=== PATIENT | female | born 1960 | race Caucasian/White ===

== ENCOUNTER 2017-12-14 02:24 | Outpatient (CLI) | payer MEDICAID, SELFPAY ==
--- NOTE | 2017-12-14 07:47 | DI.US_ITS ---
SYMPTOM/DIAGNOSIS; CIRRHOSIS OF LIVER, K74.06, SCREENING ABDOMEN ULTRASOUND: Routine examination was performed. Comparison ultrasound is 12/29/16. Comparison CT scan is 12/15/16. The aorta and IVC are unremarkable. The liver shows diffuse increased echogenicity consistent with fatty infiltration. There does appear to be a mildly lobulated contour of the liver suggesting hepatic cirrhosis. No hepatic mass is seen. There are mobile stones seen within the gallbladder. There also is gallbladder sludge. No gallbladder wall thickening or pericholecystic fluid is seen. The common duct again measures 1.3 cm. This is unchanged compared to 12/29/16. The pancreatic tail cannot be visualized. The remainder of the pancreas is unremarkable. The spleen is unremarkable. The kidneys are unremarkable except for a 1 cm. cyst in the upper pole of the left kidney. IMPRESSION: 1. Hepatic steatosis. Findings suggestive of hepatic cirrhosis. 2. Cholelithiasis. Stable 1.3 cm. common bile duct.
== END 2017-12-14 02:44 ==
PROVIDERS: PCP Family Medicine; Visit Provider Internal Medicine Gastroenterology
DX: K74.60 Unspecified cirrhosis of liver (principal); K76.0 Fatty (change of) liver, not elsewhere classified; K80.20 Calculus of gallbladder without cholecystitis without obstruction
CPT/HCPCS: 76700

== ENCOUNTER 2018-03-02 09:23 | Outpatient (REF) | payer MEDICAID, SELFPAY ==
[2018-03-03 17:18] LABS: Campylobacter PCR SEE COMMENTS; Salmonella PCR SEE COMMENTS; Shiga Toxin PCR SEE COMMENTS; Shigella/Enteroinvasive Ecoli SEE COMMENTS
== END 2018-03-02 09:43 ==
LOC: NCHCN 09:23
PROVIDERS: PCP Family Medicine; Visit Provider Family Medicine
DX: R14.0 Abdominal distension (gaseous) (principal); R19.7 Diarrhea, unspecified
CPT/HCPCS: 87505; 83630

== ENCOUNTER 2018-03-23 12:34 | Outpatient (REF) | payer MEDICAID, SELFPAY ==
[2018-03-23 21:36] LABS: ALT 35 U/L (12-78); AST 33 U/L (15-37); Albumin 3.6 g/dL (3.4-5.0); Alkaline Phosphatase 85 U/L (46-116); Anion Gap 6.7 mmol/L (3-11); BUN 7 mg/dL (7-18); Bilirubin, Total 0.3 mg/dL (0.2-1.0); C-Reactive Protein 0.99 mg/dL (0.0-0.3); CO2 32.3 mmol/L (21.0-32.0); CREATININE 0.82 mg/dL (0.55-1.02); Calcium 9.3 mg/dL (8.5-10.1); Chloride 101 mmol/L (98-107); Creatine Kinase 79 U/L (26-192); Glucose 136 mg/dL (70-100); Potassium 4.3 mmol/L (3.5-5.1); Sodium 140 mmol/L (136-145); Total Protein 7.3 g/dL (6.4-8.2)
[2018-03-23 21:53] LABS: HGB 12.9 g/dL (12.0-15.5); Mean Corp. HGB Concentration 33.1 g/dL (32.0-36.0); Mean Corpuscular Hemoglobin 29.5 pg (27.0-33.0); Mean Platelet Volume 10.9 fL (8.0-11.0); Platelet Count 180 x1000/uL (130-400); RBC 4.38 m/cumm (4.00-5.20); RBC Distribution Width 12.4 % (11.7-14.6); White Blood Cell Count 7.36 k/cumm (4.4-10.8)
[2018-03-23 22:36] LABS: ESR 26 MM/HR (0-30)
[2018-03-27 14:55] LABS: IgA 270 mg/dL (85-499); Interpretation SEE COMMENTS; Tissue Transglutaminase IgA <1.2 U/mL (<4.0)
== END 2018-03-23 12:54 ==
LOC: NCHCN 12:34
PROVIDERS: PCP Family Medicine; Visit Provider Family Medicine
DX: R14.0 Abdominal distension (gaseous) (principal); R19.7 Diarrhea, unspecified; M79.18 Myalgia, other site; E78.5 Hyperlipidemia, unspecified
CPT/HCPCS: 80053; 82550; 82784; 83516; 85027; 85652; 86140

== ENCOUNTER 2018-05-16 14:46 | Outpatient (REF) | payer MEDICAID, SELFPAY | END 2018-05-16 15:06 | LOC: NCHCN 14:46 | PROVIDERS: PCP Family Medicine; Visit Provider Family Medicine | DX: R32 Unspecified urinary incontinence (principal) | CPT/HCPCS: 87086 ==

== ENCOUNTER 2018-05-24 01:32 | Outpatient (CLI) | payer MEDICAID, SELFPAY ==
--- NOTE | 2018-05-24 10:00 | DIABASSESS_ITS ---
DESCRIPTION/ASSESSMENT: Reena Spann presents for diabetes self management with diabetes first seen 2010. She is here because her PCP wants her to start mealtime insulin correction and she is reluctant. Food - Reena eats well 3 meals a day of cereal milk, fruit or hot cereal or egg sandwich. Lunch is chicken or egg salad or soup. She sometimes skips lunch. Supper is meat, vegetable, starch. She occasionally gives in and has 1/2 pint ice cream or a snack cake in the evening. She has some barriers to preparing meals because her kitchen is so small. Physical Activity - likes to walk but not with this weather and street conditions. Medication - Lantus 20u AM and PM (medication list states 60u AM and PM); d/c Metformin. She has Rx for novolog correction starting with 1 unit for 150- 200mg/dl, etc. Monitoring -monitors 1-3 times a day. Fasting blood sugar 159-268; PM blood sugar 273-391mg/dl. Risks/Related health history - multiple co-morbidities self reported cirrhosis now stable; bladder prolapse, swelling from poor blood flow, now needing a stress test. States her BP is well controlled. Coping - Reports high stress with her mother dying, winter and difficulty getting around; dislikes her living situation and looking for place out of town away from needles and temptations and where she can have a garden. She reports good coping skills of deep breathing, visualization. INTERVENTION: DSME is provided in the following AADE 7 areas based on patients interest and assessment of needs: Food Guidelines - reviewed diabetes food guide focused on distribution of carbohydrate; lower glycemic choices. Physical Activity - she is encouraged to be active at home however she is on the 2nd floor and needs to be quiet, has breathing issues especially walking outside; she does do her stairs daily with groceries, laundry, etc. SHe is waiting for spring to get outside. Medication - interested in dosing insulin for meals but doesn't feel her scale would be that helpful. Monitoring - discussed CGM; she is not currently a candidate because she is not on multiple insulin dosing at this time. Discussed monitoring before meal and bedtime to get better feel for what is causing her hyperglycemia. Reena is engaged in the conversation and motivated to improve her diabetes management. ACTION PLAN: Reena will document her food, blood sugars 5 days and return Tuesday for assessment of results to look at Novolog dosing if needed. Consider Artur Crespo for vegetable access; food shelf on [address] Individual DSME/T __2__ units billed TIME IN: 1000 OUT: 1105 No DM group education series being offered at this time.
== END 2018-05-24 01:52 ==
PROVIDERS: PCP Family Medicine; Visit Provider Dietitian, Registered
DX: E11.9 Type 2 diabetes mellitus without complications (principal); Z79.4 Long term (current) use of insulin; Z71.3 Dietary counseling and surveillance
CPT/HCPCS: G0108

== ENCOUNTER 2018-05-27 00:06 | Outpatient (CLI) | payer MEDICAID, SELFPAY ==
[2018-05-27 11:23] LABS: Uric Acid 5.1 mg/dL (2.6-6.0)
== END 2018-05-27 00:26 ==
PROVIDERS: PCP Family Medicine; Visit Provider Family Medicine
DX: M79.676 Pain in unspecified toe(s) (principal)
CPT/HCPCS: 36415; 84550

== ENCOUNTER 2018-06-01 13:40 | Outpatient (CLI) | payer MEDICAID, SELFPAY ==
--- NOTE | 2018-06-07 09:20 | DIABASSESS_ITS ---
DESCRIPTION/ASSESSMENT: Darío presents for diabetes self management follow- up. SHe brings in a one week record of her blood sugar and food. Blood sugars fasting 98-270mg/dl; pre-supper 166-370mg/dl. She is eating cereal, milk, banana and sugar, or 1 egg, toast, juice. Lunch and supper are 45-75 grams carbohydrate most meals. She has something sweet most days. She records few vegetables. INTERVENTION: Based on Sadie's interests and assessment of need, we discussed: Food: We made lists of alternative meal suggestions to decrease carbohydrate intake. Discussed adding protein with carbohydrate at every meal. Medication: Discussed adding the Novolog correction dose as prescribed. Explained this was just to correct high blood sugar, not to cover carbohydrate. explained action of medication. Reviewed administration timing. Monitoring: She can have blood sugar correction overnight. She agrees to monitor her blood sugars in the night at least twice to see what might cause hyperglycemia. Discussed continuous glucose monitor coverage since she is not currently taking mealtime insulin consistently. Informed her that when she is taking mealtime insulin and adjusting for each meal, and her blood sugars are highly variable, she may be eligible for coverage for CGM. ACTION PLAN: Sadie will take insulin correction at the time she sits down to her meal add protein and vegetables to meals test blood sugar when she gets up in the night at least twice We will be in touch early next week to review her results. Individual DSME/T __1__ units billed TIME IN: 1000 OUT: 1040 No DM group education series being offered at this time.
== END 2018-06-01 14:00 ==
PROVIDERS: PCP Family Medicine; Visit Provider Dietitian, Registered
DX: E11.9 Type 2 diabetes mellitus without complications (principal); Z79.4 Long term (current) use of insulin; Z71.3 Dietary counseling and surveillance
CPT/HCPCS: G0108

== ENCOUNTER 2018-06-08 12:25 | Outpatient (REF) | payer MEDICAID, SELFPAY ==
--- NOTE | 2018-06-08 10:00 | PAPFT_PTH ---
PATIENT: Sadie Spann LOC: [facility] U#:[id number] AGE/SX: 57/F ROOM: RE06/08/[address]: Miguelina Sosa MD : [id number] BED: DIS: 06/08/2018 SPEC #: [id number] RECD: 06/08/18 13:13 STATUS: KAROLINA REQ #: [id number] CRISELDA: 06/08/18 10:[address]: Miguelina Sosa DEPT: [facility] Cytology RECD BY: Rachel Mejía ENTERED: 06/08/18 13:13 SP TYPE: PAPFT OTHR DR: Minda Velasco V Tissues: 1 - CX/ENDOCX FOR PAP SMEARS Procedures: PAP THIN PREP/UVM Screening HPV DNA PROBE Comments: [id number]
== END 2018-06-08 12:45 ==
LOC: LBN 12:25
PROVIDERS: PCP Family Medicine; Visit Provider Obstetrics & Gynecology
DX: Z12.4 Encounter for screening for malignant neoplasm of cervix (principal); Z11.51 Encounter for screening for human papillomavirus (HPV)
CPT/HCPCS: 88142; 87624

== ENCOUNTER 2018-06-14 02:18 | Outpatient (CLI) | payer MEDICAID, SELFPAY ==
--- NOTE | 2018-06-14 10:30 | DIABASSESS_ITS ---
DESCRIPTION/ASSESSMENT: Sadie presents for diabetes self management follow up with her food/blood sugar log to follow up initiation of Novolog. She is taking 1 unit for food and sensitive insulin correction initiated at her PCP office at breakfast and supper. She takes 20u Lantus at night. Fasting blood sugar 128-225 with most less than 160mg/dl; pre-supper 226- 321mg/dl. She is eating varying amounts of carbohydrate at each meal from 1-4 at breakfast; 2-4 at lunch; 1-2 at supper. INTERVENTION: Discussed her blood sugar results. Knowing it increases as the day progresses is an indication she needs and intensification of insulin for carbohydrate. Suggest 1 unit for each serving. Reviewed carbohydrate identification and counting and she voices some confidence in doing this. SHe agrees that taking more insulin with meals is warranted. She is also willing to test at lunch and dose at that time. She also knows if she does not test her blood sugar, she can always dose Novolog to cover her carbohydrate. She will take insulin if she needs correction and/or if she has more than 1 carbohydrate serving at the meal. She will not take insulin if her need is only 1 unit. Discussed impact of more insulin during the day on her basal insulin needs. At this time her basal insulin is likely correcting her blood sugar overnight. She agrees to test her blood sugar before bed and and decrease her Lantus to 18 units if blood sugar is less than 160mg/dl. Sadie is actively engaged in improving her A1c which she reports was at 10 yesterday. ACTION PLAN: Take 1 unit for each carbohydrate serving plus sensitive insulin correction using her scale Take 20 units Lantus unless bedtime blood sugar is less than 160mg/dl. We will follow up by telephone Tuesday. Individual DSME/T __1__ units billed TIME IN: 1030 OUT: 1115 No DM group education series being offered at this time.
== END 2018-06-14 02:38 ==
PROVIDERS: PCP Family Medicine; Visit Provider Dietitian, Registered
DX: E11.9 Type 2 diabetes mellitus without complications (principal); Z79.4 Long term (current) use of insulin; Z71.3 Dietary counseling and surveillance
CPT/HCPCS: G0108

== ENCOUNTER 2018-06-22 01:06 | Outpatient (CLI) | payer MEDICAID, SELFPAY ==
--- NOTE | 2018-06-22 11:37 | DI.MAMMO_ITS ---
SYMPTOMS/DIAGNOSIS: SCREENING, Z12.31, [facility], Z00.00 MAMMOGRAM: Mammograms were interpreted according to the usual protocol including computer analysis with CAD system, tomosynthesis and C view imaging. The breast tissue is of moderate radiodensity. There is no mass. There are no suspicious calcifications and there has been no significant interval change when compared with the prior images. SUMMARY: No evidence of malignancy, Category I, yearly screening mammography is recommended. Breast density Category B. SA ASSESSMENT OF FINDINGS: Negative. Category 1. Patient will receive a letter notifying them of these results. BI-RADS category B. There are scattered areas of fibroglandular density.
== END 2018-06-22 01:26 ==
PROVIDERS: PCP Family Medicine; Visit Provider Obstetrics & Gynecology
DX: Z12.31 Encounter for screening mammogram for malignant neoplasm of breast (principal); Z00.00 Encounter for general adult medical examination without abnormal findings
CPT/HCPCS: 77063; 77067

== ENCOUNTER 2018-06-22 01:49 | Outpatient (CLI) | payer MEDICAID, SELFPAY ==
--- NOTE | 2018-06-27 12:03 | DIABASSESS_ITS ---
DESCRIPTION:? Sadie Spann presents for diabetes self management follow-up. She presents with her blood sugar/insulin/food log.? She takes 20u Lantus in addition to mealtime insulin at 1 unit per carb serving and her correction scale of 1 unit corrects 50mg/dl beginning at 150mg/dl. Fasting blood sugars 135-169 and bedtime blood sugars 126-281, 4/5 over 207mg/dl. She does not consistently take her mealtime blood sugars before she eats but takes them after she eats.At that time blood sugar 249-315.?? ASSESSMENT/INTERVENTION: Reviewed carbohydrate counting and she is doing very well counting carbs and dosing her insulin for carbohydrate.?? Given her high blood sugars in evening, suggest increase in correction insulin starting at 140mg/dl increasing 1 unit every 40mg.dl in addition to her insulin for carbohydrate at 1 unit covers 15 grams. Discussed monitoring blood sugars before meals and dosing insulin at that time. ?? PLAN: She wishes to use her new insulin scale and document so blood sugars and insulin dosing is clearer on the tracking sheet. She will follow-up by telephone and return as needed Individual DSME/T __1__ units billed TIME IN: 1030 OUT: 1115 No DM group education series being offered at this time.
== END 2018-06-22 02:09 ==
PROVIDERS: PCP Family Medicine; Visit Provider Dietitian, Registered
DX: E11.9 Type 2 diabetes mellitus without complications (principal); Z79.4 Long term (current) use of insulin; Z71.3 Dietary counseling and surveillance
CPT/HCPCS: G0108

== ENCOUNTER 2018-06-26 06:05 | Emergency (ER) | payer MEDICAID, SELFPAY ==
[2018-06-26 06:10] VITALS: BP 110/77; PULSE 91; RESP 16; TEMP 37; O2SAT 98
[2018-06-26 06:31] LABS: Bilirubin Negative (Negative); Blood Large (Negative); Clarity Cloudy; Glucose Negative (Negative); Ketones 15 mg/dL (Negative); Leukocyte Esterase Moderate (Negative); Nitrite Positive (Negative); Specific Gravity 1.025 (1.005-1.025); Urobilinogen 0.2 EU/dL (Up TO 0.2)
[2018-06-26 06:41] LABS: C & S Indicated? Yes
[2018-06-26 06:42] LABS: WBC >50 HPF (0-5)
--- NOTE | 2018-06-26 06:50 | ED.GENADUL_ITS ---
Discharge Plan Disposition Patient Disposition: HOME Condition: Good Discharge Details Chief Complaint: Urinary Clinical Impression: Acute UTI Primary Care Provider: Minda Velasco V ED Provider: Fan Woodall Home Meds and New Rx's Prescriptions: New sulfamethoxazole-trimethoprim [Bactrim DS] 800-160 mg tablet 1 tab PO BID 7 Days Qty: 14 RF: 0 ondansetron HCl [Zofran] 4 mg tablet 4 mg PO BID-TID PRN (Reason: nausea and vomiting) Qty: 4 RF: 0 No Action ranitidine HCl [Zantac] 150 mg tablet 150 mg PO DAILY RF: 0 Lantus Solostar U-100 Insulin 100 unit/mL (3 mL) insulin pen 25 unit SC HS RF: 0 methadone 10 MG tablet 90 mg PO DAILY RF: 0 gabapentin 400 MG capsule 400 mg PO DAILY RF: 0 aspirin [Aspir-81] 81 MG tablet,delayed release (DR/EC) 81 mg PO DAILY RF: 0 magnesium oxide 400 MG tablet 400 mg PO DAILY RF: 0 docusate sodium [Doc-Q-Lace] 100 MG capsule 100 mg PO DAILY RF: 0 methadone 5 MG/5 ML solution 127 mg PO DAILY RF: 0 calcium carbonate-vitamin D3 [Calcium 500 + D] 1 EACH tablet 1 ea PO DAILY RF: 0 ferrous sulfate 324 MG tablet,delayed release (DR/EC) 324 mg PO TID RF: 0 omega-3 fatty acids-fish oil 1 EACH capsule 1 ea PO DAILY RF: 0 Apidra SoloStar U-100 Insulin 100 UNIT/1 ML insulin pen 14 unit SQ DAILY RF: 0 estradiol [Estrace] 42.5 GM cream 1 g VG 2x/wk Qty: 1 RF: 3 B Complex 1 EACH tablet extended release 1 ea PO DAILY RF: 0 simvastatin 10 MG tablet 10 mg PO DAILY RF: 0 pantoprazole [Protonix] 40 MG tablet,delayed release (DR/EC) 40 mg PO DAILY RF: 0 albuterol sulfate 8.5 GM HFA aerosol inhaler 2 puff Inhalation Q4H PRN RF: 0 cyclobenzaprine 10 MG tablet 10 mg PO HS Qty: 30 RF: 6 Discharge Instructions Instructions: Urinary Tract Infection in Women (ED) Additional Instructions: Please take the antibiotic as directed. Please take the Zofran only as needed for nausea. If you notice any worsening of your symptoms, or any new symptoms such as vomiting, diarrhea, fever, chills, shortness of breath, chest pain, numbness, weakness, or fainting , please return immediately to the emergency department for reevaluation. Please follow up with your primary care provider as soon as possible for reassessment and reevaluation. As always, it was a pleasure participating in your medical care today. Referrals: Midna Velasco MD [Primary Care Provider] - Medical Decision Making This is a 57-year-old female who presents today for evaluation of dysuria, increased urinary frequency for the last 2 weeks. She has been to her PCP and [facility] and states that she was told that her previous urinalyses were negative for infection. She presents for the continued symptoms. She denies any fever. She did have some mild vomiting earlier but this is improved and she has been eating and drinking well now. Urinalysis is notably positive for urinary tract infection. We will give Bactrim, and a dose of Zofran for control of her mild nausea. I have extensively reviewed the treatment plan and discharge instructions with the patient. I have addressed all patient concerns at this time. The patient was made aware of what symptoms to monitor for that would warrant a return to the emergency department. Discussed the plan with the patient, they demonstrate verbal understanding and agreement with our assessment and plan at this time. HPI General Date/Time Provider Initiated Documentation: 06/26/18 06:07 . [facility] Narrative: This is a 57-year-old female with a past medical history of chronic back pain, methadone use, who presents today for burning and increased urinary frequency over the last 1-2 weeks. She denies any fever or chills. She did have a few episodes of vomiting earlier but this is improved. She did see her PCP and [facility], both times she states that she was told that her urinalysis was negative. She presents today for the same symptoms. She denies any hematuria, history of kidney stones, fever, chills, abdominal pain or severe flank pain. She has no other complaints or modifying factors. Related Data Home Medications Medication Instructions Recorded Confirmed aspirin [Aspir 81] 81 mg PO DAILY tab-cap 04/10/13 06/26/18 calcium carbonate-vitamin D3 1 ea PO DAILY 04/10/13 06/26/18 [Calcium 500 + D Tablet] docusate sodium [Doc-Q-Lace] 100 mg PO DAILY tab-cap 04/10/13 06/26/18 estradiol [Estrace] 1 g VG 2x/wk #1 tube 04/10/13 06/26/18 ferrous sulfate 324 mg PO TID 04/10/13 06/26/18 gabapentin 400 mg PO DAILY 04/10/13 06/26/18 insulin glulisine U-100 [Apidra 14 unit SQ DAILY 04/10/13 06/26/18 Solostar] magnesium oxide 400 mg PO DAILY 04/10/13 06/26/18 methadone 90 mg PO DAILY 04/10/13 06/26/18 methadone 127 mg PO DAILY 04/10/13 06/26/18 omega-3 fatty acids-fish oil 1 ea PO DAILY 04/10/13 06/26/18 albuterol sulfate 2 puff INHALATION Q4H PRN inhaler 11/05/14 06/26/18 pantoprazole [Protonix] 40 mg PO DAILY tab-cap 11/05/14 06/26/18 simvastatin 10 mg PO DAILY tab-cap 11/05/14 06/26/18 vitamin B complex [B Complex] 1 ea PO DAILY 11/05/14 06/26/18 cyclobenzaprine 10 mg PO HS #30 tab-cap 12/26/14 06/26/18 insulin glargine (U-100) 100 25 unit SC HS ml 05/17/18 06/26/18 unit/mL (3 mL) subcutaneous pen ranitidine 150 mg tablet 150 mg PO DAILY 06/08/18 06/26/18 ondansetron HCl [Zofran] 4 mg PO BID-TID PRN #4 tab 06/26/18 sulfamethoxazole-trimethoprim 1 tab PO BID 7 Days #14 tab 06/26/18 [Bactrim DS] Previous Rx's Medication Instructions Recorded ondansetron HCl [Zofran] 4 mg PO BID-TID PRN #4 tab 06/26/18 sulfamethoxazole-trimethoprim 1 tab PO BID 7 Days #14 tab 06/26/18 [Bactrim DS] Allergies Allergy/AdvReac Type Severity Reaction Status Date / Time fluoxetine [From Prozac] Allergy Severe Verified 06/26/18 06:16 lisinopril Allergy Intermediate Verified 06/26/18 06:16 alprazolam [From Xanax] Allergy Unknown Unverified 06/26/18 06:16 amitriptyline HCl Allergy Unknown Unverified 06/26/18 06:16 [From Elavil] Antihistamines - Alkylamine Allergy Unknown ANTIHISTAMINE Unverified 06/26/18 06:16 ALLERGIC TO UNSPECIFIED buspirone HCl [From BuSpar] Allergy Unknown Unverified 06/26/18 06:16 butorphanol tartrate Allergy Unknown Unverified 06/26/18 06:16 [From Stadol] cyclobenzaprine HCl Allergy Unknown Unverified 06/26/18 06:16 [From Flexeril] diazepam [From Valium] Allergy Unknown Unverified 06/26/18 06:16 ibuprofen [From Motrin] Allergy Unknown Unverified 06/26/18 06:16 nabumetone [From Relafen] Allergy Unknown Unverified 06/26/18 06:16 oxaprozin [From Daypro] Allergy Unknown Unverified 06/26/18 06:16 oxazepam [From Serax] Allergy Unknown Unverified 06/26/18 06:16 paroxetine HCl [From Paxil] Allergy Unknown Unverified 06/26/18 06:16 phenytoin sodium Allergy Unknown Unverified 06/26/18 06:16 [From Dilantin] phenytoin sodium extended Allergy Unknown Unverified 06/26/18 06:16 [From Dilantin] sertraline HCl [From Zoloft] Allergy Unknown Unverified 06/26/18 06:16 tramadol HCl [From Ultram] Allergy Unknown Unverified 06/26/18 06:16 nortriptyline HCl Allergy Unverified 06/26/18 06:16 [From Pamelor] General Stated Complaint: Urinary NICOLE: 3 Review of Systems Review of Systems All systems reviewed & are unremarkable except as noted in HPI and below PFSH Medical History Abdominal bloating (Acute) Cervicalgia (Acute) Chest pain (Acute) Cirrhosis (Acute) Controlled diabetes mellitus type II without complication (Acute) Diarrhea (Acute) Edema (Acute) Fatigue (Acute) HSV (herpes simplex virus) infection (Acute) Heroin abuse (Acute) Herpes, genital (Acute) History of syncope (Acute) Hyperlipemia (Acute) Kidney cyst, acquired (Acute) Low back pain (Acute) Lung nodule (Acute) Memory loss (Acute) Myalgia (Acute) Portal hypertensive gastropathy (Acute) Rectal bleed (Acute) Skin lesion (Acute) Smoker (Acute) Thickened endometrium (Acute) Urinary bladder incontinence (Acute) Uterine fibroid (Acute) Vascular disease of the skin (Acute) Anxiety (Chronic) COPD (chronic obstructive pulmonary disease) (Chronic) Chronic hepatitis C without hepatic coma (Chronic) Chronic pain (Chronic) Social History Smoking/Tobacco Use Status: Current every day Alcohol Intake: never Drug use: Never Substance use type: does not use Do you feel safe at home: Yes Do you feel safe in your relationship?: Yes Exam Narrative Exam Narrative: 1.Const: Well-nourished, Well-developed, appearing stated age 2.Eyes: PERRL, no conjunctival injection, and symmetrical lids. 3.ENT: Atraumatic external nose and ears. Moist MM. Neck: Symmetric, trachea m idline, No thyromegaly. 4.CVS: +S1/S2, No murmurs or gallops. Peripheral pulses 2+ and equal in all extremities. Brisk capillary refill in all extremities. 5.RESP: Unlabored respiratory effort. Clear to auscultation bilaterally. No wheezes rales or rhonchi 6.GI: Soft, Nontender/Nondistended, No hepatosplenomegaly. No guarding or rebound. No significant flank or CVA tenderness. Mild left paraspinal tenderness no midline spinal tenderness. 7.MSK: Normocephalic/Atraumatic, Extremities w/o deformity or ttp No cyanosis or clubbing, Normal movement of all extremities 8.Skin: Warm, Dry. No rashes or lesions. 9.Neuro: shift manager II-XII grossly intact. Sensation grossly intact, no focal neurologic deficits. 10.Psych: (AAO) x3. Appropriate mood and affect Course Vital Signs Temperature 37.0 C 06/26/18 06:10 Pulse 91 H 06/26/18 06:10 Respiratory Rate 16 06/26/18 06:10 Blood Pressure 110/77 06/26/18 06:10 Pulse Oximetry 98 06/26/18 06:10 Temperature 37.0 C 06/26/18 06:10 Temperature Source Temporal Artery Scan 06/26/18 06:10 Pulse 91 H 06/26/18 06:10 Respiratory Rate 16 06/26/18 06:10 Respiratory Effort Non-Labored 06/26/18 06:14 Blood Pressure 110/77 06/26/18 06:10 Blood Pressure Position Sitting 06/26/18 06:10 Pulse Oximetry 98 06/26/18 06:10 Oxygen Delivery Method Room Air 06/26/18 06:10 Oxygen Flow Rate 0 06/26/18 06:10 Pain Level 4 06/26/18 06:14 Lab/Test Results Lab/Test Results: 06/26/18 06:22 Urine - Reflex from Ua Urine Culture - Pending Laboratory Tests Range/Units 06/26/18 06:22 Urine Color (Yellow) Yellow Urine Clarity Cloudy Urine pH (5-8) 6.0 Ur Specific [place] (1.005-1.025) 1.025 Urine Protein (Negative) mg/dL 100 H Urine Ketones (Negative) mg/dL 15 H Urine Blood (Negative) Large H Urine Nitrite (Negative) Positive H Urine Bilirubin (Negative) Negative Urine Urobilinogen (Up TO 0.2) EU/dL 0.2 Ur Leukocyte Esterase (Negative) Moderate H Urine RBC Not Applicable Urine WBC (0-5) HPF >50 Ur Epithelial Cells Not Applicable Urine Crystals Not Applicable Urine Bacteria Not Applicable Urine Mucus Not Applicable Ur Culture Indicated? Yes Urine Glucose (Negative) mg/dL Negative
[2018-06-26] MEDS: Ondansetron O.D.T. 4 MG TABEF PO (07:01)
[2018-06-26 07:02] VITALS: BP 110/77; PULSE 91; RESP 16; TEMP 37; O2SAT 98
[2018-06-26] MEDS: Sulfameth/Trimeth DS TAB 1 TAB PO (07:02)
== END 2018-06-26 07:03 | disposition home or self-care (01) ==
PROVIDERS: Emergency Provider Student in an Organized Health Care Education/Training Program; PCP Family Medicine
DX: N39.0 Urinary tract infection, site not specified (principal)
CPT/HCPCS: 87077; 99283; 81003; 81015; 87086; 87186

== ENCOUNTER 2018-11-28 11:26 | Outpatient (REF) | payer MEDICAID, SELFPAY ==
[2018-11-28 22:22] LABS: HCT 39.8 % (36.0-46.0); HGB 12.7 g/dL (12.0-15.5); Mean Corp. HGB Concentration 31.9 g/dL (32.0-36.0); Mean Corpuscular Hemoglobin 29.1 pg (27.0-33.0); Mean Corpuscular Volume 91.1 fL (80-95); Mean Platelet Volume 11.1 fL (8.0-11.0); Platelet Count 199 x1000/uL (130-400); RBC 4.37 m/cumm (4.00-5.20); RBC Distribution Width 12.5 % (11.7-14.6); White Blood Cell Count 6.81 k/cumm (4.4-10.8)
[2018-11-28 23:51] LABS: ALT 24 U/L (14-59); AST 20 U/L (15-37); Albumin 3.7 g/dL (3.4-5.0); Alkaline Phosphatase 89 U/L (46-116); Anion Gap 9.3 mmol/L (3-11); BUN 11 mg/dL (7-18); Bilirubin, Total 0.3 mg/dL (0.2-1.0); CO2 28.7 mmol/L (21.0-32.0); CREATININE 0.92 mg/dL (0.55-1.02); Calcium 8.8 mg/dL (8.5-10.1); Chloride 101 mmol/L (98-107); Glucose 269 mg/dL (70-100); Magnesium 2.1 mg/dL (1.8-2.4); Potassium 4.6 mmol/L (3.5-5.1); Sodium 139 mmol/L (136-145); TSH (W/Ref FT4) 1.12 uIU/mL (0.36-3.74); Total Protein 7.3 g/dL (6.4-8.2); Vitamin B12 542 pg/mL (193-986)
[2018-11-30 13:11] LABS: HCV RNA Detection Quantitative Undetected IU/mL (UNDECT)
[2018-12-01 08:11] LABS: AFP Tumor Marker <2.5 ng/mL (<8.1)
== END 2018-11-28 11:46 ==
LOC: NCHCN 11:26
PROVIDERS: PCP Family Medicine; Visit Provider Family Medicine
DX: R53.83 Other fatigue (principal); B18.2 Chronic viral hepatitis C; G89.29 Other chronic pain; J44.9 Chronic obstructive pulmonary disease, unspecified; G62.9 Polyneuropathy, unspecified
CPT/HCPCS: 80053; 85027; 82105; 82607; 83735; 84443; 87522

== ENCOUNTER 2020-02-12 13:37 | Outpatient (REF) | payer MEDICAID, SELFPAY ==
[2020-02-17 15:02] LABS: Patient Race White; SARS-CoV-2 RNA Undetected (Undetected); SARS-CoV-2 Specimen Source Nasal
== END 2020-02-12 13:57 ==
LOC: NCHCN 13:37
PROVIDERS: PCP Family Medicine; Visit Provider Family Medicine
DX: R19.7 Diarrhea, unspecified (principal)
CPT/HCPCS: U0003

== ENCOUNTER 2020-06-12 15:38 | Outpatient (REF) | payer MEDICAID, SELFPAY ==
[2020-06-12 18:40] LABS: HCT 39.5 % (36.0-46.0); HGB 12.8 g/dL (11.2-15.7); MCH 29.6 pg (27.0-33.0); MCHC 32.4 % (32.0-36.0); MCV 91.2 fL (80-95); MPV 10.7 fL (8.0-11.0); Platelet Count 197 10^3/uL (130-400); RBC 4.33 10^6/uL (3.93-5.22); RDW 12.1 % (11.7-14.6); RDW-SD 40.8 fL; WBC 8.07 10^3/uL (4.4-10.8)
[2020-06-12 18:59] LABS: ALT 26 U/L (14-59); AST 20 U/L (15-37); Albumin 3.9 g/dL (3.4-5.0); Alkaline Phosphatase 88 U/L (46-116); Anion Gap 5.1 mmol/L (3-11); BUN 13 mg/dL (7-18); Bilirubin, Total 0.3 mg/dL (0.2-1.0); C-Reactive Protein 0.48 mg/dL (0.0-0.3); CO2 33.9 mmol/L (21.0-32.0); CREATININE 0.9 mg/dL (0.55-1.02); Calcium 9.1 mg/dL (8.5-10.1); Chloride 102 mmol/L (98-107); Glucose 165 mg/dL (74-106); Sodium 141 mmol/L (136-145); TSH (W/Ref FT4) 1.13 uIU/mL (0.36-3.74); Total Protein 7.7 g/dL (6.4-8.2)
[2020-06-13 02:56] LABS: ESR 24 mm/hr (<or=30)
== END 2020-06-12 15:39 | disposition home or self-care (01) ==
LOC: NCHCN 15:38
PROVIDERS: PCP Family Medicine; Visit Provider Family Medicine
DX: R53.83 Other fatigue (principal); R51.9 Headache, unspecified; M79.18 Myalgia, other site
CPT/HCPCS: 80053; 85027; 85652; 84443; 86140

== ENCOUNTER 2020-12-23 19:37 | Outpatient (REF) | payer MEDICAID, SELFPAY | END 2020-12-23 19:38 | disposition home or self-care (01) | LOC: NCHCN 19:37 | PROVIDERS: PCP Family Medicine; Referring Provider Family Medicine; Visit Provider Family Medicine | DX: R30.0 Dysuria (principal); N81.4 Uterovaginal prolapse, unspecified | CPT/HCPCS: 87077; 87086; 87186 ==

== ENCOUNTER 2021-03-17 13:29 | Outpatient (REF) | payer MEDICAID, SELFPAY | END 2021-03-17 13:30 | disposition home or self-care (01) | LOC: NCHCN 13:29 | PROVIDERS: PCP Family Medicine; Visit Provider Family Medicine | DX: R30.0 Dysuria (principal) | CPT/HCPCS: 87086 ==

== ENCOUNTER 2021-04-14 14:27 | Outpatient (REF) | payer MEDICAID, SELFPAY ==
[2021-04-14 16:15] LABS: C & S Indicated? C&S Done As Ordered
[2021-04-14 16:17] LABS: Bacteria Negative HPF (Negative); Casts Negative LPF (Negative); Crystals Negative HPF (Negative); Epithelial Cells Rare HPF (Negative); Mucus Negative (Negative); Other Cells Negative (Negative); RBC 0-2 HPF (0-2); WBC 0-2 HPF (0-5)
== END 2021-04-14 14:28 | disposition home or self-care (01) ==
LOC: NCHCN 14:27
PROVIDERS: PCP Family Medicine; Visit Provider Family Medicine
DX: N39.9 Disorder of urinary system, unspecified (principal); R30.0 Dysuria
CPT/HCPCS: 81015; 87086

== ENCOUNTER 2021-06-09 16:26 | Outpatient (REF) | payer MEDICAID, SELFPAY ==
[2021-06-09 19:58] LABS: ALT 15 U/L (14-59); AST 18 U/L (15-37); Albumin 3.9 g/dL (3.4-5.0); Alkaline Phosphatase 66 U/L (46-116); Anion Gap 7.7 mmol/L (3-11); BUN 19 mg/dL (7-18); Bilirubin, Total 0.3 mg/dL (0.2-1.0); CO2 30.3 mmol/L (21.0-32.0); CREATININE 0.9 mg/dL (0.55-1.02); Calcium 8.9 mg/dL (8.5-10.1); Chloride 100 mmol/L (98-107); Glucose 208 mg/dL (74-106); Potassium 4.2 mmol/L (3.5-5.1); Sodium 138 mmol/L (136-145); TSH (W/Ref FT4) 0.75 uIU/mL (0.36-3.74); Total Protein 7.2 g/dL (6.4-8.2)
== END 2021-06-09 16:27 | disposition home or self-care (01) ==
LOC: NCHCN 16:26
PROVIDERS: PCP Family Medicine; Visit Provider Family Medicine
DX: E11.9 Type 2 diabetes mellitus without complications (principal)
CPT/HCPCS: 80053; 84443

== ENCOUNTER 2021-06-16 00:26 | Outpatient (CLI) | payer MEDICAID, SELFPAY ==
--- NOTE | 2021-06-16 10:10 | DI.RAD_ITS ---
Exam(s) XR LUMBAR SPINE COMPLETE EXAM: XR LUMBAR SPINE COMPLETE CLINICAL HISTORY: ACUTE LOW BACK PAIN, M54.59. TECHNIQUE: 2D digital imaging was performed. COMPARISON: No exams were available for comparison FINDINGS: Moderate to severe narrowing at the L4-5 and L5-S1 disc spaces. Asymmetric disc space narrowing on t he right with endplate osteophytes causing mild levo rotoscoliosis. Facet degenerative changes are p resent, most prominent on the left side from L3-4 through L5-S1. Spurring is also noted at the sacro iliac joints. The hip joint spaces are well maintained. Aorta is calcified and normal in diameter. IMPRESSION: Degenerative disc changes and facet degenerative changes greatest at L4-5 and L5-S1. No evidence of fracture. DATA REPOSITORY: RADIATION DOSE DELIVERED:
== END 2021-06-16 00:46 ==
PROVIDERS: PCP Family Medicine; Visit Provider Family Medicine
DX: M54.59 Other low back pain (principal); M51.37 Other intervertebral disc degeneration, lumbosacral region; M47.817 Spondylosis without myelopathy or radiculopathy, lumbosacral region
CPT/HCPCS: 72110

== ENCOUNTER 2021-08-06 21:03 | Outpatient (REF) | payer MEDICAID, SELFPAY | END 2021-08-06 21:04 | disposition home or self-care (01) | LOC: NCHCN 21:03 | PROVIDERS: PCP Family Medicine; Visit Provider Family Medicine | DX: N39.9 Disorder of urinary system, unspecified (principal); N89.8 Other specified noninflammatory disorders of vagina | CPT/HCPCS: 87086; 87480; 87510; 87660 ==

== ENCOUNTER → 2021-08-07 01:29 | Outpatient (CLI) | payer MEDICAID, SELFPAY | PROVIDERS: PCP Family Medicine; Visit Provider Family Medicine ==

== ENCOUNTER → 2021-10-02 07:30 | Outpatient (CLI) | payer MEDICAID, SELFPAY ==
--- OUTSIDE RECORDS SUMMARY | 2021-10-02 07:44 | XMS_ITS | Clinical Summary ---
:1960 Author Organization [facility] Address [address] [place] [address] Care Team Providers Name Role Phone Minda Velasco MD Primary Care Provider Argelia Miranda MD Unavailable Allergies Active Allergy Reactions Severity Noted Date Comments Diphenhydramine Hcl 11/30/2017 Buspirone 11/30/2017 Butorphanol 11/30/2017 Oxaprozin 11/30/2017 Phenytoin Sodium Extended 11/30/2017 Elavil 11/30/2017 Cyclobenzaprine 11/30/2017 Lisinopril 11/30/2017 Ibuprofen 11/30/2017 Nortriptyline 11/30/2017 Paroxetine Hcl 11/30/2017 Fluoxetine 11/30/2017 Nabumetone 11/30/2017 Tramadol 11/30/2017 Diazepam 11/30/2017 Alprazolam 11/30/2017 Sertraline 11/30/2017 Medications Medication Sig Dispensed Refills Start Date End Date Status gabapentin (NEURONTIN) Take 400 mg by 0 Active 400 mg capsule mouth daily. insulin glargine Inject 18 mL into 0 Active (LANTUS) 100 unit/mL the skin at injection bedtime. docusate sodium Take 100 mg by 0 Active (DOC-Q-LACE) 100 mg mouth daily as capsule needed for Constipation. methadone (DOLOPHINE) Take 135 mg by 0 Active 10 mg/mL solution mouth daily. Fish Oil-Emerado-3 Fatty Take 100 mg by 0 Active Acids (FISH OIL) mouth daily. 360-1,200 mg Cap VITAMIN B COMPLEX (B Take 1 Tab by 0 Active COMPLEX 1 ORAL) mouth daily. levalbuterol (XOPENEX Inhale 1-2 Puffs 0 Active HFA) 45 mcg/Actuation as directed as inhaler needed for Wheezing. oxycodone (ROXICODONE) Take 10 mg by 0 Active 5 mg immediate release mouth every 6 tablet hours as needed. ferrous sulfate 325 mg Take 325 mg by 0 Active (65 mg iron) tablet mouth 3 times daily. metformin (GLUCOPHAGE) Take 500 mg by 0 Active 500 mg tablet mouth 2 times daily. methadone (DOLOPHINE) Take 90 mg by mouth daily . 0 Active 10 mg tablet magnesium oxide Take 400 mg by 0 Active (MAG-OX) 400 mg tablet mouth daily. CALCIUM CARBONATE Take by mouth 0 Active (OS-MARCIANO ORAL) daily. lisinopril (PRINIVIL, Take 2.5 mg by 0 Active ZESTRIL) 2.5 mg tablet mouth daily pantoprazole Take 40 mg by 0 Act wes (PROTONIX) 40 mg mouth daily tablet simvastatin (ZOCOR) 10 Take 10 mg by 0 Active mg tablet mouth daily aspirin 81 mg EC Take 81 mg by 0 Active tablet mouth daily nicotine (NICODERM CQ) Place 14 mg onto 0 Active 14 mg/24 hr patch the skin daily. MEDICAL MARIJUANA 0 Ac tive Sennosides (SENNA) 8.6 Take by mouth 0 Active mg capsule daily. estradiol (ESTRACE) Place vaginally 0 Active 0.01 % (0.1 mg/gram) daily. vaginal cream albuterol 90 Inhale 180 mcg as 0 Active mcg/actuation inhaler directed every 4 hours. calcium-vitamin D Take by mouth 0 Active (OSCAL-500) 500 daily. 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 Pain of lower extremity 04/14/2009 Overview: Left Right elbow pain 06/22/2007 Overview: Status post hyperextension injury Surgical History Surgery Date Site/Laterality Comments NECK SURGERY 1994 Medical History Medical History Date Comments Asthma 1989 Substance abuse (HCC-CMS) (HCC) 2001 Anxiety 1989 Diabetes mellitus ([facility]) 2005 GERD (gastroesophageal reflux disease) 2007 Spinal stenosis Hypertension Hyperlipidemia Arrhythmia Family History Medical History Relation Name Comments Crohn's Disease Brother Heart Disease Father High Blood Pressure Father Cancer Mother Diabetes Sister Liver Disease Son Mental Illness Son Relation Name Status Comments Brother Father Mother Alive Sister Son Son Social History Tobacco Use Types Packs/Day Years Used Date Current Every Day Smoker Cigarettes 1 30 Smokeless Tobacco: Never Used Alcohol Use Standard Drinks/Week Comments No 0 (1 standard drink = 0.6 oz pure alcoho l) Sex Assigned at Date Recorded Not on file Last Filed Vital Signs Vital Sign Reading Time Taken Comments Blood Pressure 144/78 11/30/2017 1501 EDT Pulse 72 11/30/2017 1501 EDT Temperature 35.9 ??C (96.6 ??F) 12/18/2012 1028 EDT Respiratory Rate 16 12/18/2012 1150 EDT Oxygen Saturation 98% 12/29/2011 0930 EDT Inhaled Oxygen Concentration - - Weight 68 kg (150 lb) 11/30/2017 1501 EDT Height 165.1 cm (5' 5) 11/30/2017 1501 EDT Body Mass Index 24.96 11/30/2017 1501 EDT Plan of Treatment Health Maintenance Due Date Last Done Comments Pneumococcal Immunization (1 of 2 - 1964 PPSV23) COVID-19 Vaccine (1) 1970 Hepatitis C Screen Completed 06/26/2014, 11/07/2013, 07/04/2013 Insurance Payer Benefit Plan Subscriber ID Effective Phone Address Typ e / Group Dates MEDICAID ACO MEDICAID ACO [id number] 2019-Pres [phone] [address] [place] [address] [facility] [id number] [address] [place] [address] Sadie Spann Personal/Family Self 1960 [address] [place] [address] Sadie Spann Personal/Family Self 1960 [address] [place] [address] Sadie Spann Personal/Family Self 1960 [address] [place] [address] Sadie Spann Personal/Family Self [address] [place] [address] Sadie Spann Personal/Family Self [address] [place] [address] Sadie Spann Personal/Family Self [address] [place] [address] Sadie Spann Personal/Family Self 1960 [address] [place] [address] Care Teams Bolt Sorter Relationship Specialty Start Date End Date Minda Velasco MD PCP - General 04/10/[address] [place] [id number] Argelia Miranda MD Primary Care Provider Orthopaedic Surgery 07/13/12
--- OUTSIDE RECORDS SUMMARY | 2021-10-02 07:44 | XMS_ITS | Encounter Summary ---
:1960 Author Organization [facility] Address [address] [place] [address] Care Team Providers Name Role Phone Minda Velasco MD Primary Care Provider Argelia Miranda MD Unavailable Encounter Details Date Type Department Care Team Description 12/02/2020 Lab Requisition [facility] Rip Dawn MD Rectocele; Pathology & [address] [facility] Uterovagina l prolapse, unspecified; Laboratory Medicine RD Cystocele, [place], [place] [address] [facility] [id number] [place] [id number] (Work) [phone] Social History Tobacco Use Types Packs/Day Years Used Date Current Every Day Smoker Cigarettes 1 30 Smokeless Tobacco: Never Used Alcohol Use Standard Drinks/Week Comments No 0 (1 standard drink = 0.6 oz pure alcoho l) Sex Assigned at Date Recorded Not on file documented as of this encounter Functional Status Functional Status Response Date of Assessment Because of a physical, mental, or emotional condition, Yes 01/01/2015 does this person have difficulty doing errands alone such as visiting a doctor's office or shopping? Cognitive Status Response Date of Assessment Because of a physical, mental, or emotional condition, Yes 01/01/2015 does this person have serious difficulty concentrating, remembering, or making decisions? documented as of this encounter Plan of Treatment Not on filedocumented as of this encounter Procedures Procedure Name Priority Date/Time Associated Diagnosis Comme [facility] SURGICAL PATHOLOGY Today 12/02/2020 8:10 EDT Rectocele Results for this Uterovaginal procedure are i n prolapse, the results unspecified section. Cystocele, midline documented in this encounter Results SURGICAL PATHOLOGY (12/02/2020 8:10 EDT) Note to Patient The following [facility] MEDICAL pathology results CENTER have been interpreted LABORATORY by your pathologist SERVICES and may be available to you before your health provider has had the opportunity to review them. Please allow time for your provider to receive these results and explore management options, if applicable. Final Diagnosis A. UTERUS AND CERVIX, HYSTERECTOMY: [facility] MEDICAL - Endometrium: CENTER - Inactive endometrium LABORATORY - Myometrium: SERVICES - Adenomyosis - Medial vascular calcifications - Cervix: - Squamous metaplasia with parakeratosis, suggestive of uterine prolapse - Serosa: - Fibrous adhesions Attestation There was significant [facility] MEDICAL Electr onically resident/fellow CENTER signed by Eliot lyles, involvement in the LABORATORY Dio Huggins MD on diagnostic evaluation SERVICES 12/06/19 21 at 0935 of this case. By the signature below, the attending physician certifies that they have personally conducted a gross and/or microscopic examination of the described specimens and rendered or confirmed the above diagnosis. Clinical History Rectocele, uterine [facility] MEDICAL prolapse, cystocele; CENTER clinical diagnosis LABORATORY code: N81.6, N81.4, SERVICES N81.11 Gross Description A. [facility] MEDICAL Received in formalin timmy d with proper patient identification (initials H, E) and uterus is an intact uterus and cervix (40 g, 7.6 cm cervix to fundus x 3.8 cm cornu to cornu x 2.4 cm anterior to posterior), without attached adnexa. CENTER LABORATORY The uterine serosa is tapia an d smooth. The endometrium is pale tapia with visible microcysts and has a thickness of 0.1 cm. The myometrium is pale tapia and finely trabecular in the half below the endometriu SERVICES m. The myometrium along the serosa is microcystic. The myometrium ranges from 0.9 cm to 1.3 cm in thickness. There are no nodules identified. The ectocervix is pale tapia and smooth, and the endocervix is pale tapia furrowed. Neurophysiologist sections are submitted as follows: BLOCK ALLRED A1-A2- anterior cervix and lower uterine segment A3-A4- anterior endomyometrium A5-A6- posterior cervix and lower uterine segment A7- posterior endomyometrium Margy Govea MD 12/03/2020 13:32 Resident/Fellow: Margy Govea MD [facility] Performing Lab [facility] Scanned Images [facility] Specimen Tissue - Specimen from uterus (specimen) Performing Organization Address City/State/ZIP Code Phon e Number [facility] [address] [place] [address] SERVICES documented in this encounter Visit Diagnoses Diagnosis Rectocele Uterovaginal prolapse, unspecified Cystocele, midline documented in this encounter Care Teams Orientation And Mobility Instructor Relationship Specialty Start Date End Date Minda Velasco MD PCP - General 04/10/09 [address] [place] [address] Argelia Miranda MD Primary Care Provider Orthopaedic Surgery 07/13/12 documented as of this encounter
--- OUTSIDE RECORDS SUMMARY | 2021-10-02 07:45 | XMS_ITS | Encounter Summary ---
:1960 Author Organization [facility] Address [address] [place] [address] Care Team Providers Name Role Phone Minda Velasco MD Primary Care Provider Argelia Miranda MD Unavailable Reason for Visit Reason Comments Other Encounter Details Date Type Department Care Team Description 09/27/2013 [facility] Jerald Alvarenga MD Other Gastroenterology - [id number] [place] [address], [place] [address] (Wo rk) Social History Tobacco Use Types Packs/Day Years Used Date Current Every Day Smoker 0.5 Smokeless Tobacco: Never Used Alcohol Use Standard Drinks/Week Comments No 0 (1 standard drink = 0.6 oz pure alcoho l) Sex Assigned at Date Recorded Not on file documented as of this encounter Plan of Treatment Not on filedocumented as of this encounter Visit Diagnoses Not on filedocumented in this encounter Care Teams Emg Technician Relationship Specialty Start Date End Date Minda Velasco MD PCP - General 04/10/09 [address] [place], [place] [id number] Argelia Miranda MD Primary Care Provider Orthopaedic Surgery 07/13/12 documented as of this encounter
--- OUTSIDE RECORDS SUMMARY | 2021-10-02 07:45 | XMS_ITS | Encounter Summary ---
:1960 Author Organization [facility] Address [address] [place] [address] Care Team Providers Name Role Phone Minda Velasco MD Primary Care Provider Argelia Miranda MD Unavailable Encounter Details Date Type Department Care Team Description 08/30/2012 Orders Only [facility] Argelia Miranda MD Abnormal MRI (Primary Spine Program - [address] Dx) [facility] [place] [facility] [address] [place] [address] [address] [place], [place] [phone] (Wo rk) Social History Tobacco Use Types Packs/Day Years Used Date Current Every Day Smoker 1 Smokeless Tobacco: Never Used Alcohol Use Standard Drinks/Week Comments No 0 (1 standard drink = 0.6 oz pure alcoho l) Sex Assigned at Date Recorded Not on file documented as of this encounter Plan of Treatment Not on filedocumented as of this encounter Procedures Procedure Name Priority Date/Time Associated Diagnosis Comme nts CT LUMBAR SPINE WO 09/08/2012 8:28 EDT Re sults for this CONTRAST procedure are i n the results section. documented in this encounter Results CT LUMBAR SPINE WO CONTRAST (09/08/2012 8:28 EDT) Anatomical Region Laterality Modality Other Specimen Narrative [facility] - 09/08/2012 11:[address] LUMBAR SPINE WITHOUT CONTRAST September 08, 2012 Indication: Abnormal MRI. Comparison: August 30, 2012 Technique: Axial noncontrast CT images of the lumba r spine were obtained with coronal and sagittal reformations. Findings: Lumbar levoscoliotic curvature is again demonstrated convex at L3. There is lateral slip of L4 on L5. No an tero- or retrolisthesis is demonstrated. Vertebral body heights are preserved. There is disc space narrowing at L4-L5 and L5-S1. Disc ogenic endplate change and vacuum disc phenomenon is also noted at the L5-S1 level. Facet hypertrophy is present at L4-L5 and L5-S 1. T11-T12: No high-grade central spinal or neuroforaminal stenosis is noted. T12-L1: No high-grade central spinal or neuroforaminal stenosis is noted. L1-L2: No high-grade central spinal or n euroforaminal stenosis is noted. L2-L3: No high-grade central spinal or n euroforaminal stenosis is noted. L3-L4: No high-grade central spinal or n euroforaminal stenosis is noted. L4-L5: There is global disc bulge which in combination with hypertrophy of the facet joints and thic kening of the ligamentum flavum produces moderate central spinal and bilateral lateral recess stenosis. There is mild to moderate bila teral neuroforaminal stenosis. L5-S1: There is global disc bulge with a left foraminal and lateral disc herniation. This in combination wit h facet hypertrophy and ligamentum flavum produces left greater than right neuroforaminal narrowing. There is moderate to severe l eft neuroforaminal stenosis. No fracture, lytic or sclerotic lesion i s appreciated within the L4 spinous process or the pedicles of L4 an d L5 on the right. There is a lipoma of the filum terminale demonstrated. Atherosclerotic calcification is present in the abdominal aorta and major branch vessels. Impression: 1. Lumbar levoscoliosis. 2. Lateral listhesis of L4 on L5. 3. Lumbar degenerative disc and degenera tive joint disease. 4. Left foraminal and lateral disc herni ation at L5-S1. 5. Central spinal and bilateral lateral recess stenosis at L4-L5 and bilateral lateral recess stenosis at L5- S1. 6. Bilateral neuroforaminal stenosis at L4-L5 and L5-S1. 7. No fracture, lytic or sclerotic lesio n appreciated within the L4 spinous process or the right L4 and L5 p edicles. The abnormal signal within the spinous process on recent MRI is of uncertain significance. I suspect the pedicle katelin a is related to severe facet degeneration at these levels. 8. Lipoma of the filum terminale. 9. Atherosclerosis. Procedure Note 09/08/2012 CT LUMBAR SPINE WITHOUT CONTRAST September 08, 2012 Indication: Abnormal MRI. Comparison: August 30, 2012 Technique: Axial noncontrast CT images of the lumba r spine were obtained with coronal and sagittal reformations. Findings: Lumbar levoscoliotic curvature is again demonstrated convex at L3. There is lateral slip of L4 on L5. No an tero- or retrolisthesis is demonstrated. Vertebral body heights are preserved. There is disc space narrowing at L4-L5 and L5-S1. Disc ogenic endplate change and vacuum disc phenomenon is also noted at the L5-S1 level. Facet hypertrophy is present at L4-L5 and L5-S 1. T11-T12: No high-grade central spinal or neuroforaminal stenosis is noted. T12-L1: No high-grade central spinal or neuroforaminal stenosis is noted. L1-L2: No high-grade central spinal or n euroforaminal stenosis is noted. L2-L3: No high-grade central spinal or n euroforaminal stenosis is noted. L3-L4: No high-grade central spinal or n euroforaminal stenosis is noted. L4-L5: There is global disc bulge which in combination with hypertrophy of the facet joints and thic kening of the ligamentum flavum produces moderate central spinal and bilateral lateral recess stenosis. There is mild to moderate bila teral neuroforaminal stenosis. L5-S1: There is global disc bulge with a left foraminal and lateral disc herniation. This in combination wit h facet hypertrophy and ligamentum flavum produces left greater than right neuroforaminal narrowing. There is moderate to severe l eft neuroforaminal stenosis. No fracture, lytic or sclerotic lesion i s appreciated within the L4 spinous process or the pedicles of L4 an d L5 on the right. There is a lipoma of the filum terminale demonstrated. Atherosclerotic calcification is present in the abdominal aorta and major branch vessels. Impression: 1. Lumbar levoscoliosis. 2. Lateral listhesis of L4 on L5. 3. Lumbar degenerative disc and degenera tive joint disease. 4. Left foraminal and lateral disc herni ation at L5-S1. 5. Central spinal and bilateral lateral recess stenosis at L4-L5 and bilateral lateral recess stenosis at L5- S1. 6. Bilateral neuroforaminal stenosis at L4-L5 and L5-S1. 7. No fracture, lytic or sclerotic lesio n appreciated within the L4 spinous process or the right L4 and L5 p edicles. The abnormal signal within the spinous process on recent MRI is of uncertain significance. I suspect the pedicle katelin a is related to severe facet degeneration at these levels. 8. Lipoma of the filum terminale. 9. Atherosclerosis. Performing Organization Address City/State/ZIP Code Phon e Number [facility] documented in this encounter Visit Diagnoses Diagnosis Abnormal MRI - Primary Other nonspecific (abnormal) findings on radiological and other examinations of body structure documented in this encounter Care Teams Network Cable Installer Relationship Specialty Start Date End Date Minda Velasco MD PCP - General 04/10/[address] [place] [id number] Argelia Miranda MD Primary Care Provider Orthopaedic Surgery 07/13/12 documented as of this encounter
--- OUTSIDE RECORDS SUMMARY | 2021-10-02 07:45 | XMS_ITS | Encounter Summary ---
:1960 Author Organization [facility] Address [address] [place] [address] Care Team Providers Name Role Phone Minda Velasco MD Primary Care Provider Argelia Miranda MD Unavailable Reason for Visit Reason Onset Date Comments Results 11/14/2013 Encounter Details Date Type Department Care Team Description 11/14/2013 Telephone [facility] Gastroenterology Ruth Hamilton, RN Results - [facility] [address] [place], [place] [id number] Social History Tobacco Use Types Packs/Day Years Used Date Current Every Day Smoker 0.5 Smokeless Tobacco: Never Used Alcohol Use Standard Drinks/Week Comments No 0 (1 standard drink = 0.6 oz pure alcoho l) Sex Assigned at Date Recorded Not on file documented as of this encounter Miscellaneous Notes Telephone Encounter - Ruth Hamilton RN - 11/14/2013 1436 EDT Patient is aware that the HCV RNA(from 11/07/13) is undetected. She will follow up in February 2014. Patient verbalized understanding. documented in this encounter Plan of Treatment Not on filedocumented as of this encounter Visit Diagnoses Not on filedocumented in this encounter Care Teams Microbiology Analyst Relationship Specialty Start Date End Date Minda Velasco MD PCP - General 04/10/[address] [place] [id number] Argelia Miranda MD Primary Care Provider Orthopaedic Surgery 07/13/12 documented as of this encounter
--- OUTSIDE RECORDS SUMMARY | 2021-10-02 07:45 | XMS_ITS | Encounter Summary ---
:[address] [facility] Address [address] [place] [address] Care Team Providers Name Role Phone Minda Velasco MD Primary Care Provider Argelia Miranda MD Unavailable Reason for Referral Radiology Services (Routine/Next Available) - Closed Specialty Diagnoses / Procedures Referred By Contact Refer red To Contact Diagnoses Chronic hepatitis C with cirrhosis (H[facility]) (HCC) Yaya Alvarenga MD Procedures RAD US ABDOMEN ONE ORGAN/QUADRANT [address] [phone] Referral ID Status Reason Start Date Expiration Date Visits Requ ested Visits Authorized [id number] Closed 01/02/2013 1 1 Reason for Visit Reason Comments Cirrhosis follow-up Hepatitis C Encounter Details Date Type Department Care Team Description 01/02/2013 Office Visit [facility] Jania Alvarenga h epatitis C Gastroenterology - Main MD Yaya with cirrhosis [facility] [address] [place] (CMS-HCC) (Primary [address] [facility] Dx) [place] [address] [place] [phone] [facility] [address] [place] [address] Social History Tobacco Use Types Packs/Day Years Used Date Current Every Day Smoker 1 Smokeless Tobacco: Never Used Alcohol Use Standard Drinks/Week Comments No 0 (1 standard drink = 0.6 oz pure alcoho l) Sex Assigned at Date Recorded Not on file documented as of this encounter Last Filed Vital Signs Vital Sign Reading Time Taken Comments Blood Pressure 134/76 01/02/2013 1418 EDT Pulse 72 01/02/2013 1418 EDT Temperature - - Respiratory Rate - - Oxygen Saturation - - Inhaled Oxygen Concentration - - Weight 66.7 kg (147 lb) 01/02/2013 1418 EDT Height 165.1 cm (5' 5) 01/02/2013 1418 EDT Body Mass Index 24.46 01/02/2013 1418 EDT documented in this encounter Discharge Disposition Disposition Code Departure Means Destination Auto Discharge documented in this encounter Progress Notes Yaya Alvarenga MD - 01/02/2013 1432 EDT Subjective: Patient ID: Sadie Spann is an 52 y.o. female. Chief Complaint Patient presents with ??? Cirrhosis follow-up ??? Hepatitis C HPI Mrs Spann is here in followup for management of chronic hepatitis C infection, genotype 2B with presumed cirrhosis. 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 She has been well compensated and specificallydenies any decompensating events such as jaundice, GI bleeding, change in mental status, or the development of fluid such as ascites. She has no specific complaints at the present time. She has been having chronic pain issues in her back but went for injections at the pain clinic about a week or so ago and has had an excellent response to that thus far. Patient Active Problem List Diagnoses ??? Pain of lower extremity ??? Right elbow pain ??? Scoliosis ??? Low back pain radiating to left leg ??? Lumbar spondylolysis ??? Spondylolisthesis, grade 1 ??? Lumbar disc herniation with radiculopathy Past Medical History Diagnosis Date ??? Asthma 1989 ??? Substance abuse 2001 ??? Anxiety 1989 ??? Diabetes mellitus 2006 ??? GERD (gastroesophageal reflux disease) 2007 ??? Spinal stenosis Past Surgical History Procedure Date ??? Neck surgery 1994 Family History Problem Relation Age of Onset ??? Cancer Mother ??? Heart Disease Father ??? High Blood Pressure Father ??? Diabetes Sister ??? Crohn's Disease Brother ??? Liver Disease Son ??? Mental Illness Son Social History Substance Use Topics ??? Smoking status: Current Everyday Smoker -- 1.0 packs/day ??? Smokeless tobacco: Never Used ??? Alcohol Use: No Current Outpatient Prescriptions on File Prior to Visit Medication Sig Dispense Refill ??? magnesium oxide (MAG-OX) 400 mg tablet Take 400 mg by mouth daily. ??? ascorbic acid (VITAMIN C) 500 mg tablet Take 500 mg by mouth daily. ??? CALCIUM CARBONATE (OS-MARCIANO ORAL) Take by mouth daily. ??? Cod Liver Oil Oil Take 415 mg by mouth daily. ??? omeprazole (PRILOSEC) 20 mg capsule Take 40 mg by mouth daily. ??? methadone (DOLOPHINE) 10 mg tablet Take 90 mg by mouth daily. ??? oxycodone (ROXICODONE) 5 mg immediate release tablet Take 10 mg by mouth every 6 hours as needed. ??? ferrous sulfate 325 mg (65 mg iron) tablet Take 325 mg by mouth 3 times daily. ??? metformin (GLUCOPHAGE) 500 mg tablet Take 500 mg by mouth 2 times daily. ??? multivitamin (NEPHROVITE) 0.8 mg Tab Take 1 Tab by mouth daily. ??? clonazepam (KLONOPIN) 0.5 mg tablet Take 0.5 mg by mouth at bedtime. 1-2 ??? gabapentin (NEURONTIN) 400 mg capsule Take 400 mg by mouth daily. ??? insulin glargine (LANTUS) 100 unit/mL injection Inject 18 mL into the skin at bedtime. ??? docusate sodium (DOC-Q-LACE) 100 mg capsule Take 100 mg by mouth daily as needed for Constipation. ??? methadone (DOLOPHINE) 10 mg/mL solution Take 135 mg by mouth daily. ??? Cholecalciferol, Vitamin D3, 400 unit Tab Take 400 Units by mouth daily. ??? Fish Oil-[place]-3 Fatty Acids (FISH OIL) 360-1,200 mg Cap Take 100 mg by mouth daily. ??? VITAMIN B COMPLEX (B COMPLEX 1 ORAL) Take 1 Tab by mouth daily. ??? levalbuterol (XOPENEX HFA) 45 mcg/Actuation inhaler Inhale 1-2 Puffs as directed as needed for Wheezing. No Known Allergies ROS - See HPI A 10-point review of systems was noted to be negative or unremarkable and is otherwise stated in thehistory of present illness. Objective: BP 134/76 Pulse 72 Ht 165.1 cm (65) Wt 66.679 kg (147 lb) BMI 24.46 kg/m2 Physical Exam On physical exam, she is generally well appearing and in no acute distress. She is alert and oriented. Her weight and vitals are as noted above. Her HEENT exam was unremarkable. There is no scleral icterus. Neck was supple without any palpable lymphadenopathy. Heart was regular rate and rhythm withoutany murmurs, rubs or gallops. Lungs are clear to auscultation bilaterally. Her abdomen was soft, nontender, nondistended, bowel sounds were positive, no appreciable hepatosplenomegaly or masses were noted. She had no inguinal adenopathy. Her extremities revealed no pitting edema. Assessment: IMPRESSION: Patient with chronic hepatitis C infection, genotype 2B with what appears to be well compensated cirrhosis who thus far has deferred any treatment with interferon-based therapies. She has remained stable. We did talk again about the fact that the FDA will be reviewing data on non-interferon based regimens, specifically for her genotype, probably by the end of this month. Hopefully, these medications will be approved and we might be able to begin therapy for her the next time we see her in the liver clinic in 6 months' time. She is very agreeable to starting these therapies should they become available. Plan: PLAN: 1. Will obtain routine blood work today including complex metabolic profile, INR, CBC, and alpha-fetoprotein level. 2. Will schedule her for a screening ultrasound of the liver, which she will have done locally at [facility]. 3. Will follow up with her in the liver clinic in 6 months' time. Hopefully, non-interferon based therapies for genotype 2 disease will be available, as mentioned above. This was all discussed in detail with the patient who is in agreement. Sadie was seen today for cirrhosis and hepatitis c. Diagnoses and associated orders for this visit: Chronic hepatitis c with cirrhosis - Comprehensive Metabolic Panel (CMP); Future - Protime; Future - Hemagram; Future - AFP Tumor Marker; Future - RAD US ABDOMEN ONE ORGAN/QUADRANT Yaya Alvarenga MD documented in this encounter Plan of Treatment Scheduled Orders Name Type Priority Associated Diagnoses Order S chedule RAD US ABDOMEN ONE Imaging Routine Chronic hepatitis C wi th Ordered: 01/02/2013 ORGAN/QUADRANT cirrhosis (CMS-HCC) documented as of this encounter Results AFP TUMOR MARKER (01/02/2013 14:42 EDT) [facility] AFP-Tumor Marker <2.5 <9 ng/ml MASSIEL GONZALEZ Comment: LAB Reference value is less than 9 in 98.9% of healthy sub jects. AFP tumor marker cannot be interpreted in fem ales. Serum AFP concentration should not be interpreted as absolute evidence for the presence or absence of malignant disease. Assayed utilizing [employer]it chemiluminescent technology. ??Values obtained by using different assay methods cannot be used interchangeably. Specimen Blood specimen (specimen) Performing Organization Address [facility] Phon e Number [facility] [address] [place] [address] SERVICES [facility] [address] [place] [address] HEMAGRAM (01/02/2013 14:42 EDT) [facility] WBC 7.92 4.0 - 12.4 K/cmm [facility] RBC 4.57 3.86 - 5.04 M/cmm [facility] Hemoglobin 13.8 11.6 - 15.2 gm/dl [facility] HCT 41.3 34.9 - 44.4 % [facility] MCV 90 81 - 98 fl [facility] MCH 30.1 26.7 - 33.3 pg [facility] MCHC 33.4 32.1 - 35.9 gm/dl [facility] PLT 168 141 - 320 K/cmm [facility] RDW-CV 12.6 11.7 - 14.6 % [facility] Specimen Blood specimen (specimen) Performing Organization Address [facility] Phon e Number [facility] [address] [place] [address] [facility] [address] [place] [address] PROTIME (01/02/2013 14:42 EDT) Pro Time 11.4 9.5 - 13.1 [facility] secs I.N.R. 1.0 0.9 - 1.1 [facility] Comment: Ratio Moderate Intensity Coumadin INR = 2.0-3.0 Adjustments in anticoagulant therapy dose should be based upon the INR and NOT the Pro Time. Specimen Blood specimen (specimen) Performing Organization Address [facility] Phon e Number [facility] [address] [place] [address] [facility] [address] [place] [address] (ABNORMAL) COMPREHENSIVE METABOLIC PANEL (CMP) (01/02/2013 14:42 EDT) [facility] nature Potassium 4.3 3.5 - 5.0 mEq/L [facility] Sodium 140 136 - 145 mEq/L [facility] Chloride 99 96 - 110 mEq/L [facility] CO2 30 24 - 32 mEq/L [facility] Total Alkaline 89 38 - 126 U/L [facility] Phosphatase Bilirubin, Total <0.5 0.2 - 1.3 mg/dl [facility] AST 31 15 - 46 U/L [facility] ALT 37 9 - 52 U/L [facility] Albumin 4.2 3.4 - 4.9 g/dl [facility] Total Protein 7.6 6.5 - 8.3 g/dl [facility] Creatinine 0.66 0.52 - 1.04 [facility] mg/dl GFR, Calculated >60 >60 [facility] ml/min/1.73m2 BUN 12 10 - 26 mg/dl [facility] Calcium 9.1 8.5 - 10.5 [facility] mg/dl Calculated Calcium 9.3 8.5 - 10.5 [facility] mg/dl Glucose, Serum 151 (H) 70 - 100 mg/dl [facility] Fasting? NO [facility] Specimen Blood specimen (specimen) Performing Organization Address [facility]/ZIP [facility] Phon e Number [facility] [address] [place] [address] [facility] [address] [place] [address] documented in this encounter Visit Diagnoses Diagnosis Chronic hepatitis C with cirrhosis (HCC- [facility]) (HCC) - Primary Chronic hepatitis C without mention of h epatic coma documented in this encounter Care Teams Edge Grinder Relationship Specialty Start Date End Date Minda Velasco MD PCP - General 04/10/[address] [place] [id number] Argelia Miranda MD Primary Care Provider Orthopaedic Surgery 07/13/12 documented as of this encounter
--- OUTSIDE RECORDS SUMMARY | 2021-10-02 07:45 | XMS_ITS | Encounter Summary ---
:1960 Author Organization [facility] Address [address] [place] [address] Care Team Providers Name Role Phone Minda Velasco MD Primary Care Provider Argelia Miranda MD Unavailable Reason for Visit Reason Onset Date Comments Orders (Non Pre-visit) 04/27/2013 CT Encounter Details Date Type Department Care Team Description 04/27/2013 Telephone [facility] Jose Alvarenga (N on Gastroenterology - Main MD Yaya Pre-visit) (CT) [place] [address] [place] [id number] [place] [address] [facility] [address] [place] [address] (Wo rk) Social History Tobacco Use Types Packs/Day Years Used Date Current Every Day Smoker 1 Smokeless Tobacco: Never Used Alcohol Use Standard Drinks/Week Comments No 0 (1 standard drink = 0.6 oz pure alcoho l) Sex Assigned at Date Recorded Not on file documented as of this encounter Miscellaneous Notes Telephone Encounter - Ruth Hamilton RN - 05/02/2013 1357 EST Patient is aware. [facility] and [facility]. elephone Encounter - Yaya Alvarenga MD - 05/02/2013 1308 EST Her CBD appears to be dilated, but no apparent evidence of obstruction. Let's get her set up for a CT of the abdomen with IV and oral contrast which can be performed at [facility], with comparison to the ultrasound; rule out obstruction of the CBD duct. And you can let her know that her liver looks ok, with no abnormal lesions noted. elephone Encounter - Ruth Hamilton RN - 04/27/2013 1605 EST Patient called to ask Dr Alvarenga if she should have a CT scan done. [facility] She got a copy of the report and a CT scan was suggested on the report. [facility] called and asked to fax report to Dr Alvarenga. She has several other concerns. She c/o stomach discomfort , leg pain ,spinal issues and constipation. She has diabetes and wonders if she could have neuropathy. Encouraged patient to report theses symptoms to her PCP. Await plan after review of ultrasound. elephone Encounter - Patrica Gross - 04/27/2013 1340 EST Patient requesting an order for a CT. She states her leg hurts very much and is unable to use the restroom. documented in this encounter Plan of Treatment Not on filedocumented as of this encounter Visit Diagnoses Not on filedocumented in this encounter Care Teams Hydraulic Blocker Relationship Specialty Start Date End Date Minda Velasco MD PCP - General 04/10/09 [address] [place] [address] Argelia Miranda MD Primary Care Provider Orthopaedic Surgery 07/13/12 documented as of this encounter
--- OUTSIDE RECORDS SUMMARY | 2021-10-02 07:45 | XMS_ITS | Encounter Summary ---
:1960 Author Organization [facility] Address [address] [place] [address] Care Team Providers Name Role Phone Minda Velasco MD Primary Care Provider Argelia Miranda MD Unavailable Reason for Visit Reason Onset Date Comments Results 10/03/2013 Encounter Details Date Type Department Care Team Description 10/03/2013 Telephone [facility] Ruth Hamilton, RN Results - [facility] [address] [place], [place] [id number] Social History Tobacco Use Types Packs/Day Years Used Date Current Every Day Smoker 0.5 Smokeless Tobacco: Never Used Alcohol Use Standard Drinks/Week Comments No 0 (1 standard drink = 0.6 oz pure alcoho l) Sex Assigned at Date Recorded Not on file documented as of this encounter Miscellaneous Notes Telephone Encounter - Ruth Hamilton RN - 10/03/2013 0949 EDT Patient is aware of lab results from 09/28/13 ([facility]), stable labs. She will follow up in our officeon 11/07/13. documented in this encounter Plan of Treatment Not on filedocumented as of this encounter Visit Diagnoses Not on filedocumented in this encounter Care Teams Dark Room Attendant Relationship Specialty Start Date End Date Minda Velasco MD PCP - General 04/10/09 [address] [place], [place] [id number] Argelia Miranda MD Primary Care Provider Orthopaedic Surgery 07/13/12 documented as of this encounter
--- OUTSIDE RECORDS SUMMARY | 2021-10-02 07:45 | XMS_ITS | Encounter Summary ---
:1960 Author Organization [facility] Address [address] [place] [address] Care Team Providers Name Role Phone Minda Velasco MD Primary Care Provider Argelia Miranda MD Unavailable Reason for Visit Reason Onset Date Comments Medication Management 07/10/2014 Patient would like to review her medication list in an event she should become an in patient in the hospital. Encounter Details Date Type Department Care Team Description 07/10/2014 Telephone [facility] Tony Alvarenga Gastroenterology - [facility] MD Yaya Management (Patient [place] [address] [place] [address] would like to review [address] [facility] her medication list [place], [place] [id number] [place] [address] in an event she [phone] [facility] [address] should become an in [place], [place] patient in [facility] [phone] hospital.) [phone] (Wo rk) Social History Tobacco Use Types Packs/Day Years Used Date Current Every Day Smoker 0.5 Smokeless Tobacco: Never Used Alcohol Use Standard Drinks/Week Comments No 0 (1 standard drink = 0.6 oz pure alcoho l) Sex Assigned at Date Recorded Not on file documented as of this encounter Miscellaneous Notes Telephone Encounter - Ruth Hamilton RN - 07/10/2014 1153 EDT Patient called to ask that her medication list be updated. Reviewed current medications and made appropriate changes. documented in this encounter Plan of Treatment Not on filedocumented as of this encounter Visit Diagnoses Not on filedocumented in this encounter Discontinued Medications Medication Sig Discontinue Reason Start Date End Date sofosbuvir 400 mg tablet Take 400 mg by mouth 07/31/19 14 07/10/2014 daily. ribavirin (COPEGUS) 200 Take 3 tablets in 07/30/2013 07/10/2014 mg tablet the am, and 2 tablets in the pm. ribavirin (COPEGUS) 200 Take 3 tablets in 07/30/2013 07/10/2014 mg tablet the am, and 2 tablets in the pm. CHOLESTYRAMINE/ASPARTAME Take by mouth (PREVALITE ORAL) LACTOBACILLUS Take by mouth. 07/10/2014 ACIDOPHILUS (PROBIOTIC ORAL) omeprazole (PRILOSEC) 20 Take 40 mg by mouth 07/10/2014 mg capsule daily. multivitamin Take 1 Tab by mouth 07/11/19 15 (NEPHROVITE) 0.8 mg Tab daily. clotrimazole (LOTRIMIN) Apply topically 2 07/10/2014 1 % cream times daily. clonazepam (KLONOPIN) Take 0.5 mg by mouth 07/10/2014 0.5 mg tablet at bedtime. 1-2 Docosanol (ABREVA) 10 % Apply topically as 07/10/2014 Cream needed. CHOLESTYRAMINE, BULK, 4 g by misc 2014 MISC (non-drug; combo route) route One to six times daily. . documented as of this encounter Historical Medications This list may reflect changes made after this encounter. Medication Sig Dispensed Refills Start Date End Date simvastatin (ZOCOR) 10 mg Take 10 mg by mouth 0 tablet daily pantoprazole (PROTONIX) 40 Take 40 mg by mouth 0 mg tablet daily added in this encounter Care Teams Electrical Software Engineer Relationship Specialty Start Date End Date Minda Velasco MD PCP - General 04/10/09 [address] [place] [address] Argelia Miranda MD Primary Care Provider Orthopaedic Surgery 07/13/12 documented as of this encounter
--- OUTSIDE RECORDS SUMMARY | 2021-10-02 07:45 | XMS_ITS | Encounter Summary ---
:1960 Author Organization [facility] Address [address] [place] [address] Care Team Providers Name Role Phone Minda Velasco MD Primary Care Provider Argelia Miranda MD Unavailable Reason for Visit Reason Comments New Patient Visit bilateral leg pain with seferino sheets first Encounter Details Date Type Department Care Team Description 2014 Office Visit [facility] Jose Jordan in limb (Primary Vascular Surgery - S, Dx) Main [id number] [place] [address] [facility] [address] [place] [address] (Wo rk) Social History Tobacco Use Types Packs/Day Years Used Date Current Every Day Smoker Cigarettes 0.5 30 Smokeless Tobacco: Never Used Alcohol Use Standard Drinks/Week Comments No 0 (1 standard drink = 0.6 oz pure alcoho l) Sex Assigned at Date Recorded Not on file documented as of this encounter Last Filed Vital Signs Vital Sign Reading Time Taken Comments Blood Pressure 124/68 2014 0942 EDT right Pulse 72 2014 0942 EDT Temperature - - Respiratory Rate - - Oxygen Saturation - - Inhaled Oxygen Concentration - - Weight 68 kg (150 lb) 2014 0937 EDT Height 165.1 cm (5' 5) 2014 0937 EDT Body Mass Index 24.96 2014 0937 EDT documented in this encounter Progress Notes Jose Jordan MD - 2014 1028 EDT This office note has been dictated. documented in this encounter Consult Notes Jose Jordan MD - 2014 1326 EDT [facility] VASCULAR SURGERY CONSULTATION - 2014 Minda Velasco MD [facility] [address] [facility] [address] [place] [address] Dear Minda: Thank you for consulting us in regard to Ms Spann's leg pain. As you know, she is a 54-year-old woman with multiple medical problems including hypertension, diabetes, hyperlipidemia, chronic back pain, hepatitis C status post antiviral treatment, history of heroin addiction. She is complaining mostlyof some burning sensation and pain mostly in her left foot as well as some swelling and discomfort above her ankles. She has used a Tubigrip for compression, which helps and she tried compression socks, but she feels they are quite uncomfortable and has a hard time using those. She also has some pain in her legs and back when she stands or sits, but also describes some calf discomfort when she walks.She says she is here to see if any of those could be secondary to peripheral occlusive disease. Past Medical History: As mentioned, also detailed in her electronic chart and reviewed as well as new patient intake sheet, which is scanned into her records. She does smoke, currently about half a pack a day, done so for at least 30 years. There is a family history of coronary disease. No allergies. Her current medication list includes calcium, fish oil, vitamins, aspirin, docusate sodium, iron, Neurontin, insulin, levalbuterol, lisinopril, magnesium, metformin, methadone, oxycodone, pantoprazole and simvastatin. On exam, she is a pretty pleasant 54-year-old, certainly in no acute distress, awake, and oriented x3. Right arm blood pressure was 120/70, left 124/68, pulse of 72, BMI of 24.9. No carotid bruits. Chest: Clear. Heart: Regular. I did not appreciate any murmurs. Abdomen was soft, nontender. I can palpate the lower edge of the liver. No obvious clinical ascites. Palpable femoral as well as pedal pulsesat rest. She does have some mild ankle edema and some smaller varices and spider veins around her ankles. No ulcers, no gangrene. A noninvasive vascular study was obtained, which basically shows a right WALLY of 0.89, left WALLY of 0.83. Her waveforms are on the right side are pretty normal. On the left, there are very mildly diminished. Her ultrasound showed mild to moderate bilateral common iliac artery stenoses and then some diffuse atherosclerotic disease that really is without any hemodynamically significant stenoses. Assessment: Certainly on the left side, she may have a mild claudication in the calf with the anatomy she describes with the foot burning in sensation and the pain around the ankle is hard to associatewith the occlusive disease that she has. I think that is more likely to be related to a neuropathy, either from her diabetes or her other medical problems or back problem. She does have some mild venous insufficiency and I think compression socks would be good for her if she could use them. I suggested to her try and certainly try a diabetic sensory sock that patients with neuropathy often can use. She intends to look into that. I did not recommend any invasive treatment for her claudication. I do not think that we would make any significant impact on how she is doing if we try to do any invasive treatment for her. I think her atherosclerosis in general is fairly mild. Thank you again for asking us to see her. Sincerely, Jose Jordan MD 10 22 AM - Jose Jordan MD mn Dictation ID: [id number] cc: Minda Velasco MD, [address], [address], [place], [place] [id number] signed by Jose Jordan MD at 08/01/2014 11:25 EDTdocumented in this encounter Plan of Treatment Not on filedocumented as of this encounter Visit Diagnoses Diagnosis Pain in limb - Primary documented in this encounter Historical Medications This list may reflect changes made after this encounter. Medication Sig Dispensed Refills Start Date End Date aspirin 81 mg EC tablet Take 81 mg by mouth 0 daily added in this encounter Care Teams [employer] Specialist Relationship Specialty Start Date End Date Minda Velasco MD PCP - General 04/10/[address] [place] [id number] Argelia Miranda MD Primary Care Provider Orthopaedic Surgery 07/13/12 documented as of this encounter
--- OUTSIDE RECORDS SUMMARY | 2021-10-02 07:45 | XMS_ITS | Encounter Summary ---
:1960 Author Organization [facility] Address [address] [place] [address] Care Team Providers Name Role Phone Minda Velasco MD Primary Care Provider Argelia Miranda MD Unavailable Reason for Referral Radiology Services (Routine/Next Available) - Closed Specialty Diagnoses / Procedures Referred By Contact Refer red To Contact Diagnoses Cirrhosis of liver without mention of alcohol Yaya Alvarenga MD Procedures CT ABDOMEN AND PELVIS [address] [phone] Referral ID Status Reason Start Date Expiration Date Visits Requ ested Visits Authorized [id number] Closed 05/03/2013 08/01/2013 1 1 Encounter Details Date Type Department Care Team Description 05/02/2013 Orders Only [facility] Lyle, Cirrhosis of liver Gastroenterology - [facility] MD Yaya without mention of [place] [address] [place] alcohol (Primary [address] [facility] Dx) [place] [address] [facility] [phone] [address] Social History Tobacco Use Types Packs/Day Years Used Date Current Every Day Smoker 1 Smokeless Tobacco: Never Used Alcohol Use Standard Drinks/Week Comments No 0 (1 standard drink = 0.6 oz pure alcoho l) Sex Assigned at Date Recorded Not on file documented as of this encounter Plan of Treatment Scheduled Orders Name Type Priority Associated Diagnoses Order S chedule CT ABDOMEN AND PELVIS Imaging Routine Cirrhosis of liver without Ordered: 05/02/2013 mention of alcohol documented as of this encounter Visit Diagnoses Diagnosis Cirrhosis of liver without mention of al cohol - Primary documented in this encounter Care Teams Production Bow Maker Relationship Specialty Start Date End Date Minda Velasco MD PCP - General 04/10/[address] [place] [id number] Argelia Miranda MD Primary Care Provider Orthopaedic Surgery 07/13/12 documented as of this encounter
--- OUTSIDE RECORDS SUMMARY | 2021-10-02 07:45 | XMS_ITS | Encounter Summary ---
:1960 Author Organization [facility] Address [address] [place] [address] Care Team Providers Name Role Phone Minda Velasco MD Primary Care Provider Argelia Miranda MD Unavailable Reason for Visit Reason Comments Cirrhosis 6-month f/u Encounter Details Date Type Department Care Team Description 07/04/2013 Office Visit [facility] Lyle, Jania h epatitis C Gastroenterology - [facility] MD Yaya with cirrhosis [place] [address] [place] [address] ([facility]) (Primary [address] [facility] Dx) [place], [place] [id number] [place] [address] [facility] [address] [place] [address] Social History Tobacco Use Types Packs/Day Years Used Date Current Every Day Smoker 0.5 Smokeless Tobacco: Never Used Alcohol Use Standard Drinks/Week Comments No 0 (1 standard drink = 0.6 oz pure alcoho l) Sex Assigned at Date Recorded Not on file documented as of this encounter Last Filed Vital Signs Vital Sign Reading Time Taken Comments Blood Pressure 126/70 07/04/2013 1322 EDT Pulse 88 07/04/2013 1322 EDT Temperature - - Respiratory Rate - - Oxygen Saturation - - Inhaled Oxygen Concentration - - Weight 70.3 kg (155 lb) 07/04/2013 1322 EDT Height 165.1 cm (5' 5) 07/04/2013 1322 EDT Body Mass Index 25.79 07/04/2013 1322 EDT documented in this encounter Progress Notes Yaya Alvarenga MD - 07/04/2013 1342 EDT Subjective: Patient ID: Sadie Spann is an 52 y.o. female. Chief Complaint Patient presents with ??? Cirrhosis 6-month f/u HPI Mrs Spann is here in followup [...] specific complaints at the present time. She continues to have chronic pain issues with regards to her back. Her previous screening ultrasound of the liver suggested worsening dilation of her common bile duct.Recent CT scan performed in follow up this past month was noted to be unremarkable for any significant changes with evidence of stability compared to imaging done back in 2008. Patient Active Problem List Diagnosis ??? Pain of lower extremity ??? Right elbow pain ??? Scoliosis ??? Low back pain radiating to left leg ??? Spondylolysis of lumbar region ??? Spondylolisthesis, grade 1 ??? Lumbar disc herniation with radiculopathy Past Medical History Diagnosis Date ??? Asthma 1989 ??? Substance abuse 2001 ??? Anxiety 1989 ??? Diabetes mellitus 2005 ??? GERD (gastroesophageal reflux disease) 2007 ??? Spinal stenosis Past Surgical History Procedure Laterality Date ??? Neck surgery 1994 Family History Problem Relation Age of Onset ??? Cancer Mother ??? Heart Disease Father ??? High Blood Pressure Father ??? Diabetes Sister ??? Crohn's Disease Brother ??? Liver Disease Son ??? Mental Illness Son Social History Substance Use Topics ??? Smoking status: Current Every Day Smoker -- 0.50 packs/day ??? Smokeless tobacco: Never Used ??? Alcohol Use: No Current Outpatient Prescriptions on File Prior to Visit Medication Sig Dispense Refill ??? ascorbic acid (VITAMIN C) 500 mg tablet Take 500 mg by mouth daily. ??? CALCIUM CARBONATE (OS-MARCIANO ORAL) Take by mouth daily. ??? Cholecalciferol, Vitamin D3, 400 unit Tab Take 400 Units by mouth daily. ??? clonazepam (KLONOPIN) 0.5 mg tablet Take 0.5 mg by mouth at bedtime. 1-2 ??? Cod Liver Oil Oil Take 415 mg by mouth daily. ??? docusate sodium (DOC-Q-LACE) 100 mg capsule Take 100 mg by mouth daily as needed for Constipation. ??? ferrous sulfate 325 mg (65 mg iron) tablet Take 325 mg by mouth 3 times daily. ??? Fish Oil-R[place]ford-3 Fatty Acids (FISH OIL) 360-1,200 mg Cap Take 100 mg by mouth daily. ??? gabapentin (NEURONTIN) 400 mg capsule Take 400 mg by mouth daily. ??? insulin glargine (LANTUS) 100 unit/mL injection Inject 18 mL into the skin at bedtime. ??? levalbuterol (XOPENEX HFA) 45 mcg/Actuation inhaler Inhale 1-2 Puffs as directed as needed for Wheezing. ??? magnesium oxide (MAG-OX) 400 mg tablet Take 400 mg by mouth daily. ??? metformin (GLUCOPHAGE) 500 mg tablet Take 500 mg by mouth 2 times daily. ??? methadone (DOLOPHINE) 10 mg tablet Take 90 mg by mouth daily . ??? methadone (DOLOPHINE) 10 mg/mL solution Take 135 mg by mouth daily. ??? multivitamin (NEPHROVITE) 0.8 mg Tab Take 1 Tab by mouth daily. ??? omeprazole (PRILOSEC) 20 mg capsule Take 40 mg by mouth daily. ??? oxycodone (ROXICODONE) 5 mg immediate release tablet Take 10 mg by mouth every 6 hours as needed. ??? VITAMIN B COMPLEX (B COMPLEX 1 ORAL) Take 1 Tab by mouth daily. No current facility-administered medications on file prior to visit. No Known Allergies ROS - See HPI A 10-point review of systems was noted to be negative or unremarkable and is otherwise stated in thehistory of present illness. Objective: BP 126/70 Pulse 88 Ht 165.1 cm (65) Wt 70.308 kg (155 lb) BMI 25.79 kg/m2 Physical Exam On physical exam, she [...] soft, nontender, nondistended, bowel sounds were positive, slightly enlarged left lobe of the liver, no appreciable splenomegaly or masses were noted. She had no inguinal adenopathy. Her extremities revealed no pitting edema. Assessment: Patient with chronic hepatitis C infection, genotype 2B with what appears to be well compensated cirrhosis who thus far has deferred any treatment with interferon-based therapies. She has remained stable. We discussed newer FDA approved treatment for her specific genotype including Sofosbuvir in combination with ribavirin for 12 week course. We discussed the potential benefits as well as reported side effects. I think this offers an excellent option for her in an attempt to eradicate the virus and she is completely agreeable. Plan: 1) We will obtain routine blood work including complex metabolic profile, CBC, INR, alpha-fetoprotein level as well as a baseline hepatitis C RNA by PCR 2) We will obtain approval for a 12 week course of Sofosbuvir 400 mg daily and ribavirin 1000 mg in divided doses. 3) Once the medication has been approved we will start her on treatment and we will plan on following up with her in the liver clinic 1 month later. This was all discussed in detail with the patient who is in agreement. Sadie was seen today for cirrhosis. Diagnoses and associated orders for this visit: Chronic hepatitis C with cirrhosis - HCV RNA Detect Quant; Future - Comprehensive Metabolic Panel (CMP); Future - Protime; Future - Hemagram; Future - AFP Tumor Marker; Future Other Orders - CHOLESTYRAMINE, BULK, MISC; 4 g by misc (non-drug; combo route) route One to six times daily. . - LACTOBACILLUS ACIDOPHILUS (PROBIOTIC ORAL); Take by mouth. Yaya Alvarenga MD documented in this encounter Plan of Treatment Not on filedocumented as of this encounter Results (ABNORMAL) COMPREHENSIVE METABOLIC PANEL (CMP) (07/04/2013 14:16 EDT) [facility] Potassium 4.3 3.5 - 5.0 mEq/L [facility] Sodium 142 136 - 145 mEq/L [facility] Chloride 100 96 - 110 mEq/L [facility] CO2 32 24 - 32 mEq/L [facility] Total Alkaline 81 38 - 126 U/L [facility] Phosphatase Bilirubin, Total <0.5 <1.4 mg/dl [facility] AST 47 (H) 15 - 46 U/L [facility] ALT 55 (H) 9 - 52 U/L [facility] Albumin 4.1 3.4 - 4.9 g/dl [facility] Total Protein 7.7 6.5 - 8.3 g/dl [facility] Creatinine 0.63 0.52 - 1.04 [facility] mg/dl GFR, Calculated >60 >60 [facility] ml/min/1.73m2 BUN 11 10 - 26 mg/dl [facility] Calcium 8.8 8.5 - 10.5 [facility] mg/dl Calculated Calcium 9.1 8.5 - 10.5 [facility] mg/dl Glucose, Serum 157 (H) 70 - 100 mg/dl [facility] Fasting? NO [facility] Specimen Blood specimen (specimen) Performing Organization Address City/[facility] Code Phon e Number [facility] [address] [place] [address] SERVICES [facility] [address] [place] [address] AFP TUMOR MARKER (07/04/2013 14:00 EDT) AFP-Tumor Marker 3.1 <9 ng/ml [facility]SI[facility] GONZALEZ Comment: LAB Reference value is less than 9 in 98.9% of healthy sub jects. AFP tumor marker cannot be interpreted in fem ales. Serum AFP concentration should not be interpreted as absolute evidence for the presence or absence of malignant disease. Assayed utilizing Lali chemiluminescent technology. ??Values obtained by using different assay methods cannot be used interchangeably. Specimen Blood specimen (specimen) Performing Organization Address City/[facility] Phon e Number [facility] [address] [place] [address] SERVICES [facility] [address] [place] [address] HEMAGRAM (07/04/2013 14:00 EDT) Pathologist Sig nature WBC 6.68 4.0 - 12.4 K/cmm [facility] RBC 4.23 3.86 - 5.04 M/cmm [facility] Hemoglobin 12.8 11.6 - 15.2 gm/dl [facility] HCT 38.1 34.9 - 44.4 % [facility] MCV 90 81 - 98 fl [facility] MCH 30.1 26.7 - 33.3 pg [facility] MCHC 33.5 32.1 - 35.9 gm/dl [facility] PLT 149 141 - 320 K/cmm [facility] RDW-CV 12.7 11.7 - 14.6 % [facility] Specimen Blood specimen (specimen) Performing Organization Address [facility]/ZIP Code Phon e Number [facility] [address] [place] [address] SERVICES [facility] [address] [place] [address] PROTIME (07/04/2013 14:00 EDT) [facility] Pro Time 11.9 9.5 - 13.1 [facility] secs I.N.R. 1.0 0.9 - 1.1 [facility] Comment: Ratio Moderate Intensity Coumadin INR = 2.0-3.0 Adjustments in anticoagulant therapy dose should be based upon the INR and NOT the Pro Time. Specimen Blood specimen (specimen) Performing Organization Address [facility]/ZIP Code Phon e Number [facility] [address] [place] [address] SERVICES [facility] [address] [place] [id number] HCV RNA DETECT QUANT (07/04/2013 14:00 EDT) [facility] HCV RNA Detect 4,081,856 IU/mL [facility] Comment: LAB Reference Range: ??Undetected The quantification range of this assay is 15 IU/mL to 100,000,000 IU/mL. Testing was performed by the Kathy Ampliprep/Kathy TaqMan HCV v2.0 ([employer] Specimen Blood specimen (specimen) Performing Organization Address [facility]/ZIP [facility] Phon e Number [facility] [address] [place] [address] SERVICES [facility] [address] [place] [address] documented in this encounter Visit Diagnoses Diagnosis Chronic hepatitis C with cirrhosis (HCC- [facility]) (HCC) - Primary Chronic hepatitis C without mention of h epatic coma documented in this encounter Historical Medications This list may reflect changes made after this encounter. Medication Sig Dispensed Refills Start Date End Date LACTOBACILLUS ACIDOPHILUS Take by mouth. 0 07/10/2014 (PROBIOTIC ORAL) CHOLESTYRAMINE, BULK, MISC 4 g by misc 0 07/10/2014 (non-drug; combo route) route One to six times daily. . added in this encounter Care Teams Segment Assembler Relationship Specialty Start Date End Date Minda Velasco MD PCP - General 04/10/09 [address] [place], [place] [address] Argelia Miranda MD Primary Care Provider Orthopaedic Surgery 07/13/12 documented as of this encounter
--- OUTSIDE RECORDS SUMMARY | 2021-10-02 07:45 | XMS_ITS | Encounter Summary ---
:1960 Author Organization [facility] Address [address] [place] [address] Care Team Providers Name Role Phone Minda Velasco MD Primary Care Provider Argelia Miranda MD Unavailable Encounter Details Date Type Department Care Team Description 12/02/2016 Results Only [facility] Minda Velasco MD [phone] [address] [place], [place] [address] (Wo rk) Social History Tobacco Use Types [...] Name Priority Date/Time Associated Diagnosis Comme nts PAP TEST- RESULT Routine 12/02/2016 0:00 EDT Resu lts for this ONLY procedure are i n the results section. documented in this encounter Results PAP TEST- RESULT ONLY (12/02/2016 0:00 EDT) Pathology Report: CYTOPATHOLOGY REPORT [facility] Reports generated via electronic interface contain ang ginal data; SERVICES however they are lacking the format of the original re port. Caution should be taken when reading/interpreting unfo rmatted reports. Name: ? SADIE BERKOWITZ ? Accession #: ? [id number] : ? 1960 (Age: [age]) ??F ?Collect Date: ? 12/02 Location: ? [facility] ? Receive Date : ? 12/07/2016 Provider: ?MINDA VELASCO MD Copy to: ? Specimen/Source: ? Pap Test, Cervix/Endocervix, ThinPrep Imaging System with manual evaluation Last Menstrual Period: ? Menstrual/ Status: ? Post Menopausal Hormonal/Contraceptive Status: ? None ? SPECIMEN ADEQUACY ? Satisfactory for Evaluation - transformation zone component present GENERAL CATEGORIZATION ? Negative for Intraepithelial Lesion or Malignan cy ? Document reviewed and electronically signed by: ? ALEXUS Lala(ASCP) ? Report Date: ??12/14/2016 16:20 End of Report Specimen Performing Organization Address City/State/ZIP Code Phon e Number [facility] [address] [place] [address] SERVICES documented in this encounter Visit Diagnoses Not on filedocumented in this encounter Care Teams General Activities Therapist Relationship Specialty Start Date End Date Minda Velasco MD PCP - General 04/10/[address] [place] [id number] Argelia Miranda MD Primary Care Provider Orthopaedic Surgery 07/13/12 documented as of this encounter
--- OUTSIDE RECORDS SUMMARY | 2021-10-02 07:45 | XMS_ITS | Encounter Summary ---
:1960 Author Organization [facility] Address [address] [place] [address] Care Team Providers Name Role Phone Minda Velasco MD Primary Care Provider Argelia Miranda MD Unavailable Reason for Visit Reason Comments Follow-up 5 week, mirna pimentel Encounter Details Date Type Department Care Team Description 09/05/2013 Office Visit [facility], Chronic h epatitis C without mention of hepatic coma (Primary Dx); Gastroenterology - [facility] MD Yaya Chronic hepatitis C with cirrhosis ([facility]) [place] [address] [place] [address] [facility] [phone] [facility] [address] [place] [phone] Social History Tobacco Use Types Packs/Day Years Used Date Current Every Day Smoker 0.5 Smokeless Tobacco: Never Used Alcohol Use Standard Drinks/Week Comments No 0 (1 standard drink = 0.6 oz pure alcoho l) Sex Assigned at Date Recorded Not on file documented as of this encounter Last Filed Vital Signs Vital Sign Reading Time Taken Comments Blood Pressure 125/70 09/05/2013 1411 EDT Pulse 80 09/05/2013 1411 EDT Temperature - - Respiratory Rate - - Oxygen Saturation - - Inhaled Oxygen Concentration - - Weight 68 kg (150 lb) 09/05/2013 1411 EDT Height 165.1 cm (5' 5) 09/05/2013 1411 EDT Body Mass Index 24.96 09/05/2013 1411 EDT documented in this encounter Discharge Diagnoses Diagnosis 070.54 VIR HEP NEC W/O COMA W HEP C METAL TREATER N[ICD-9-CM] documented in this encounter Discharge Disposition Disposition Code Departure Means Destination Auto Discharge documented in this encounter Progress Notes Yaya Alvarenga MD - 09/05/2013 1444 EDT Subjective: Patient ID: Sadie Spann is an 53 y.o. female. Chief Complaint Patient presents with ??? Follow-up 5 week, sovaldi and ribavirin HPI Mrs Spann is here in followup for management of chronic hepatitis C infection, genotype 2B with presumed cirrhosis, currently at week 5 of treatment with sofosbuvir and ribavirin with undetectable virus at week 4. She had a liver biopsy in 2005 consistent with stage III/IV fibrosis and since then hashad imaging revealing evidence of a nodular liver. She has been well compensated and specifically denies any decompensating events such as jaundice, GI bleeding, change in mental status, or the development of fluid such as ascites. She has no specific complaints at the present time other than some mild fatigue on the meds.. She continues to have chronic pain issues with regards to her back. Patient Active Problem List Diagnosis ??? Pain [...] to Visit Medication Sig Dispense Refill ??? CALCIUM CARBONATE (OS-MARCIANO ORAL) Take by mouth daily. ??? CHOLESTYRAMINE, BULK, MISC 4 g by misc (non-drug; combo route) route One to six times daily. . ??? clonazepam (KLONOPIN) 0.5 mg tablet Take 0.5 mg by mouth at bedtime. 1-2 ??? docusate sodium (DOC-Q-LACE) 100 mg capsule Take 100 mg by mouth daily as needed for Constipation. ??? ferrous sulfate 325 mg (65 mg iron) tablet Take 325 mg by mouth 3 times daily. ??? Fish Oil-Benton-3 Fatty Acids (FISH OIL) 360-1,200 mg Cap Take 100 mg by mouth daily. ??? gabapentin (NEURONTIN) 400 mg capsule Take 400 mg by mouth daily. ??? insulin glargine (LANTUS) 100 unit/mL injection Inject 18 mL into the skin at bedtime. ??? LACTOBACILLUS ACIDOPHILUS (PROBIOTIC ORAL) Take by mouth. ??? levalbuterol (XOPENEX HFA) 45 mcg/Actuation inhaler [...] mouth every 6 hours as needed. ??? ribavirin (COPEGUS) 200 mg tablet Take 3 tablets in the am, and 2 tablets in the pm. 168 Tab 2 ??? sofosbuvir 400 mg tablet Take 400 mg by mouth daily. 28 Tab 2 ??? VITAMIN B COMPLEX (B COMPLEX 1 ORAL) Take 1 Tab by mouth daily. No current facility-administered medications on file prior to visit. No Known Allergies ROS - See HPI A 10-point review of systems was noted to be negative or unremarkable and is otherwise stated in thehistory of present illness. Objective: BP 125/70 Pulse 80 Ht 165.1 cm (65) Wt 68.04 kg (150 lb) BMI 24.96 kg/m2 Physical Exam On physical exam, she [...] had no inguinal adenopathy. Her extremities revealed trace to 1+ pitting edema bilaterally. Blood work form 08/31/13: HCVRNA undetectable, white blood cell count 6.69, hemoglobin 10.4 hematocrit 34, platelet count 214,creatinine 0.9, albumin 3.5, total bilirubin 0.64, alkaline phosphatase 73,, INR 1.1, ALT 23, AST 19, normal basic metabolic profile Assessment: Patient with chronic hepatitis C infection, genotype 2B with presumed cirrhosis, currently at week 5of treatment with sofosbuvir and ribavirin with undetectable virus at week 4. She appears well compensated and tolerating the medication well. Plan: 1) She will once again obtain blood work in one month locally to her, including a CBC and viral load. 2) We will plan on following up with her in 2 months time which should correspond to her end of treatment, at which time we will repeat her blood work including her viral load. This was all discussed in detail with the patient is in agreement. Sadie was seen today for follow-up. Diagnoses and associated orders for this visit: Chronic hepatitis C without mention of hepatic coma Chronic hepatitis C with cirrhosis Other Orders - clotrimazole (LOTRIMIN) 1 % cream; Apply topically 2 times daily. - Docosanol (ABREVA) 10 % Cream; Apply topically as needed. Yaya Alvarenga MD documented in this encounter Plan of Treatment Not on filedocumented as of this encounter Visit Diagnoses Diagnosis Chronic hepatitis C without mention of h epatic coma - Primary Chronic hepatitis C with cirrhosis (HCC- CMS) (HCC) Chronic hepatitis C without mention of h epatic coma documented in this encounter Discontinued Medications Medication Sig Discontinue Reason Start Date End Date ascorbic acid (VITAMIN C) Take 500 mg by 09/05/2013 500 mg tablet mouth daily. Cholecalciferol, Vitamin Take 400 Units by 09/05/2013 D3, 400 unit Tab mouth daily. Cod Liver Oil Oil Take 415 mg by 09/06/19 14 mouth daily. documented as of this encounter Historical Medications This list may reflect changes made after this encounter. Medication Sig Dispensed Refills Start Date End Date Docosanol (ABREVA) 10 % Apply topically as 0 07/10/2014 Cream needed. clotrimazole (LOTRIMIN) Apply topically 2 0 07/10/2014 1 % cream times daily. added in this encounter Care Teams Proof Passer Relationship Specialty Start Date End Date Minda Velasco MD PCP - General 04/10/[address] [place] [id number] Argelia Miranda MD Primary Care Provider Orthopaedic Surgery 07/13/12 documented as of this encounter
--- OUTSIDE RECORDS SUMMARY | 2021-10-02 07:45 | XMS_ITS | Encounter Summary ---
:1960 Author Organization [facility] Address [address] [place] [address] Care Team Providers Name Role Phone Minda Velasco MD Primary Care Provider Argelia Miranda MD Unavailable Reason for Visit Reason Onset Date Comments Medication Management 07/27/2013 two medications c chris today from mail order- Sovaldi and another medicati on- *she said she thinks the two labels are mixed up. Encounter Details Date Type Department Care Team Description 07/27/2013 Telephone [facility] Tony Alvarenga Gastroenterology - [facility] MD Yaya Management ( two [address] medications came [address] [facility] [place] [address] [facility], Main order- Sovaldi and [phone] [facility], [address] another medication- [place], [place] *she said she thinks [phone] the two labels are [phone] (Wo rk) mixed up.) Social History Tobacco Use Types Packs/Day Years Used Date Current Every Day Smoker 0.5 Smokeless Tobacco: Never Used Alcohol Use Standard Drinks/Week Comments No 0 (1 standard drink = 0.6 oz pure alcoho l) Sex Assigned at Date Recorded Not on file documented as of this encounter Ordered Prescriptions Prescription Sig Dispensed Refills Start Date End Date ribavirin (COPEGUS) 200 Take 3 tablets in 168 Tab 2 07/3007/10/2014 mg tablet the am, and 2 tablets in the pm. ribavirin (COPEGUS) 200 Take 3 Tabs by mouth 168 Tab 2 07/30/2013 mg tablet 2 times daily. sofosbuvir 400 mg tablet Take 400 mg by mouth 28 Tab 2 0 07/30/2013 07/10/2014 daily. documented in this encounter Miscellaneous Notes Telephone Encounter - Ruth Hamilton RN - 07/30/2013 0944 EDT Patient was called .She was able to verify with the pharmacy which medication is the Sovaldi and which medication is Ribavirin. She states that she is ready to begin the medication. Reviewed dosing schedule of both medications in detail with patient, along with potential side effects.She is aware thatpregnancy should be avoided. She will have lab work done in one month at [facility]. She will see Dr Alvarenga on 09/05/13 in the office. 07/30/2013 Teacher: RUTH HAMILTON RN Therapy Start Date: 07/30/13 ( Sovaldi 400mg QD and Ribavirin 1000mg QD) Method: Handout and Verbal Taught to: Patient Barriers: None Outcomes: verbalized understanding RUTH HAMILTON RN 07/30/2013 9:48 elephone Encounter - Ruth Hamilton RN - 07/27/2013 1648 EDT Per patient , it appears that the mail order pharmacy may have mislabeled her medication. Advised patient to call the pharmacy ,and not to start the medication(Sovaldi and Ribavirin) until we touch base. documented in this encounter Plan of Treatment Not on filedocumented as of this encounter Visit Diagnoses Diagnosis Chronic hepatitis C without mention of h epatic coma - Primary documented in this encounter Discontinued Medications Medication Sig Discontinue Reason Start Date End Date ribavirin (COPEGUS) 200 Take 3 Tabs by Reorder 07/30/2013 mg tablet mouth 2 times daily. documented as of this encounter Care Teams Water Softener Service Supervisor Relationship Specialty Start Date End Date Minda Velasco MD PCP - General 04/10/09 [address] [place] [address] Argelia Miranda MD Primary Care Provider Orthopaedic Surgery 07/13/12 documented as of this encounter
--- OUTSIDE RECORDS SUMMARY | 2021-10-02 07:45 | XMS_ITS | Encounter Summary ---
:1960 Author Organization Health system Address [address] [place] [id number] Care Team Providers Name Role Phone Minda Velasco MD Primary Care Provider Argelia Miranda MD Unavailable Reason for Visit Reason Onset Date Comments Other 08/19/2015 Patient would like h er ultrasound sent to another facility to have done closer to [facility] her home. Encounter Details Date Type Department Care Team Description 08/19/[address] [facility] Mirella Alvarenga (Davey uribe would Gastroenterology - [facility] MD Yaya like her ultrasound [place] [address] [place] [address] sent to another [address] [place] [address] [place] [address] [facility], Main done closer to [facility] [phone] [place], [place] ) [phone] (Wo rk) Social History Tobacco Use [...] on filedocumented in this encounter Care Teams Material Expediter Relationship Specialty Start Date End Date Minda Velasco MD PCP - General 04/10/09 [address] [place] [address] Argelia Miranda MD Primary Care Provider Orthopaedic Surgery 07/13/12 documented as of this encounter
--- OUTSIDE RECORDS SUMMARY | 2021-10-02 07:45 | XMS_ITS | Encounter Summary ---
:1960 Author Organization [facility] Address [address] [place] [address] Care Team Providers Name Role Phone Minda Velasco MD Primary Care Provider Argelia Miranda MD Unavailable Encounter Details Date Type Department Care Team Description 07/04/2013 Phlebotomy Only [facility] Tubing Machine Operator, Cirrh osis of liver without mention of alcohol; - [facility] Chronic hepatitis C with cir rhosis ([facility]) [address] [place], [place] [id number] Social History Tobacco Use Types Packs/Day Years [...] Name Priority Date/Time Associated Diagnosis Comme nts HCV RNA DETECT Routine 07/04/2013 14:00 Chronic hepatitis C Re sults for this QUANT EDT with cirrhosis procedure are in ([facility]) the results section. AFP TUMOR MARKER Routine 07/04/2013 14:00 Chronic hepatitis C Results for this EDT with cirrhosis procedure are in ([facility]) the results section. PROTIME Routine 07/04/2013 14:00 Chronic hepatitis C Resu lts for this EDT with cirrhosis procedure are in (CMS-HCC) the results section. COMPLETE BLOOD Routine 07/04/2013 14:00 Chronic hepatitis C Re sults for this COUNT EDT with cirrhosis procedure are in (CMS-HCC) the results section. documented in this encounter Results AFP TUMOR MARKER (07/04/2013 14:00 EDT) [facility] AFP-Tumor Marker 3.1 <9 ng/ml [facility] Comment: LAB Reference value is less than 9 in 98.9% of healthy sub jects. AFP tumor marker cannot be interpreted in fem ales. Serum AFP concentration should not be interpreted as absolute evidence for the presence or absence of malignant disease. Assayed utilizing [employer] chemiluminescent technology. ??Values obtained by using different assay methods cannot be used interchangeably. Specimen Blood specimen (specimen) Performing Organization Address [facility] Phon e Number [facility] [address] [phone] SERVICES [facility] [address] [place] [address] HEMAGRAM (07/04/2013 14:00 EDT) [facility] nature WBC 6.68 4.0 - 12.4 K/cmm [facility] RBC 4.23 3.86 - 5.04 M/cmm [facility] Hemoglobin 12.8 11.6 - 15.2 gm/dl [facility] HCT 38.1 34.9 - 44.4 % [facility] MCV 90 81 - 98 fl [facility] MCH 30.1 26.7 - 33.3 pg [facility] MCHC 33.5 32.1 - 35.9 gm/dl [facility] PLT 149 141 - 320 K/cmm [facility] RDW-CV 12.7 11.7 - 14.6 % [facility] Specimen Blood specimen (specimen) Performing Organization Address [facility] Phon e Number [facility] [address] [place] [address] [facility] [address] [place] [address] PROTIME (07/04/2013 14:00 EDT) [facility] Pro Time 11.9 9.5 - 13.1 [facility] secs I.N.R. 1.0 0.9 - 1.1 [facility] Comment: Ratio Moderate Intensity Coumadin INR = 2.0-3.0 Adjustments in anticoagulant therapy dose should be based upon the INR and NOT the Pro Time. Specimen Blood specimen (specimen) Performing Organization Address City/State/ZIP Code Phon e Number [facility] [address] [place] [address] [facility] [address] [place] [address] HCV RNA DETECT QUANT (07/04/2013 14:00 EDT) HCV RNA Detect 4,081,856 IU/mL [facility] Comment: LAB Reference Range: ??Undetected The quantification range of this assay is 15 IU/mL to 100,000,000 IU/mL. Testing was performed by the Kathy Ampliprep/Kathy TaqMan HCV v2.0 ([employer] Specimen Blood specimen (specimen) Performing Organization Address City/[facility] Code Phon e Number [facility] [address] [place] [address] SERVICES [facility] [address] [place] [address] documented in this encounter Visit Diagnoses Diagnosis Cirrhosis of liver without mention of al cohol Chronic hepatitis C with cirrhosis (HCC- CMS) (HCC) Chronic hepatitis C without mention of h epatic coma documented in this encounter Orders Lab Orders Without Results Count Last Ordered Date Fir st Ordered Date CREATININE 1 07/04/2013 documented in this encounter Care Teams Wreath Inspector Relationship Specialty Start Date End Date Minda Velasco MD PCP - General 04/10/09 [address] [place] [address] Argelia Miranda MD Primary Care Provider Orthopaedic Surgery 07/13/12 documented as of this encounter
--- OUTSIDE RECORDS SUMMARY | 2021-10-02 07:45 | XMS_ITS | Encounter Summary ---
:1960 Author Organization [facility] Address [address] [place] [address] Care Team Providers Name Role Phone Minda Velasco MD Primary Care Provider Argelia Miranda MD Unavailable Encounter Details Date Type Department Care Team Description 07/04/2013 Phlebotomy Only [facility] Vocational Instructor, Chron ic hepatitis C - [facility] Outpatient with cirrhosis [address] [facility] ([facility]) [place], [place] [id number] [phone] Social History Tobacco Use Types Packs/Day Years Used Date Current Every Day Smoker 0.5 Smokeless Tobacco: Never Used Alcohol Use Standard Drinks/Week Comments No 0 (1 standard drink = 0.6 oz pure alcoho l) Sex Assigned at Date Recorded Not on file documented as of this encounter Plan of Treatment Not on filedocumented as of this encounter Procedures Procedure Name Priority Date/Time Associated Comments Diagnosis COMPREHENSIVE Routine 07/04/2013 14:16 Chronic hepatitis C Res ults for this METABOLIC PANEL (CMP) EDT with cirrhosis proc edure are in ([facility]) the results section. documented in this encounter Results (ABNORMAL) COMPREHENSIVE METABOLIC PANEL (CMP) (07/04/2013 14:16 EDT) Pathologist Sig nature Potassium 4.3 3.5 - 5.0 mEq/L [...] Organization Address City/State/ZIP Code Phon e Number [facility] [address] [place] [address] [facility] [address] [place] [address] documented in this encounter Visit Diagnoses Diagnosis Chronic hepatitis C with cirrhosis (HCC- CMS) (HCC) Chronic hepatitis C without mention of h epatic coma documented in this encounter Care Teams Deputy Head Relationship Specialty Start Date End Date Minda Velasco MD PCP - General 04/10/[address] [place] [address] Argelia Miranda MD Primary Care Provider Orthopaedic Surgery 07/13/12 documented as of this encounter
--- OUTSIDE RECORDS SUMMARY | 2021-10-02 07:45 | XMS_ITS | Encounter Summary ---
:1960 Author Organization [facility] Address [address] [place] [address] Care Team Providers Name Role Phone Minda Velasco MD Primary Care Provider Argelia Miranda MD Unavailable Encounter Details Date Type Department Care Team Description 01/01/2015 Phlebotomy Only [facility] Nursing Home Assistant Administrator, Other cirrhosis of - Main [facility] ([facility]) [address] [facility] (Primary Dx) [place], [place] [id number] Social History Tobacco Use Types Packs/Day Years [...] Procedure Name Priority Date/Time Associated Comments Diagnosis AFP TUMOR MARKER Routine 01/01/2015 13:26 Other cirrhosis of R esults for this EDT liver (CMS-HCC) procedure ar e in the results section. PROTIME Routine 01/01/2015 13:26 Other cirrhosis of Resul ts for this EDT liver (CMS-HCC) procedure ar e in the results section. COMPLETE BLOOD COUNT Routine 01/01/2015 13:26 Other cirrhosis of Results for this EDT liver (CMS-HCC) procedure ar e in the results section. COMPREHENSIVE Routine 01/01/2015 13:26 Other cirrhosis of Resu lts for this METABOLIC PANEL (CMP) EDT liver (CMS-HCC) pro cedure are in the results section. documented in this encounter Results AFP TUMOR MARKER (01/01/2015 13:26 EDT) AFP-Tumor Marker 2.7 <9 ng/ml [facility] Comment: [facility]ENTER [facility]ORY Reference value is less than 9 in 98.9% of healthy sub jects. SERVICES AFP tumor marker cannot be interpreted in fem ales. Serum AFP concentration should not be interpreted as absolute evidence for the presence or absence of malignant disease. Assayed utilizing [employer] chemiluminescent technology. ??Values obtained by using different assay methods cannot be used interchangeably. Specimen Blood specimen (specimen) - Blood Performing Organization Address City/[facility] Phon e Number [facility] LABORATORY [address] [place] [address] SERVICES HEMAGRAM (01/01/2015 13:26 EDT) Pathologist Sig nature WBC 9.23 4.0 - 12.4 K/cmm [facility] LABORATORY SERVICES RBC 4.41 3.86 - 5.04 M/cmm [facility] LABORATORY SERVICES Hemoglobin 13.2 11.6 - 15.2 gm/dl [facility] LABORATORY SERVICES HCT 39.9 34.9 - 44.4 % [facility] LABORATORY SERVICES MCV 90 81 - 98 fl [facility] LABORATORY SERVICES MCH 30.0 26.7 - 33.3 pg [facility] LABORATORY SERVICES MCHC 33.2 32.1 - 35.9 gm/dl [facility] LABORATORY SERVICES RDW-CV 12.4 11.7 - 14.6 % [facility] LABORATORY SERVICES RDW-SD 38.9 37.6 - 50.3 fl [facility] LABORATORY SERVICES PLT 174 141 - 320 K/cmm [facility] LABORATORY SERVICES MPV 8.2 7.5 - 11.2 fl [facility] LABORATORY SERVICES Specimen Blood specimen (specimen) - Blood Performing Organization Address City/[facility] Phon e Number [facility] LABORATORY [address] [place] [address] SERVICES PROTIME (01/01/2015 13:26 EDT) Pro Time 11.9 10.1 - 13.0 [facility] secs LABORATORY SERVICES I.N.R. 1.0 0.9 - 1.1 [facility] Comment: Ratio LABORATORY SERVICES Moderate Intensity Coumadin INR = 2.0-3.0 Adjustments in anticoagulant therapy dose should be based upon the INR and NOT the Pro Time. Specimen Blood specimen (specimen) - Blood Performing Organization Address City/[facility] Phon e Number [facility] LABORATORY [address] [place] [address] SERVICES (ABNORMAL) COMPREHENSIVE METABOLIC PANEL (CMP) (01/01/2015 13:26 EDT) Potassium 4.7 3.5 - 5.0 [facility] mEq/L [place] [facility] SERVICES Sodium 140 136 - 145 [facility] mEq/L [place] [facility] SERVICES Chloride 98 96 - 110 [facility] mEq/L [place] [facility] SERVICES CO2 30 24 - 32 mEq/L [facility] LABORATORY SERVICES Total Alkaline 69 38 - 126 U/L [facility] Phosphatase [place] [facility] SERVICES Bilirubin, Total <0.5 <1.4 mg/dl [facility] LABORATORY SERVICES AST 37 15 - 46 U/L [facility] LABORATORY SERVICES ALT 41 <53 U/L [facility] LABORATORY SERVICES Albumin 4.3 3.4 - 4.9 [facility] g/dl [place] [facility] SERVICES Total Protein 7.7 6.3 - 8.2 [facility] g/dl [place] [facility] SERVICES Creatinine 0.83 0.52 - 1.04 [facility] mg/dl [place] [facility] SERVICES GFR, Calculated 79 >60 [facility] Comment: ml/min/1.73m2 [facility] eGFR calculated using CKD-EPI equation for SERVICES non Americans. Multiply eGFR by 1.16 for Americans. BUN 13 10 - 26 mg/dl [facility] LABORATORY SERVICES Calcium 9.3 8.5 - 10.5 [facility] mg/dl [place] [facility] SERVICES Calculated Calcium 9.4 8.5 - 10.5 [facility] mg/dl [place] [facility] SERVICES Glucose, Serum 136 (H) 70 - 100 [facility] mg/dl [place] [facility] SERVICES Fasting? No [facility] LABORATORY SERVICES Specimen Blood specimen (specimen) - Blood Performing Organization Address City/[facility] Phon e Number [facility] CENTER LABORATORY [address] [place] [address] SERVICES documented in this encounter Visit Diagnoses Diagnosis Other cirrhosis of liver (HCC) - Primary documented in this encounter Care Teams Fleet Maintenance Foreman Relationship Specialty Start Date End Date Minda Velasco MD PCP - General 04/10/09 [address] [place] [address] Argelia Miranda MD Primary Care Provider Orthopaedic Surgery 07/13/12 documented as of this encounter
--- OUTSIDE RECORDS SUMMARY | 2021-10-02 07:45 | XMS_ITS | Encounter Summary ---
:1960 Author Organization [facility] Address [address] [place] [address] Care Team Providers Name Role Phone Minda Velasco MD Primary Care Provider Argelia Miranda MD Unavailable Encounter Details Date Type Department Care Team Description 07/04/2013 Phlebotomy Only [facility] - Exercise Instruct, [facility] Outpatient [address] [employer], [place] [address] [phone] Social History Tobacco Use Types Packs/Day Years [...] on filedocumented in this encounter Care Teams Restaurant Hourly Manager Relationship Specialty Start Date End Date Minda Velasco MD PCP - General 04/10/09 [address] [place] [address] Argelia Miranda MD Primary Care Provider Orthopaedic Surgery 07/13/12 documented as of this encounter
--- OUTSIDE RECORDS SUMMARY | 2021-10-02 07:45 | XMS_ITS | Encounter Summary ---
:[address] [facility] Address [address] [place] [address] Care Team Providers Name Role Phone Minda Velasco MD Primary Care Provider Argelia Miranda MD Unavailable Reason for Referral Radiology Services (Routine/Next Available) - Denied Specialty Diagnoses / Procedures Referred By Contact Refer red To Contact Diagnoses Pain in thoracic spine Lumbago Scoliosis (and kyphoscoliosis), idiopathic Argelia Miranda MD Procedures MR SPINE-THORACIC AND CONTENTS [address] [facility] [place] [address] Referral ID Status Reason Start Date Expiration Date Visits Requ ested Visits Authorized [id number] Denied 08/09/2012 1 0 Reason for Visit Reason Onset Date Comments Back Pain 07/31/2012 Leg Pain 07/31/2012 bilateral Encounter Details Date Type Department Care Team Description 07/31/2012 Orders Only [facility] Argelia Miranda MD Pain in thoracic spine (Primary Dx); Spine Program - [address] [facility] [place]; [facility] of Scoliosis (and kyphoscoliosi s), idiopathic [address] [facility] [address] [place], [place] [phone] (Wo rk) Social History Tobacco Use Types Packs/Day Years Used Date Current Every Day Smoker 1 Smokeless Tobacco: Never Used Alcohol Use Standard Drinks/Week Comments No 0 (1 standard drink = 0.6 oz pure alcoho l) Sex Assigned at Date Recorded Not on file documented as of this encounter Plan of Treatment Scheduled Orders Name Type Priority Associated Diagnoses Order S chedule MR SPINE-THORACIC AND Imaging Routine Pain in th oracic spine 07/31/2012 CONTENTS Lumbago Scoliosis (and kyphoscoliosis), idiopathic documented as of this encounter Visit Diagnoses Diagnosis Pain in thoracic spine - Primary Lumbago Scoliosis (and kyphoscoliosis), idiopath ic documented in this encounter Care Teams Consulting Practice Manager Relationship Specialty Start Date End Date Minda Velasco MD PCP - General 04/10/09 [address] [place] [address] Argelia Miranda MD Primary Care Provider Orthopaedic Surgery 07/13/12 documented as of this encounter
--- OUTSIDE RECORDS SUMMARY | 2021-10-02 07:45 | XMS_ITS | Encounter Summary ---
:1960 Author Organization [facility] Address [address] [place] [address] Care Team Providers Name Role Phone Minda Velasco MD Primary Care Provider Argelia Miranda MD Unavailable Encounter Details Date Type Department Care Team Description 06/26/2014 Phlebotomy Only [facility] Clinical Professor, Chron ic hepatitis C - [facility] Outpatient with cirrhosis [address] [facility] ([facility]) (Primary [place], [place] Dx) [id number] Social History Tobacco Use Types Packs/Day Years [...] Procedure Name Priority Date/Time Associated Comments Diagnosis HCV RNA DETECT QUANT Routine 06/26/2014 15:07 Chronic hepatiti s C Results for this EDT with cirrhosis procedure are in ([facility]) the results section. HEPATITIS A TOTAL Routine 06/26/2014 15:07 Chronic hepatitis C Results for this ANTIBODY W REFLEX EDT with cirrhosis procedur e are in ([facility]) the results section. AFP TUMOR MARKER Routine 06/26/2014 15:07 Chronic hepatitis C Results for this EDT with cirrhosis procedure are in ([facility]) the results section. HEPATITIS B CORE Routine 06/26/2014 15:07 Chronic hepatitis C Results for this ANTIBODY (TOTAL) EDT with cirrhosis procedure are in ([facility]) the results section. HEPATITIS B SURFACE Routine 06/26/2014 15:07 Chronic hepatitis C Results for this ANTIBODY EDT with cirrhosis procedure are in ([facility]) the results section. HEPATITIS B SURFACE Routine 06/26/2014 15:07 Chronic hepatitis C Results for this ANTIGEN EDT with cirrhosis procedure are in ([facility]) the results section. PROTIME Routine 06/26/2014 15:07 Chronic hepatitis C Resu lts for this EDT with cirrhosis procedure are in ([facility]) the results section. COMPLETE BLOOD COUNT Routine 06/26/2014 15:07 Chronic hepatiti s C Results for this EDT with cirrhosis procedure are in ([facility]) the results section. COMPREHENSIVE Routine 06/26/2014 15:07 Chronic hepatitis C Res ults for this METABOLIC PANEL (CMP) EDT with cirrhosis proc edure are in ([facility]) the results section. documented in this encounter Results HEPATITIS B SURFACE ANTIBODY (06/26/2014 15:07 EDT) Hepatitis B Negative [facility] Surface Ab Comment: LABORATORY SERVICES Reference Range: Unvaccinated: ??Negative Vaccinated: ??Positive HBs Antibody, <5.0 mIU/mL [facility] Quant Comment: LABORATORY SERVICES Patient is presumed to not be immune to infection with HBV. Reference Range: Positive: >=12.0 mIU/mL Indeterminate: >=5.0 to <12.0 mIU/mL Negative: <5.0 mIU/mL Specimen Blood specimen (specimen) - Blood Performing Organization Address [facility] Phon e Number [facility] LABORATORY [address] [place] [address] SERVICES HEPATITIS B CORE ANTIBODY (06/26/2014 15:07 EDT) Hep B Core Ab Negative [facility] Comment: LABORATORY SERVICES Reference Range: ??Negative Interpretation depends on clinical setting. Specimen Blood specimen (specimen) - Blood Performing Organization Address [facility] Phon e Number [facility] LABORATORY [address] [place] [address] SERVICES HEPATITIS A TOTAL ANTIBODY (06/26/2014 15:07 EDT) Pathologist Sig nature Hep A Antibody Positive [facility] Comment: LABORATORY SERVICES Antibody to Hepatitis A detected. Reference Range: ??Negative Specimen Blood specimen (specimen) - Blood Performing Organization Address [facility] Phon e Number [facility] LABORATORY [address] [place] [address] SERVICES HEPATITIS B SURFACE ANTIGEN (06/26/2014 15:07 EDT) [facility] Hepatitis B NegativeComment: [facility] Surface Ag Reference Range: LABORATORY SERVICES Negative Specimen Blood specimen (specimen) - Blood Performing Organization Address [facility] Phon e Number [facility] LABORATORY [address] [place] [address] SERVICES HCV RNA DETECT QUANT (06/26/2014 15:07 EDT) [facility] HCV RNA Detect Undetected IU/mL [facility] Quant Comment: LABORATORY Reference Range: ??Undetected SERVICES The quantification range of this assay is 15 IU/mL to 100,000,000 IU/mL. Testing was performed by the Kathy Ampliprep/Kathy TaqMan HCV v2.0 ([employer] Specimen Blood specimen (specimen) - Blood Performing Organization Address [facility] Phon e Number [facility] LABORATORY [address] [place] [address] SERVICES AFP TUMOR MARKER (06/26/2014 15:07 EDT) [facility] AFP-Tumor Marker <2.5 <9 ng/ml [facility] Comment: [facility] Reference value is less than 9 [...] specimen (specimen) - Blood Performing Organization Address [facility] Phon e Number [facility] LABORATORY [address] [place] [address] SERVICES PROTIME (06/26/2014 15:07 EDT) [facility] Pro Time 11.4 9.5 - 12.3 [facility] secs LABORATORY SERVICES I.N.R. 1.1 0.9 - 1.1 [facility] Comment: Ratio LABORATORY SERVICES Moderate Intensity Coumadin INR = 2.0-3.0 Adjustments in anticoagulant therapy dose should be based upon the INR and NOT the Pro Time. Specimen Blood specimen (specimen) - Blood Performing Organization Address [facility]/State/ZIP Code Phon e Number [facility] LABORATORY [address] [place] [address] SERVICES HEMAGRAM (06/26/2014 15:07 EDT) Pathologist Sig nature WBC 7.91 4.0 - 12.4 K/cmm [facility] LABORATORY SERVICES RBC 4.41 3.86 - 5.04 M/cmm [facility] LABORATORY SERVICES Hemoglobin 13.2 11.6 - 15.2 gm/dl [facility] LABORATORY SERVICES HCT 39.5 34.9 - 44.4 % [facility] LABORATORY SERVICES MCV 90 81 - 98 fl [facility] LABORATORY SERVICES MCH 29.9 26.7 - 33.3 pg [facility] LABORATORY SERVICES MCHC 33.4 32.1 - 35.9 gm/dl [facility] LABORATORY SERVICES RDW-CV 13.0 11.7 - 14.6 % [facility] LABORATORY SERVICES RDW-SD 41.6 37.6 - 50.3 fl [facility] LABORATORY SERVICES PLT 168 141 - 320 [facility] MPV 8.5 7.5 - 11.2 fl [facility] LABORATORY SERVICES Specimen Blood specimen (specimen) - Blood Performing Organization Address City/State/ZIP Code Phon e Number [facility] LABORATORY [address] [place] [address] SERVICES (ABNORMAL) COMPREHENSIVE METABOLIC PANEL (CMP) (06/26/2014 15:07 EDT) Pathologist Sig nature Potassium 4.6 3.5 - 5.0 mEq/L [facility] LABORATORY SERVICES Sodium 140 136 - 145 mEq/L [facility] LABORATORY SERVICES Chloride 100 96 - 110 mEq/L [facility] LABORATORY SERVICES CO2 29 24 - 32 mEq/L [facility] LABORATORY SERVICES Total Alkaline 76 38 - 126 U/L [facility] Phosphatase LABORATORY SERVICES Bilirubin, Total <0.5 <1.4 mg/dl [facility] LABORATORY SERVICES AST 35 15 - 46 U/L [facility] LABORATORY SERVICES ALT 41 <53 U/L [facility] LABORATORY SERVICES Albumin 4.2 3.4 - 4.9 g/dl [facility] LABORATORY SERVICES Total Protein 7.4 6.5 - 8.3 g/dl [facility] LABORATORY SERVICES Creatinine 0.63 0.52 - 1.04 [facility] mg/dl LABORATORY SERVICES GFR, Calculated >60 >60 [facility] ml/min/1.73m2 LABORATORY SERVICES BUN 11 10 - 26 mg/dl [facility] LABORATORY SERVICES Calcium 9.0 8.5 - 10.5 [facility] mg/dl LABORATORY SERVICES Calculated Calcium 9.2 8.5 - 10.5 [facility] mg/dl LABORATORY SERVICES Glucose, Serum 150 (H) 70 - 100 mg/dl [facility] LABORATORY SERVICES Fasting? Unknown [facility] LABORATORY SERVICES Specimen Blood specimen (specimen) - Blood Performing Organization Address City/State/ZIP Code Phon e Number [facility] LABORATORY [address] [place] [address] SERVICES documented in this encounter Visit Diagnoses Diagnosis Chronic hepatitis C with cirrhosis (HCC- CMS) (HCC) - Primary Chronic hepatitis C without mention of h epatic coma documented in this encounter Care Teams Aircraft Accessories Mechanic Relationship Specialty Start Date End Date Minda Velasco MD PCP - General 04/10/[address] [place] [id number] Argelia Miranda MD Primary Care Provider Orthopaedic Surgery 07/13/12 documented as of this encounter
--- OUTSIDE RECORDS SUMMARY | 2021-10-02 07:45 | XMS_ITS | Encounter Summary ---
:1960 Author Organization Address [address] [place] [address] Care Team Providers Name Role Phone Minda Velasco MD Primary Care Provider Argelia Miranda MD Unavailable Reason for Visit Reason Onset Date Comments Ultrasound 01/16/2013 Patient needs an ord er fax for screening ultrasound of the liver to [facility]. It is in her note @ last visit. Call birdie wilson. Encounter Details Date Type Department Care Team Description 01/16/2013 Telephone [facility] Preston Alvarenga (Patient Gastroenterology - [facility] MD Yaya needs an order fax [address] for screening [address] [facility] [place] [address] [facility], Main liver to [facility] [phone] [facility] [address] [place], [place] Center. It is in her [phone] note @ last visit. [phone] (Wo rk) Call patient.) Social History Tobacco Use Types Packs/Day Years [...] on filedocumented in this encounter Care Teams Title Supervisor Relationship Specialty Start Date End Date Minda Velasco MD PCP - General 04/10/09 [address] [place] [address] Argelia Miranda MD Primary Care Provider Orthopaedic Surgery 07/13/12 documented as of this encounter
--- OUTSIDE RECORDS SUMMARY | 2021-10-02 07:45 | XMS_ITS | Encounter Summary ---
:[address] [facility] Address [address] [place] [address] Care Team Providers Name Role Phone Minda Velasco MD Primary Care Provider Argelia Miranda MD Unavailable Reason for Visit Reason Comments Follow-up 2 mo follow up, new medicati ons: ribavirin and sovaldi Encounter Details Date Type Department Care Team Description 11/07/2013 Office Visit [facility] Ferrentino, Chronic h epatitis C without mention of hepatic coma (Primary Dx); Gastroenterology - [facility] MD Yaya Chronic hepatitis C with cirrhosis ([facility]) [place] [address] [place] [id number] [place] [address] [address], [address] [place] [address] Social History Tobacco Use Types Packs/Day Years Used Date Current Every Day Smoker 0.5 Smokeless Tobacco: Never Used Alcohol Use Standard Drinks/Week Comments No 0 (1 standard drink = 0.6 oz pure alcoho l) Sex Assigned at Date Recorded Not on file documented as of this encounter Last Filed Vital Signs Vital Sign Reading Time Taken Comments Blood Pressure 136/77 11/07/2013 1509 EDT Pulse 82 11/07/2013 1509 EDT Temperature - - Respiratory Rate - - Oxygen Saturation - - Inhaled Oxygen Concentration - - Weight 66.7 kg (147 lb) 11/07/2013 1509 EDT Height 165.1 cm (5' 5) 11/07/2013 1509 EDT Body Mass Index 24.46 11/07/2013 1509 EDT documented in this encounter Discharge Diagnoses Diagnosis 070.54 VIR HEP NEC W/O COMA W HEP C HORSE TRAINER N[ICD-9-CM] documented in this encounter Discharge Disposition Disposition Code Departure Means Destination Auto Discharge documented in this encounter Progress Notes Yaya Alvarenga MD - 11/07/2013 2346 EDT Subjective: Patient ID: Sadie Spann is an 53 y.o. female. Chief Complaint Patient presents with ??? Follow-up 2 mo follow up, new medications: ribavirin and sovaldi HPI Mrs Spann is here in followup for management of chronic hepatitis C infection, genotype 2B with presumed cirrhosis, currently having just completed 12 weeks of treatment with sofosbuvir and ribavirin with undetectable virus at week 4 and 8. She had a liver biopsy in 2005 [...] the present time other than some mild fatigue. She continues to have chronic pain issues with regards to her ba ck. Patient Active Problem List Diagnosis ??? Pain [...] mg by mouth at bedtime. 1-2 ??? clotrimazole (LOTRIMIN) 1 % cream Apply topically 2 times daily. ??? Docosanol (ABREVA) 10 % Cream Apply topically as needed. ??? docusate sodium (DOC-Q-LACE) 100 mg capsule Take 100 mg by mouth daily as needed for Constipation. ??? ferrous sulfate 325 mg (65 mg iron) tablet Take 325 mg by mouth 3 times daily. ??? Fish Oil-Divide-3 Fatty Acids (FISH OIL) 360-1,200 mg Cap [...] in thehistory of present illness. Objective: BP 136/77 Pulse 82 Ht 165.1 cm (65) Wt 66.679 kg [...] no inguinal adenopathy. Her extremities revealed trace pitting edema bilaterally. Assessment: Patient with chronic hepatitis C infection, genotype 2B with presumed cirrhosis, currently having just completed 12 weeks of treatment with sofosbuvir and ribavirin with undetectable virus at week 4 and 8. She remains well compensated and stable. See above for further details. Plan: 1) We will obtain routine blood work today including CBC, INR, Compass metabolic profile as well as a end of treatment quantitative hep C RNA by PCR. 2) We will followup with her in the liver clinic in 3 months time. At that point we will once again check her viral load to determine if she is a sustained viral responder. 3) We will schedule her for her 6 month screening ultrasound of the liver at the time of her next visit. 4) We will continue to follow her every 6 months in the liver clinic subsequent to that. This was all discussed in detail with the patient who is in agreement. Sdaie was seen today for follow-up. Diagnoses and associated orders for this visit: Chronic hepatitis C without mention of hepatic coma Chronic hepatitis C with cirrhosis - Comprehensive Metabolic Panel (CMP); Future - Protime; Future - Hemagram; Future - HCV RNA Detect Quant; Future Yaya Alvarenga MD documented in this encounter Plan of Treatment Not on filedocumented as of this encounter Results HCV RNA DETECT QUANT (11/07/2013 15:54 EDT) [facility] HCV RNA Detect Undetected IU/mL [facility] Comment: LAB Reference Range: ??Undetected The quantification range of this assay is 15 IU/mL to 100,000,000 IU/mL. Testing was performed by the Kathy Ampliprep/Kathy TaqMan HCV v2.0 ([employer] Specimen Blood specimen (specimen) Performing Organization Address [facility] Phon e Number [facility] [address] [place] [address] SERVICES [facility] [address] [place] [address] (ABNORMAL) HEMAGRAM (11/07/2013 15:54 EDT) [facility] nature WBC 6.06 4.0 - 12.4 K/cmm [facility] RBC 3.52 (L) 3.86 - 5.04 M/cmm [facility] Hemoglobin 10.9 (L) 11.6 - 15.2 gm/dl [facility] HCT 33.7 (L) 34.9 - 44.4 % [facility] MCV 96 81 - 98 fl [facility] MCH 31.1 26.7 - 33.3 pg [facility] MCHC 32.5 32.1 - 35.9 gm/dl [facility] PLT 166 141 - 320 K/cmm [facility] RDW-CV 12.8 11.7 - 14.6 % [facility] Specimen Blood specimen (specimen) Performing Organization Address [facility] Phon e Number [facility] [address] [place] [address] SERVICES [facility] [address] [place] [address] PROTIME (11/07/2013 15:54 EDT) [facility] Pro Time 11.7 9.5 - 12.3 [facility] secs I.N.R. 1.1 0.9 - 1.1 [facility] Comment: Ratio Moderate Intensity Coumadin INR = 2.0-3.0 Adjustments in anticoagulant therapy dose should be based upon the INR and NOT the Pro Time. Specimen Blood specimen (specimen) Performing Organization Address [facility] Phon e Number [facility] [address] [place] [address] SERVICES [facility] [address] [place] [address] (ABNORMAL) COMPREHENSIVE METABOLIC PANEL (CMP) (11/07/2013 15:54 EDT) Pathologist [facility] nature Potassium 4.4 3.5 - 5.0 mEq/L [facility] Sodium 140 136 - 145 mEq/L [facility] Chloride 99 96 - 110 mEq/L [facility] CO2 29 24 - 32 mEq/L [facility] Total Alkaline 75 38 - 126 U/L [facility] Phosphatase Bilirubin, Total <0.5 <1.4 mg/dl [facility] AST 32 15 - 46 U/L [facility] ALT 31 <53 U/L [facility] Albumin 4.1 3.4 - 4.9 g/dl [facility] Total Protein 7.7 6.5 - 8.3 g/dl [facility] Creatinine 0.72 0.52 - 1.04 [facility] mg/dl GFR, Calculated >60 >60 [facility] ml/min/1.73m2 BUN 8 (L) 10 - 26 mg/dl [facility] Calcium 9.4 8.5 - 10.5 [facility] mg/dl Calculated Calcium 9.7 8.5 - 10.5 [facility] mg/dl Glucose, Serum 91 70 - 100 mg/dl [facility] Fasting? Unknown [facility] Specimen Blood specimen (specimen) Performing Organization Address City/[facility] Phon e Number [facility] [address] [place] [address] SERVICES [facility] [address] [place] [address] documented in this encounter Visit Diagnoses Diagnosis Chronic hepatitis C without mention of h epatic coma - Primary Chronic hepatitis C with cirrhosis (HCC- [facility]) (HCC) Chronic hepatitis C without mention of h epatic coma documented in this encounter Care Teams Trim Attacher Relationship Specialty Start Date End Date Minda Velasco MD PCP - General 04/10/09 [address] [place], [place] [id number] Argelia Miranda MD Primary Care Provider Orthopaedic Surgery 07/13/12 documented as of this encounter
--- OUTSIDE RECORDS SUMMARY | 2021-10-02 07:45 | XMS_ITS | Encounter Summary ---
:1960 Author Organization [facility] Address [address] [place] [address] Care Team Providers Name Role Phone Minda Velasco MD Primary Care Provider Argelia Miranda MD Unavailable Encounter Details Date Type Department Care Team Description 11/30/2017 Results Only [facility] Yaya Alvarenga, Gastroenterology - [address] [address] [facility] [place] [phone] (Wo rk) Social History Tobacco Use Types [...] Procedure Name Priority Date/Time Associated Comments Diagnosis TESTS ADDED BY PHONE Routine 11/30/2017 15:39 Res ults for this EDT procedure are i n the results section. HEMOGLOBIN A1C Routine 11/30/2017 15:39 Results f or this EDT procedure are i n the results section. documented in this encounter Results HEMOGLOBIN A1C (11/30/2017 15:39 EDT) Hemoglobin A1C 9.2 % [facility] Comment: LABORATORY SERVICES Reference Range: <5.7% Normal 5.7-6.4% Prediabetes =>6.5% Diagnostic for diabetes (if confirmed) Goals for glycemic control in diabetes ADA 2017 For non adults with diabetes: ?? Target <7.0% For children and adolescents with type 1 diabetes: ?? Target <7.5% More or less stringent targets may be appropriate for individual patients. Est Avg Glucose 217 mg/dl [facility] Comment: LABORATORY SERVICES eAG represents the A1c result expressed as average glucose in mg/dl. Specimen Blood Performing Organization Address City/State/ZIP Code Phon e Number [facility] [address] [place] [address] SERVICES TESTS ADDED BY PHONE (11/30/2017 15:39 EDT) Tests to be added [id number]: [facility] FAXED ADD ON LABORATORY SERVICES ORDER Diagnosis Code E11.9 [facility] LABORATORY SERVICES Who Called DR MINDA VELASCO [facility] LABORATORY SERVICES Location Code OPD [facility] LABORATORY SERVICES Read YES [facility] Back/Confirmed? LABORATORY SERVICES Specimen Other Performing Organization Address City/State/ZIP Code Phon e Number [facility] [address] [place] [address] SERVICES documented in this encounter Visit Diagnoses Not on filedocumented in this encounter Care Teams Instructional Technology Coach Relationship Specialty Start Date End Date Minda Velasco MD PCP - General 04/10/09 [address] [place] [address] Argelia Miranda MD Primary Care Provider Orthopaedic Surgery 07/13/12 documented as of this encounter
--- OUTSIDE RECORDS SUMMARY | 2021-10-02 07:45 | XMS_ITS | Encounter Summary ---
:1960 Author Organization [facility] Address [address] [place] [address] Care Team Providers Name Role Phone Minda Velasco MD Primary Care Provider Argelia Miranda MD Unavailable Encounter Details Date Type Department Care Team Description 06/26/[address] [facility] Yaya Alvarenga, Gastroenterology - [address] [address] [address], [place] [phone] (Wo rk) Social History Tobacco Use Types [...] Comments Diagnosis TESTS ADDED BY PHONE Routine 06/26/2014 15:07 Res ults for this EDT procedure are i n the results section. HEPATITIS A ANTIBODY IGM Routine 06/26/2014 15:07 Results for this EDT procedure are i n the results section. TISSUE TRANSGLUTAMINASE Routine 06/26/2014 15:07 Results for this AB EDT procedure are i n the results section. documented in this encounter Results TISSUE TRANSGLUTAMINASE AB (06/26/2014 15:07 EDT) Tissue Transglut <1.2 <4 U/mL [facility] Ab Comment: LABORATORY SERVICES The following results were obtained with the [employer] NTA Lite R h-tTG IgA DEANDRA assay on the [employer] DSX. A negative result may be due to IgA deficiency and tong s not rule out celiac disease. Specimen Blood Performing Organization Address City/State/ZIP Code Phon e Number [facility] [address] [place] [address] SERVICES TESTS ADDED BY PHONE (06/26/2014 15:07 EDT) Tests to be added TTAB [facility] LABORATORY SERVICES Diagnosis Code DIGESTIVE PROBLEMS [facility] LABORATORY SERVICES Who Called JAMEY FOR MINDA [facility] BIPIN LABORATORY SERVICES Location Code OPD [facility] LABORATORY SERVICES Read YES [facility] Back/Confirmed? LABORATORY SERVICES Specimen Other Performing Organization Address City/[facility]/ZIP Code Phon e Number [facility] [address] [place] [address] SERVICES HEPATITIS A ANTIBODY IGM (06/26/2014 15:07 EDT) Hep A Antibody IgM Negative [facility] Comment: LABORATORY SERVICES Result consistent with past exposure, NOT a recent inf ection. Reference Range: ??Negative Specimen Blood Performing Organization Address City/[facility]/ZIP Code Phon e Number [facility] [address] [place] [address] SERVICES documented in this encounter Visit Diagnoses Not on filedocumented in this encounter Care Teams Communications Planner Relationship Specialty Start Date End Date Minda Velasco MD PCP - General 04/10/[address] [place] [id number] Argelia Miranda MD Primary Care Provider Orthopaedic Surgery 07/13/12 documented as of this encounter
--- OUTSIDE RECORDS SUMMARY | 2021-10-02 07:45 | XMS_ITS | Encounter Summary ---
:1960 Author Organization [facility] Address [address] [place] [address] Care Team Providers Name Role Phone Minda Velasco MD Primary Care Provider Argelia Mrianda MD Unavailable Reason for Referral Radiology Services (Routine) - New Request Specialty Diagnoses / Procedures Referred By Contact Refer red To Contact Diagnoses Cirrhosis of liver without ascites, unspecified hepatic cirrhosis type (HCC-CMS) (HCC) Yaya Alvarenga MD Procedures RAD US ABDOMEN ONE ORGAN/QUADRANT [address] [facility] Pavilion, Level [address] [place] [address] Referral ID Status Reason Start Date Expiration Date Visits V isits Requested Authorized [id number] New Request 11/30/2017 1 1 Reason for Visit Reason Comments Follow-up cirrhosis, last seen 12/2014. Encounter Details Date Type Department Care Team Description 11/30/2017 Office Visit [facility] [place], Cirrhosis of liver Gastroenterology - Noel Javier MD without ascites, [place] [address] [place] unspecified hepatic 111 [facility] cirrhosis type [place], [place] [id number] [place] [address] (HCC-CMS) (Primary [phone] Pavilion, Level 5 Dx) [place] [address] Social History Tobacco Use Types [...] EDT Pulse 72 11/30/2017 1501 EDT Temperature - - Respiratory Rate - - Oxygen Saturation - - Inhaled Oxygen Concentration - - Weight 68 kg (150 lb) 11/30/2017 1501 EDT Height 165.1 cm (5' 5) 11/30/2017 1501 EDT Body Mass Index 24.96 11/30/2017 1501 EDT documented in this encounter Functional Status Functional Status Response [...] making decisions? documented as of this encounter Discharge Diagnoses Diagnosis E11.9 Type 2 diabetes mellitus without c omplications-E11.9[ICD-10-CM] documented in this encounter Discharge Disposition Disposition Code Departure Means Destination Auto Discharge documented in this encounter Progress Notes Yaya Alvarenga MD - 11/30/2017 1520 EDT Subjective: Patient ID: Sadie Spann is an 57 y.o. female. Chief Complaint Patient presents with ??? Follow-up cirrhosis, last seen 12/2014. 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 We have not seen her in 3 years although she reports following up with her primary care physician regularly with at least yearly ultrasounds and blood work which have been unremarkable, according to the patient. She specifically denies any decompensating events such as jaundice, GI bleeding, change in mental status, or the development of fluid such as ascites. She has no specific complaints at the present time. Patient Active Problem List Diagnosis ??? Pain of lower extremity ??? Right elbow pain ??? Scoliosis ??? Low back pain radiating to left leg ??? Spondylolysis of lumbar region ??? Spondylolisthesis, grade 1 ??? Lumbar disc herniation with radiculopathy Past Medical History: Diagnosis Date ??? Anxiety 1989 ??? Arrhythmia ??? Asthma 1989 ??? Diabetes mellitus ([facility]) 2005 ??? GERD (gastroesophageal reflux disease) 2007 ??? Hyperlipidemia ??? Hypertension ??? Spinal stenosis ??? Substance abuse 2001 Past Surgical History: Procedure Laterality Date ??? NECK SURGERY 1994 Family History Problem Relation Age of Onset ??? Cancer Mother ??? Heart Disease Father ??? High Blood Pressure Father ??? Crohn's Disease Brother ??? Diabetes Sister ??? Liver Disease Son ??? Mental Illness Son Social Social History Substance Use Topics ??? Smoking status: Current Every Day Smoker Packs/day: 1.00 Years: 30.00 Types: Cigarettes ??? Smokeless tobacco: Never Used ??? Alcohol use No Current Outpatient Prescriptions on File Prior to Visit Medication Sig Dispense Refill ??? aspirin 81 mg EC tablet Take 81 mg by mouth daily ??? CALCIUM CARBONATE (OS-MARCIANO ORAL) Take by mouth daily. ??? docusate sodium (DOC-Q-LACE) 100 mg capsule Take 100 mg by mouth daily as needed for Constipation. ??? ferrous sulfate 325 mg (65 mg iron) tablet Take 325 mg by mouth 3 times daily. ??? Fish Oil-Davis-3 Fatty Acids (FISH OIL) 360-1,200 mg Cap Take 100 mg by mouth daily. ??? gabapentin (NEURONTIN) 400 mg capsule Take 400 mg by mouth daily. ??? insulin glargine (LANTUS) 100 unit/mL injection Inject 18 mL into the skin at bedtime. ??? levalbuterol (XOPENEX HFA) 45 mcg/Actuation inhaler Inhale 1-2 Puffs as directed as needed for Wheezing. ??? lisinopril (PRINIVIL, ZESTRIL) 2.5 mg tablet Take 2.5 mg by mouth daily ??? magnesium oxide (MAG-OX) 400 mg tablet Take 400 mg by mouth daily. ??? metformin (GLUCOPHAGE) 500 mg tablet Take 500 mg by mouth 2 times daily. ??? methadone (DOLOPHINE) 10 mg tablet Take 90 mg by mouth daily . ??? methadone (DOLOPHINE) 10 mg/mL solution Take 135 mg by mouth daily. ??? oxycodone (ROXICODONE) 5 mg immediate release tablet Take 10 mg by mouth every 6 hours as needed. ??? pantoprazole (PROTONIX) 40 mg tablet Take 40 mg by mouth daily ??? simvastatin (ZOCOR) 10 mg tablet Take 10 mg by mouth daily ??? VITAMIN B COMPLEX (B COMPLEX 1 ORAL) Take 1 Tab by mouth daily. No current facility-administered medications on file prior to visit. Allergies Allergen Reactions ??? Antihistamine [Diphenhydramine Hcl] ??? Buspar [Buspirone] ??? Butorphanol ??? Daypro [Oxaprozin] ??? Dilantin [Phenytoin Sodium Extended] ??? Elavil ??? Flexeril [Cyclobenzaprine] ??? Lisinopril ??? Motrin [Ibuprofen] ??? Pamelor [Nortriptyline] ??? Paxil [Paroxetine Hcl] ??? Prozac [Fluoxetine] ??? Relafen [Nabumetone] ??? Ultram [Tramadol] ??? Valium [Diazepam] ??? Xanax [Alprazolam] ??? Zoloft [Sertraline] ROS - See HPI A 10-point review of systems was noted to be negative or unremarkable and is otherwise stated in thehistory of present illness. Objective: BP (!) 144/78 Pulse 72 Ht 165.1 cm (65) Wt 68 kg (150 lb) BMI 24.96 kg/m2 Physical Exam On physical exam, the patient is generally well-appearing and in no acute distress; alert and oriented. Weight and vitals are as noted above. HEENT exam was unremarkable. There was no scleral icterus. Neck was supple without any palpable lymphadenopathy or thyromegaly. Heart was regular rate and rhythm without any murmurs, rubs or gallops. Lungs are clear to auscultation bilaterally. Abdomen was soft, nondistended, NT. Bowel sounds were positive. There were no masses appreciated or other abnormalities; left lobe of the liver is enlarged, spleen tip not palpable. No significant inguinal adenopathy. Extremities were negative for pitting edema bilaterally. Assessment: Patient with presumed compensated cirrhosis secondary to chronic hepatitis C, having been a sustained viral responder to a 12 week course of treatment with sofosbuvir and ribavirin in 2014. 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 She remains clinically stable. Her only upper endoscopy was performed in 2011 which revealed a normal-appearing esophagus but with mild evidence of portal gastropathy seen within the stomach. Plan: 1) We will obtain routine blood work today including CBC, INR, CMP and AFP. ?? 2) We will schedule her for her screening ultrasound of the liver to be performed at [facility]. ?? 3) She prefers to follow up with her primary care physician in 6 months and then see us 6 months after that. 4) Recommend repeat upper endoscopy for screening for varices. Also recommended a screening colonoscopy which she has never had and the benefits of performing both of these at the same time thereby allowing for a single session of sedation. Her previous upper endoscopy was performed with anesthesiology. The patient states that she will think about this and let us know as to how she would like to proceed regarding these exams. ?? This was all discussed in detail with the patient who is in agreement. (K74.60) Cirrhosis of liver without ascites, unspecified hepatic cirrhosis type (HCC-CMS) (primary encounter diagnosis) Plan: COMPREHENSIVE METABOLIC PANEL (CMP), PROTIME, COMPLETE BLOOD COUNT, AFP TUMOR MARKER, RAD US ABDOMEN ONE ORGAN/QUADRANT Yaya Alvarenga MD Med Orders Placed This Visit and Additions to the Medication List Medications ??? nicotine (NICODERM CQ) 14 mg/24 hr patch Sig: Place 14 mg onto the skin daily. ??? MEDICAL MARIJUANA ??? Sennosides (SENNA) 8.6 mg capsule Sig: Take by mouth daily. ??? estradiol (ESTRACE) 0.01 % (0.1 mg/gram) vaginal cream Sig: Place vaginally daily. ??? albuterol 90 mcg/actuation inhaler Sig: Inhale 180 mcg as directed every 4 hours. ??? calcium-vitamin D (OSCAL-500) 500 mg(1,250mg) -200 unit per tablet Sig: Take by mouth daily. Results for orders placed or performed in visit on 11/30/17 COMPREHENSIVE METABOLIC PANEL (CMP) Result Value Ref Range Potassium 4.1 3.5 - 5.0 mEq/L Sodium 139 136 - 145 mEq/L Chloride 97 96 - 110 mEq/L CO2 31 22 - 32 mEq/L Total Alkaline Phosphatase 81 38 - 126 U/L Bilirubin, Total <0.5 <1.4 mg/dl AST 62 (H) 15 - 46 U/L ALT 59 (H) <53 U/L Albumin 4.3 3.4 - 4.9 g/dl Total Protein 7.3 6.3 - 8.2 g/dl Creatinine 0.73 0.52 - 1.04 mg/dl GFR, Calculated 90 >60 ml/min/1.73m2 BUN 11 10 - 26 mg/dl Calcium 9.6 8.5 - 10.5 mg/dl Calculated Calcium 9.4 8.5 - 10.5 mg/dl Glucose, Serum 208 (H) 70 - 100 mg/dl Fasting? No PROTIME Result Value Ref Range Pro Time 12.3 10.3 - 13.4 secs I.N.R. 1.0 0.9 - 1.1 Ratio COMPLETE BLOOD COUNT Result Value Ref Range WBC 9.05 4.0 - 12.4 K/cmm RBC 4.36 3.86 - 5.04 M/cmm Hemoglobin 12.7 11.6 - 15.2 gm/dl HCT 39.2 34.9 - 44.4 % MCV 90 81 - 98 fl MCH 29.1 26.7 - 33.3 pg MCHC 32.4 32.1 - 35.9 gm/dl RDW-CV 12.2 <14.7 % RDW-SD 40.3 <50.4 fl PLT 195 141 - 377 K/cmm MPV 10.5 9.5 - 12.7 fl AFP TUMOR MARKER Result Value Ref Range AFP Tumor Marker <2.0 <8.1 ng/mL Results for orders placed or performed in visit on 11/30/17 TESTS ADDED BY PHONE Result Value Ref Range Tests to be added HA1C Diagnosis Code E11.[address] MINDA VELASCO Location Code OPD Read Back/Confirmed? YES HEMOGLOBIN A1C Result Value Ref Range Hemoglobin A1C 9.2 % Est Avg Glucose 217 mg/dl documented in this encounter Plan of Treatment Scheduled Orders Name Type Priority Associated Diagnoses Order S chedule RAD US ABDOMEN ONE Imaging Routine Cirrhosis of liver wit maxut Ordered: 11/30/2017 ORGAN/QUADRANT ascites, unspecified hepatic cirrhosis type (HCC-CMS) documented as of this encounter Results AFP TUMOR MARKER (11/30/2017 15:39 EDT) [facility] AFP Tumor Marker <2.0 <8.1 ng/mL [facility] Comment: [facility] AFP tumor marker cannot be interpreted in fem ales. SERVICES Serum AFP concentration should not be interpreted as absolute evidence for the presence or absence of malignant disease. Assayed utilizing Siemens chemiluminescent technology. Values obtained by using different assay methods cannot be used interchangeably. Specimen Blood specimen (specimen) - Blood Performing Organization Address [facility] Phon e Number [facility] [address] [place] [address] SERVICES COMPLETE BLOOD COUNT (11/30/2017 15:39 EDT) Pathologist [facility] WBC 9.05 4.0 - 12.4 K/cmm [facility] SERVICES RBC 4.36 3.86 - 5.04 M/cmm [facility] SERVICES Hemoglobin 12.7 11.6 - 15.2 gm/dl [facility] SERVICES HCT 39.2 34.9 - 44.4 % [facility] SERVICES MCV 90 81 - 98 fl [facility] SERVICES MCH 29.1 26.7 - 33.3 pg [facility] SERVICES MCHC 32.4 32.1 - 35.9 gm/dl [facility] SERVICES RDW-CV 12.2 <14.7 % [facility] SERVICES RDW-SD 40.3 <50.4 fl [facility] SERVICES PLT 195 141 - 377 K/cmm [facility] SERVICES MPV 10.5 9.5 - 12.7 fl [facility] SERVICES Specimen Blood specimen (specimen) - Blood Performing Organization Address [facility] Phon e Number [facility] [address] [place] [phone] SERVICES PROTIME (11/30/2017 15:39 EDT) Pro Time 12.3 10.3 - 13.4 [facility] LABORATORY SERVICES I.N.R. 1.0 0.9 - 1.1 [facility] Comment: Ratio LABORATORY SERVICES Moderate Intensity Coumadin INR = 2.0-3.0 Adjustments in anticoagulant therapy dose should be based upon the INR and NOT the Pro Time. Specimen Blood specimen (specimen) - Blood Performing Organization Address City/[facility] Phon e Number [facility] [address] [place] [address] SERVICES (ABNORMAL) COMPREHENSIVE METABOLIC PANEL (CMP) (11/30/2017 15:39 EDT) Potassium 4.1 3.5 - 5.0 [facility] mEq/L [facility] Sodium 139 136 - 145 [facility] mEq/L [facility] SERVICES Chloride 97 96 - 110 [facility] mEq/L [facility] CO2 31 22 - 32 mEq/L [facility] SERVICES Total Alkaline 81 38 - 126 U/L [facility] Phosphatase [facility] Bilirubin, Total <0.5 <1.4 mg/dl [facility] SERVICES AST 62 (H) 15 - 46 U/L [facility] SERVICES ALT 59 (H) <53 U/L [facility] SERVICES Albumin 4.3 3.4 - 4.9 [facility] g/dl [facility] Total Protein 7.3 6.3 - 8.2 [facility] g/dl [facility] Creatinine 0.73 0.52 - 1.04 [facility] mg/dl [facility] SERVICES GFR, Calculated 90 >60 [facility] Comment: ml/min/1.73m2 [facility] eGFR calculated using CKD-EPI equation for SERVICES non Americans. Multiply eGFR by 1.16 for Americans. BUN 11 10 - 26 mg/dl [facility] SERVICES Calcium 9.6 8.5 - 10.5 [facility] mg/dl [facility] Calculated Calcium 9.4 8.5 - 10.5 [facility] mg/dl [facility] Glucose, Serum 208 (H) 70 - 100 [facility] mg/dl [facility] SERVICES Fasting? No [facility] SERVICES Specimen Blood specimen (specimen) - Blood Performing Organization Address City/[facility] Code Phon e Number [facility] [address] [place] [address] SERVICES documented in this encounter Visit Diagnoses Diagnosis Cirrhosis of liver without ascites, unsp ecified hepatic cirrhosis type (HCC-[facility]) (HCC) - Primary documented in this encounter Historical Medications This list may reflect changes made after this encounter. Medication Sig Dispensed Refills Start Date End Date calcium-vitamin D Take by mouth daily. 0 (OSCAL-500) 500 mg(1,250mg) -200 unit per tablet albuterol 90 Inhale 180 mcg as 0 mcg/actuation inhaler directed every 4 hours. estradiol (ESTRACE) 0.01 Place vaginally daily. 0 % (0.1 mg/gram) vaginal cream Sennosides (SENNA) 8.6 Take by mouth daily. 0 mg capsule MEDICAL MARIJUANA 0 nicotine (NICODERM CQ) Place 14 mg onto the 0 14 mg/24 hr patch skin daily. added in this encounter Care Teams Train Driver Relationship Specialty Start Date End Date Minda Velasco MD PCP - General 04/10/[address] [place] [id number] Argelia Miranda MD Primary Care Provider Orthopaedic Surgery 07/13/12 documented as of this encounter
--- OUTSIDE RECORDS SUMMARY | 2021-10-02 07:45 | XMS_ITS | Encounter Summary ---
:1960 Author Organization [facility] Address [address] [place] [address] Care Team Providers Name Role Phone Minda Velasco MD Primary Care Provider Argelia Miranda MD Unavailable Reason for Visit Reason Onset Date Comments Prior Auth, Medication 07/25/2013 Encounter Details Date Type Department Care Team Description 07/25/2013 Telephone [facility] [place], [facility] h, Gastroenterology - [facility] MD Yaya Medication [place] [address] [address] [facility] [phone] [facility] [address] [place] [address] (Wo rk) Social History Tobacco Use Types Packs/Day Years Used Date Current Every Day Smoker 0.5 Smokeless Tobacco: Never Used Alcohol Use Standard Drinks/Week Comments No 0 (1 standard drink = 0.6 oz pure alcoho l) Sex Assigned at Date Recorded Not on file documented as of this encounter Miscellaneous Notes Telephone Encounter - Ruth Hamilton RN - 07/25/2013 8413 EDT Patient will contact our office when she receives the medication. Teaching will be done via phone. elephone Encounter - Vania Stahl - 07/25/2013 1517 EDT Patient was informed that her Hep C medications have been approved by her insurance. [facility] is the mandated specialty pharmacy who will be dispensing the medications. Patient was told that the GI Nursewill be calling her to set up a teaching session (either on the phone or in the office.) Patient will be calling [facility] to set up delivery instructions. Her co-pay is $3.00 per medication. documented in this encounter Plan of Treatment Not on filedocumented as of this encounter Visit Diagnoses Not on filedocumented in this encounter Care Teams Mechanic Senior Relationship Specialty Start Date End Date Minda Velasco MD PCP - General 04/10/[address] [place] [id number] Argelia Miranda MD Primary Care Provider Orthopaedic Surgery 07/13/12 documented as of this encounter
--- OUTSIDE RECORDS SUMMARY | 2021-10-02 07:45 | XMS_ITS | Encounter Summary ---
:1960 Author Organization [facility] Address [address] [place] [address] Care Team Providers Name Role Phone Minda Velasco MD Primary Care Provider Argelia Miranda MD Unavailable Reason for Visit Reason Onset Date Comments Other 12/08/2012 Called and spoke to pt about the new change in time and date for OV, mailed pt letter with new date and time. Encounter Details Date Type Department Care Team Description 12/08/2012 Telephone [facility] [place], [place] ([place] and Gastroenterology - [facility] MD Yaya spoke to pt about [address] the new change in [address] [place] [address] [place] [address] [facility], [facility] OV, mailed pt letter [phone] [place], [address] with new date and [place], [place] time.) [phone] (Wo rk) Social History Tobacco Use Types Packs/Day Years Used Date Current Every Day Smoker 1 Smokeless Tobacco: Never Used Alcohol Use Standard Drinks/Week Comments No 0 (1 standard drink = 0.6 oz pure alcoho l) Sex Assigned at Date Recorded Not on file documented as of this encounter Miscellaneous Notes Telephone Encounter - Tianna Snyder - 12/08/2012 0904 EDT Called and spoke to pt about the new change in time and date for OV, mailed pt letter with new date and time. documented in this encounter Plan of Treatment Not on filedocumented as of this encounter Visit Diagnoses Not on filedocumented in this encounter Care Teams Pulp Bleacher Relationship Specialty Start Date End Date Minda Velasco MD PCP - General 04/10/[address] [place] [phone] Argelia Miranda MD Primary Care Provider Orthopaedic Surgery 07/13/12 documented as of this encounter
--- OUTSIDE RECORDS SUMMARY | 2021-10-02 07:45 | XMS_ITS | Encounter Summary ---
:1960 Author Organization [facility] Address [address] [place] [address] Care Team Providers Name Role Phone Minda Velasco MD Primary Care Provider Argelia Miranda MD Unavailable Reason for Referral Radiology Services (Routine) - Closed Specialty Diagnoses / Procedures Referred By Contact Refer red To Contact Diagnoses Chronic hepatitis C with cirrhosis (HCC-[facility]) (HCC) Yaya Alvarenga MD Procedures RAD US ABDOMEN ONE ORGAN/QUADRANT [address] [facility], [address] [place] [address] Referral ID Status Reason Start Date Expiration Date Visits Requ ested Visits Authorized [id number] Closed 06/26/2014 1 1 Reason for Visit Reason Comments Follow-up 3 month follow up for Sovald i, pt states that she's tired all the time Encounter Details Date Type Department Care Team Description 06/26/2014 Office Visit [facility] Jania Alvarenga epatitis C Gastroenterology - [facility] MD Yaya with cirrhosis [place] [address] [place] [address] (CMS-HCC) (Primary [address] [facility] D[facility]) [place] [address] [facility] [phone] [place], [facility] [address] [place] [address] Social History Tobacco Use Types Packs/Day Years Used Date Current Every Day Smoker 0.5 Smokeless Tobacco: Never Used Alcohol Use Standard Drinks/Week Comments No 0 (1 standard drink = 0.6 oz pure alcoho l) Sex Assigned at Date Recorded Not on file documented as of this encounter Last Filed Vital Signs Vital Sign Reading Time Taken Comments Blood Pressure 126/82 06/26/2014 1353 EDT Pulse 72 06/26/2014 1353 EDT Temperature - - Respiratory Rate - - Oxygen Saturation - - Inhaled Oxygen Concentration - - Weight 70.3 kg (155 lb) 06/26/2014 1353 EDT Height 165.1 cm (5' 5) 06/26/2014 1353 EDT Body Mass Index 25.79 06/26/2014 1353 EDT documented in this encounter Progress Notes Robert Lara MD - 06/26/2014 1424 EDT Subjective: Patient ID: Sadie Spann is an 53 y.o. female. Chief Complaint Patient presents with ??? Follow-up 3 month follow up for yanick Duran states that she's tired all the time HPI Mrs Spann is here in followup for management of chronic hepatitis C infection, genotype 2B with cirrhosis, having completed her 12 weeks of treatment with sofosbuvir and ribavirin as of 11/2013 with undetectable virus. She had a liver biopsy in 2005 consistent with stage III/IV fibrosis and since thenhas had imaging revealing evidence of a nodular liver. She has been well compensated and specifically denies any decompensating events such as jaundice, GI bleeding, change in mental status, or the development of fluid such as ascites. Patient has noticed fatigue and forgetfulness ever since completing her therapy. She thinks the symptoms are getting worse. She is never overtly confused but she just feels more forgetful. For instance, sometimes she doesn't remember whether or not she added a certain ingredient to her food while cooking in the kitchen. She has also developed some smears of poop on her underwear. Sometimes this happens when she passes gas. It started 2 months ago and has had 3 episodes of soiling her underwear. She thinks sometimes her stool might by mucousy in the toilet. She has seldom noticed red blood on the toilet paper when wiping. This only occurs when she is straining. Patient feels constipated the majority of the time. She has a history of hemorrhoids. Patient Active Problem List Diagnosis ??? Pain [...] by mouth 3 times daily. ??? Fish Oil-[place]-3 Fatty Acids (FISH OIL) 360-1,200 mg Cap [...] No Known Allergies ROS - See HPI Objective: BP 126/82 Pulse 72 Ht 165.1 cm (65) Wt 70.308 kg (155 lb) BMI 25.79 kg/m2 Physical Exam Constitutional: Pt appears well-developed and well-nourished. Abdominal: Soft. Bowel sounds are normal. Pt exhibits no distension. There is no tenderness. There is no rebound. Skin: Skin is warm and dry. No rash noted. No jaundice. LABS/IMAGING Liver Biopsy 01/2006 1. Hepatitis, consistent with chronic Hepatitis C. - Grade 3 of 4. - Satge 3 of 4, and since then has had imaging revealing evidence of a nodular liver. 2. Steatohepatitis, mildly active 11/07/2013 Hb: 10.9 (upon completion of treatment) 11/07/2013: CMP within normal limits Assessment: Mrs Spann is here in followup for management of chronic hepatitis C genotype 2B with compensated cirrhosis, having completed her 12 weeks of treatment with sofosbuvir and ribavirin as of 11/2013 with undetectable virus after treatment. HCV - We will recheck a viral load today - We will check a CMP, CBC, alpha protein - We will get a screening an U/S Immunization - We will check for a Hep B surface antibody and Hep A surface antibody From a health care maintenance perspective it is ok for the PCP to start a statin if clinically indicated Return to clinic in 6 months (070.54, 571.5) Chronic hepatitis C with cirrhosis (primary encounter diagnosis) Robert Lara MD Med Orders Placed This Visit and Additions to the Medication List Medications ??? lisinopril (PRINIVIL, ZESTRIL) 2.5 mg tablet Sig: Take 2.5 mg by mouth daily ??? CHOLESTYRAMINE/ASPARTAME (PREVALITE ORAL) Sig: Take by mouth Yaya Alvarenga MD - 06/26/2014 1421 EDT GI Attending Attestation: I saw and evaluated this patient with the fellow/resident. I agree with the history and physical exam. I agree with the impression and plan. documented in this encounter Plan of Treatment Scheduled Orders Name Type Priority Associated Diagnoses Order S chedule RAD US ABDOMEN ONE Imaging Routine Chronic hepatitis C wi th Ordered: 06/26/2014 ORGAN/QUADRANT cirrhosis (CMS-HCC) documented as of this encounter Results HEPATITIS B SURFACE ANTIBODY (06/26/2014 15:07 EDT) Hepatitis B Negative [facility] Surface Ab Comment: LABORATORY SERVICES Reference Range: Unvaccinated: ??Negative Vaccinated: ??Positive HBs Antibody, <5.0 mIU/mL [facility] Quant Comment: LABORATORY SERVICES Patient is presumed to not be immune to infection with HBV. Reference Range: Positive: >=12.0 mIU/mL Indeterminate: >=5.0 to <12.0 mIU/mL Negative: <5.0 mIU/mL Specimen Blood specimen (specimen) - Blood Performing Organization Address City/State/ZIP Code Phon e Number [facility] [address] [place] [address] SERVICES HEPATITIS B CORE ANTIBODY (06/26/2014 15:07 EDT) Pathologist [facility] Hep B Core Ab Negative [facility] Comment: LABORATORY SERVICES Reference Range: ??Negative Interpretation depends on clinical setting. Specimen Blood specimen (specimen) - Blood Performing Organization Address [facility] Phon e Number [facility] [address] [place] [address] SERVICES HEPATITIS A TOTAL ANTIBODY (06/26/2014 15:07 EDT) Pathologist [facility] nature Hep A Antibody Positive [facility] Comment: LABORATORY SERVICES Antibody to Hepatitis A detected. Reference Range: ??Negative Specimen Blood specimen (specimen) - Blood Performing Organization Address [facility]/ZIP [facility] Phon e Number [facility] [address] [place] [address] SERVICES HEPATITIS B SURFACE ANTIGEN (06/26/2014 15:07 EDT) [facility] Hepatitis B NegativeComment: [facility] Surface Ag Reference Range: LABORATORY SERVICES Negative Specimen Blood specimen (specimen) - Blood Performing Organization Address [facility] Phon e Number [facility] [address] [place] [address] SERVICES HCV RNA DETECT QUANT (06/26/2014 15:07 EDT) [facility] HCV RNA Detect Undetected IU/mL [facility] Quant Comment: LABORATORY Reference Range: ??Undetected SERVICES The quantification range of this assay is 15 IU/mL to 100,000,000 IU/mL. Testing was performed by the Kathy Ampliprep/Kathy TaqMan HCV v2.0 ([employer] Specimen Blood specimen (specimen) - Blood Performing Organization Address [facility]/ZIP [facility] Phon e Number [facility] [address] [place] [address] SERVICES AFP TUMOR MARKER (06/26/2014 15:07 EDT) [facility] AFP-Tumor Marker <2.5 <9 ng/ml [facility] Comment: [facility] Reference value is less than 9 [...] specimen (specimen) - Blood Performing Organization Address [facility]/ZIP Code Phon e Number [facility] [address] [place] [address] SERVICES PROTIME (06/26/2014 15:07 EDT) Pro Time 11.4 9.5 - 12.3 [facility] secs LABORATORY SERVICES I.N.R. 1.1 0.9 - 1.1 [facility] Comment: Ratio LABORATORY SERVICES Moderate Intensity Coumadin INR = 2.0-3.0 Adjustments in anticoagulant therapy dose should be based upon the INR and NOT the Pro Time. Specimen Blood specimen (specimen) - Blood Performing Organization Address City/State/ZIP Code Phon e Number [facility] [address] [place] [address] SERVICES HEMAGRAM (06/26/2014 15:07 EDT) Pathologist Sig nature WBC 7.91 4.0 - 12.4 K/cmm [facility] SERVICES RBC 4.41 3.86 - 5.04 M/cmm [facility] SERVICES Hemoglobin 13.2 11.6 - 15.2 gm/dl [facility] SERVICES HCT 39.5 34.9 - 44.4 % [facility] SERVICES MCV 90 81 - 98 fl [facility] SERVICES MCH 29.9 26.7 - 33.3 pg [facility] SERVICES MCHC 33.4 32.1 - 35.9 gm/dl [facility] SERVICES RDW-CV 13.0 11.7 - 14.6 % [facility] SERVICES RDW-SD 41.6 37.6 - 50.3 fl [facility] LABOR[facility] SERVICES PLT 168 141 - 320 K/cmm [facility] SERVICES MPV 8.5 7.5 - 11.2 fl [facility] SERVICES Specimen Blood specimen (specimen) - Blood Performing Organization Address City/State/ZIP Code Phon e Number [facility] [address] [place] [address] SERVICES (ABNORMAL) COMPREHENSIVE METABOLIC PANEL (CMP) (06/26/2014 15:07 EDT) Pathologist Sig nature Potassium 4.6 3.5 - 5.0 mEq/L [facility] SERVICES Sodium 140 136 - 145 mEq/L [facility] SERVICES Chloride 100 96 - 110 mEq/L [facility] SERVICES CO2 29 24 - 32 mEq/L [facility] SERVICES Total Alkaline 76 38 - 126 U/L [facility] Phosphatase LABORATORY SERVICES Bilirubin, Total <0.5 <1.4 mg/dl [facility] SERVICES AST 35 15 - 46 U/L [facility] SERVICES ALT 41 <53 U/L [facility] SERVICES Albumin 4.2 3.4 - 4.9 g/dl [facility] SERVICES Total Protein 7.4 6.5 - 8.3 g/dl [facility] SERVICES Creatinine 0.63 0.52 - 1.04 [facility] mg/dl LABORATORY SERVICES GFR, Calculated >60 >60 [facility] ml/min/1.73m2 LABORATORY SERVICES BUN 11 10 - 26 mg/dl [facility]ORATORY SERVICES Calcium 9.0 8.5 - 10.5 [facility] mg/dl LABORATORY SERVICES Calculated Calcium 9.2 8.5 - 10.5 [facility] mg/dl LABORATORY SERVICES Glucose, Serum 150 (H) 70 - 100 mg/dl [facility] SERVICES Fasting? Unknown [facility] SERVICES Specimen Blood specimen (specimen) - Blood Performing Organization Address City/State/ZIP Code Phon e Number [facility] [address] [place] [address] SERVICES documented in this encounter Visit Diagnoses Diagnosis Chronic hepatitis C with cirrhosis (HCC- CMS) (HCC) - Primary Chronic hepatitis C without mention of h epatic coma documented in this encounter Historical Medications This list may reflect changes made after this encounter. Medication Sig Dispensed Refills Start Date End Date lisinopril (PRINIVIL, Take 2.5 mg by mouth 0 ZESTRIL) 2.5 mg tablet daily CHOLESTYRAMINE/ASPARTAME Take by mouth 0 07/10/2014 (PREVALITE ORAL) added in this encounter Care Teams Sap Ppm Consultant Relationship Specialty Start Date End Date Minda Velasco MD PCP - General 04/10/09 [address] [place] [address] Argelia Miranda MD Primary Care Provider Orthopaedic Surgery 07/13/12 documented as of this encounter
--- OUTSIDE RECORDS SUMMARY | 2021-10-02 07:45 | XMS_ITS | Encounter Summary ---
:1960 Author Organization [facility] Address [address] [place] [address] Care Team Providers Name Role Phone Minda Velasco MD Primary Care Provider Argelia Miranda MD Unavailable Encounter Details Date Type Department Care Team Description 09/08/2012 Hospital Encounter [facility] - Argelia Miranda MD [facility] [address] [place] [address] [place] [phone] [place] [address] (Wo rk) Social History Tobacco Use Types Packs/Day Years Used Date Current Every Day Smoker 1 Smokeless Tobacco: Never Used Alcohol Use Standard Drinks/Week Comments No 0 (1 standard drink = 0.6 oz pure alcoho l) Sex Assigned at Date Recorded Not on file documented as of this encounter Medications at Time of Discharge Medication Sig Dispensed Refills Start Date End Date CALCIUM CARBONATE (OS-MARCIANO Take by mouth daily. 0 ORAL) docusate sodium Take 100 mg by mouth 0 (DOC-Q-LACE) 100 mg daily as needed for capsule Constipation. ferrous sulfate 325 mg Take 325 mg by mouth 0 (65 mg iron) tablet 3 times daily. Fish Oil-[place]-3 Fatty Take 100 mg by mouth 0 Acids (FISH OIL) daily. 360-1,200 mg Cap gabapentin (NEURONTIN) Take 400 mg by mouth 0 400 mg capsule daily. insulin glargine (LANTUS) Inject 18 mL into 0 100 unit/mL injection the skin at bedtime. levalbuterol (XOPENEX Inhale 1-2 Puffs as 0 HFA) 45 mcg/Actuation directed as needed inhaler for Wheezing. magnesium oxide (MAG-OX) Take 400 mg by mouth 0 400 mg tablet daily. metformin (GLUCOPHAGE) Take 500 mg by mouth 0 500 mg tablet 2 times daily. methadone (DOLOPHINE) 10 Take 90 mg by mouth daily . 0 mg tablet methadone (DOLOPHINE) 10 Take 135 mg by mouth 0 mg/mL solution daily. oxycodone (ROXICODONE) 5 Take 10 mg by mouth 0 mg immediate release every 6 hours as tablet needed. VITAMIN B COMPLEX (B Take 1 Tab by mouth 0 COMPLEX 1 ORAL) daily. ascorbic acid (VITAMIN C) Take 500 mg by mouth 0 09/05/2013 500 mg tablet daily. Cholecalciferol, Vitamin Take 400 Units by 0 09/05/2013 D3, 400 unit Tab mouth daily. clonazepam (KLONOPIN) 0.5 Take 0.5 mg by mouth 0 07/10/2014 mg tablet at bedtime. 1-2 Cod Liver Oil Oil Take 415 mg by mouth 0 09/05/2013 daily. multivitamin (NEPHROVITE) Take 1 Tab by mouth 0 07/10/2014 0.8 mg Tab daily. omeprazole (PRILOSEC) 20 Take 40 mg by mouth 0 07/10/2014 mg capsule daily. documented as of this encounter Discharge Disposition Disposition Code Departure Means Destination Home or Self Long Term documented in this encounter Plan of Treatment Not on filedocumented as of this encounter Procedures Procedure Name Priority Date/Time Associated Diagnosis Comme nts VL LOWER ARTERIAL 2014 9:42 EDT Res ults for this DUPLEX BILATERAL procedure a re in the results section. documented in this encounter Results VL LOWER ARTERIAL DUPLEX BILATERAL (2014 9:42 EDT) Anatomical Region Laterality Modality Other Specimen Narrative [facility] - 07/18/2014 7:40 EDT Vascular Diagnostic Laboratory [facility] [address] [place] [address] Technologist: Tahira Tafoya IMPRESSIONS Mild to moderate stenoses in the bilater al common iliac arteries, otherwise diffuse non-hemodynamically significant atherosclerosis within the bilateral lower extremities. PROCEDURE: Bilateral lower extremity arterial ultra sound; common femoral, proximal profunda femoral, femoral, popliteal, anterior ti bial, posterior tibial, peroneal and dorsalis pedis are routinely examined. ? 2D ultrasound, color flow Doppler, spectral Doppler, pulse volume recording , and ankle-brachial index. INDICATION: Edema, h/o PVD; patient complains pain a t lateral/anterior low calf region when walking HISTORY: RISK FACTORS: Former tobacco use. Hypertension. Diabet es mellitus. ??Hyperlipidemia. Coronary artery disease. Prior Right WALLY: 1.04. Fernando mccollum Left WALLY: 0.86. 07/2012 Right brachial systolic: 134mm Hg: Left brachial systolic: 138mm Hg 138 SEGMENTAL PRESSURES AND PVR: + +--------+ +-- + + Location ? Pressure Brachial index PVR waveform ? Comment ? + +--------+ +-- + + Right DP ? 121mm Hg 0.88 ? Normal ? + +--------+ +-- + + Right PT ? 123mm Hg 0.89 ? + +--------+ +-- + + Right Hallux 91mm Hg 0.66 ? Normal ? Previous 0.70 + +--------+ +-- + + Left DP ? 115mm Hg 0.83 ? Mildly diminished ? + +--------+ +-- + + Left PT ? 103mm Hg 0.75 ? + +--------+ +-- + + Left Hallux 89mm Hg 0.64 ? Mildly diminished Previous 0.71 + +--------+ +-- + + * DOPPLER FINDINGS: + +-------+ + ---------+ + Location ? V sys ?? Flow anal ysis Ratio inc Comment ? + +-------+ + ---------+ + Aorta ? 118cm/s ? distal diameter 1.8 cm + +-------+ + ---------+ + Right ISAURA ? 332cm/s ? + +-------+ + ---------+ + Right EIA ? 162cm/s Biphasic ? + +-------+ + ---------+ + Right SHEET ROCK APPLICATOR ? 167cm/s ? + +-------+ + ---------+ + Right PFA ? 145cm/s ? + +-------+ + ---------+ + Right SFA - prox 206cm/s ? 1.3 ? + +-------+ + ---------+ + Right SFA - mid 241cm/s ? 1.4 ? + +-------+ + ---------+ + Right SFA - dist 242cm/s ? 1.8 ? + +-------+ + ---------+ + Right POP-ak ? 203cm/s ? 1.3 ? + +-------+ + ---------+ + Right POP ? 93cm/s Biphasic ? + +-------+ + ---------+ + Left ISAURA ? 274cm/s ? + +-------+ + ---------+ + Left EIA ? 142cm/s Biphasic ? + +-------+ + ---------+ + Left SHEET ROCK APPLICATOR ? 127cm/s ? + +-------+ + ---------+ + Left PFA ? 148cm/s ? + +-------+ + ---------+ + Left SFA - prox 208cm/s ? 1.7 ? + +-------+ + ---------+ + Left SFA - mid ?? 232cm/s ? 1.4 ? + +-------+ + ---------+ + Left SFA - dist 299cm/s ? 1.7 ? + +-------+ + ---------+ + Left POP-ak ? 135cm/s ? + +-------+ + ---------+ + Left POP ? 74cm/s Biphasic ? + +-------+ + ---------+ + * Electronically signed by: Jose Jordan [id number] Procedure Note Jose Jordan MD - 07/18/2014 Vascular Diagnostic Laboratory [facility], [facility] [address] [place] [address] Technologist: Tahira Tafoya IMPRESSIONS Mild to moderate stenoses in the bilater al common iliac arteries, otherwise diffuse non-hemodynamically significant atherosclerosis within the bilateral lower extremities. PROCEDURE: Bilateral lower extremity arterial ultra sound; common femoral, proximal profunda femoral, femoral, popliteal, anterior ti bial, posterior tibial, peroneal and dorsalis pedis are routinely examined. 2 D ultrasound, color flow Doppler, spectral Doppler, pulse volume recording , and ankle-brachial index. INDICATION: Edema, h/o PVD; patient complains pain a t lateral/anterior low calf region when walking HISTORY: RISK FACTORS: Former tobacco use. Hypertension. Diabet es mellitus. Hyperlipidemia. Coronary artery disease. Prior Right WALLY: 1.04. P rior Left WALLY: 0.86. 07/2012 Right brachial systolic: 134mm Hg: Left brachial systolic: 138mm Hg 138 SEGMENTAL PRESSURES AND PVR: + +--------+ +-- + + Location Pressure Brachial index PVR w aveform Comment + +--------+ +-- + + Right DP 121mm Hg 0.88 Normal + +--------+ +-- + + Right PT 123mm Hg 0.89 + +--------+ +-- + + Right Hallux 91mm Hg 0.66 Normal Pre vious 0.70 + +--------+ +-- + + Left DP 115mm Hg 0.83 Mildly diminish ed + +--------+ +-- + + Left PT 103mm Hg 0.75 + +--------+ +-- + + Left Hallux 89mm Hg 0.64 Mildly dimi nished Previous 0.71 + +--------+ +-- + + * DOPPLER FINDINGS: + +-------+ + ---------+ + Location V sys Flow analysis Ratio in c Comment + +-------+ + ---------+ + Aorta 118cm/s distal diameter 1.8 cm + +-------+ + ---------+ + Right ISAURA 332cm/s + +-------+ + ---------+ + Right EIA 162cm/s Biphasic + +-------+ + ---------+ + Right SHEET ROCK APPLICATOR 167cm/s + +-------+ + ---------+ + Right PFA 145cm/s + +-------+ + ---------+ + Right SFA - prox 206cm/s 1.3 + +-------+ + ---------+ + Right SFA - mid 241cm/s 1.4 + +-------+ + ---------+ + Right SFA - dist 242cm/s 1.8 + +-------+ + ---------+ + Right POP-ak 203cm/s 1.3 + +-------+ + ---------+ + Right POP 93cm/s Biphasic + +-------+ + ---------+ + Left ISAURA 274cm/s + +-------+ + ---------+ + Left EIA 142cm/s Biphasic + +-------+ + ---------+ + Left SHEET ROCK APPLICATOR 127cm/s + +-------+ + ---------+ + Left PFA 148cm/s + +-------+ + ---------+ + Left SFA - prox 208cm/s 1.7 + +-------+ + ---------+ + Left SFA - mid 232cm/s 1.4 + +-------+ + ---------+ + Left SFA - dist 299cm/s 1.7 + +-------+ + ---------+ + Left POP-ak 135cm/s + +-------+ + ---------+ + Left POP 74cm/s Biphasic + +-------+ + ---------+ + * Electronically signed by: Julian Jose [id number] Performing Organization Address City/State/ZIP Code Phon e Number [facility] documented in this encounter Visit Diagnoses Not on filedocumented in this encounter Care Teams Network Engineering Advisor Relationship Specialty Start Date End Date Minda Velasco MD PCP - General 04/10/[address] [place] [id number] Argelia Miranda MD Primary Care Provider Orthopaedic Surgery 07/13/12 documented as of this encounter
--- OUTSIDE RECORDS SUMMARY | 2021-10-02 07:45 | XMS_ITS | Encounter Summary ---
:[address] [facility] [place] Address [address] [place] [address] Care Team Providers Name Role Phone Minda Velasco MD Primary Care Provider Argelia Miranda MD Unavailable Encounter Details Date Type Department Care Team Description 04/10/2013 Results Only [facility] Monica Magana MD Laboratory Services - [address] [place] [address] [place] [address] Social History Tobacco Use Types Packs/Day Years [...] Diagnosis Comme nts PAP TEST- RESULT Routine 04/10/2013 0:00 EST Resu lts for this ONLY procedure are i n the results section. documented in this encounter Results PAP TEST- RESULT ONLY (04/10/2013 0:00 EST) Pathology Report: CYTOPATHOLOGY REPORT [facility] Reports generated via electronic interface contain ang ginal data; however they are lacking the format of the original re port. Caution should be taken when reading/interpreting unfo rmatted reports. Name: ? LINNEA BERKOWITZ ? Accession #: ? [id number] ? : ? 1960 (Age: 52) ??F ?Collect Da te: ? 04/10/2013 ? Location: ? [facility] ? Receive Date: ? 014 ? Provider: MONICA MAGANA MD Copy to: MINDA VELASCO MD ? Final Report SPECIMEN ADEQUACY ? Satisfactory for Evaluation - transformation zone component present GENERAL CATEGORIZATION ? Negative for Intraepithelial Lesion or Malignan cy INTERPRETATION ? Fungal organisms pres ent morphologically consistent with Naima species. Last Menstrual Period: 6 years ago Specimen/Source: ??Pap Test, Cervix/Endocervix, ThinPr ep Imaging System with manual evaluation Document reviewed and electronically signed by: ? ALEXUS Hernandez(ASCP) ? Report ??Date: 04/13/2013 13:07 HPV with Pap Test ? Date Ordered: ? 04/13/2013 ? Status: ?? Signed Out ?Date Complete: ? 04/17/2013 ? By: ??S ystem Interface ? Date Reported: ? 04/17/2013 ? Interpretation RESULT: Negative for HPV. No E6 or E7 mRNA is detected from HPV types 16,18,31,3 3,35, 39,45,51,52,56,58,59,66, and 68 by wire tester media fabian amplification. Comments Document reviewed and electronically signed by: ? System Interface ? Report date: 04/17/2013 By the signature above, the attending physician certif ies that he/she has personally conducted a gross and/or microscopic examin ation of the described specimens and rendered or confirmed the above diagnosi s. End of Report Specimen Performing Organization Address City/State/ZIP Code Phon e Number [facility] [address] [place] [address] SERVICES [facility] [address] [place] [address] documented in this encounter Visit Diagnoses Not on filedocumented in this encounter Care Teams Wheel Installer Relationship Specialty Start Date End Date Minda Velasco MD PCP - General 04/10/09 [address] [place] [address] Argelia Miranda MD Primary Care Provider Orthopaedic Surgery 07/13/12 documented as of this encounter
--- OUTSIDE RECORDS SUMMARY | 2021-10-02 07:45 | XMS_ITS | Encounter Summary ---
:1960 Author Organization [facility] Address [address] [place] [address] Care Team Providers Name Role Phone Minda Velasco MD Primary Care Provider Argelia Miranda MD Unavailable Encounter Details Date Type Department Care Team Description 12/14/2017 Results Only Imaging [facility]- Unknown, [facility] ProviderMD [phone] Social History Tobacco Use Types Packs/Day Years [...] as of this encounter Plan of Treatment Pending Results Name Type Priority Associated Diagnoses Date/Ti me OUTSIDE IMAGES - US BODY Imaging 03/2018 21:42 EDT documented as of this encounter Visit Diagnoses Not on filedocumented in this encounter Care Teams Relations Mgr Relationship Specialty Start Date End Date Minda Velasco MD PCP - General 04/10/09 [address] [place] [address] Argelia Miranda MD Primary Care Provider Orthopaedic Surgery 07/13/12 documented as of this encounter
--- OUTSIDE RECORDS SUMMARY | 2021-10-02 07:45 | XMS_ITS | Encounter Summary ---
:1960 Author Organization [facility] Address [address] [place] [address] Care Team Providers Name Role Phone Minda Velasco MD Primary Care Provider Argelia Miranda MD Unavailable Encounter Details Date Type Department Care Team Description 08/10/2012 Results Only [facility] Argelia Miranda MD Imaging Spine Program - [address] [facility] [id number] [place] [address] [phone] (Wo rk) Social History Tobacco Use [...] Name Priority Date/Time Associated Diagnosis Comme nts MR LUMBAR SPINE WO 08/30/2012 9:25 EDT Re sults for this CONTRAST procedure are i n the results section. documented in this encounter Results MR LUMBAR SPINE WO CONTRAST (08/30/2012 9:25 EDT) Anatomical Region Laterality Modality Other Specimen Narrative MR ROOM 1 [facility] - 08/30/2012 10:24 EDT MRI of the lumbar spine august 30, 2012 at 843. History: Back pain. Comparison: Plain films of May 26, 2012. Technique: Routine multiplanar MR images of the lumbar spine were acquired. Findings: The visualized retroperitoneum appears unremarkable the common bile duct appears enlarged measur ing 1 cm in diameter. The gallbladder is present there is levoscol iosis of the lumbar spine with its apex at the L3 level. The conus terminates at L2. Signal withi n the distal spinal cord is normal. Alignment of the lumbar vertebra l bodies is anatomic. There is disc space narrowing at the L5-S1 lev el and loss of T2 signal at the L4-L5 disc space suggesting disc deg eneration. Marrow changes are noted surrounding the lumbosacral juncti on reflecting the discogenic endplate change. Additionally, on the ST IR sequence there is abnormal signal within the L4 spinous process see n on image 8 of series 3 and there is also abnormal signal within the right pedicle of L5 as well is within the right pedicle at L4. No ad ditional abnormal marrow signal is identified. At L2-L3 there is no focal herniation, c entral canal stenosis, or foraminal impingement. At L3-L4 there is also no focal herniati on, central canal stenosis, or foraminal compromise. At L4-L5 disc bulge, epidural lipomatosi s, and ligamentum flavum redundancy contribute to moderate narrow ing of the thecal sac. There is bilateral lateral recess narrowing an d there is also mild to moderate bilateral foraminal narrowing. At L5-S1 there is left foraminal and lat eral disc protrusion without central canal stenosis. Lateral recess n arrowing is present. There is moderate to severe narrowing of the left neural foramen with possible impingement on the left L5 nerve root. Impression: 1. Moderate to severe narrowing of the l eft neural foramen at L5-S1 from foraminal and lateral disc protrusi on with probable mass effect on the left L5 nerve root. 2. Disc degeneration at L4-L5 and L5-S1. 3. Abnormal STIR signal within the pedic les on the right at L4 and L5 as well as within the L4 spinous process . The findings within the pedicles may reflect stress injuries, al though the abnormal signal in the spinous process is of less certain e tiology. These findings could be further evaluated with CT. 4. Enlarged common bile duct. Further ev aluation with ultrasound is recommended. Dr. Burton discussed the findings wit h Dr. Miranda. Procedure Note 08/30/2012 MRI of the lumbar spine august 30, 2012 at 843. History: Back pain. Comparison: Plain films of May 26, 2012. Technique: Routine multiplanar MR images of the lumbar spine were acquired. Findings: The visualized retroperitoneum appears unremarkable the common bile duct appears enlarged measur ing 1 cm in diameter. The gallbladder is present there is levoscol iosis of the lumbar spine with its apex at the L3 level. The conus terminates at L2. Signal withi n the distal spinal cord is normal. Alignment of the lumbar vertebra l bodies is anatomic. There is disc space narrowing at the L5-S1 lev el and loss of T2 signal at the L4-L5 disc space suggesting disc deg eneration. Marrow changes are noted surrounding the lumbosacral juncti on reflecting the discogenic endplate change. Additionally, on the ST IR sequence there is abnormal signal within the L4 spinous process see n on image 8 of series 3 and there is also abnormal signal within the right pedicle of L5 as well is within the right pedicle at L4. No ad ditional abnormal marrow signal is identified. At L2-L3 there is no focal herniation, c entral canal stenosis, or foraminal impingement. At L3-L4 there is also no focal herniati on, central canal stenosis, or foraminal compromise. At L4-L5 disc bulge, epidural lipomatosi s, and ligamentum flavum redundancy contribute to moderate narrow ing of the thecal sac. There is bilateral lateral recess narrowing an d there is also mild to moderate bilateral foraminal narrowing. At L5-S1 there is left foraminal and lat eral disc protrusion without central canal stenosis. Lateral recess n arrowing is present. There is moderate to severe narrowing of the left neural foramen with possible impingement on the left L5 nerve root. Impression: 1. Moderate to severe narrowing of the l eft neural foramen at L5-S1 from foraminal and lateral disc protrusi on with probable mass effect on the left L5 nerve root. 2. Disc degeneration at L4-L5 and L5-S1. 3. Abnormal STIR signal within the pedic les on the right at L4 and L5 as well as within the L4 spinous process . The findings within the pedicles may reflect stress injuries, al though the abnormal signal in the spinous process is of less certain e tiology. These findings could be further evaluated with CT. 4. Enlarged common bile duct. Further ev aluation with ultrasound is recommended. Dr. Burton discussed the findings bob Dr. Miranda. Performing Organization Address City/State/ZIP Code Phon e Number [facility] RAD[facility] MR ROOM 1 [facility] documented in this encounter Visit Diagnoses Not on filedocumented in this encounter Care Teams Patent Law Specialist Relationship Specialty Start Date End Date Minda Velasco MD PCP - General 04/10/[address] [place] [id number] Argelia Miranda MD Primary Care Provider Orthopaedic Surgery 07/13/12 documented as of this encounter
--- OUTSIDE RECORDS SUMMARY | 2021-10-02 07:45 | XMS_ITS | Encounter Summary ---
:[address] [facility] Address [address] [place] [address] Care Team Providers Name Role Phone Minda Velasco MD Primary Care Provider Argelia Miranda MD Unavailable Encounter Details Date Type Department Care Team Description 06/26/2014 Hospital Encounter [facility] - Yaya Luciano Prospect MD 1 [facility] [address] [place], [place] [address] [place] [address], [facility] [phone] [place], [address] [place] [address] (Wo rk) Social History Tobacco Use Types Packs/Day Years Used Date Current Every Day Smoker 0.5 Smokeless Tobacco: Never Used Alcohol Use Standard Drinks/Week Comments No 0 (1 standard drink = 0.6 oz pure alcoho l) Sex Assigned at Date Recorded Not on file documented as of this encounter Discharge Diagnoses Diagnosis 536.9 STOMACH FUNCTION DIS NOS[ICD-9-CM] documented in this encounter Medications at Time of Discharge Medication Sig Dispensed Refills Start Date End Date CALCIUM CARBONATE (OS-MARCIANO Take by mouth daily. 0 ORAL) docusate sodium Take 100 mg by mouth 0 (DOC-Q-LACE) 100 mg daily as needed for capsule Constipation. ferrous sulfate 325 mg Take 325 mg by mouth 0 (65 mg iron) tablet 3 times daily. Fish Oil-[place]-3 Fatty Take 100 mg by mouth 0 [...] by mouth 0 COMPLEX 1 ORAL) daily. CHOLESTYRAMINE, BULK, 4 g by misc 0 MISC (non-drug; combo route) route One to six times daily. . clonazepam (KLONOPIN) 0.5 Take 0.5 mg by mouth 0 07/10/2014 mg tablet at bedtime. 1-2 clotrimazole (LOTRIMIN) 1 Apply topically 2 0 07/10/2014 % cream times daily. Docosanol (ABREVA) 10 % Apply topically as 0 07/10/2014 Cream needed. LACTOBACILLUS ACIDOPHILUS Take by mouth. 0 07/10/2014 (PROBIOTIC ORAL) multivitamin (NEPHROVITE) Take 1 Tab by mouth 0 07/10/2014 0.8 mg Tab daily. omeprazole (PRILOSEC) 20 Take 40 mg by mouth 0 07/10/2014 mg capsule daily. ribavirin (COPEGUS) 200 Take 3 tablets in 168 Tab 2 07/3007/10/2014 mg tablet the am, and 2 tablets in the pm. sofosbuvir 400 mg tablet Take 400 mg by mouth 28 Tab 2 0 07/30/2013 07/10/2014 daily. documented as of this encounter Discharge Disposition Disposition Code Departure Means Destination Home or Self Care documented in this encounter Plan of Treatment Not on filedocumented as of this encounter Visit Diagnoses Not on filedocumented in this encounter Care Teams Intervention Manager Relationship Specialty Start Date End Date Minda Velasco MD PCP - General 04/10/[address] [place] [id number] Argelia Miranda MD Primary Care Provider Orthopaedic Surgery 07/13/12 documented as of this encounter
--- OUTSIDE RECORDS SUMMARY | 2021-10-02 07:45 | XMS_ITS | Encounter Summary ---
:1960 Author Organization [facility] Address [address] [place] [address] Care Team Providers Name Role Phone Minda Velasco MD Primary Care Provider Argelia Miranda MD Unavailable Encounter Details Date Type Department Care Team Description 06/08/2018 Results Only [facility] Ginny Tejeda MD [phone] [address] [facility] [address] [place] [address] (Wo rk) Social History Tobacco Use Types [...] Diagnosis Comme nts PAP TEST- RESULT Routine 06/08/2018 0:00 EST Resu lts for this ONLY procedure are i n the results section. documented in this encounter Results PAP TEST- RESULT ONLY (06/08/2018 0:00 EST) Pathology Report: CYTOPATHOLOGY REPORT [facility] Reports generated via electronic interface contain ang ginal data; SERVICES however they are lacking the format of the original re port. Caution should be taken when reading/interpreting unfo rmatted reports. Name: ? LINNEA BERKOWITZ ? Accession #: ? [id number] ? : ? 1960 (Age: [age]) ??F ?Collect Date: ? 2018 ? Location: ? [facility] ? Receive Date: ? Provider: GINNY MUNSON MD Copy to: MINDA VELASCO MD ? Final Report SPECIMEN ADEQUACY ? Satisfactory for Evaluation - transformation zone component present GENERAL CATEGORIZATION ? Negative for Intraepithelial Lesion or Malignan cy ?? Menstrual/ Status: ??Post Menopausal Specimen/Source: ??Pap Test, Cervix, ThinPrep Imaging System with manual evaluation Document reviewed and electronically signed by: ? Tony Jackson, ALEXUS(ASCP) ? Report ??Date: 06/12/2018 11:06 HPV with Pap Test ? Date Ordered: ? 06/12/2018 ? Status: ?? Signed Out ?Date Complete: ? 06/13/2018 ? By: ??Sy stem Interface ? Date Reported: ? 06/13/2018 ? Interpretation RESULT: Negative for HPV. No E6 or E7 mRNA is detected from HPV types 16,18,31,3 3,35, 39,45,51,52,56,58,59,66, and 68 by meatman media fabian amplification. Comments Document reviewed and electronically signed by: ? System Interface ? Report date: 06/13/2018 By the signature above, the attending physician certif ies that he/she has personally conducted a gross and/or microscopic examin ation of the described specimens and rendered or confirmed the above diagnosi s. End of Report Specimen Performing Organization Address City/State/ZIP Code Phon e Number [facility] [address] [place] [address] SERVICES documented in this encounter Visit Diagnoses Not on filedocumented in this encounter Care Teams Measurer Relationship Specialty Start Date End Date Minda Velasco MD PCP - General 04/10/09 [address] [place] [address] Argelia Miranda MD Primary Care Provider Orthopaedic Surgery 07/13/12 documented as of this encounter
--- OUTSIDE RECORDS SUMMARY | 2021-10-02 07:45 | XMS_ITS | Encounter Summary ---
:[address] [facility] Address [address] [place] [address] Care Team Providers Name Role Phone Minda Velasco MD Primary Care Provider Argelia Miranda MD Unavailable Reason for Referral (Routine/Next Available) - Closed Specialty Diagnoses / Procedures Referred By Contact Refer red To Contact Diagnoses Cirrhosis of liver without mention of alcohol Yaya Alvarenga MD Procedures CREATININE 111 [facility], [address] [phone] Referral ID Status Reason Start Date Expiration Date Visits Requ ested Visits Authorized [id number] Closed 05/05/2013 1 1 Encounter Details Date Type Department Care Team Description 05/04/2013 Orders Only [facility] [place], Cirrhosis of liver Gastroenterology - [facility] MD Yaya without mention of [address] alcohol (Primary [address] [facility] [address] [place] [address] [facility] [phone] [address] Social History Tobacco Use Types Packs/Day Years Used Date Current Every Day Smoker 1 Smokeless Tobacco: Never Used Alcohol Use Standard Drinks/Week Comments No 0 (1 standard drink = 0.6 oz pure alcoho l) Sex Assigned at Date Recorded Not on file documented as of this encounter Plan of Treatment Scheduled Orders Name Type Priority Associated Diagnoses Order S chedule CREATININE Lab Routine Cirrhosis of liver without E xpected: 05/05/2013 mention of alcohol (Approxim ate), Expires: 05/04/2014 documented as of this encounter Visit Diagnoses Diagnosis Cirrhosis of liver without mention of al cohol - Primary documented in this encounter Care Teams Coat Joiner Lockstitch Relationship Specialty Start Date End Date Minda Velasco MD PCP - General 04/10/[address] [place] [address] Argelia Miranda MD Primary Care Provider Orthopaedic Surgery 07/13/12 documented as of this encounter
--- OUTSIDE RECORDS SUMMARY | 2021-10-02 07:45 | XMS_ITS | Encounter Summary ---
:1960 Author Organization [facility] Address [address] [place] [address] Care Team Providers Name Role Phone Minda Velasco MD Primary Care Provider Argelia Miranda MD Unavailable Reason for Visit Reason Comments Back Pain left sided low back pain Encounter Details Date Type Department Care Team Description 12/18/2012 Office Visit [facility] - Kristofer Jarvis Low back pain radiating to left leg (Primary Dx); [facility] E, DO Lumbar spondylolysis; [facility] [address] Scoliosis; Interventional Pain [place] Pain of lower extremity; [address] [phone] Lumbar disc herniation with radiculopathy [place], [place] [address] Social History Tobacco Use Types Packs/Day Years Used Date Current Every Day Smoker 1 Smokeless Tobacco: Never Used Alcohol Use Standard Drinks/Week Comments No 0 (1 standard drink = 0.6 oz pure alcoho l) Sex Assigned at Date Recorded Not on file documented as of this encounter Last Filed Vital Signs Vital Sign Reading Time Taken Comments Blood Pressure 172/87 12/18/2012 1150 EDT Pulse 69 12/18/2012 1150 EDT Temperature 35.9 ??C (96.6 ??F) 12/18/2012 1028 EDT Respiratory Rate 16 12/18/2012 1150 EDT Oxygen Saturation - - Inhaled Oxygen Concentration - - Weight 68.5 kg (151 lb) 12/18/2012 1028 EDT Height 165.1 cm (5' 5) 12/18/2012 1028 EDT Body Mass Index 25.13 12/18/2012 1028 EDT documented in this encounter Patient Instructions Patient InstructionsBjorn Caballero RN - 12/18/2012 11:09 EDT [facility] [address] [address] Patient Instructions You have had your left lumbar Transforaminal Epidural Steroid Injection. The purpose of this procedure has been to place medication which may help relieve your pain. Steroid may be used to decrease theswelling and nerve irritation which may be causing your pain. The following information should help you over the next few days regarding what you may expect. Please take it easy for the rest of today. DO NOT drive a car for the remainder of the day. If you feel sore where the needle(s) entered for the block or develop a flare- up of pain over the next few days, please use ice on the area. You may leave the ice on for up to 20 minutes at a time. Donot use heat, as this may cause swelling. As long as your primary doctor has indicated no restrictions, you may take a mild pain medicine, such as acetaminophen (Tylenol), ibuprofen (Advil, Nuprin, Motrin IB, etc.) or aspirin, if needed. The steroid injection usually takes a few days to become effective. On average, you may notice somerelief in 3 -5 days. However, it may take up to 10 ??? 14 days to know whether the injection was helpful. If the block causes numbness/weakness, it should wear off within a few hours. If the area that the needle(s) were inserted becomes hot, red, swollen, or increasingly tender, or if you develop a fever (100.5 or greater) or chills along with these symptoms, please call our officeimmediately. If you develop increasingly severe neck/back pain, continued numbness or weakness of the arms/legs or changes in your bladder or bowel functions, please call our office at once. Instructions for follow-up Patient Education Topic: Method: Handout and Verbal Taught to: Patient Barriers: None Outcomes: verbalized understanding Signature:BJORN CABALLERO RN If you have any questions about your block, please call documented in this encounter Progress Notes Sierra Saucedo MD - 12/18/2012 1109 EDT Patient Name: Sadie Spann : 1960 Date of Service: 12/18/2012 Swing Driver: Kirstofer Jarvis DO Belting Cutter: Sheryl JIMENEZ Procedure: Transforaminal epidural steroid injection at the left L5-S1 foramen Interval History: Ms. Spann presents at the repeat request of Argelia Miranda for evaluation and treatment of her chronic low back pain. The pain is primarily localized to the left low back and radiates to the left leg. This pain is described as aching and burning in character. The average pain intensity is 10/10 and is aggravated by walking, extension, rt. Rotation and lft. Rotation. Nothing alleviates the pain. This pain has not responded to conservative measures. ROS: GENERAL: no complaints, no recent infection or bleeding issues Physical Exam: Vital signs: BP 157/82 Pulse 87 Temp(Src) 35.9 ??C (96.6 ??F) (Tympanic) Resp 16 Ht 165.1 cm(65) Wt 68.493 kg (151 lb) BMI 25.13 kg/m2 General:awake, alert, cooperative, no apparent distress Musculoskeletal: Gait: Normal and Lumbar Spine: nontender Neuro: Deep Tendon Reflexes: right side Patella 3+ Achilles 2+, left patella 3+, achilles 1+ Strength Exam: bilateral Hip Flexors, Knee Extensors, Knee Flexors, Plantar Flexion and Dorsiflexion5/5 Assessment: Little relief with previous interventional pain measures, request from orthospine for repeat transforaminal epidural steroid injection for diagnostic and therapeutic purposes 1. Low back pain radiating to left leg 2. Lumbar spondylolysis 3. Scoliosis 4. Pain of lower extremity 5. Lumbar disc herniation with radiculopathy Plan: If significant long-term relief is not appreciated, would not recommend repeat transforaminal epidural steroid injection at the same level Proceed with transforaminal epidural steroid injection at left L5-S1. Follow up: as needed for further evaluation and within 24 hrs by telephone to report results of diagnostic injection If no response to this injection pt may need to consider surgical management. PROCEDURE: The patient gave informed written consent to proceed with this procedure following a detailed discussion of the risks and benefits associated with transforaminal epidural steroid injection in the lumbar spine. The patient was then placed in the prone position, the skin over the lumbosacral area was pre pped with chlorhexadine, and the site was draped with sterile towels. Strict sterile technique was maintained throughout the procedure. A deras moment was performed with full staff present to identifythe patient, verify the procedure being performed, and review allergies. Flouoroscopy was used to visualize the left L5-S1 neuroforamen. The skin and subcutaneous tissue over this level was anesthetized by infiltration of 2% lidocaine. A 22 guage 5.0 inch spinal needle was inserted under fluoroscopic guidance using coaxial technique. The needle was slowly advanced by yarn bleaching machine operator olateral approach to the superior aspect of the foramen. Fluoroscopic images in the AP and lateral views were taken to confirm final needle tip position in the distal foramen. No parasthesias occurred during needle insertion and aspiration was negative. Contrast dye was injected under live fluoroscopyand revealed good spread along the Lt L5 nerve root with no evidence of intravascular or intrathecaluptake. After negative aspiration, 80 mg Depo-Medrol and 1 ml 0.5% Bupivacaine was injected. The needle was then flushed and withdrawn. The patient tolerated the procedure well, there were no apparent complications, and she was discharged in stable condition. Written and verbal discharge instructions were reviewed with the patient prior to discharge. Attending attestation: I saw and examined the patient with the resident/fellow. I agree with the findings and plan of care documented in the resident's/fellow's note. I was present and participated during the entire procedure. KRISTOFER JARVIS DO Jennifer Pineda - 12/18/2012 1030 EDT [facility] Rooming Note Does patient have a Pattern Chart Writer? yes Is patient NPO? (Solids since midnight & liquids for 4 hrs) na Blood Thinners: Is patient on Blood Thinners? no If yes, taking? If stopped, who authorized stopping? Related comments: Infections: Any recent infections, fever of illnesses? no If on antibiotics, is it 7-10 days past the date of completion of antibiotics? no : (for females of child-bearing age) Is there a chance current ? no Other: documented in this encounter Miscellaneous Notes Scanned Note-Null - REHABILITATION ASSISTANT, SCAN 2 - 12/25/2012 0818 EDT documented in this encounter Plan of Treatment Not on filedocumented as of this encounter Visit Diagnoses Diagnosis Low back pain radiating to left leg - Pr imary Lumbago Lumbar spondylolysis Acquired spondylolisthesis Scoliosis Scoliosis (and kyphoscoliosis), idiopath ic Pain of lower extremity Pain in limb Lumbar disc herniation with radiculopath y Displacement of lumbar intervertebral di sc without myelopathy documented in this encounter Care Teams Welding Specialist Relationship Specialty Start Date End Date Minda Velasco MD PCP - General 04/10/[address] [place] [id number] Argelia Miranda MD Primary Care Provider Orthopaedic Surgery 07/13/12 documented as of this encounter
--- OUTSIDE RECORDS SUMMARY | 2021-10-02 07:45 | XMS_ITS | Encounter Summary ---
:1960 Author Organization [facility] Address [address] [place] [address] Care Team Providers Name Role Phone Minda Velasco MD Primary Care Provider Argelia Miranda MD Unavailable Encounter Details Date Type Department Care Team Description 11/30/2017 Phlebotomy Only [facility] - Minda Velasco C irrhosis of liver [facility] MD without ascites, [address] [facility] [place] [address] cirrhosis type [phone] [place], [place] (HCC-[facility]) (Prim irving Dx) [phone] Social History Tobacco Use Types Packs/Day Years [...] Associated Comments Diagnosis AFP TUMOR MARKER Routine 11/30/2017 15:39 Cirrhosis of liver R esults for this EDT without ascites, procedure a re in unspecified hepatic the resu lts cirrhosis type section. ([facility]) PROTIME Routine 11/30/2017 15:39 Cirrhosis of liver Resul ts for this EDT without ascites, procedure a re in unspecified hepatic the resu lts cirrhosis type section. ([facility]) COMPLETE BLOOD COUNT Routine 11/30/2017 15:39 Cirrhosis of alisson er Results for this EDT without ascites, procedure a re in unspecified hepatic the resu lts cirrhosis type section. ([facility]) COMPREHENSIVE Routine 11/30/2017 15:39 Cirrhosis of liver Resu lts for this METABOLIC PANEL (CMP) EDT without ascites, pr ocedure are in unspecified hepatic the resu lts cirrhosis type section. ([facility]) documented in this encounter Results AFP TUMOR MARKER (11/30/2017 15:39 EDT) AFP Tumor Marker <2.0 <8.1 ng/mL [facility] Comment: [facility] AFP tumor marker cannot be interpreted in fem ales. SERVICES Serum AFP concentration should not be interpreted as absolute evidence for the presence or absence of malignant disease. Assayed utilizing Siemens chemiluminescent technology. Values obtained by using different assay methods cannot be used interchangeably. Specimen Blood specimen (specimen) - Blood Performing Organization Address City/State/ZIP Code Phon e Number [facility] [address] [place] [address] SERVICES COMPLETE BLOOD COUNT (11/30/2017 15:39 EDT) Pathologist Sig nature WBC 9.05 4.0 - 12.4 K/cmm [facility] SERVICES RBC 4.36 3.86 - 5.04 M/cmm [facility] SERVICES Hemoglobin 12.7 11.6 - 15.2 gm/dl [facility] SERVICES HCT 39.2 34.9 - 44.4 % [facility] SERVICES MCV 90 81 - [address] [facility] SERVICES MCH 29.1 26.7 - 33.[address] [facility] SERVICES MCHC 32.4 32.1 - 35.9 gm/dl [facility] SERVICES RDW-CV 12.2 <14.7 % [facility] SERVICES RDW-SD 40.3 <50.[address] [facility] SERVICES PLT 195 141 - 377 K/cmm [facility] SERVICES MPV 10.5 9.5 - 12.[address] [facility] SERVICES Specimen Blood specimen (specimen) - Blood Performing Organization Address City/[facility]/ZIP Code Phon e Number [facility] [address] [place] [address] SERVICES PROTIME (11/30/2017 15:39 EDT) Pro Time 12.3 10.3 - 13.[address] [facility] secs LABORATORY SERVICES I.N.R. 1.0 0.9 - 1.[address] [facility] Comment: Ratio LABORATORY SERVICES Moderate Intensity Coumadin INR = 2.0-3.0 Adjustments in anticoagulant therapy dose should be based upon the INR and NOT the Pro Time. Specimen Blood specimen (specimen) - Blood Performing Organization Address [facility] e Number [facility] [address] [place] [address] SERVICES (ABNORMAL) COMPREHENSIVE METABOLIC PANEL (CMP) (11/30/2017 15:39 EDT) Potassium 4.1 3.5 - 5.0 [facility] mEq/L [facility] Sodium 139 136 - 145 [facility] mEq/L [facility] Chloride 97 96 - 110 [facility] mEq/L [facility] CO2 31 22 - 32 mEq/L [facility] SERVICES Total Alkaline 81 38 - 126 U/L [facility] Phosphatase [facility] Bilirubin, Total <0.5 <1.4 mg/dl [facility] SERVICES AST 62 (H) 15 - 46 U/L [facility] SERVICES ALT 59 (H) <53 U/L [facility] SERVICES Albumin 4.3 3.4 - 4.9 [facility] g/dl [facility] Total Protein 7.3 6.3 - 8.2 [facility] g/dl [facility] Creatinine 0.73 0.52 - 1.04 [facility] mg/dl [facility] GFR, Calculated 90 >60 [facility] Comment: ml/min/1.73m2 [facility] eGFR calculated using CKD-EPI equation for SERVICES non Americans. Multiply eGFR by 1.16 for Americans. BUN 11 10 - 26 mg/dl [facility] SERVICES Calcium 9.6 8.5 - 10.5 [facility] mg/dl [facility] SERVICES Calculated Calcium 9.4 8.5 - 10.5 [facility] mg/dl [facility] Glucose, Serum 208 (H) 70 - 100 [facility] mg/dl [facility] SERVICES Fasting? No [facility] SERVICES Specimen Blood specimen (specimen) - Blood Performing Organization Address City/State/ZIP Code Phon e Number [facility] [address] [place] [address] SERVICES documented in this encounter Visit Diagnoses Diagnosis Cirrhosis of liver without ascites, unsp ecified hepatic cirrhosis type (HCC-CMS) (HCC) - Primary documented in this encounter Care Teams Lamp Shade Maker Relationship Specialty Start Date End Date Minda Velasco MD PCP - General 04/10/09 [address] [place] [address] rAgelia Miranda MD Primary Care Provider Orthopaedic Surgery 07/13/12 documented as of this encounter
--- OUTSIDE RECORDS SUMMARY | 2021-10-02 07:45 | XMS_ITS | Encounter Summary ---
:1960 Author Organization [facility] Address [address] [place] [address] Care Team Providers Name Role Phone Minda Velasco MD Primary Care Provider Argelia Miranda MD Unavailable Encounter Details Date Type Department Care Team Description 08/30/2012 Hospital Encounter [facility] - Argelia Miranda MD [facility] [address] [place] [address] [employer] [phone] [place] [address] (Wo rk) Social History Tobacco [...] mg iron) tablet 3 times daily. Fish Oil-Ronks-3 Fatty Take 100 mg by mouth 0 [...] Disposition Code Departure Means Destination Auto Discharge Home documented in this encounter Plan of Treatment Not on filedocumented as of this encounter Visit Diagnoses Not on filedocumented in this encounter Care Teams Stress Analyst Relationship Specialty Start Date End Date Minda Velasco MD PCP - General 04/10/[address] [place] [address] Argelia Miranda MD Primary Care Provider Orthopaedic Surgery 07/13/12 documented as of this encounter
--- OUTSIDE RECORDS SUMMARY | 2021-10-02 07:45 | XMS_ITS | Encounter Summary ---
:1960 Author Organization [facility] Address [address] [place] [address] Care Team Providers Name Role Phone Minda Velasco MD Primary Care Provider Argelia Miranda MD Unavailable Reason for Referral Radiology Services (Routine) - Closed Specialty Diagnoses / Procedures Referred By Contact Refer red To Contact Diagnoses Chronic hepatitis C with cirrhosis ([facility]CC-[facility]) (HCC) Yaya Alvarenga MD Procedures RAD US ABDOMEN ONE ORGAN/QUADRANT [address] [facility], [address] [phone] Referral ID Status Reason Start Date Expiration Date Visits Requ ested Visits Authorized [id number] Closed 03/05/2015 1 1 Encounter Details Date Type Department Care Team Description 03/05/2015 Orders Only [facility] Jania Alvarenga h epatitis C Gastroenterology - Noel Javier MD with cirrhosis [place] [address] [place] [address] ([facility]-HCC) (Primary [address] [facility] Dx) [place], [place] [id number] [place] [address] [address] Social History Tobacco Use Types [...] Routine Chronic hepatitis C wi th Ordered: 03/05/2015 ORGAN/QUADRANT cirrhosis (CMS-HCC) documented as of this encounter Visit Diagnoses Diagnosis Chronic hepatitis C with cirrhosis (HCC- CMS) (HCC) - Primary Chronic hepatitis C without mention of h epatic coma documented in this encounter Care Teams Buffer Nickel Relationship Specialty Start Date End Date Minda Velasco MD PCP - General 04/10/[address] [place] [address] Argelia Miranda MD Primary Care Provider Orthopaedic Surgery 07/13/12 documented as of this encounter
--- OUTSIDE RECORDS SUMMARY | 2021-10-02 07:45 | XMS_ITS | Encounter Summary ---
:1960 Author Organization [facility] Address [address] [place] [address] Care Team Providers Name Role Phone Minda Velasco MD Primary Care Provider Argelia Miranda MD Unavailable Encounter Details Date Type Department Care Team Description 11/07/[address] [facility] Fire Prevention Bureau Captain, Chron ic hepatitis C - [facility] Outpatient with cirrhosis [address] [facility] ([facility]) [place], [place] [phone] Social History Tobacco Use Types Packs/Day Years [...] Comments Diagnosis HCV RNA DETECT QUANT Routine 11/07/2013 15:54 Chronic hepatiti s C Results for this EDT with cirrhosis procedure are in ([facility]) the results section. PROTIME Routine 11/07/2013 15:54 Chronic hepatitis C Resu lts for this EDT with cirrhosis procedure are in ([facility]) the results section. COMPLETE BLOOD COUNT Routine 11/07/2013 15:54 Chronic hepatiti s C Results for this EDT with cirrhosis procedure are in ([facility]) the results section. COMPREHENSIVE Routine 11/07/2013 15:54 Chronic hepatitis C Res ults for this METABOLIC PANEL (CMP) EDT with cirrhosis proc edure are in ([facility]) the results section. documented in this encounter Results HCV RNA DETECT QUANT (11/07/2013 15:54 EDT) [facility] HCV RNA Detect Undetected IU/mL [facility] Quant Comment: LAB Reference Range: ??Undetected The quantification range of this assay is 15 IU/mL to 100,000,000 IU/mL. Testing was performed by the Kathy Ampliprep/Kathy TaqMan HCV v2.0 ([employer] Specimen Blood specimen (specimen) Performing Organization Address [facility] Phon e Number [facility] [address] [place] [address] SERVICES [facility] [address] [place] [address] (ABNORMAL) HEMAGRAM (11/07/2013 15:54 EDT) [facility] WBC 6.06 4.0 - 12.4 K/cmm [facility] RBC 3.52 (L) 3.86 - 5.04 M/cmm [facility] Hemoglobin 10.9 (L) 11.6 - 15.2 gm/dl [facility] HCT 33.7 (L) 34.9 - 44.4 % [facility] MCV 96 81 - 98 fl [facility] MCH 31.1 26.7 - 33.3 pg [facility] MCHC 32.5 32.1 - 35.9 gm/dl [facility] PLT 166 141 - 320 K/cmm [facility] RDW-CV 12.8 11.7 - 14.6 % [facility] Specimen Blood specimen (specimen) Performing Organization Address [facility] Phon e Number [facility] [address] [place] [address] SERVICES [facility] [address] [place] [address] PROTIME (11/07/2013 15:54 EDT) [facility] Pro Time 11.7 9.5 - 12.3 [facility] secs I.N.R. 1.1 0.9 - 1.1 [facility] Comment: Ratio Moderate Intensity Coumadin INR = 2.0-3.0 Adjustments in anticoagulant therapy dose should be based upon the INR and NOT the Pro Time. Specimen Blood specimen (specimen) Performing Organization Address [facility] Phon e Number [facility] [address] [place] [address] SERVICES [facility] [address] [place] [address] (ABNORMAL) COMPREHENSIVE METABOLIC PANEL (CMP) (11/07/2013 15:54 EDT) Pathologist [facility] nature Potassium 4.4 3.5 - 5.0 mEq/L [...] Specimen Blood specimen (specimen) Performing Organization Address City/[facility] Code Phon e Number [facility] [address] [place] [address] SERVICES [facility] [address] [place] [address] documented in this encounter Visit Diagnoses Diagnosis Chronic hepatitis C with cirrhosis (HCC- CMS) (HCC) Chronic hepatitis C without mention of h epatic coma documented in this encounter Care Teams Director Of Channel Marketing Relationship Specialty Start Date End Date Minda Velasco MD PCP - General 04/10/09 [address] [place] [address] Argelia Miranda MD Primary Care Provider Orthopaedic Surgery 07/13/12 documented as of this encounter
--- OUTSIDE RECORDS SUMMARY | 2021-10-02 07:45 | XMS_ITS | Encounter Summary ---
:1960 Author Organization [facility] Address [address] [place] [address] Care Team Providers Name Role Phone Minda Velasco MD Primary Care Provider Argelia Miranda MD Unavailable Reason for Referral Radiology Services (Routine) - Closed Specialty Diagnoses / Procedures Referred By Contact Refer red To Contact Diagnoses Other cirrhosis of liver (HCC) Yaya Alvarenga MD Procedures RAD US ABDOMEN ONE ORGAN/QUADRANT [address] [phone] Referral ID Status Reason Start Date Expiration Date Visits Requ ested Visits Authorized [id number] Closed 01/01/2015 1 1 Reason for Visit Reason Comments Follow-up Cirrhosis/6 mo fu/Sovaldi. P t states things have been going well since last visit. Encounter Details Date Type Department Care Team Description 01/01/2015 Office Visit [facility] Mirella Alvarenga rhosis of Gastroenterology - Noel Javier MD liver ([facility]) [place] [address] (Primary Dx) [address] [place] [address] [facility] [phone] [address] Social History Tobacco Use Types Packs/Day Years Used Date Current Every Day Smoker Cigarettes 1 30 Smokeless Tobacco: Never Used Alcohol Use Standard Drinks/Week Comments No 0 (1 standard drink = 0.6 oz pure alcoho l) Sex Assigned at Date Recorded Not on file documented as of this encounter Last Filed Vital Signs Vital Sign Reading Time Taken Comments Blood Pressure 136/78 01/01/2015 1301 EDT Pulse 76 01/01/2015 1301 EDT Temperature - - Respiratory Rate - - Oxygen Saturation - - Inhaled Oxygen Concentration - - Weight 68.5 kg (151 lb) 01/01/2015 1301 EDT Height 165.1 cm (5' 5) 01/01/2015 1301 EDT Body Mass Index 25.13 01/01/2015 1301 EDT documented in this encounter Functional Status [...] as of this encounter Discharge Diagnoses Diagnosis 571.5 CIRRHOSIS OF LIVER NOS[ICD-9-CM] documented in this encounter Discharge Disposition Disposition Code Departure Means Destination Auto Discharge documented in this encounter Progress Notes Yaya Alvarenga MD - 01/01/2015 1316 EDT Subjective: Patient ID: Sadie Spann is an 54 y.o. female. Chief Complaint Patient presents with ??? Follow-up Cirrhosis/6 mo fu/Sovaldi. Pt states things have been going well since last visit. HPI Mrs Spann is here in followup for management of chronic hepatitis C infection, genotype 2B with presumed cirrhosis, having been a sustained viral responder to a 12 week course of treatment with sofosbuvir and ribavirin. She had a liver biopsy in 2005 [...] the present time other than some mild fatigue, and some headaches and forgetfulness for which she is seeing a neurologist. She continues to have chronic pain issues [...] (gastroesophageal reflux disease) 2007 ??? Spinal stenosis ??? Hypertension ??? Hyperlipidemia ??? Arrhythmia Past Surgical History Procedure Laterality Date ??? Neck surgery 1994 Family History Problem Relation Age of Onset ??? Cancer Mother ??? Heart Disease Father ??? High Blood Pressure Father ??? Diabetes Sister ??? Crohn's Disease Brother ??? Liver Disease Son ??? Mental Illness Son Social History Substance Use Topics ??? Smoking status: Current Every Day Smoker -- 1.00 packs/day for 30 years Types: Cigarettes ??? Smokeless tobacco: Never Used [...] by mouth 3 times daily. ??? Fish Oil-[place]-3 Fatty Acids (FISH OIL) 360-1,200 mg Cap [...] in thehistory of present illness. Objective: BP 136/78 mmHg Pulse 76 Ht 165.1 cm (65) Wt 68.493 kg (151 lb) BMI 25.13 kg/m2 Physical Exam On physical exam, she [...] C infection, genotype 2B with presumed cirrhosis, having been a sustained viral responder to a 12 week course of treatment with sofosbuvir and ribavirin. 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 She remains clinically stable. Plan: 1) We will obtain routine blood work today including CBC, INR, CMP and AFP. 2) We will schedule her for her screening ultrasound of the liver. 3) We will continue to follow her every 6 months in the liver clinic with the possibility of repeating a liver biopsy in the future to determine if she has had regression of fibrosis.. This was all discussed in detail with the patient who is in agreement. (571.5) Other cirrhosis of liver (primary encounter diagnosis) Plan: COMPREHENSIVE METABOLIC PANEL (CMP), PROTIME, HEMAGRAM, AFP TUMOR MARKER, RAD US ABDOMEN ONE ORGAN/QUADRANT Yaya Alvarenga MD No orders of the defined types were placed in this encounter. Results for orders placed or performed in visit on 01/01/15 COMPREHENSIVE METABOLIC PANEL (CMP) Result Value Ref Range Potassium 4.7 3.5 - 5.0 mEq/L Sodium 140 136 - 145 mEq/L Chloride 98 96 - 110 mEq/L CO2 30 24 - 32 mEq/L Total Alkaline Phosphatase 69 38 - 126 U/L Bilirubin, Total <0.5 <1.4 mg/dl AST 37 15 - 46 U/L ALT 41 <53 U/L Albumin 4.3 3.4 - 4.9 g/dl Total Protein 7.7 6.3 - 8.2 g/dl Creatinine 0.83 0.52 - 1.04 mg/dl GFR, Calculated 79 >60 ml/min/1.73m2 BUN 13 10 - 26 mg/dl Calcium 9.3 8.5 - 10.5 mg/dl Calculated Calcium 9.4 8.5 - 10.5 mg/dl Glucose, Serum 136 (H) 70 - 100 mg/dl Fasting? No PROTIME Result Value Ref Range Pro Time 11.9 10.1 - 13.0 secs I.N.R. 1.0 0.9 - 1.1 Ratio HEMAGRAM Result Value Ref Range WBC 9.23 4.0 - 12.4 K/cmm RBC 4.41 3.86 - 5.04 M/cmm Hemoglobin 13.2 11.6 - 15.2 gm/dl HCT 39.9 34.9 - 44.4 % MCV 90 81 - 98 fl MCH 30.0 26.7 - 33.3 pg MCHC 33.2 32.1 - 35.9 gm/dl RDW-CV 12.4 11.7 - 14.6 % RDW-SD 38.9 37.6 - 50.3 fl PLT 174 141 - 320 K/cmm MPV 8.2 7.5 - 11.2 fl AFP TUMOR MARKER Result Value Ref Range AFP-Tumor Marker 2.7 <9 ng/ml documented in this encounter Plan of Treatment Scheduled Orders Name Type Priority Associated Diagnoses Order S chedule RAD US ABDOMEN ONE Imaging Routine Other cirrhosis of alisson er Ordered: 01/01/2015 ORGAN/QUADRANT (CMS-HCC) documented as of this encounter Procedures Procedure Name Priority Date/Time Associated Diagnosis Comme nts ORDERS - SCANNED 01/07/2015 12:05 EDT documented in this encounter Results AFP TUMOR MARKER (01/01/2015 13:26 EDT) AFP-Tumor Marker 2.7 <9 ng/ml [facility] Comment: [facility] Reference value is less than 9 in 98.9% of healthy sub jects. SERVICES AFP tumor marker cannot be interpreted in fem ales. Serum AFP concentration should not be interpreted as absolute evidence for the presence or absence of malignant disease. Assayed utilizing [employer] chemiluminescent technology. ??Values obtained by using different assay methods cannot be used interchangeably. Specimen Blood specimen (specimen) - Blood Performing Organization Address City/[facility] Phon e Number [facility] [address] [place] [address] SERVICES HEMAGRAM (01/01/2015 13:26 EDT) Pathologist Sig nature WBC 9.23 4.0 - 12.4 K/cmm [facility] SERVICES RBC 4.41 3.86 - 5.04 M/cmm [facility] SERVICES Hemoglobin 13.2 11.6 - 15.2 gm/dl [facility] SERVICES HCT 39.9 34.9 - 44.4 % [facility] SERVICES MCV 90 81 - 98 fl [facility] SERVICES MCH 30.0 26.7 - 33.3 pg [facility] SERVICES MCHC 33.2 32.1 - 35.9 gm/dl [facility] SERVICES RDW-CV 12.4 11.7 - 14.6 % [facility] SERVICES RDW-SD 38.9 37.6 - 50.3 fl [facility] SERVICES PLT 174 141 - 320 K/cmm [facility] SERVICES MPV 8.2 7.5 - 11.2 fl [facility] SERVICES Specimen Blood specimen (specimen) - Blood Performing Organization Address City/[facility] Phon e Number [facility] [address] [place] [address] SERVICES PROTIME (01/01/2015 13:26 EDT) Pro Time 11.9 10.1 - 13.0 [facility] secs LABORATORY SERVICES I.N.R. 1.0 0.9 - 1.1 [facility] Comment: Ratio LABORATORY SERVICES Moderate Intensity Coumadin INR = 2.0-3.0 Adjustments in anticoagulant therapy dose should be based upon the INR and NOT the Pro Time. Specimen Blood specimen (specimen) - Blood Performing Organization Address [facility] Phon e Number [facility] [address] [place] [address] SERVICES (ABNORMAL) COMPREHENSIVE METABOLIC PANEL (CMP) (01/01/2015 13:26 EDT) Potassium 4.7 3.5 - 5.0 [facility] mEq/L [facility] SERVICES Sodium 140 136 - 145 [facility] mEq/L [facility] Chloride 98 96 - 110 [facility] mEq/L [facility] CO2 30 24 - 32 mEq/L [facility] SERVICES Total Alkaline 69 38 - 126 U/L [facility] Phosphatase [facility] SERVICES Bilirubin, Total <0.5 <1.4 mg/dl [facility] SERVICES AST 37 15 - 46 U/L [facility] SERVICES ALT 41 <53 U/L [facility] SERVICES Albumin 4.3 3.4 - 4.9 [facility] g/dl [facility] Total Protein 7.7 6.3 - 8.2 [facility] g/dl [facility] SERVICES Creatinine 0.83 0.52 - 1.04 [facility] mg/dl [facility] SERVICES GFR, Calculated 79 >60 [facility] Comment: ml/min/1.73m2 [facility] eGFR calculated using CKD-EPI equation for SERVICES non Americans. Multiply eGFR by 1.16 for Americans. BUN 13 10 - 26 mg/dl [facility] SERVICES Calcium 9.3 8.5 - 10.5 [facility] mg/dl [facility] SERVICES Calculated Calcium 9.4 8.5 - 10.5 [facility] mg/dl [facility] SERVICES Glucose, Serum 136 (H) 70 - 100 [facility] mg/dl [facility] SERVICES Fasting? No [facility] SERVICES Specimen Blood specimen (specimen) - Blood Performing Organization Address City/[facility] Phon e Number [facility] [address] [place] [address] SERVICES documented in this encounter Visit Diagnoses Diagnosis Other cirrhosis of liver (HCC) - Primary documented in this encounter Orders Admission Count Last Ordered Date First Ordered Date ORDERS - SCANNED 1 01/07/2015 documented in this encounter Care Teams Filtration Plant Mechanic Relationship Specialty Start Date End Date Minda Velasco MD PCP - General 04/10/[address] [place] [id number] Argelia Miranda MD Primary Care Provider Orthopaedic Surgery 07/13/12 documented as of this encounter
--- OUTSIDE RECORDS SUMMARY | 2021-10-02 07:45 | XMS_ITS | Encounter Summary ---
:1960 Author Organization [facility] Address [address] [place] [address] Care Team Providers Name Role Phone Minda Velasco MD Primary Care Provider Argelia Miranda MD Unavailable Reason for Referral Consult (Routine/Next Available) - Closed Specialty Diagnoses / Procedures Referred By Contact Refer red To Contact Pain Medicine Diagnoses Lumbar disc herniation with radiculopathy Argelia Miranda MD [facility] [address] [address] [facility] [place] [address] Phone: [phone] Referral ID Status Reason Start Date Expiration Date Visits V isits Requested Authorized [id number] Closed Specialty 09/27/2012 1 1 Services Required Question Answer Reason for Request: left L5-S1 TFSI Reason for Visit Reason Comments Back Pain Leg Pain Left Extremity Weakness Left leg Encounter Details Date Type Department Care Team Description 09/27/[address] [facility] Argelia Miranda MD Radiculopathy (Primary Dx); Spine Program - [address] Lumbar spinal stenosis; [facility] [place] of Lumbar disc herniation with radiculopathy; [facility] [address] Cody Portillo Spondylolisthesis, grade 1; [facility], Lumba r spondylolysis; [address] [place], [place] [id number] Low back pain radiating to left leg; [phone] (Wo rk) Scoliosis; Pain of l ower extremity Social History Tobacco Use Types Packs/Day Years Used Date Current Every Day Smoker 1 Smokeless Tobacco: Never Used Alcohol Use Standard Drinks/Week Comments No 0 (1 standard drink = 0.6 oz pure alcoho l) Sex Assigned at Date Recorded Not on file documented as of this encounter Last Filed Vital Signs Vital Sign Reading Time Taken Comments Blood Pressure - - Pulse - - Temperature - - Respiratory Rate - - Oxygen Saturation - - Inhaled Oxygen Concentration - - Weight 68 kg (150 lb) 09/27/2012 0825 EDT Height 165.1 cm (5' 5) 09/27/2012 0825 EDT Body Mass Index 24.96 09/27/2012 0825 EDT documented in this encounter Discharge Disposition Disposition Code Departure Means Destination Auto Discharge documented in this encounter Progress Notes Argelia Miranda MD - 09/27/2012 1137 EDT [facility] [place] [facility] [place] (SpINE) [facility] [address] [place] [id number] PROGRESS/FOLLOWUP NOTE - 09/27/2012 PROBLEM: Low back pain radiating to the left lower extremity, left leg paresthesias, weakness and neurogenic claudication. SUBJECTIVE: Sadie is a 52-year-old female who is here today for followup. Since I have seen her last, she has had a CT scan and MRI of the lumbar spine. She is here today for review of these. She continues to experience low back pain 80% with 20% radiating into her left lower extremity. She, with increased walking distances, experiences increasing pain throughout the left leg. She is taking gabapentin now 400 mg daily. In the past, she has tried to increase this dose and felt too fatigued. She did not follow through with recommended TENS unit as of yet. Past medical history, surgical history and medications reviewed in [facility]. OBJECTIVE: MRI of the lumbar spine 08/30/2012, the coronal image reveals a mild levoscoliotic curve,apex L3. The common bile duct also was enlarged. T2 sagittal conus terminates at L2. Abnormal signal on the STIR image at the L4 spinous process, abnormal signal in the right pedicle of L5, right pedicle of L4. Axial image, L4-5 disk bulge, epidural lipomatosis, moderate bilateral lateral recess stenosis, moderate NFS. L5-S1 left foraminal lateral disk protrusion, lateral recess narrowing bilaterally. Igxxomqp-hp-hztgvo narrowing of the left foramen with possible impingement on the left L5 nerve root. Because of abnormal findings on STIR images and the pedicles, a CT scan was obtained of the lumbar spine. CT of the lumbar dated 09/08/2012 reviewed today. Levoscoliosis, lateral listhesis of L4 onto L5, left foraminal lateral disk herniation L5-S1. No fracture, no lytic or sclerotic lesions within the pedicles or the spinous process. There is pedicle edema related to severe facet degenerative changes, lipoma of the filum terminale. LV lower arterial PVRs relatively normal. Ultrasound of the abdomen 09/13/2012, no evidence of hepatic mass, cholelithiasis, unchanged common bile duct dilatation. ASSESSMENT: A 52-year-old female presents with neurogenic claudication and symptoms of left L5 radiculopathy. Her MRI is concordant with left foraminal lateral disk herniation at L5-S1 with compressionon the left L5 nerve root. She also does have lateral recess stenosis bilaterally 4-5 and 5-S1. I had a lengthy discussion with her regarding various treatment options including injection treatments, TENS unit, medication management and eventual surgical solution. PLAN: The plan agreed upon at this time is: 1. A left L5-S1 transforaminal. 2. New script for a TENS unit. 3. Follow up with me. If no relief, would then consider surgical consultation for decompression of lateral disk herniation at 5-S1 and possible release of the lateral recess stenosis. Electronically Signed by Argelia Miranda MD 10/06/2012 15:42 Argelia iMranda MD - Argelia Miranda MD - [facility] Job ID: SM Doc ID: [id number] Ext Doc ID: [id number] cc: Argelia Vick MD - 09/27/2012 1013 EDT This office note has been dictated. documented in this encounter Plan of Treatment Scheduled Referrals Name Type Priority Associated Diagnoses Order S chedule AMB CONSULT PAIN Outpatient Referral Routine Lumbar disc herni ation Ordered: CLINIC with radiculopathy 3 documented as of this encounter Visit Diagnoses Diagnosis Radiculopathy - Primary Neuralgia, neuritis, and radiculitis, un specified Lumbar spinal stenosis Spinal stenosis, lumbar region, without neurogenic claudication Lumbar disc herniation with radiculopath y Displacement of lumbar intervertebral di sc without myelopathy Spondylolisthesis, grade 1 Acquired spondylolisthesis Lumbar spondylolysis Acquired spondylolisthesis Low back pain radiating to left leg Lumbago Scoliosis Scoliosis (and kyphoscoliosis), idiopath ic Pain of lower extremity Pain in limb documented in this encounter Orders Equipment Count Last Ordered Date First Ordered Date GENERIC DME ORDER 1 09/27/2012 documented in this encounter Care Teams Fixed Income Director Relationship Specialty Start Date End Date Minda Velasco MD PCP - General 04/10/09 [address] [place] [address] Argelia Miranda MD Primary Care Provider Orthopaedic Surgery 07/13/12 documented as of this encounter
--- OUTSIDE RECORDS SUMMARY | 2021-10-02 07:45 | XMS_ITS | Encounter Summary ---
:1960 Author Organization [facility] Address [address] [place] [address] Care Team Providers Name Role Phone Minda Velasco MD Primary Care Provider Argelia Miranda MD Unavailable Encounter Details Date Type Department Care Team Description 01/02/2013 Phlebotomy Only [facility] Table Top Tile Setter, Chron ic hepatitis C - [facility] Outpatient with cirrhosis [address] [facility] ([facility]) [place], [place] [phone] Social History Tobacco Use Types Packs/Day Years [...] Associated Comments Diagnosis AFP TUMOR MARKER Routine 01/02/2013 14:42 Chronic hepatitis C Results for this EDT with cirrhosis procedure are in ([facility]) the results section. PROTIME Routine 01/02/2013 14:42 Chronic hepatitis C Resu lts for this EDT with cirrhosis procedure are in ([facility]) the results section. COMPLETE BLOOD COUNT Routine 01/02/2013 14:42 Chronic hepatiti s C Results for this EDT with cirrhosis procedure are in (CMS-HCC) the results section. COMPREHENSIVE Routine 01/02/2013 14:42 Chronic hepatitis C Res ults for this METABOLIC PANEL (CMP) EDT with cirrhosis proc edure are in ([facility]) the results section. documented in this encounter Results AFP TUMOR MARKER (01/02/2013 14:42 EDT) [facility] AFP-Tumor Marker <2.5 <9 ng/ml [facility] Comment: LAB Reference value is less than 9 in 98.9% of healthy sub jects. AFP tumor marker cannot be interpreted in fem ales. Serum AFP concentration should not be interpreted as absolute evidence for the presence or absence of malignant disease. Assayed utilizing [employer] chemiluminescent technology. ??Values obtained by using different assay methods cannot be used interchangeably. Specimen Blood specimen (specimen) Performing Organization Address [facility] Phon e Number [facility] [address] [place] [address] SERVICES [facility] [address] [place] [address] HEMAGRAM (01/02/2013 14:42 EDT) [facility] WBC 7.92 4.0 - 12.4 K/cmm [facility]IN [...] LAB RDW-CV 12.6 11.7 - 14.6 % [facility] Specimen Blood specimen (specimen) Performing Organization Address [facility] Phon e Number [facility] [address] [place] [address] SERVICES [facility] [address] [place] [address] PROTIME (01/02/2013 14:42 EDT) [facility] Pro Time 11.4 9.5 - 13.1 [facility] secs I.N.R. 1.0 0.9 - 1.1 [facility] Comment: Ratio Moderate Intensity Coumadin INR = 2.0-3.0 Adjustments in anticoagulant therapy dose should be based upon the INR and NOT the Pro Time. Specimen Blood specimen (specimen) Performing Organization Address [facility] Phon e Number [facility] [address] [place] [address] SERVICES [facility] [address] [place] [address] (ABNORMAL) COMPREHENSIVE METABOLIC PANEL (CMP) (01/02/2013 14:42 EDT) Pathologist [facility] nature Potassium 4.3 3.5 - 5.0 mEq/L [...] Specimen Blood specimen (specimen) Performing Organization Address City/[facility]/ZIP Code Phon e Number [facility] [address] [place] [address] SERVICES [facility] [address] [place] [address] documented in this encounter Visit Diagnoses Diagnosis Chronic hepatitis C with cirrhosis (HCC- CMS) (HCC) Chronic hepatitis C without mention of h epatic coma documented in this encounter Care Teams Wearing Apparel Folder Relationship Specialty Start Date End Date Minda Velasco MD PCP - General 04/10/[address] [place] [id number] Argelia Miranda MD Primary Care Provider Orthopaedic Surgery 07/13/12 documented as of this encounter
--- OUTSIDE RECORDS SUMMARY | 2021-10-02 07:45 | XMS_ITS | Encounter Summary ---
:1960 Author Organization [facility] Address [address] [place] [address] Care Team Providers Name Role Phone Minda Velasco MD Primary Care Provider Argelia Miranda MD Unavailable Reason for Visit Reason Onset Date Comments Appointment Related 08/31/2012 Encounter Details Date Type Department Care Team Description 08/31/2012 Telephone [facility] Argelia Miranda MD Appointment Related Spine Program - [facility] [address] [facility] [place], [place] [address] [place] [phone] [place] [address] (Wo rk) Social History Tobacco Use Types Packs/Day Years Used Date Current Every Day Smoker 1 Smokeless Tobacco: Never Used Alcohol Use Standard Drinks/Week Comments No 0 (1 standard drink = 0.6 oz pure alcoho l) Sex Assigned at Date Recorded Not on file documented as of this encounter Miscellaneous Notes Telephone Encounter - Argelia Miranda MD - 09/06/2012 0902 EDT Called patient and reviewed the findings of the lumbar MRI. Questionable L4 pars fracture. She is inagreement with the CT SCAN scheduled this week. Ultrasound to assess common bile duct. Dr Millerlin Telephone Encounter - Rene Bernal Jr. - 08/31/2012 1525 EDT Pt called to say she had gotten the message about her CT and ultrasound from Dr. Miranda, but asked if she could be called about why these were ordered. She also asked if these could be done at [facility]. I called and left message at pt's home number for her (same day) ultrasound and CT scan at [facility] had already been scheduled on 09/12/12 with a check in time of 2:45 pm, ultrasound at 3:15, and CT at 4:00 pm. Please advise. documented in this encounter Plan of Treatment Not on filedocumented as of this encounter Visit Diagnoses Not on filedocumented in this encounter Care Teams Canopy Stringer Relationship Specialty Start Date End Date Minda Velasco MD PCP - General 04/10/[address] [place] [id number] Argelia Miranda MD Primary Care Provider Orthopaedic Surgery 07/13/12 documented as of this encounter
--- OUTSIDE RECORDS SUMMARY | 2021-10-02 07:45 | XMS_ITS | Encounter Summary ---
:1960 Author Organization [facility] Address [address] [place] [address] Care Team Providers Name Role Phone Minda Velasco MD Primary Care Provider Argelia Miranda MD Unavailable Reason for Referral Radiology Services (Routine) - Closed Specialty Diagnoses / Procedures Referred By Contact Refer red To Contact Diagnoses Cirrhosis of liver without mention of alcohol Yaya Alvarenga MD Procedures RAD US ABDOMEN ONE ORGAN/QUADRANT [address] [phone] Referral ID Status Reason Start Date Expiration Date Visits Requ ested Visits Authorized [id number] Closed 02/22/2014 1 1 Encounter Details Date Type Department Care Team Description 02/22/2014 Orders Only [facility] [place], Cirrhosis of liver Gastroenterology - [facility] MD Yaya without mention of [place] [address] [place] alcohol (Primary 111 [facility] Dx) [place] [address] [facility] [phone] [address] Social History Tobacco Use Types Packs/Day Years Used Date Current Every Day Smoker 0.5 Smokeless Tobacco: Never Used Alcohol Use Standard Drinks/Week Comments No 0 (1 standard drink = 0.6 oz pure alcoho l) Sex Assigned at Date Recorded Not on file documented as of this encounter Progress Notes Yaya Alvarenga MD - 03/13/2014 1313 EST HCV RNA by PCR performed 03/05/14 at [facility] reported as Undetected. documented in this encounter Plan of Treatment Scheduled Orders Name Type Priority Associated Diagnoses Order S chedule RAD US ABDOMEN ONE Imaging Routine Cirrhosis of liver Ord ered: 02/22/2014 ORGAN/QUADRANT without mention of alcohol documented as of this encounter Visit Diagnoses Diagnosis Cirrhosis of liver without mention of al cohol - Primary documented in this encounter Care Teams Tipple Oiler Relationship Specialty Start Date End Date Minda Velasco MD PCP - General 04/10/09 [address] [place] [address] Argelia Miranda MD Primary Care Provider Orthopaedic Surgery 07/13/12 documented as of this encounter
--- OUTSIDE RECORDS SUMMARY | 2021-10-02 07:45 | XMS_ITS | Encounter Summary ---
:1960 Author Organization [facility] Address [address] [place] [address] Care Team Providers Name Role Phone Minda Velasco MD Primary Care Provider Argelia Miranda MD Unavailable Reason for Visit Reason Onset Date Comments Results 03/14/2014 Pt looking for blood work results. Encounter Details Date Type Department Care Team Description 03/14/2014 Telephone [facility], Results ( Pt looking Gastroenterology - [facility] MD Yaya for bloodwork [address] [place], [place] [address] [place] [address] [facility] [address] [place] [address] (Wo rk) Social History Tobacco Use Types Packs/Day Years Used Date Current Every Day Smoker 0.5 Smokeless Tobacco: Never Used Alcohol Use Standard Drinks/Week Comments No 0 (1 standard drink = 0.6 oz pure alcoho l) Sex Assigned at Date Recorded Not on file documented as of this encounter Miscellaneous Notes Telephone Encounter - Ruth Hamilton RN - 03/14/2014 0932 EST Patient is aware that the HCV RNA by PCR on 03/05/14 is undetected(done @ [facility]). documented in this encounter Plan of Treatment Not on filedocumented as of this encounter Visit Diagnoses Not on filedocumented in this encounter Care Teams Strategic Accounts Manager Relationship Specialty Start Date End Date Minda Velasco MD PCP - General 04/10/[address] [place] [id number] Argelia Miranda MD Primary Care Provider Orthopaedic Surgery 07/13/12 documented as of this encounter
--- OUTSIDE RECORDS SUMMARY | 2021-10-02 07:46 | XMS_ITS | Encounter Summary ---
:1960 Author Organization [facility] Address [address] [place] [address] Care Team Providers Name Role Phone Minda Velasco MD Primary Care Provider Malena Rico NP Primary Care Provider Encounter Details Date Type Department Care Team Description 05/21/2008 Before [facility] - Jerald Charles MD Converted Visit Maple conversion [address] [facility] ([facility]) [address] [place] [address] [place], [place] [address] [phone] Social History Tobacco Use Types Packs/Day Years Used Date Never Assessed Sex Assigned at Date Recorded Not on file documented as of this encounter Consult Notes Ellen Charles - 05/07/2009 0838 EST DIVISION OF PAIN MANAGEMENT CONSULTATION - 05/21/2008 CHIEF COMPLAINT Low back pain. HISTORY OF PRESENT ILLNESS Ms Spann come to clinic today complaining of ongoing lower back pain that has been going on for at least five years. She says in the last six months it has gotten worse to the point where she can no longer ambulate without assistance. She is using a cane to help her walk; however, today she did not bring her cane with her. She said previously she had been able to walk around the block at least one time and now she can only make it about fci. She has difficulty standing for long periods of time.She has gone to physical therapy, but has not had any relief from that. She finds bending over to moss picker her grandchild very painful. She also complains of numbness in her feet. She describes the painworse on the left side. She says it starts in her back and runs all the way down into her foot and feels like her knee is being twisted. She describes it as a burning sensation, as well as with pins and needles type of feeling. She has tried foot and back braces and changed her shoes multiple times and says that has not helped her. She also denies any bowel or bladder incontinence. There is a question of whether or not she is a poorly controlled diabetic. REVIEW OF SYSTEMS Positive for back and leg pain, numbness and tingling, and tooth pain. The rest of her 13-point review of systems has been reviewed and is negative. ALLERGIES She has no known drug allergies. MEDICATIONS 1. Prevacid 30 mg daily. 2. Depo-Provera shots every three months. 3. Metformin 500 mg two times a day. 4. Lantus 16 units daily. 5. Neurontin 400 mg three times a day. 6. Clonazepam 0.5 mg, 1-2 tablets at nighttime. 7. Methadone 10 mg, two tablets in the morning and five tablets at night. 8. Methadone liquid 135 mg daily. 9. Colace 100 mg as needed. 10. Morphine sulfate 15 mg, two tablets daily. PAST MEDICAL HISTORY 1. Diabetes. 2. Anxiety disorder. 3. Low back pain. FAMILY HISTORY Noncontributory. SOCIAL HISTORY She denies any alcohol use and does continue to smoke. PHYSICAL EXAMINATION Her blood pressure is 134/86, pulse is 96, and respirations are 16. She has a temperature of 35.5. She is 5 feet 5 inches tall and weighs 155 pounds. She is currently experiencing 8/10 pain. General: She is a very pleasant middle-aged female. Cardiovascular: S1 and S2 regular. No murmurs, rubs, or gallops. Lungs are clear to auscultation with air entry equal bilaterally. Abdomen: Positive bowel sounds. Soft and nontender. No organomegaly. She had 5/5 strength in her bilateral lower extremities. She had 2+ reflexes at her patellars and her Achilles. She had some decreased sensation to crude touch and pinprick on the left side versus the right. ASSESSMENT This is a 47-year-old woman who seems to be experiencing radicular pain in the L5/S1 distribution. PLAN She will undergo a lumbar epidural steroid injection at L5-S1. The reason this was not performed on May 21, 2008 is that she had a blood sugar of 255 and is complaining of tooth pain. She suspectsthat this tooth pain may be related to an infection and she has an appointment with a dentist for evaluation. We would like her to have that evaluated and treated before she comes back to the clinic for her injections. This patient was discussed with and examined with Dr Joe Dupree. saw and examined the patient with the resident/fellow. I agree with the findings and plan of care documented in the resident's/fellow's note. Edited and Signed by Joe Dupree MD 06/14/2008 09:24 Reviewed by Ellen Charles MD 05/25/2008 23:08 Ellen Charles MD Joe Dupree MD - Ellen Charles MD - [facility] Job ID: [id number] Doc ID: [id number] cc: Minda Velasco MD documented in this encounter Plan of Treatment Not on filedocumented as of this encounter Visit Diagnoses Not on filedocumented in this encounter Care Teams Power Grader Operator Relationship Specialty Start Date End Date Minda Velasco MD PCP - General 04/10/[address] [place] [id number] Malena Rico NP PCP - General 07/25/08 04/09/[address] [address] documented as of this encounter
--- OUTSIDE RECORDS SUMMARY | 2021-10-02 07:46 | XMS_ITS | Encounter Summary ---
:1960 Author Organization [facility] Address [address] [place] [address] Care Team Providers Name Role Phone Minda Velasco MD Primary Care Provider Encounter Details Date Type Department Care Team Description 11/10/2009 Abstract [facility] Minda Velasco MD [facility] 201 [facility] [place] [address] Katie Stewart [place], [place] [address] [phone] Social History Tobacco Use Types Packs/Day Years Used Date Never Assessed Sex Assigned at Date Recorded Not on file documented as of this encounter Plan of Treatment Not on filedocumented as of this encounter Visit Diagnoses Not on filedocumented in this encounter Care Teams Sign Builder Relationship Specialty Start Date End Date Minda Velasco MD PCP - General 04/10/09 [address] [place], [place] [address] documented as of this encounter
--- OUTSIDE RECORDS SUMMARY | 2021-10-02 07:46 | XMS_ITS | Encounter Summary ---
:1960 Author Organization [facility] Address [address] [place] [address] Care Team Providers Name Role Phone Minda Velasco MD Primary Care Provider Reason for Referral Radiology Services (Routine/Next Available) - Closed Specialty Diagnoses / Procedures Referred By Contact Refer red To Contact Diagnoses Chronic hepatitis C with cirrhosis ([facility]) (HCC) Yaya Alvarenga MD Procedures RAD US ABDOMEN ONE ORGAN/QUADRANT [address] [phone] Referral ID Status Reason Start Date Expiration Date Visits Requ ested Visits Authorized [id number] Closed 06/16/2011 1 1 Reason for Visit Reason Comments Cirrhosis 6 month f/u Hepatitis C 6 month f/u Encounter Details Date Type Department Care Team Description 06/16/2011 Office Visit [facility] Jania Alvarenga epatitis C Gastroenterology - Noel Javier MD with cirrhosis [place] [address] [place] (CMS-HCC) (Primary 111 [facility] Dx) [place], [place] [phone] [place] [address] [address] Social History Tobacco Use Types Packs/Day Years Used Date Current Every Day Smoker 1 Smokeless Tobacco: Never Used Alcohol Use Standard Drinks/Week Comments No 0 (1 standard drink = 0.6 oz pure alcoho l) Sex Assigned at Date Recorded Not on file documented as of this encounter Last Filed Vital Signs Vital Sign Reading Time Taken Comments Blood Pressure 138/77 06/16/2011 1246 EDT Pulse 76 06/16/2011 1246 EDT Temperature - - Respiratory Rate - - Oxygen Saturation - - Inhaled Oxygen Concentration - - Weight 71.2 kg (157 lb) 06/16/2011 1246 EDT Height 167.6 cm (5' 6) 06/16/2011 1246 EDT Body Mass Index 25.34 06/16/2011 1246 EDT documented in this encounter Progress Notes Yaya Potter MD - 06/16/2011 1315 EDT Subjective: Patient ID: Sadie Spann is an 50 y.o. female. HPI Follow-up visit for hep C with cirrhosis. Doing well overall. Compliant with low-Na diet. Occasional JENARO that fluctuates with heat and prolonged periods of standing. No abdominal distension. No jaundice, confusion or rash. No melena, hematemesis or hematochezia. Still not keen to pursue treatment of hepatitis C with fatigue, helping to raise grandchildren and managing diabetes. No fevers, sweats or chills. Weight stable. Appetite good. Current Outpatient Prescriptions on File Prior to Visit Medication Sig Dispense Refill ??? clonazepam (KLONOPIN) 0.5 mg tablet Take 0.5 mg by mouth at bedtime. 1-2 ??? gabapentin (NEURONTIN) 400 mg capsule Take 400 mg by mouth 3 times daily. ??? insulin glargine (LANTUS) 100 unit/mL injection Inject 18 mL into the skin at bedtime. ??? docusate sodium (DOC-Q-LACE) 100 mg capsule Take 100 mg by mouth daily as needed for Constipation. ??? methadone (DOLOPHINE) 10 mg tablet Take 10 mg by mouth 2 times daily. 9 tabs/day ??? methadone (DOLOPHINE) 10 mg/mL solution Take 135 mg by mouth daily. ??? Cholecalciferol, Vitamin D3, 400 unit Tab Take 400 Units by mouth daily. ??? Fish Oil-Carlisle-3 Fatty Acids (FISH OIL) 360-1,200 mg Cap Take 100 mg by mouth daily. ??? VITAMIN B COMPLEX (B COMPLEX 1 ORAL) Take 1 Tab by mouth daily. ??? levalbuterol (XOPENEX HFA) 45 mcg/Actuation inhaler Inhale 1-2 Puffs as directed as needed for Wheezing. No Known Allergies ROS - See HPI Objective: BP 138/77 Pulse 76 Ht 167.6 cm (66) Wt 71.215 kg (157 lb) BMI 25.34 kg/m2 Physical Exam Gen- Well, NAD, A+Ox3, normal color Abd- Non-distended, prominent veins, mild left lobe enlargement of liver on palpation, no shifting dullness, BS+ Skin- Spider nevi chest, no jaundice Extr- Mild pitting JENARO to lower shins Assessment: 50 yo female with hepatitis C with compensated cirrhosis. Still not keen on pursuing treatment of hepatitis C- implications discussed. Will repeat labs and imaging as part of HCC surveillance. Also duesurveillance EGD for varices. Plan: 1. Check CMP, INR, CBC, AFP 2. Check RUQ U/S 3. EGD with anesthesia soon 4. Follow-up in 6 months Yaya Potter MD Seen with Dr Alvarenga. Yaya Alvarenga MD - 06/16/2011 1259 EDT GI Attending Attestation: I saw and evaluated this patient with the fellow/resident. I agree with the history and physical exam. I agree with the impression and plan. documented in this encounter Plan of Treatment Scheduled Orders Name Type Priority Associated Diagnoses Order S chedule RAD US ABDOMEN ONE Imaging Routine Chronic hepatitis C wi th Ordered: 06/16/2011 ORGAN/QUADRANT cirrhosis (CMS-HCC) documented as of this encounter Results AFP TUMOR MARKER (06/16/2011 13:39 EDT) AFP-Tumor Marker 2.5 <9 ng/ml [facility] Comment: LAB Reference value is less than 9 in 98.9% of healthy sub jects. AFP tumor marker cannot be interpreted in fem ales. Serum AFP concentration should not be interpreted as absolute evidence for the presence or absence of malignant disease. Assayed utilizing [employer] chemiluminescent technology. ??Values obtained by using different assay methods cannot be used interchangeably. Specimen Blood specimen (specimen) Performing Organization Address [facility] Phon e Number [facility] [address] [place] [address] SERVICES [facility] [address] [place] [address] HEMAGRAM (06/16/2011 13:39 EDT) Pathologist Sig nature WBC 6.93 4.0 - 12.4 K/cmm [facility] RBC 4.31 3.86 - 5.04 M/cmm [facility] Hemoglobin 12.7 11.6 - 15.2 gm/dl [facility] HCT 37.9 34.9 - 44.4 % [facility] MCV 88 81 - 98 fl [facility] MCH 29.5 26.7 - 33.3 pg [facility] MCHC 33.6 32.1 - 35.9 gm/dl [facility] PLT 180 141 - 320 K/cmm [facility] RDW-CV 14.0 11.7 - 14.6 % [facility] Specimen Blood specimen (specimen) Performing Organization Address [facility] Phon e Number [facility] [address] [place] [address] [facility] [address] [place] [address] PTT (06/16/2011 13:39 EDT) Pathologist Sig nature PTT 30 26 - 37 secs [facility] Comment: Therapeutic Heparin range: ??65-100 seconds Note new reference range and Therapeutic Heparin Range in use effective 06/16/2011 Specimen Blood specimen (specimen) Performing Organization Address [facility]/ZIP [facility] Phon e Number [facility] [address] [place] [address] SERVICES [facility] [address] [place] [address] PROTIME (06/16/2011 13:39 EDT) Pro Time 11.6 9.5 - 13.1 [facility] secs I.N.R. 1.0 0.9 - 1.1 [facility] Comment: Ratio Moderate Intensity Coumadin INR = 2.0-3.0 Adjustments in anticoagulant therapy dose should be based upon the INR and NOT the Pro Time. Specimen Blood specimen (specimen) Performing Organization Address [facility] Phon e Number [facility] [address] [place] [phone] SERVICES [facility] [address] [place] [address] (ABNORMAL) COMPREHENSIVE METABOLIC PANEL (CMP) (06/16/2011 13:39 EDT) Pathologist Sig nature Potassium 4.6 3.5 - 5.0 mEq/L [facility] Sodium 138 136 - 145 mEq/L [facility] Chloride 99 96 - 110 mEq/L [facility] CO2 30 24 - 32 mEq/L [facility] Total Alkaline 93 38 - 126 U/L [facility] Phosphatase Bilirubin, Total <0.5 0.2 - 1.3 mg/dl [facility] AST 44 15 - 46 U/L [facility] ALT 53 (H) 9 - 52 U/L [facility] Albumin 4.0 3.4 - 4.9 g/dl [facility] Total Protein 7.8 6.5 - 8.3 g/dl [facility] Creatinine 0.68 0.52 - 1.04 [facility] mg/dl GFR, Calculated >60 >60 [facility] ml/min/1.73m2 BUN 11 10 - 26 mg/dl [facility] Calcium 9.2 8.5 - 10.5 [facility] mg/dl Calculated Calcium 9.6 8.5 - 10.5 [facility] mg/dl Glucose, Serum 148 (H) 70 - 100 mg/dl [facility] Fasting? NO [facility] Specimen Blood specimen (specimen) Performing Organization Address [facility]/ZIP [facility] Phon e Number [facility] [address] [place] [phone] [facility] [address] [place] [address] documented in this encounter Visit Diagnoses Diagnosis Chronic hepatitis C with cirrhosis (HCC- [facility]) (HCC) - Primary Chronic hepatitis C without mention of h epatic coma documented in this encounter Discontinued Medications Medication Sig Discontinue Reason Start Date End Date insulin aspart (NOVOLOG) Inject 20 Units/kg Therapy completed 06/16/2011 100 unit/mL injection into the skin 3 times daily before meals. Sliding scale pantoprazole (PROTONIX) Take 40 mg by mouth Alternate therapy 06/16/2011 40 mg tablet daily as needed. documented as of this encounter Historical Medications This list may reflect changes made after this encounter. Medication Sig Dispensed Refills Start Date End Date metformin (GLUCOPHAGE) 500 Take 500 mg by 0 mg tablet mouth 2 times daily. ferrous sulfate 325 mg (65 Take 325 mg by 0 mg iron) tablet mouth 3 times daily. oxycodone (ROXICODONE) 5 Take 10 mg by mouth 0 mg immediate release every 6 hours as tablet needed. multivitamin (NEPHROVITE) Take 1 Tab by mouth 0 07/10/2014 0.8 mg Tab daily. magnesium oxide (MAG-OX) Take 400 mg by 0 11/25/2011 400 mg tablet mouth daily. LANSOPRAZOLE (PREVACID Take 40 mg by 0 11/25/2011 ORAL) mouth. added in this encounter Care Teams Machine Castings Plasterer Relationship Specialty Start Date End Date Minda Velasco MD PCP - General 04/10/[address] [place] [address] documented as of this encounter
--- OUTSIDE RECORDS SUMMARY | 2021-10-02 07:46 | XMS_ITS | Encounter Summary ---
:1960 Author Organization [facility] Address [address] [place] [address] Care Team Providers Name Role Phone Minda Velasco MD Primary Care Provider Malena Rico NP Primary Care Provider Encounter Details Date Type Department Care Team Description 08/04/2006 Results Only [facility] - Anuradha Argueta od, FORM STRIPPER [address] [place] [phone] (Wo rk) Social History Tobacco Use Types Packs/Day Years Used Date Never Assessed Sex Assigned at Date Recorded Not on file documented as of this encounter Plan of Treatment Not on filedocumented as of this encounter Procedures Procedure Name Priority Date/Time Associated Diagnosis Comme nts CYTOPATHOLOGY Routine 08/04/2006 0:00 EDT Results for this procedure are i n the results section . documented in this encounter Results CYTOPATHOLOGY (08/04/2006 0:00 EDT) Pathology Report: CYTOPATHOLOGY REPORT [facility] Reports generated via electronic interface contain ang ginal data; however they are lacking the format of the original re port. Caution should be taken when reading/interpreting unfo rmatted reports. Name: ? SADIE BERKOWITZ ? Accession #: ? [id number] : ? 1960 (Age: 46) ??F ?Collect Date: ? 05/06/2006 Location: ? [facility] ? Receive Date : ? 08/05/2006 Provider: ?ANURADHA JOEY FORM STRIPPER Copy to: ? Specimen/Source: ? ThinPrep Pap Test, Cervix/Endocervix, processed on [employer] ThinPrep Imaging System, with manual evaluation Last Menstrual Period: ? Hormonal/Contraceptive Status: ? Depo-Provera Other: ? HPVA - HPV testing requested if ASC-US on the current ThinPrep Pap test. ? SPECIMEN ADEQUACY ? Satisfactory for Evaluation - transformation zone component present - scant squamous epithelial component secondary to exc essive blood - scant squamous epithelial component secondary to exc essive inflammation GENERAL CATEGORIZATION ? Negative for Intraepithelial Lesion or Malignan cy INTERPRETATION ? Reactive cellular morales nges associated with inflammation present (includes repair). ? Document reviewed and electronically signed by: ? VIOLETA GALAVIZ MD ? Report Date: ??08/11/2006 17:31 End of Report Specimen Performing Organization Address City/State/ZIP Code Phon e Number [facility] [address] [place] [address] SERVICES [facility] [address] [place] [address] documented in this encounter Visit Diagnoses Not on filedocumented in this encounter Care Teams Roll Examiner Relationship Specialty Start Date End Date Minda Velasco MD PCP - General 04/10/09 [address] [place] [address] Malena Rico NP PCP - General 07/25/08 04/09/09 [facility] [address] [place] [address] documented as of this encounter
--- OUTSIDE RECORDS SUMMARY | 2021-10-02 07:46 | XMS_ITS | Encounter Summary ---
:1960 Author Organization [facility] Address [address] [place] [address] Care Team Providers Name Role Phone Minda Velasco MD Primary Care Provider Argelia Miranda MD Unavailable Encounter Details Date Type Department Care Team Description 07/13/2012 Phlebotomy Only [facility] Power Shear Operator, Chron ic hepatitis C - [facility] Outpatient with cirrhosis [address] [facility] ([facility]) [place], [place] [id number] [phone] Social History Tobacco Use Types Packs/Day Years [...] Associated Comments Diagnosis AFP TUMOR MARKER Routine 07/13/2012 9:23 Chronic hepatitis C R esults for this EDT with cirrhosis procedure are in ([facility]) the results section. PROTIME Routine 07/13/2012 9:23 Chronic hepatitis C Resul ts for this EDT with cirrhosis procedure are in ([facility]) the results section. COMPLETE BLOOD COUNT Routine 07/13/2012 9:23 Chronic hepatitis C Results for this EDT with cirrhosis procedure are in ([facility]) the results section. COMPREHENSIVE Routine 07/13/2012 9:23 Chronic hepatitis C Resu lts for this METABOLIC PANEL (CMP) EDT with cirrhosis proc edure are in ([facility]) the results section. documented in this encounter Results AFP TUMOR MARKER (07/13/2012 9:23 EDT) Pathologist [facility] AFP-Tumor Marker 2.7 <9 ng/ml [facility] Comment: LAB Reference value is less than 9 in 98.9% of healthy sub jects. AFP tumor marker cannot be interpreted in fem ales. Serum AFP concentration should not be interpreted as absolute evidence for the presence or absence of malignant disease. Assayed utilizing PeriGen chemiluminescent technology. ??Values obtained by using different assay methods cannot be used interchangeably. Specimen Blood specimen (specimen) Performing Organization Address [facility] Phon e Number [facility] [address] [place] [address] SERVICES [facility] [address] [place] [address] HEMAGRAM (07/13/2012 9:23 EDT) Pathologist [facility] WBC 6.68 4.0 - 12.4 K/cmm [facility] RBC 4.23 3.86 - 5.04 M/cmm [facility] Hemoglobin 13.1 11.6 - 15.2 gm/dl [facility] HCT 38.8 34.9 - 44.4 % [facility] MCV 92 81 - 98 fl [facility] MCH 31.0 26.7 - 33.3 pg [facility] MCHC 33.8 32.1 - 35.9 gm/dl [facility] PLT 157 141 - 320 K/cmm [facility] RDW-CV 12.5 11.7 - 14.6 % [facility] Specimen Blood specimen (specimen) Performing Organization Address [facility] Phon e Number [facility] [address] [place] [address] SERVICES [facility] [address] [place] [address] PROTIME (07/13/2012 9:23 EDT) Pathologist [facility] Pro Time 11.7Comment: Patient on 9.5 - 13.1 [facility] LA B Coumadin secs I.N.R. 1.0 0.9 - 1.1 [facility] Comment: Ratio Moderate Intensity Coumadin INR = 2.0-3.0 Adjustments in anticoagulant therapy dose should be based upon the INR and NOT the Pro Time. Patient on Coumadin Specimen Blood specimen (specimen) Performing Organization Address City/[facility] Phon e Number [facility] [address] [place] [address] SERVICES [facility] [address] [place] [address] (ABNORMAL) COMPREHENSIVE METABOLIC PANEL (CMP) (07/13/2012 9:23 EDT) [facility] nature Potassium 4.3 3.5 - 5.0 mEq/L [facility] Sodium 144 136 - 145 mEq/L [facility] Chloride 100 96 - 110 mEq/L [facility] CO2 32 24 - 32 mEq/L [facility] Total Alkaline 90 38 - 126 U/L [facility] Phosphatase Bilirubin, Total <0.5 0.2 - 1.3 mg/dl [facility] AST 42 15 - 46 U/L [facility] ALT 52 9 - 52 U/L [facility] Albumin 4.1 3.4 - 4.9 g/dl [facility] Total Protein 7.9 6.5 - 8.3 g/dl [facility] Creatinine 0.68 0.52 - 1.04 [facility] mg/dl GFR, Calculated >60 >60 [facility] ml/min/1.73m2 BUN 10 10 - 26 mg/dl [facility] Calcium 9.3 8.5 - 10.5 [facility] mg/dl Calculated Calcium 9.6 8.5 - 10.5 [facility] mg/dl Glucose, Serum 135 (H) 70 - 100 mg/dl [facility] Fasting? NO [facility] Specimen Blood specimen (specimen) Performing Organization Address City/[facility]/ZIP Code Phon e Number [facility] [address] [place] [address] SERVICES [facility] [address] [place] [address] documented in this encounter Visit Diagnoses Diagnosis Chronic hepatitis C with cirrhosis (HCC- CMS) (HCC) Chronic hepatitis C without mention of h epatic coma documented in this encounter Care Teams Life Sciences Manager Relationship Specialty Start Date End Date Minda Velasco MD PCP - General 04/10/09 [address] [place] [address] Argelia Miranda MD Primary Care Provider Orthopaedic Surgery 07/13/12 documented as of this encounter
--- OUTSIDE RECORDS SUMMARY | 2021-10-02 07:46 | XMS_ITS | Encounter Summary ---
:1960 Author Organization [facility] Address [address] [place] [address] Care Team Providers Name Role Phone Minda Velasco MD Primary Care Provider Encounter Details Date Type Department Care Team Description 11/27/2010 Results Only [facility] Monica Magana MD Laboratory Services - [address] [place] [address] [place] [id number] Social History Tobacco Use Types Packs/Day [...] Diagnosis Comme nts PAP TEST- RESULT Routine 11/27/2010 0:00 EDT Resu lts for this ONLY procedure are i n the results section. documented in this encounter Results PAP TEST- RESULT ONLY (11/27/2010 0:00 EDT) Pathology Report: CYTOPATHOLOGY REPORT ? [facility] ? LAB Reports generated via electr onic interface contain original data; ? however they are lacking the format of the original report. ? Caution should be taken when reading/interpreting unformatted reports. ? Name: ? LINNEA BERKOWITZ A G ? Accession #: ? [id number] ? : ? 1960 (Age: 50) ??F ?Collect Date: ? 11/27/2010 ? Location: ? [facility] ? R eceive Date: ? 11/30/2010 ? Provider: MONICA RONNIE MD ? Copy to: MINDA BERRIAN MD ? Final Report ? SPECIMEN ADEQUACY ? Satisfactory for Eval uation ? - transformation zone compon ent present ? GENERAL CATEGORIZATION ? Negative for Intraepi thelial Lesion or Malignancy ? Hormonal/Contraceptive statu s: Depo-Provera ? Other: Additional clinical i nformation: Paps on file wnl ? Specimen/Source: ??Pap Test, Cervix/Endocervix, ThinPrep Imaging System with ? manual evaluation ? Document reviewed and electr onically signed by: ? Lynan Emeka, CT(ASCP) ? Report ??Date: 12/03/ 2010 15:46 ? HPV with Pap Test ? Date Ordered: ? 0 12/03/2010 ? Status: ?? Signed Out ?Date Complete: ? 12/09/2010 ? By: ??System Interface ? Date Reported: ? 12/09/2010 ? Interpretation ? RESULT: Negative for HPV typ es 16, 18, 31, 33, 35, 39, 45, 51, 52, ? 56, 58, 59, and 68. ? Comments ? Document reviewed and electr onically signed by: ? System Interface ? Report date: 12/10/19 11 ? By the signature above, the attending physician certifies that he/she has ? personally conducted a gross and/or microscopic examination of the described ? specimens and rendered or co nfirmed the above diagnosis. ? End of Report ? Specimen Performing Organization Address City/State/ZIP Code Phon e Number [facility] [address] [place] [address] SERVICES [facility] [address] [place] [address] documented in this encounter Visit Diagnoses Not on filedocumented in this encounter Care Teams Weapons Mechanic Relationship Specialty Start Date End Date Minda Velasco MD PCP - General 04/10/09 [address] [place] [address] documented as of this encounter
--- OUTSIDE RECORDS SUMMARY | 2021-10-02 07:46 | XMS_ITS | Encounter Summary ---
:1960 Author Organization [facility] Address [address] [place] [address] Care Team Providers Name Role Phone Minda Velasco MD Primary Care Provider Encounter Details Date Type Department Care Team Description 06/18/2010 Hospital Encounter [facility] - Jeanette Alvarenga [facility] [address] [facility] [address] [place] [address] [facility] [phone] [address], [address] [place] [phone] (Wo rk) Social History Tobacco Use Types Packs/Day Years Used Date Current Every Day Smoker 1 Smokeless Tobacco: Never Used Alcohol Use Standard Drinks/Week Comments No 0 (1 standard drink = 0.6 oz pure alcoho l) Sex Assigned at Date Recorded Not on file documented as of this encounter Medications at Time of Discharge Medication Sig Dispensed Refills Start Date End Date docusate sodium Take 100 mg by mouth 0 (DOC-Q-LACE) 100 mg daily as needed for capsule Constipation. Fish Oil-[place]-3 Fatty Take 100 mg by mouth 0 Acids (FISH OIL) daily. 360-1,200 mg Cap gabapentin (NEURONTIN) Take 400 mg by mouth 0 400 mg capsule daily. insulin glargine (LANTUS) Inject 18 mL into 0 100 unit/mL injection the skin at bedtime. levalbuterol (XOPENEX Inhale 1-2 Puffs as 0 HFA) 45 mcg/Actuation directed as needed inhaler for Wheezing. methadone (DOLOPHINE) 10 Take 135 mg by mouth 0 mg/mL solution daily. VITAMIN B COMPLEX (B Take 1 Tab by mouth 0 COMPLEX 1 ORAL) daily. Cholecalciferol, Vitamin Take 400 Units by 0 09/05/2013 D3, 400 unit Tab mouth daily. clonazepam (KLONOPIN) 0.5 Take 0.5 mg by mouth 0 07/10/2014 mg tablet at bedtime. 1-2 insulin aspart (NOVOLOG) Inject 20 Units/kg 0 06/16/2011 100 unit/mL injection into the skin 3 times daily before meals. Sliding scale methadone (DOLOPHINE) 10 Take 10 mg by mouth 0 11/25/2011 mg tablet 2 times daily. 9 tabs/day pantoprazole (PROTONIX) Take 40 mg by mouth 0 06/16/2011 40 mg tablet daily as needed. documented as of this encounter Discharge Disposition Disposition Code Departure Means Destination Auto Discharge Home documented in this encounter Plan of Treatment Not on filedocumented as of this encounter Visit Diagnoses Not on filedocumented in this encounter Care Teams Television Engineer Relationship Specialty Start Date End Date Minda Velasco MD PCP - General 04/10/[address] [place] [address] documented as of this encounter
--- OUTSIDE RECORDS SUMMARY | 2021-10-02 07:46 | XMS_ITS | Encounter Summary ---
:1960 Author Organization [facility] Address [address] [place] [address] Care Team Providers Name Role Phone Minda Velasco MD Primary Care Provider Encounter Details Date Type Department Care Team Description 06/18/2009 Hospital Encounter [facility] Ferrentino, Perioperative Services- MD Yaya [address] [address] [facility] [phone] [place] [place] [address] (Wo rk) Social History Tobacco Use Types Packs/Day Years Used Date Never Assessed Sex Assigned at Date Recorded Not on file documented as of this encounter Last Filed Vital Signs Vital Sign Reading Time Taken Comments Blood Pressure 120/60 06/18/2009 1129 EDT Pulse - - Temperature 36.3 ??C (97.3 ??F) 06/18/2009 1129 EDT Respiratory Rate 16 06/18/2009 1129 EDT Oxygen Saturation 100% 06/18/2009 1129 EDT Inhaled Oxygen Concentration - - Weight - - Height - - Body Mass Index - - documented in this encounter Medications at Time of Discharge Medication Sig Dispensed Refills Start Date End Date docusate sodium Take 100 mg by mouth 0 (DOC-Q-LACE) 100 mg daily as needed for capsule Constipation. Fish Oil-[place]-3 Fatty Take 100 mg by mouth 0 [...] or Self Care documented in this encounter Progress Notes Gabriela Price - 06/18/2009 1112 EDT Post Anesthesia Evaluation Date of Service: 06/18/2009 The patient has been evaluated, assessed and discharged from anesthesia care with stable cardiorespiratory function and acceptable mental status, pain management, body temperature, fluid balance, nausea/vomiting control and Heather score. Additional monitoring and assessment needs have been addressed.If present, postoperative events are documented below. GABRIELA PRICE MD 06/18/2009 11:12 AM documented in this encounter Procedure Notes InpatientPhysician MD - 06/26/2009 1019 EDT InpatientPhysician MD - 06/20/2009 1619 EDTAssociated Order(s): ECG REPORT - SCANNED; ECG REPORT - SCANNED InpatientPhysician MD - 06/20/2009 1619 EDTAssociated Order(s): ORDERS - SCANNED; ORDERS - SCANNED documented in this encounter OR Notes Anesthesia Procedure Notes - Physician Berger MD - 06/20/2009 1619 EDT Anesthesia Preprocedure Evaluation - Physician Berger MD - 06/20/2009 1619 EDT documented in this encounter Miscellaneous Notes Scanned Note-Null - Physician Berger MD - 06/26/2009 1019 EDT canned Note-Null - Physician Berger MD - 06/20/2009 1619 EDT rief Op Note - Physician Berger MD - 06/20/2009 1619 EDT documented in this encounter Plan of Treatment Not on filedocumented as of this encounter Procedures Procedure Name Priority Date/Time Associated Comments Diagnosis ECG REPORT - SCANNED 06/20/2009 16:19 Res ults for this EDT procedure are i n the results section. ORDERS - SCANNED 06/20/2009 16:19 Results for this EDT procedure are i n the results section. GLUCOSE, GLUCOMETER Routine 06/18/2009 10:54 Resu lts for this EDT procedure are i n the results section. documented in this encounter Results ECG REPORT - SCANNED (06/20/2009 16:19 EDT) Specimen Narrative 06/21/2009 9:23 EDT This result has an attachment that is no t available. Ordered by an unspecified provider. Transcriptions Physician Berger MD - 06/20/2009 16 :19 EDT ORDERS - SCANNED (06/20/2009 16:19 EDT) Specimen Narrative 06/21/2009 9:23 EDT This result has an attachment that is no t available. Ordered by an unspecified provider. Transcriptions Physician Berger MD - 06/20/2009 16 :19 EDT (ABNORMAL) GLUCOSE, GLUCOMETER (06/18/2009 10:54 EDT) Glucose, 101 (H) 70 - 100 [facility] Fingerstick mg/dl LAB A Operator ID [id number] [facility] Test Performed by Nursing Services LAB Specimen Performing Organization Address City/State/ZIP Code Phon e Number [facility] [address] [place] [address] SERVICES [facility] [address] [place] [address] documented in this encounter Visit Diagnoses Not on filedocumented in this encounter Active and Recently Administered Medications Orders Medications Ordered That Might Not Have Count Last Ord ered Date First Ordered Date Been Administered atropine 0.1 mg/mL 10 mL syringe 0.5 mg 1 06/19/19 10 fentanyl citrate (PF) 50 mcg/mL injection 1 2009 25-100 mcg lactated ringers (LR) infusion 1 06/18/2009 naloxone (NARCAN) injection 0.2 mg 1 06/18/2009 Nursing Count Last Ordered Date First Ordered Date ANESTHESIA COMMUNICATION 1 06/18/2009 APPLY WARMING BLANKET 1 06/18/2009 CARDIAC MONITORING 1 06/18/2009 MONITOR AIRWAY 1 06/18/2009 NOTIFY SERVICE 1 06/18/2009 PULSE OXIMETRY 1 06/18/2009 VITAL SIGNS 1 06/18/2009 Admission Count Last Ordered Date First Ordered Date NOTIFY PPS PATIENT ARRIVAL IN PACU 1 06/18/2009 NOTIFY PPS PATIENT DISCHARGED FROM PACU 1 06/19/19 10 documented in this encounter Care Teams Flare Stitcher Relationship Specialty Start Date End Date Minda Velasco MD PCP - General 04/10/09 [address] [place] [address] documented as of this encounter
--- OUTSIDE RECORDS SUMMARY | 2021-10-02 07:46 | XMS_ITS | Encounter Summary ---
:1960 Author Organization [facility] Address [address] [place] [address] Care Team Providers Name Role Phone Malena Rico OFFAL BALER Primary Care Provider Encounter Details Date Type Department Care Team Description 07/30/2008 Before [facility] - Ciro Pabon Converted Visit [facility] MD Toni ([place]) [address] [place] [address] Social History Tobacco Use Types Packs/Day Years Used Date Never Assessed Sex Assigned at Date Recorded Not on file documented as of this encounter Procedure Notes Ciro Pabon MD - 10/01/2008 1045 EDT DIVISION OF PAIN MANAGEMENT PROCEDURE REPORT SERVICE DATE: 07/30/2008 Ciro Pabon MD MOLDING ENGINEER: PROCEDURE Left L5-S1 transforaminal epidural steroid injection. PREPROCEDURE DIAGNOSIS Lower back pain with left L5-S1 radicular pain. POSTPROCEDURE DIAGNOSIS Lower back pain with left L5-S1 radicular pain. INTERVAL HISTORY Ms Spann returns to the chronic pain clinic today for an epidural steroid injection that wasdetermined to be the appropriate treatment from a consult performed on May 21, 2008, by Dr Joe Dupree and Ellen Charles. At our initial consultation she complained of ongoing lower back pain for approximately five years with progressive worsening symptoms over the last six months. In addition, she complained of left lower extremity pain that was described in the L5-S1 distribution. Today she says thather symptoms have not reduced and they are in the same distribution. REVIEW OF SYSTEMS She is a diabetic with a blood glucose level of 109 this morning. She was counseled by her primary care physician on more closely-controlled blood sugars during the next several days. She denies any bowel or bladder dysfunction. She denies having a bleeding disorder and denies taking anticoagulant medications. She denies having recent fevers, chills, night sweats and fatigue. ALLERGIES No known drug allergies. MEDICATIONS Prevacid, Depo-Provera, metformin, Lantus, Neurontin, clonazepam, methadone, Dulcolax, morphine sulfate and NovoLog. PHYSICAL EXAMINATION She is a well-appearing female in no acute distress. She is 5 feet 5 inches tall and weighs 153 pounds. Her vital signs are 132/79, pulse 57, respirations 16, temperature 36.4. With examination of her lumbosacral region the skin is warm and dry to the touch with no erythema or ecchymosis. PLAN 1. Procedures: We will perform a left L5-S1 transforaminal epidural steroid injection. 2. Medications: No recommendations. I did encourage her to follow her primary care physicians recommendations on her watching and controlling her blood sugars more vigorously over the next several days. 3. The patient is to return to clinic in 3-4 months for repeat epidural steroid injection. She was informed that if her pain has resolved that she cancel that appointment at that time. PROCEDURE NOTE After written consent was obtained, the patient was placed prone on the fluoroscopy table. The skin inthe lumbosacral region was prepped with Hibiclens and sterilely draped. The skin and subcutaneous tissues were then anesthetized with 2% lidocaine. Then, under fluoroscopic guidance a 22-gauge, 3-1/2-inch spinal needle was gradually inserted to lie slightly lateral to the L5 nerve root and in the L5-S1 neural foramen. She did have transient paresthesias with needle placement. The paresthesias were progressively resolving after pulling back the needle slightly. Appropriate needle position was confirmed withAP and lateral views. After negative aspiration of heme and CSF, approximately 1 mL of Isovuewas injected confirming nerve root spread extending below the pedicle into the epidural space. Then,80 mg of Depo-Medrol followed by 0.5 mL of 0.5% bupivacainewas injected slowly without complication.The patient was monitored briefly after the procedure and her vital signs were stable. Her blood pressure was 128/85, pulse 97 and respirations 16. Pain on admission was 7/10 and at discharge was 8/10.She was able to walk out of the clinic without any difficulty. Unless otherwise noted, there were no complications, no blood loss, cultures obtained, specimens removed, or drains retained. Signed by Ciro Pabon MD 08/09/2008 06:40 Ciro Pabon MD - Ciro Pabon MD - BEV Job ID: [id number] Doc ID: [id number] cc: Minda Velasco MD documented in this encounter Plan of Treatment Not on filedocumented as of this encounter Visit Diagnoses Not on filedocumented in this encounter Care Teams Speech Language Pathologist Travel Relationship Specialty Start Date End Date Malena Rico NP PCP - General 07/25/08 04/09/09 [facility] [address] [place] [address] documented as of this encounter
--- OUTSIDE RECORDS SUMMARY | 2021-10-02 07:46 | XMS_ITS | Encounter Summary ---
:1960 Author Organization [facility] Address [address] [place] [address] Care Team Providers Name Role Phone Minda Velasco MD Primary Care Provider Reason for Referral Radiology Services (Routine/Next Available) - Closed Specialty Diagnoses / Procedures Referred By Contact Refer red To Contact Diagnoses Chronic hepatitis C with cirrhosis (HCC-[facility]) (HCC) Yaya Alvarenga MD Procedures RAD US ABDOMEN ONE ORGAN/QUADRANT [address] [phone] Referral ID Status Reason Start Date Expiration Date Visits Requ ested Visits Authorized [id number] Closed 11/25/2011 1 1 Reason for Visit Reason Comments Follow-up Cirrhosis Encounter Details Date Type Department Care Team Description 11/25/2011 Office Visit [facility] Jania Alvarenga h epatitis C Gastroenterology - [facility] MD Yaya with cirrhosis [place] [address] [place] [address] (CMS-HCC) (Primary [address] [facility] Dx) [place], [place] [id number] [place] [address] [phone] Social History Tobacco Use Types Packs/Day Years Used Date Current Every Day Smoker 1 Smokeless Tobacco: Never Used Alcohol Use Standard Drinks/Week Comments No 0 (1 standard drink = 0.6 oz pure alcoho l) Sex Assigned at Date Recorded Not on file documented as of this encounter Last Filed Vital Signs Vital Sign Reading Time Taken Comments Blood Pressure 144/91 11/25/2011 0853 EDT Pulse 87 11/25/2011 0853 EDT Temperature - - Respiratory Rate - - Oxygen Saturation - - Inhaled Oxygen Concentration - - Weight 68.5 kg (151 lb) 11/25/2011 0853 EDT Height - - Body Mass Index 25.13 09/28/2011 0841 EDT documented in this encounter Progress Notes Yaya Potter MD - 11/25/2011 0915 EDT Subjective: Patient ID: Sadie Spann is an 51 y.o. female. HPI Follow-up visit for hepatitis C-related cirrhosis. Doing OK since last visit. Unable to attend EGD arranged at last visit due to family illness. Some problems with neck and back pain. Seen at [facility] with steroid injections. Little improvement in symptoms. Due back for review. No problems with jaundice, abdominal pain, abdominal distension or lower extremity edema. No melena, hematemesis or hematochezia. Eating and drinking OK. Weight stable. Appetite good. Medical, surgical, family and social history reviewed in [facility]. Current Outpatient Prescriptions on File Prior to Visit Medication Sig Dispense Refill ??? oxycodone (ROXICODONE) 5 mg immediate release [...] 400 Units by mouth daily. ??? Fish Oil-Fitzpatrick-3 Fatty Acids (FISH OIL) 360-1,200 mg Cap Take 100 mg by mouth daily. ??? VITAMIN B COMPLEX (B COMPLEX 1 ORAL) Take 1 Tab by mouth daily. ??? levalbuterol (XOPENEX HFA) 45 mcg/Actuation inhaler Inhale 1-2 Puffs as directed as needed for Wheezing. 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 Patient not interested in pursuing treatment for hep C at this point due to side effects and is aware of rnt-ggpaflvrzf-tpiyu regimens on the horizon. Will schedule EGD for screening for varices. Plan: 1. CBC, INR, AFP, CMP 2. RUQ U/S to screen for HCC 3. EGD with anesthesia (hx chronic narcotic use) Seen with Dr Alvarenga. Yaya Potter MD Yaya Alvarenga MD - 11/25/2011 0903 EDT GI Attending Attestation: I saw and evaluated this patient with the fellow/resident. I agree with the history and physical exam. I agree with the impression and plan. documented in this encounter Plan of Treatment Scheduled Orders Name Type Priority Associated Diagnoses Order S chedule RAD US ABDOMEN ONE Imaging Routine Chronic hepatitis C wi th Ordered: 11/25/2011 ORGAN/QUADRANT cirrhosis (CMS-HCC) documented as of this encounter Results AFP TUMOR MARKER (11/25/2011 9:44 EDT) AFP-Tumor Marker <2.5 <9 ng/ml [facility] Comment: LAB Reference value is less than 9 in 98.9% of healthy sub jects. AFP tumor marker cannot be interpreted in fem ales. Serum AFP concentration should not be interpreted as absolute evidence for the presence or absence of malignant disease. Assayed utilizing Pops chemiluminescent technology. ??Values obtained by using different assay methods cannot be used interchangeably. Specimen Blood specimen (specimen) Performing Organization Address [facility]/ZIP Code Phon e Number [facility] [address] [place] [address] SERVICES [facility] [address] [place] [address] HEMAGRAM (11/25/2011 9:44 EDT) Pathologist Sig nature WBC 8.42 4.0 - 12.4 K/cmm [facility] RBC 4.32 3.86 - 5.04 M/cmm [facility] Hemoglobin 13.2 11.6 - 15.2 gm/dl [facility] HCT 38.9 34.9 - 44.4 % [facility] MCV 90 81 - 98 fl [facility] MCH 30.6 26.7 - 33.3 pg [facility] MCHC 34.0 32.1 - 35.9 gm/dl [facility] PLT 177 141 - 320 K/cmm [facility] RDW-CV 12.9 11.7 - 14.6 % [facility] Specimen Blood specimen (specimen) Performing Organization Address [facility]/ZIP [facility] Phon e Number [facility] [address] [place] [address] SERVICES [facility] [address] [place] [address] PTT (11/25/2011 9:44 EDT) Pathologist Sig nature PTT 29Comment: Therapeutic 26 - 37 secs [facility] Heparin range: 65-100 seconds Specimen Blood specimen (specimen) Performing Organization Address City/[facility]/ZIP [facility] Phon e Number [facility] [address] [place] [address] SERVICES [facility] [address] [place] [address] PROTIME (11/25/2011 9:44 EDT) Pro Time 11.4 9.5 - 13.1 [facility] secs I.N.R. 1.0 0.9 - 1.1 [facility] Comment: Ratio Moderate Intensity Coumadin INR = 2.0-3.0 Adjustments in anticoagulant therapy dose should be based upon the INR and NOT the Pro Time. Specimen Blood specimen (specimen) Performing Organization Address [facility] Phon e Number [facility] [address] [place] [address] SERVICES [facility] [address] [place] [address] (ABNORMAL) COMPREHENSIVE METABOLIC PANEL (CMP) (11/25/2011 9:44 EDT) [facility] Potassium 4.4 3.5 - 5.0 mEq/L [facility] Sodium 136 136 - 145 mEq/L [facility] Chloride 97 96 - 110 mEq/L [facility] CO2 29 24 - 32 mEq/L [facility] Total Alkaline 101 38 - 126 U/L [facility] Phosphatase Bilirubin, Total <0.5 0.2 - 1.3 mg/dl [facility] AST 57 (H) 15 - 46 U/L [facility] ALT 67 (H) 9 - 52 U/L [facility] Albumin 4.0 3.4 - 4.9 g/dl [facility] Total Protein 7.6 6.5 - 8.3 g/dl [facility] Creatinine 0.68 0.52 - 1.04 [facility] mg/dl GFR, Calculated >60 >60 [facility] ml/min/1.73m2 BUN 13 10 - 26 mg/dl [facility] Calcium 9.2 8.5 - 10.5 [facility] mg/dl Calculated Calcium 9.6 8.5 - 10.5 [facility] mg/dl Glucose, Serum 161 (H) 70 - 100 mg/dl [facility] Fasting? NO [facility] Specimen Blood specimen (specimen) Performing Organization Address City/[facility]/ZIP Code Phon e Number [facility] [address] [place] [address] SERVICES [facility] [address] [place] [address] documented in this encounter Visit Diagnoses Diagnosis Chronic hepatitis C with cirrhosis (HCC- [facility]) (HCC) - Primary Chronic hepatitis C without mention of h epatic coma documented in this encounter Discontinued Medications Medication Sig Discontinue Reason Start Date End Date methadone (DOLOPHINE) 10 Take 10 mg by Alternate therapy 11/25/2011 mg tablet mouth 2 times daily. 9 tabs/day magnesium oxide (MAG-OX) Take 400 mg by Patient Stopped Taking 11/25/2011 400 mg tablet mouth daily. LANSOPRAZOLE (PREVACID Take 40 mg by Alternate therapy 11/25/2011 ORAL) mouth. documented as of this encounter Historical Medications This list may reflect changes made after this encounter. Medication Sig Dispensed Refills Start Date End Date methadone (DOLOPHINE) 10 Take 90 mg by mouth daily . 0 mg tablet omeprazole (PRILOSEC) 20 Take 40 mg by mouth 0 07/10/2014 mg capsule daily. Cod Liver Oil Oil Take 415 mg by mouth 0 09/05/2013 daily. added in this encounter Care Teams Pool Manager Relationship Specialty Start Date End Date Minda Velasco MD PCP - General 04/10/[address] [place] [phone] documented as of this encounter
--- OUTSIDE RECORDS SUMMARY | 2021-10-02 07:46 | XMS_ITS | Encounter Summary ---
:1960 Author Organization [facility] Address [address] [place] [address] Care Team Providers Name Role Phone Minda Velasco MD Primary Care Provider Reason for Visit Reason Onset Date Comments Appointment Related 06/29/2012 Encounter Details Date Type Department Care Team Description 06/29/2012 Telephone [facility] Argelia Miranda MD Appointment Related Spine Program - [facility] [address] [facility] [address] [facility] Sp[facility] [place], [place] [address] [address] [phone] [place] [address] (Wo rk) Social History Tobacco Use Types Packs/Day Years Used Date Current Every Day Smoker 1 Smokeless Tobacco: Never Used Alcohol Use Standard Drinks/Week Comments No 0 (1 standard drink = 0.6 oz pure alcoho l) Sex Assigned at Date Recorded Not on file documented as of this encounter Miscellaneous Notes Telephone Encounter - Rene Bernal Jr. - 06/29/2012 1144 EDT Pt was notified that she had to reschedule her PVR study at the [facility] Lab before she is to be seen back by Dr. Miranda. She is going the see if she can have that done on the same day she is having her MRI at [facility] (07/17/12). documented in this encounter Plan of Treatment Not on filedocumented as of this encounter Visit Diagnoses Not on filedocumented in this encounter Care Teams Customs And Border Protection Inspector Relationship Specialty Start Date End Date Minda Velasco MD PCP - General 04/10/[address] [place] [id number] documented as of this encounter
--- OUTSIDE RECORDS SUMMARY | 2021-10-02 07:46 | XMS_ITS | Encounter Summary ---
:1960 Author Organization [facility] Address [address] [place] [address] Care Team Providers Name Role Phone Unavailable Primary Care Provider Unavailable Encounter Details Date Type Department Care Team Description 01/21/2006 Hospital Encounter [facility] Timbo Alvarenga, Radiology - [facility] [address] [address] [address], [place] [phone] (Wo rk) Social History Tobacco Use Types Packs/Day Years Used Date Never Assessed Sex Assigned at Date Recorded Not on file documented as of this encounter Discharge Disposition Disposition Code Departure Means Destination Home or Self Care documented in this encounter Plan of Treatment Not on filedocumented as of this encounter Procedures Procedure Name Priority Date/Time Associated Diagnosis Comme nts RAD US ABDOMEN ONE 01/21/2006 9:02 EDT Re sults for this ORGAN MARKING procedure are in the results section. documented in this encounter Results RAD US ABDOMEN ONE ORGAN MARKING (01/21/2006 9:02 EDT) Anatomical Region Laterality Modality Other Specimen Narrative [facility] - 10/12/2008 1: 58 EDT HEP C. LIVER ULTRASOUND AND MARKING FOR LIVER B IOPSY: ??01/21/06 CLINICAL HISTORY: ??Hepatitis C. FINDINGS: ??Ultrasound of the liver demo nstrates an echogenic liver. The liver was marked for biopsy to be pe rformed by Dr. Trammell. The patient was imaged in a supine posit ion with her arms over her head and images were obtained in end exp iration. ??The transducer was pointed toward the xiphoid process. ??Th e distance to the capsule is 1.8 cm. ??Maximum depth should be approx imately 4.1 cm. to avoid vascular structures. ??Measurements were sent with the patient for biopsy. IMPRESSION: ??Ultrasound-guided marking for liver biopsy to be performed by Gastroenterology as describ ed above. D: ? 01/21/06 T: ? 01/22/06 / Procedure Note Ly Centeno MD - 10/12/2008 HEP C. LIVER ULTRASOUND AND MARKING FOR LIVER B IOPSY: 01/21/06 CLINICAL HISTORY: Hepatitis C. FINDINGS: Ultrasound of the liver demons trates an echogenic liver. The liver was marked for biopsy to be pe rformed by Dr. Trammell. The patient was imaged in a supine posit ion with her arms over her head and images were obtained in end exp iration. The transducer was pointed toward the xiphoid process. The distance to the capsule is 1.8 cm. Maximum depth should be approxim ately 4.1 cm. to avoid vascular structures. Measurements were s ent with the patient for biopsy. IMPRESSION: Ultrasound-guided marking fo r liver biopsy to be performed by Gastroenterology as describ ed above. / Performing Organization Address City/State/ZIP Code Phon e Number [facility] [address] [facility] [place] [address] [facility] [address] [place], [place] [address] documented in this encounter Visit Diagnoses Not on filedocumented in this encounter
--- OUTSIDE RECORDS SUMMARY | 2021-10-02 07:46 | XMS_ITS | Encounter Summary ---
:1960 Author Organization [facility] Address [address] [place] [address] Care Team Providers Name Role Phone Minda Velasco MD Primary Care Provider Malena Rico NP Primary Care Provider Encounter Details Date Type Department Care Team Description 08/25/2007 Results Only [facility] - Anuradha Argueta od, OIL TREATER conversion [address] [place] [address] [address] [place] [phone] (Wo rk) Social History Tobacco Use Types Packs/Day Years Used Date Never Assessed Sex Assigned at Date Recorded Not on file documented as of this encounter Plan of Treatment Not on filedocumented as of this encounter Procedures Procedure Name Priority Date/Time Associated Comments Diagnosis HPV DETECTION, HIGH Routine 08/25/2007 8:38 Resul ts for this RISK TYPES EDT procedure are i n the results section. CYTOPATHOLOGY Routine 08/25/2007 0:00 Results for this EDT procedure are i n the results section. documented in this encounter Results HUMAN PAPILLOMA VIRUS DNA TEST (08/25/2007 8:38 EDT) Specimen Description Cervix, ThinPrep [facility] AB vial Result Negative for HPV [facility] types 16, 18, 31, 33, 35, 39, 45, 51, 52, 56, 58, 59, and 68. Report Status Final [facility] [id number] Specimen Performing Organization Address City/State/ZIP Code Phon e Number [facility] [address] [place] [address] SERVICES [facility] [address] [place] [address] CYTOPATHOLOGY (08/25/2007 0:00 EDT) Pathology Report: CYTOPATHOLOGY REPORT [facility] Reports generated via electronic interface contain ang ginal data; however they are lacking the format of the original re port. Caution should be taken when reading/interpreting unfo rmatted reports. Name: ? SADIE SPANN ? Accession #: ? [id number] : ? 1960 (Age: 47) ??F ?Collect Date: ? 08/03 Location: ? [facility] ? Receive Date : ? 08/25/2007 Provider: ?ANURADHA COOK [facility] Copy to: ? Specimen/Source: ? ThinPrep Pap Test, Cervix/Endocervix, processed on Vudu ThinPrep Imaging System, with manual evaluation Last Menstrual Period: ? Hormonal/Contraceptive Status: ? Depo-Provera Other: ? HPVDX - HPV testing requested regardless of diag nosis on current ThinPrep Pap test. ? SPECIMEN ADEQUACY ? Satisfactory for Evaluation - transformation zone component present GENERAL CATEGORIZATION ? Negative for Intraepithelial Lesion or Malignan cy INTERPRETATION ? Trichomonas vaginalis present. ? Document reviewed and electronically signed by: ? Cristina Sawant, CT(ASCP)(IAC) ? Report Date: ??08/30/2007 17:28 End of Report Specimen Performing Organization Address City/State/ZIP Code Phon e Number [facility] [address] [place] [address] SERVICES [facility] [address] [place] [address] documented in this encounter Visit Diagnoses Not on filedocumented in this encounter Care Teams Loss Prevention Leader Relationship Specialty Start Date End Date Minda Velasco MD PCP - General 04/10/[address] [place] [phone] Malena Rico NP PCP - General 07/25/08 04/09/09 [facility] [address] [place], [place] [phone] documented as of this encounter
--- OUTSIDE RECORDS SUMMARY | 2021-10-02 07:46 | XMS_ITS | Encounter Summary ---
:1960 Author Organization [facility] Address [address] [place] [address] Care Team Providers Name Role Phone Minda Velasco MD Primary Care Provider Malena Rico NP Primary Care Provider Encounter Details Date Type Department Care Team Description 01/21/2006 Results Only *[facility] Yaya Woods, Gastroenterology - [address] [address] [address] [place] [phone] (Wo rk) Social History Tobacco Use Types Packs/Day Years Used Date Never Assessed Sex Assigned at Date Recorded Not on file documented as of this encounter Plan of Treatment Not on filedocumented as of this encounter Procedures Procedure Name Priority Date/Time Associated Diagnosis Comme nts SURGICAL PATHOLOGY Routine 01/21/2006 0:00 EDT Re sults for this procedure are i n the results section. documented in this encounter Results SURGICAL PATHOLOGY (01/21/2006 0:00 EDT) Pathology Report: SURGICAL PATHOLOGY REPORT [facility] Reports generated via electronic interface contain ang ginal data; LAB however they are lacking the format of the original re port. Caution should be taken when reading/interpreting unfo rmatted reports. Name: ? LINNEA BERKOWITZ ? Accession #: ? [id number] ? : ? 1960 (Age: 45) ??F ? Collect Date: ? 01/21/2006 ? Location: ? RAD ? Receive Date: ? 01/22/20 06 ? Provider: YAYA WOODS MD Copy to: MINDA VELASCO MD ? Addendum ? Date Ordered: ? 02/10/2006 ? Status: Si gned Out ? Date Complete: ? 02/10/2006 ? By: Hue Reyes ? Date Reported: ? 02/11/2006 ? Addendum Diagnosis ? Liver, needle biopsy: 1. ?Hepatitis, consistent with chronic He patitis C. ? - Stage 3 of 4. - Grade 3 of 4. ? 2. ?? STEATOHEPATITIS, MILDLY ACTIVE. ??SEE COM MENT. Addendum Comment ? Following rachana ce on February 08, 2006, this case was reviewed by Dr. Mitesh Singh. ??There is co-existing steatohepatitis, but the pattern of fibrosis suggests that most of the fibrosis is driven by chronic Hepatitis C. ?? The diagnosis is amended as above. ??(Dr. Schaefer)/[facility] Document reviewed and electronically signed by: ? NGA SCHAEFER MD ? Report date: 02/11/2006 By the signature above, the attending physician certif ies that he/she has personally conducted a gross and/or microscopic examin ation of the described specimens and rendered or confirmed the above diagnosi s. Final Pathologic Diagnosis: ? Liver, needle biopsy: 1. ?Hepatitis, consistent with chronic Hepatitis C. ??See comment. ? - Stage 3 of 4. - Grade 3 of 4. ? 2. ?? Extensive steatosis. Comment: ? Trichrome stain highl ights bridging fibrosis in this specimen and the iron stain showed no stainable iron. ??(Dr. Holland)/[facility] Document reviewed and electronically signed by: NGA SCHAEFER MD Report ??Date: 01/25/2006 15:47 By the signature above, the attending physician certif ies that he/she has personally conducted a gross and/or microscopic examin ation of the described specimens and rendered or confirmed the above diagnosi s. Specimen(s) Received: ? Liver Clinical History: ? Chronic hepatitis C Gross Description: ? Received in formalin labelled Berkowitz and liver bx are nine fragments of light tapia to tapia-red, slight ly firm tissue which range from 0.5 cm to 0.2 cm in length and which measure 0.1 cm in diameter. ??Four are submitted as (A1) and the remaining five as (A2). ??Trichrome and iron stains ar e ordered. ??(Kiko Rene/radha End of Report Specimen Performing Organization Address City/State/ZIP Code Phon e Number [facility] [address] [place] [address] SERVICES [facility] [address] [place] [address] documented in this encounter Visit Diagnoses Not on filedocumented in this encounter Care Teams Grain Elevator Agent Relationship Specialty Start Date End Date Minda Velasco MD PCP - General 04/10/[address] [place] [phone] Malena Rico NP PCP - General 07/25/08 04/09/[address] [address] documented as of this encounter
--- OUTSIDE RECORDS SUMMARY | 2021-10-02 07:46 | XMS_ITS | Encounter Summary ---
:1960 Author Organization [facility] Address [address] [place] [address] Care Team Providers Name Role Phone Minda Velasco MD Primary Care Provider Reason for Referral Consult (Routine/Next Available) - Closed Specialty Diagnoses / Procedures Referred By Contact Refer red To Contact Orthopedic Surgery Diagnoses Lower extremity pain Harjinder Polo DO [facility] [address] [facility] [place], [place] [address] [id number] [place] [address] Referral ID Status Reason Start Date Expiration Date Visits V isits Requested Authorized [id number] Closed Specialty 01/13/2012 1 1 Services Required Question Answer Reason for Request: Lower Back Pain, Dr Miranda, no recent response to injections Reason for Visit Reason Comments Back Pain left lower back and cervical Encounter Details Date Type Department Care Team Description 01/13/2012 Office Visit [facility] - Harjinder Polo r extremity pain [facility] DO Kathy (Primary Dx) Medical [place] [address] Interventional Pain [place], [place] [address] [phone] [place] [address] Social History Tobacco Use Types Packs/Day Years Used Date Current Every Day Smoker 1 Smokeless Tobacco: Never Used Alcohol Use Standard Drinks/Week Comments No 0 (1 standard drink = 0.6 oz pure alcoho l) Sex Assigned at Date Recorded Not on file documented as of this encounter Last Filed Vital Signs Vital Sign Reading Time Taken Comments Blood Pressure 111/74 01/13/2012830 EDT Pulse 78 01/13/2012 08 EDT Temperature 36.4 ??C (97.6 ??F) 01/13/2012830 EDT Respiratory Rate 20 01/13/2012830 EDT Oxygen Saturation - - Inhaled Oxygen Concentration - - Weight 68 kg (150 lb) 01/13/2012830 EDT Height 165.1 cm (5' 5) 01/13/2012830 EDT Body Mass Index 24.96 01/13/2012830 EDT documented in this encounter Progress Notes Harjinder Polo MD - 01/13/2012 0849 EDT [place] [facility] Follow Up Note Patient Name: Sadie Spann : 1960 Date of Service: 01/13/2012 Interval History: Mrs Spann returns to us today for reevaluation. Previously she had had serveral selective nerve root blocks both at the L4 and L5 levels. In the past the L5 left did result with a significant reduction in her pain though somewhat transitory in nature. She continues to have a significant amount of lower extremity pain as well as an increased component of thoracic pain . She also reports increased difficulty breathing and increasing gait disturbance. She feels a lot of this is due to changes in the thoracic spine and in the muscle of the paravertebral muscle mass in the thoracic region. Review of last MRI -degenerative disk disease as well as multilevel foraminal stenosis including significant facet arthropathy at L3-4 and L4-5. ROS: GENERAL: negative for fever chills CARDIOVASCULAR: no complaints RESPIRATORY: positive for shortness of breath with excertion MUSCULOSKELETAL: positive for scoliosis, arthritis NEUROLOGICAL: positive for numbness or tingling of feet ENDOCRINE: positive for diabetes HEMATOLOGICAL: negative for easy bruising/bleeding bleeding disorder coumadin anti-platelet meds anemia Physical Examination: Vital signs: BP 111/74 Pulse 78 Temp(Src) 36.4 ??C (97.6 ??F) (Tympanic) Resp 20 Ht 165.1 cm(65) Wt 68.04 kg (150 lb) BMI 24.96 kg/m2 General:awake, alert, cooperative, no apparent distress, alert and oriented x3 HEAD: normocephalic and atraumatic Neck: supple Cardiorespiratory-unlabored breathing Extremities: no clubbing, cyanosis, or edema and SLT negative bilateral Skin: clear, warm, dry and intact, possibly some bronzing of the anterior calfs Musculoskeletal: Gait: Normal, able to support weight on heels and toes Neuro: Deep Tendon Reflexes: right patella 3/4, left patella 2/4 Lumbar Spine: nontender Thoracic spine-noted tender and prominent paravertebral muscle mass on the left Assessment: 1. Encounter Diagnosis Name Primary? Lower extremity pain Yes 2. 724.5 BACKACHE NOS and 724.4 LUMBOSACRAL NEURITIS NOS Possible component of thoracic rotoscoliosis-it would not appear to be severe enough to interfere with her breathing but additional evaluation may be required Diabetes mellitus, possible peripheral neuropathy Mechanical lower back pain Degenerative joint disease Little relief with interventional pain is measures recently Plan: Recommendations Follow up as needed for further evaluation, can see again after physiatry evaluation and return visit to neurology Consult made for physiatry evaluation-please see electronic medical record system May need to consider physical therapy program and gait training Request family doctor to obtain additional neurology evaluation documented in this encounter Plan of Treatment Scheduled Referrals Name Type Priority Associated Order Schedule Diagnoses AMB CONSULT Outpatient Referral Routine Lower extremity Order ed: ORTHOPEDICS pain 01/13/2012 documented as of this encounter Visit Diagnoses Diagnosis Lower extremity pain - Primary Pain in limb documented in this encounter Care Teams Music Typographer Relationship Specialty Start Date End Date Minda Velasco MD PCP - General 04/10/09 [address] [place] [address] documented as of this encounter
--- OUTSIDE RECORDS SUMMARY | 2021-10-02 07:46 | XMS_ITS | Encounter Summary ---
:1960 Author Organization [facility] Address [address] [place] [address] Care Team Providers Name Role Phone Mnida Velasco MD Primary Care Provider Reason for Visit Reason Comments Back Pain left sided low back pain and sciatic pain Leg Pain left leg pain Encounter Details Date Type Department Care Team Description 08/19/2011 Office Visit [facility] - Harjinder Polo r extremity pain [facility] E, DO (Primary Dx) [facility] [address] Interventional Pain [place] [address] [address] [phone] [place], [place] [address] Social History Tobacco Use Types Packs/Day Years Used Date Current Every Day Smoker 1 Smokeless Tobacco: Never Used Alcohol Use Standard Drinks/Week Comments No 0 (1 standard drink = 0.6 oz pure alcoho l) Sex Assigned at Date Recorded Not on file documented as of this encounter Last Filed Vital Signs Vital Sign Reading Time Taken Comments Blood Pressure 128/71 08/19/2011 0818 EDT Pulse 80 08/19/2011 0818 EDT Temperature 36.3 ??C (97.3 ??F) 08/19/2011 0818 EDT Respiratory Rate 16 08/19/2011 0818 EDT Oxygen Saturation - - Inhaled Oxygen Concentration - - Weight 70.3 kg (155 lb) 08/19/2011 0818 EDT Height 165.1 cm (5' 5) 08/19/2011 0818 EDT Body Mass Index 25.79 08/19/2011 0818 EDT documented in this encounter Patient Instructions [facility] - 08/19/2011 8:39 EDT Transforaminal Epidural Steroid Injection (TFESI) and Selective Nerve Root Steroid Injection (Rachel NICOLE) What are a TFESI and Rachel NICOLE? A TFESI and Rachel NICOLE are injections of local anesthetic and a small amount of anti-inflammatory steroid around a nerve root as it exists in your spine. This is done to help your doctor diagnose the cause of your pain. Depending on your result this tells them whether it is caused from a nerve, muscle or your joints. This procedure may also be done if you are being considered for a spinal cord stimulator. What can be expected with this procedure? If this involves your neck you may be lying on your back. If it involves the area below the neck then you will be lying prone (face down) on the table. The area being injected will be cleansed with anantiseptic solution and numbed with a local anesthetic. The doctor will use fluoroscopy (a special x-ray) to guide the placement of a thin spinal needle to the area of the involved nerve root. You may experience a small electric shock-like sensation (similar to when you hit your ???funny bone?? ). This indicates proper needle placement. Correct needle placement is confirmed by x-ray and the use of contrast dye to identify the nerve root. Then a small amount of steroid and local anesthetic will be inj ected. This procedure usually takes less then 30 minutes. What should I expect after the injection? Immediately after the injection, your arms/legs may feel slightly heavy and may be numb. After the injection we check blood pressure and heart rate and review your discharge instructions and give you acopy to take home. Also, you may notice that your pain may be gone or lessened. This is due to the local anesthetic injected. This will last only for a few hours. You will be asked to describe and rateyour pain. Your pain will return later and you may have a sore back for a day or two. This is due tothe mechanical process of needle insertion as well as initial irritation from the steroid itself. You should start noticing pain relief in 3-5 days but it can take as long as 10-14 days for the steroidto work. Reminder: You are not permitted to drive after your procedure. You must have someone to drive you home or the procedure will not be done. Please notify us if you are on any type of blood thinning medication (Aspirin, Coumadin, Plavix, Ticlid, etc.). If you have been ill or are on antibiotics for an infection, please notify us prior to this injection. Procedures involving the neck, patients will be instructed no solids after midnight. You may have clear liquids until 4 hours prior to your procedure and then 4 hours prior to your procedure, nothing by mouth except for meds you have to take with a tiny sip of water. documented in this encounter Progress Notes Harjinder Polo MD - 08/19/[address] [facility] Pain Medicine Extended followup, last seen in 2009 Patient Name: Sadie Spann : 1960 Date of Service: 08/19/2011 Chief Complaint: Chief Complaint Patient presents with ??? Back Pain left sided low back pain and sciatic pain ??? Leg Pain left leg pain History of Present Illness: Ms. Spann presents at the request of Minda Velasco for evaluation and treatment of her chronic left-sided lumbosacral pain and leg pain. This pain is primarily localized to the left lumbosacral and radiates to the left calf and foot. This pain has been present for for several years, with her last significant flare 2 years ago, and is described as throbbing and aching in character. The average pain intensity is 8 / 10 and is aggravated by physical activities. Resting/lying down alleviates the pain. Associated symptoms include numbness of the left leg at times. The patient???s chronic pain has negatively impacted level of function, resulting in difficulty performing the basic activities of daily living. Therapeutic measures that have helped include Epidural Steroid Injection at L4- L5 with 75-100% relief for 6 months (please electronic medical record system, transforaminal epidural steroid injection L4left) Diagnostic workup includes, please see electronic medical record system Allergies: No Known Allergies Current Medications: Current Outpatient Prescriptions Medication Sig Dispense Refill ??? LANSOPRAZOLE (PREVACID ORAL) Take 40 mg by mouth. ??? oxycodone (ROXICODONE) 5 mg immediate release tablet Take 10 mg by mouth every 6 hours as needed. ??? magnesium oxide (MAG-OX) 400 mg tablet Take 400 mg by mouth daily. ??? ferrous sulfate 325 mg (65 mg [...] 400 Units by mouth daily. ??? Fish Oil-[place]-3 Fatty Acids (FISH OIL) 360-1,200 mg Cap Take 100 mg by mouth daily. ??? VITAMIN B COMPLEX (B COMPLEX 1 ORAL) Take 1 Tab by mouth daily. ??? levalbuterol (XOPENEX HFA) 45 mcg/Actuation inhaler Inhale 1-2 Puffs as directed as needed for Wheezing. Past Medical HX: Past Medical History Diagnosis Date ??? Asthma 1989 ??? Substance abuse 2001 ??? Anxiety 1989 ??? Diabetes mellitus 2005 ??? GERD (gastroesophageal reflux disease) 2007 Past Surgical HX: Past Surgical History Procedure Date ??? Neck surgery 1994 Past Social HX: History Social History ??? Marital Status: Spouse Name: N/A Number of Children: N/A ??? Years of Education: N/A Occupational History ??? Not on file. Social History Main Topics ??? Smoking status: Current Everyday Smoker -- 1.0 packs/day ??? Smokeless tobacco: Never Used ??? Alcohol Use: No ??? Drug Use: No ??? Sexually Active: Other Topics Concern ??? Not on file Social History Narrative ??? No narrative on file Review of Systems: GENERAL: negative for fever chills,report some lower extremity edema CARDIOVASCULAR: positive for chest pain (workup in progress) RESPIRATORY: positive for shortness of breath at rest, (pending PFTs) MUSCULOSKELETAL: positive for joint pain, muscle pain, restricted movements SKIN: no complaints NEUROLOGICAL: positive for numbness or tingling of feet ENDOCRINE: positive for diabetes HEMATOLOGICAL: negative for easy bruising/bleeding bleeding disorder coumadin anti-platelet meds Psychiatric:anxiety psychiatric: Physical Exam: Vitals: BP 128/71 Pulse 80 Temp(Src) 36.3 ??C (97.3 ??F) (Tympanic) Resp 16 Ht 165.1 cm (65) Wt 70.308 kg (155 lb) BMI 25.79 kg/m2 General:awake, alert, cooperative, no apparent distress Neck: supple Heart: regular rate and rhythm Lungs: clear to auscultation b/l,the decreased breath sounds Extremities: no clubbing, cyanosis, or edema and SLT negative bilateral Musculoskeletal: Gait: Mildly antalgic,able to heel and toe walk Muscle strength testing of lower extremities +5 out of 5 Neuro: deep tendon reflexes 2/4 bilaterally at the level of the knee,no sensory deficits to cold of the lower extremities Lumbar Spine: nontenderlumbar Some increased fullness left paravertebral mass lower thoracic, upper lumbar, possible scoliosis Assessment: 722.52 LUMB/LUMBOSAC DISC DEGEN and 724.4 LUMBOSACRAL NEURITIS NOS Multiple medical problems, please see review of systems History of diabetes mellitus Tobacco use Excellent response to previous transforaminal epidural steroid injection Patient reports history of peripheral neuropathy Plan: Follow up as needed for lumbar transforaminal epidural steroid injection,L4 left Discuss possibility of a surgical evaluation Followup for continued workup from chest pain and shortness of breath, workup in progress by family doctor Teaching information provided for transforaminal epidural steroid injections documented in this encounter Plan of Treatment Not on filedocumented as of this encounter Visit Diagnoses Diagnosis Lower extremity pain - Primary Pain in limb documented in this encounter Care Teams Engineering Lecturer Relationship Specialty Start Date End Date Minda Velacso MD PCP - General 04/10/09 [address] [place] [address] documented as of this encounter
--- OUTSIDE RECORDS SUMMARY | 2021-10-02 07:46 | XMS_ITS | Encounter Summary ---
:1960 Author Organization [facility] Address [address] [place] [address] Care Team Providers Name Role Phone Minda Velasco MD Primary Care Provider Reason for Referral (Routine) - Closed Specialty Diagnoses / Procedures Referred By Contact Refer red To Contact Diagnoses Chronic hepatitis C with cirrhosis (HCC-[facility]) (HCC) Yaya Alvarenga MD Procedures RAD US ABDOMEN ONE ORGAN/QUADRANT [address] [phone] Referral ID Status Reason Start Date Expiration Date Visits Requ ested Visits Authorized [id number] Closed 06/18/2010 1 1 Reason for Visit Reason Comments Follow-up Hep C Encounter Details Date Type Department Care Team Description 06/18/2010 Office Visit [facility] Jania Alvarenga h epatitis C Gastroenterology - [facility] MD Yaya with cirrhosis [facility] [address] [place] [address] (CMS-HCC) (Primary [address] [facility] D[facility]) [place], [place] [id number] [place] [address] [address] Social History Tobacco Use Types Packs/Day Years Used Date Current Every Day Smoker 1 Smokeless Tobacco: Never Used Tobacco Cessation: Ready to Quit: Yes Alcohol Use Standard Drinks/Week Comments No 0 (1 standard drink = 0.6 oz pure alcoho l) Sex Assigned at Date Recorded Not on file documented as of this encounter Last Filed Vital Signs Vital Sign Reading Time Taken Comments Blood Pressure 124/74 06/18/2010 1019 EDT Pulse 81 06/18/2010 1019 EDT Temperature - - Respiratory Rate 16 06/18/2010 1019 EDT Oxygen Saturation - - Inhaled Oxygen Concentration - - Weight 72.1 kg (159 lb) 06/18/2010 1019 EDT Height 165.1 cm (5' 5) 06/18/2010 1019 EDT Body Mass Index 26.46 06/18/2010 1019 EDT documented in this encounter Progress Notes Yaya Alvarenga MD - 06/19/2010 1841 EDT DIVISION OF GASTROENTEROLOGY PROGRESS/FOLLOWUP NOTE - 06/18/2010 SUBJECTIVE: Mrs. 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 She has not had any evidence of decompensation. She has otherwise been stable and has no complaints at the present time. In the past, we have talked ex tensively about therapy, but for now she still continues to prefer not to proceed with treatment at this point in time, but does not refuse it outright altogether. There are social issues regarding herfamily and their knowledge or lack thereof of her underlying liver condition that is playing a significant role in her decision at this point. CURRENT MEDICATIONS: Vitamin D supplements daily. Klonopin 0.5 mg at bedtime. Docusate sodium daily. Fish oil daily. Gabapentin 400 mg 3 times a day. NovoLog insulin 100 units per mL, injecting 3 times daily before meals. Insulin, Lantus, 100 units per mL, injecting 18 mL into the skin at bedtime. Levalbuterol 45 microgram inhaler, 1 to 2 puffs as needed. Methadone 10 mg 2 times daily, as a tablet as well as a methadone 10 mg per mL solution, taking 135 mg daily. Protonix 40 mg a day. Vitamin B complex daily. OBJECTIVE: She is generally well appearing and in no acute distress. She is alert and oriented. Her weight is 159 pounds, her height is 65 inches, blood pressure 124/74, pulse is 81 and regular, respirations are 16 and nonlabored. Her HEENT exam was unremarkable. There was no scleral icterus. Neck wassupple without any palpable lymphadenopathy or thyromegaly. Heart was regular rate and rhythm without any murmurs, rubs or gallops. Lungs are clear to auscultation bilaterally. Her abdomen was soft, nontender, nondistended, bowel sounds were positive, left lobe of the liver was enlarged. Spleen tip was palpable, no masses were appreciated. She had no inguinal adenopathy. Extremities did reveal trace to 1+ pitting edema bilaterally. 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 See above for further details. Once again patient does not want to proceed with therapy at this pointin b as discussed. PLAN: 1. Will obtain routine blood work including CBC, PT, PTT, complex metabolic profile and alpha-fetoprotein at today's visit. 2. Will schedule her for a screening ultrasound of the liver to be performed in [facility] as in the past. 3. Will schedule her for a routine followup in the liver clinic in 6 months. This was discussed in detail with the patient who is in agreement. Electronically Signed by Yaya Alvarenga MD 06/19/2010 18:41 Yaya Alvarenga MD [phone] - Yaya Alvarenga MD - BREE Job ID: SM Doc ID: [id number] Ext Doc ID: [id number] cc: Minda Velasco MD Yaya Alvarenga MD - 06/19/2010 1841 EDT DIVISION OF GASTROENTEROLOGY June 18, 2010 Sadie Fay Spann [address] [facility] [address] [place] [phone] Dear Mrs Spann: I am writing to inform you that I have reviewed the results of the blood work performed today duringyour office visit with me. I am happy to say that all appears stable without any significant change.Your blood counts are all normal as are your protein counts, which is certainly a sign of good liverfunction. Your electrolytes and kidney function were also noted to be normal and your liver tumor marker was noted to be negative. Please note that a copy of your blood work has been forwarded to primary care provider as well. Sincerely, Electronically Signed by Yaya Alvarenga MD 06/19/2010 18:41 Marquita Alvarenga [phone] Alvarenga MD - Yaya Alvarenga MD - ROMY Job ID: SM Doc ID: [id number] Ext Doc ID: [id number] cc: The Patient Yaya Alvarenga MD - 06/18/2010 1037 EDT This office note has been dictated. documented in this encounter Procedure Notes InpatientPhysician MD - 06/25/2010 1340 EDTAssociated Order(s): PATHOLOGY - SCANNED documented in this encounter Plan of Treatment Scheduled Orders Name Type Priority Associated Diagnoses Order S chedule RAD US ABDOMEN ONE Imaging Routine Chronic hepatitis C wi th Ordered: 06/18/2010 ORGAN/QUADRANT cirrhosis (CMS-HCC) documented as of this encounter Procedures Procedure Name Priority Date/Time Associated Diagnosis Comme nts PATHOLOGY - SCANNED 06/25/2010 13:40 Resu lts for this EDT procedure are i n the results section. documented in this encounter Results PATHOLOGY - SCANNED (06/25/2010 13:40 EDT) Specimen Narrative This result has an attachment that is no t available. Procedure Note Inpatient, Physician, - 06/25/2010 13 :40 EDT Performing Organization Address [facility]/ZIP Code Phon e Number [facility] POINT OF CARE AFP TUMOR MARKER (06/18/2010 11:26 EDT) AFP-Tumor Marker 4.1 <10 ng/ml [facility] Comment: LAB Reference value is less than 10 in 97% of healthy subj ects. AFP tumor marker cannot be interpreted in females. ?? Serum AF P concentration should not be ??interpreted as absolute evidence for the pres ence or absence of malignant disease. ?? Assayed utilizing GroundLink[employer] inescent technology. Values obtained by using different assay methods canno t be used interchangeably. Specimen Blood specimen (specimen) Performing Organization Address [facility] Phon e Number [facility] [address] [place] [address] SERVICES [facility] [address] [place] [address] (ABNORMAL) HEMAGRAM (06/18/2010 11:26 EDT) Pathologist Sig nature WBC 8.83 4.0 - 12.4 K/cmm [facility] RBC 4.36 3.86 - 5.04 M/cmm [facility] Hemoglobin 12.3 11.6 - 15.2 gm/dl [facility] HCT 36.8 34.9 - 44.4 % [facility] MCV 85 81 - 98 fl [facility] MCH 28.2 26.7 - 33.3 pg [facility] MCHC 33.4 32.1 - 35.9 gm/dl [facility] PLT 188 141 - 320 K/cmm [facility] RDW-CV 15.5 (H) 11.7 - 14.6 % [facility] Specimen Blood specimen (specimen) Performing Organization Address [facility]/ZIP [facility] Phon e Number [facility] [address] [place] [address] SERVICES [facility] [address] [place] [address] PTT (06/18/2010 11:26 EDT) Pathologist Sig nature PTT 27Comment: Therapeutic 24 - 35 secs [facility] Heparin range: 60-90 seconds Specimen Blood specimen (specimen) Performing Organization Address City/[facility]/ZIP Code Phon e Number [facility] [address] [place] [address] SERVICES [facility] [address] [place] [address] PROTIME (06/18/2010 11:26 EDT) Pro Time 11.3Comment: Note new 9.5 - 12.9 [facility] prothrombin time secs reference range effective 2010 I.N.R. 1.0 0.9 - 1.1 [facility] Comment: Ratio ??Moderate Intensity Coumadin INR = 2.0-3.0 Adjustmen ts in anticoagulant therapy dose should be based upon the INR and NOT the Pro Time. ?? Specimen Blood specimen (specimen) Performing Organization Address [facility]/ZIP [facility] Phon e Number [facility] [address] [place] [address] SERVICES [facility] [address] [place] [address] (ABNORMAL) COMPREHENSIVE METABOLIC PANEL (CMP) (06/18/2010 11:26 EDT) Pathologist Sig nature Potassium 4.7 3.5 - 5.0 mEq/L [facility] Sodium 143 136 - 145 mEq/L [facility] Chloride 100 96 - 110 mEq/L [facility] CO2 26 24 - 32 mEq/L [facility] Total Alkaline 86 38 - 126 U/L [facility] Phosphatase Bilirubin, Total <0.5 0.2 - 1.3 mg/dl [facility] AST 48 (H) 15 - 46 U/L [facility] ALT 71 (H) 9 - 52 U/L [facility] Albumin 4.5 3.4 - 4.9 g/dl [facility] Total Protein 8.2 6.5 - 8.3 g/dl [facility] Creatinine 0.81 0.7 - 1.5 mg/dl [facility] GFR, Calculated >60 ml/min/1.73m2 [facility] BUN 7 (L) 10 - 26 mg/dl [facility] Calcium 9.3 8.5 - 10.5 [facility] mg/dl Calculated Calcium 9.2 8.5 - 10.5 [facility] mg/dl Glucose, Serum 106 (H) 70 - 100 mg/dl [facility] Fasting? No [facility] Specimen Blood specimen (specimen) Performing Organization Address City/State/ZIP Code Phon e Number [facility] [address] [place] [address] SERVICES [facility] [address] [place] [address] documented in this encounter Visit Diagnoses Diagnosis Chronic hepatitis C with cirrhosis (HCC- [facility]) (HCC) - Primary Chronic hepatitis C without mention of h epatic coma documented in this encounter Care Teams Microbiology Lab Technician Relationship Specialty Start Date End Date Minda Velasco MD PCP - General 04/10/[address] [place] [address] documented as of this encounter
--- OUTSIDE RECORDS SUMMARY | 2021-10-02 07:46 | XMS_ITS | Encounter Summary ---
:1960 Author Organization [facility] Address [address] [place] [address] Care Team Providers Name Role Phone Malena Rico FIELD HOCKEY COACH Primary Care Provider Encounter Details Date Type Department Care Team Description 07/30/2008 Hospital Encounter [facility] - Marialuisa Yates MD FA [employer] [employer] [address] [place], [place] [id number] [facility] Ciro Pabon MD [facility] Interventional Pain [address] [place], [place] [address] Social History Tobacco Use Types Packs/Day Years Used Date Never Assessed Sex Assigned at Date Recorded Not on file documented as of this encounter Discharge Disposition Disposition Code Departure Means Destination Home or Self Fdc documented in this encounter Plan of Treatment Not on filedocumented as of this encounter Visit Diagnoses Not on filedocumented in this encounter Care Teams Tower Technician Relationship Specialty Start Date End Date Malena Rico NP PCP - General 07/25/08 04/09/09 [facility] [address] [place], [place] [id number] documented as of this encounter
--- OUTSIDE RECORDS SUMMARY | 2021-10-02 07:46 | XMS_ITS | Encounter Summary ---
:1960 Author Organization [facility] Address [address] [place] [address] Care Team Providers Name Role Phone Minda Velasco MD Primary Care Provider Encounter Details Date Type Department Care Team Description 04/24/2009 Hospital Encounter [facility] - Jeanette Alvarenga [facility] [address] [facility] [address] [place] [address] [facility] [phone] Pavilion, [address] [place] [phone] (Wo rk) Social History Tobacco Use Types Packs/Day Years Used Date Never Assessed Sex Assigned at Date Recorded Not on file documented as of this encounter Medications at Time of Discharge Medication Sig Dispensed Refills Start Date End Date docusate sodium Take 100 mg by mouth 0 (DOC-Q-LACE) 100 mg daily as needed for capsule Constipation. Fish Oil-[place]-3 Fatty Take 100 mg by mouth 0 [...] Auto Discharge Home documented in this encounter Progress Notes Inpatient, MD Blayne - 05/16/2009 1130 EST documented in this encounter Miscellaneous Notes Scanned Note-Null - InpatientPhysician MD - 05/16/2009 1130 EST documented in this encounter Plan of Treatment Not on filedocumented as of this encounter Procedures Procedure Name Priority Date/Time Associated Comments Diagnosis AFP TUMOR MARKER Routine 04/24/2009 11:13 Results for this EST procedure are i n the results section. PTT Routine 04/24/2009 11:13 Results for this EST procedure are i n the results section. PROTIME Routine 04/24/2009 11:13 Results for this EST procedure are i n the results section. COMPLETE BLOOD COUNT Routine 04/24/2009 11:13 Res ults for this EST procedure are i n the results section. COMPREHENSIVE Routine 04/24/2009 11:13 Results fo r this METABOLIC PANEL (CMP) EST proced ure are in the results section. documented in this encounter Results AFP TUMOR MARKER (04/24/2009 11:13 EST) AFP-Tumor Marker 2.4 <10 ng/ml [facility] Comment: LAB Reference value is less than 10 in 97% of healthy subj ects. AFP tumor marker cannot be interpreted in fem ales. Serum AFP concentration should not be interpreted as absolute evidence for the presence or absence of malignant disease. Assayed utilizing Smart Sparrow chemiluminescent technology. Values obtained by using different assay methods cannot be used interchangeably. Specimen Blood specimen (specimen) Performing Organization Address [facility] Phon e Number [facility] [address] [place] [address] SERVICES [facility] [address] [place] [address] (ABNORMAL) COMPREHENSIVE METABOLIC PANEL (04/24/2009 11:13 EST) Pathologist [facility] nature Potassium 4.4 3.5 - 5.0 mEq/L [facility] Sodium 139 136 - 145 mEq/L [facility] Chloride 99 96 - 110 mEq/L [facility] CO2 32 24 - 32 mEq/L [facility] Alkaline Phosphatase 94 38 - 126 U/L [facility] Bilirubin, Total <0.5 0.2 - 1.3 mg/dl [facility] AST 34 15 - 46 U/L [facility] ALT 31 9 - 52 U/L [facility] Albumin 4.2 3.4 - 4.9 g/dl [facility] Total Protein 8.1 6.5 - 8.3 g/dl [facility] Creatinine 0.79 0.7 - 1.5 mg/dl [facility] GFR, Calculated >60 ml/min/1.73m2 [facility] BUN 11 10 - 26 mg/dl [facility] Calcium 9.3 8.5 - 10.5 mg/dl [facility] Calculated Calcium 9.5 8.5 - 10.5 mg/dl [facility] Glucose, Serum 133 (H) 70 - 100 mg/dl [facility] Fasting? No [facility] Specimen Blood specimen (specimen) Performing Organization Address City/[facility] Phon e Number [facility] [address] [place] [address] SERVICES [facility] [address] [place] [address] PROTIME (04/24/2009 11:13 EST) Pro Time 14.7 12.2 - 15.5 [facility] Comment: secs Note new prothrombin time reference range effective Coumadin N I.N.R. 1.1 0.9 - 1.1 [facility] Comment: Ratio Moderate Intensity Coumadin INR = 2.0-3.0 Adjustments in anticoagulant therapy dose should be based upon the INR and NOT the Pro Time. Coumadin N Specimen Blood specimen (specimen) Performing Organization Address [facility]/ZIP Code Phon e Number [facility] [address] [place] [address] SERVICES [facility] [address] [place] [address] PTT (04/24/2009 11:13 EST) Pathologist Sig nature PTT 29Comment: 20 - 35 secs [facility] Therapeutic Heparin range: 60-100 seconds Specimen Blood specimen (specimen) Performing Organization Address [facility] Phon e Number [facility] [address] [place] [address] SERVICES [facility] [address] [place] [address] HEMAGRAM (04/24/2009 11:13 EST) Pathologist Sig nature WBC 9.12 4.0 - 12.4 K/cmm [facility] RBC 4.40 3.86 - 5.04 M/cmm [facility] Hemoglobin 12.2 11.6 - 15.2 gm/dl [facility] HCT 37.0 34.9 - 44.4 % [facility] MCV 84 81 - 98 fl [facility] MCH 27.8 26.7 - 33.3 pg [facility] MCHC 33.1 32.1 - 35.9 gm/dl [facility] PLT 226 141 - 320 K/cmm [facility] RDW-CV 14.6 11.7 - 14.6 % [facility] Specimen Blood specimen (specimen) Performing Organization Address [facility] Phon e Number [facility] [address] [place] [address] SERVICES [facility] [address] [place] [address] documented in this encounter Visit Diagnoses Not on filedocumented in this encounter Care Teams Design Engineer Relationship Specialty Start Date End Date Minda Velasco MD PCP - General 04/10/09 [address] [place] [address] documented as of this encounter
--- OUTSIDE RECORDS SUMMARY | 2021-10-02 07:46 | XMS_ITS | Encounter Summary ---
:1960 Author Organization [facility] Address [address] [place] [address] Care Team Providers Name Role Phone Minda Velasco MD Primary Care Provider Argelia Miranda MD Unavailable Reason for Visit Reason Onset Date Comments Medication Management 12/22/2011 questions about me ds that she should stop taking before her EGD next week. Encounter Details Date Type Department Care Team Description 12/22/2011 Telephone [facility] Tony Alvarenga Gastroenterology - Main MD [facility] Management [place] [address] [place] [address] (questions about [address] [place] [address] [place] [address] [facility] stop taking before [phone] Pavilion, Level 5 her EGD next week.) [place] [address] (Wo rk) Social History Tobacco Use Types Packs/Day Years Used Date Current Every Day Smoker 1 Smokeless Tobacco: Never Used Alcohol Use Standard Drinks/Week Comments No 0 (1 standard drink = 0.6 oz pure alcoho l) Sex Assigned at Date Recorded Not on file documented as of this encounter Miscellaneous Notes Telephone Encounter - HamiltonRuth - 12/22/2011 1439 EDT Reviewed current medication list with patient. Patient was told that she may take her routine medications prior to the EGD. She does take insulin, and will discuss her insulin schedule with her PCP prior to the EGD. documented in this encounter Plan of Treatment Not on filedocumented as of this encounter Visit Diagnoses Not on filedocumented in this encounter Care Teams Insole Toe Snipping Machine Operator Relationship Specialty Start Date End Date Minda Velasco MD PCP - General 04/10/09 [address] [place] [address] Argelia Miarnda MD Primary Care Provider Orthopaedic Surgery 07/13/12 documented as of this encounter
--- OUTSIDE RECORDS SUMMARY | 2021-10-02 07:46 | XMS_ITS | Encounter Summary ---
:[address] [facility] Address [address] [place] [address] Care Team Providers Name Role Phone Minda Velasco MD Primary Care Provider Reason for Visit Reason Onset Date Comments Results 09/08/2010 Dr. Alvarenga had a [employer] [facility] one, pcp told her it was gall stones. wants Dr. Mita galvez to call her. Can she get a surgeon in [facility]? Encounter Details Date Type Department Care Team Description 09/08/2010 Telephone [facility] Lyle, Results ( Gastroenterology - [facility] MD Lyle Javier had a [place] [address] [place] [address], pcp [address] [facility] told her [place] [address] [place], [place] stones. wants [phone] [place], [address] Lyle to call [place], [place] her. Can she get a [phone] surgeon in . [phone] (Wo rk) [facility]?) Social History Tobacco Use Types Packs/Day Years Used Date Current Every Day Smoker 1 Smokeless Tobacco: Never Used Alcohol Use Standard Drinks/Week Comments No 0 (1 standard drink = 0.6 oz pure alcoho l) Sex Assigned at Date Recorded Not on file documented as of this encounter Miscellaneous Notes Telephone Encounter - Ruth Hamilton - 09/09/2010 0837 EDT Patient is aware of Dr Alvarenga's recommendations. She will follow up with her cephalometric analyst. Telephone Encounter - Yaya Alvarenga MD - 09/08/2010919 EDT I had contacted her previously with the results of that ultrasound which was done for screening purposes. The presence of gallstones is of no clinical concern at the present time as she is asymptomatic. She does not need to see a surgeon or have additional imaging. elephone Encounter - Ruth Hamilton - 09/08/2010 09 EDT Patient states that she had a recent u/s in [facility] that showed a gallstone. Her cephalometric analyst suggested patient call Dr Alvarenga to ask if she needs a CT scan , or a referral to have her gallbladder out. documented in this encounter Plan of Treatment Not on filedocumented as of this encounter Visit Diagnoses Not on filedocumented in this encounter Care Teams Health And Safety Director Relationship Specialty Start Date End Date Minda Velasco MD PCP - General 04/10/09 [address] [place] [address] documented as of this encounter
--- OUTSIDE RECORDS SUMMARY | 2021-10-02 07:46 | XMS_ITS | Encounter Summary ---
:1960 Author Organization [facility] Address [address] [place] [address] Care Team Providers Name Role Phone Minda Velasco MD Primary Care Provider Encounter Details Date Type Department Care Team Description 12/23/2010 Phlebotomy Only [facility] Commodity Loan Clerk, Chron ic hepatitis C - [facility] Outpatient with cirrhosis [address] [facility] ([facility] [place] [address] Social History Tobacco Use Types Packs/Day Years [...] Associated Comments Diagnosis AFP TUMOR MARKER Routine 12/23/2010 14:06 Chronic hepatitis C Results for this EDT with cirrhosis procedure are in (CMS-HCC) the results section. PTT Routine 12/23/2010 14:06 Chronic hepatitis C Resu lts for this EDT with cirrhosis procedure are in (CMS-HCC) the results section. PROTIME Routine 12/23/2010 14:06 Chronic hepatitis C Resu lts for this EDT with cirrhosis procedure are in (CMS-HCC) the results section. COMPLETE BLOOD COUNT Routine 12/23/2010 14:06 Chronic hepatiti s C Results for this EDT with cirrhosis procedure are in (CMS-HCC) the results section. COMPREHENSIVE Routine 12/23/2010 14:06 Chronic hepatitis C Res ults for this METABOLIC PANEL (CMP) EDT with cirrhosis proc edure are in (CMS-HCC) the results section. documented in this encounter Results AFP TUMOR MARKER (12/23/2010 14:06 EDT) AFP-Tumor Marker 2.8 <9 ng/ml [facility] Comment: LAB Reference value is less than 9 in 98.9% of healt hy subjects. AFP tumor marker cannot be interpreted in females. ?? Serum AF P concentration should not be ??interpreted as absolute evidence for the pres ence or absence of malignant disease. ?? Assayed utilizing [employer] chemil uminescent chemiluminescent technology. ??Values obtained by using different assay methods cannot be used interchangeably. Specimen Blood specimen (specimen) Performing Organization Address City/[facility]/ZIP Code Phon e Number [facility] [address] [place] [address] SERVICES [facility] [address] [place] [address] HEMAGRAM (12/23/2010 14:06 EDT) Pathologist Sig nature WBC 7.22 4.0 - 12.4 K/cmm [facility] RBC 4.42 3.86 - 5.04 M/cmm [facility] Hemoglobin 12.8 11.6 - 15.2 gm/dl [facility] HCT 38.7 34.9 - 44.4 % [facility] MCV 88 81 - 98 fl [facility] MCH 28.9 26.7 - 33.3 pg [facility] MCHC 33.0 32.1 - 35.9 gm/dl [facility] PLT 178 141 - 320 K/cmm [facility] RDW-CV 14.4 11.7 - 14.6 % [facility] Specimen Blood specimen (specimen) Performing Organization Address City/[facility]/ZIP [facility] Phon e Number [facility] [address] [place] [address] SERVICES [facility] [address] [place] [address] PTT (12/23/2010 14:06 EDT) Pathologist Sig nature PTT 26Comment: Therapeutic 24 - 35 secs [facility] Heparin range: 60-90 seconds Specimen Blood specimen (specimen) Performing Organization Address City/[facility]/ZIP [facility] Phon e Number [facility] [address] [place] [address] SERVICES [facility] [address] [place] [address] PROTIME (12/23/2010 14:06 EDT) Pro Time 11.9 9.5 - 13.1 [facility] secs I.N.R. 1.0 0.9 - 1.1 [facility] Comment: Ratio ??Moderate Intensity Coumadin INR = 2.0-3.0 Adjustmen ts in anticoagulant therapy dose should be based upon the INR and NOT the Pro Time. ?? Specimen Blood specimen (specimen) Performing Organization Address [facility] Phon e Number [facility] [address] [place] [address] SERVICES [facility] [address] [place] [phone] (ABNORMAL) COMPREHENSIVE METABOLIC PANEL (CMP) (12/23/2010 14:06 EDT) Pathologist [facility] nature Potassium 4.4 3.5 - 5.0 mEq/L [facility] Sodium 141 136 - 145 mEq/L [facility] Chloride 101 96 - 110 mEq/L [facility] CO2 29 24 - 32 mEq/L [facility] Total Alkaline 61 38 - 126 U/L [facility] Phosphatase Bilirubin, Total <0.5 0.2 - 1.3 mg/dl [facility] AST 27 15 - 46 U/L [facility] ALT 32 9 - 52 U/L [facility] Albumin 4.0 3.4 - 4.9 g/dl [facility] Total Protein 7.9 6.5 - 8.3 g/dl [facility] Creatinine 0.83 0.7 - 1.5 mg/dl [facility] GFR, Calculated >60 ml/min/1.73m2 [facility] BUN 9 (L) 10 - 26 mg/dl [facility] Calcium 9.4 8.5 - 10.5 mg/dl [facility] Calculated Calcium 9.8 8.5 - 10.5 mg/dl [facility] Glucose, Serum 68 (L) 70 - 100 mg/dl [facility] Fasting? No [facility] Specimen Blood specimen (specimen) Performing Organization Address City/[facility]/ZIP Code Phon e Number [facility] [address] [place] [address] SERVICES [facility] [address] [place] [address] documented in this encounter Visit Diagnoses Diagnosis Chronic hepatitis C with cirrhosis (HCC- CMS) (HCC) Chronic hepatitis C without mention of h epatic coma documented in this encounter Care Teams Gang Investigator Relationship Specialty Start Date End Date Minda Velasco MD PCP - General 04/10/[address] [place] [id number] documented as of this encounter
--- OUTSIDE RECORDS SUMMARY | 2021-10-02 07:46 | XMS_ITS | Encounter Summary ---
:1960 Author Organization [facility] Address [address] [place] [address] Care Team Providers Name Role Phone Malena Rico LIFT TEAM TECHNICIAN Primary Care Provider Encounter Details Date Type Department Care Team Description 09/09/2005 Before [facility] - Yaya Alvarenga , Converted [facility] [address] [facility] [address] [place], [place] [id number] [place] [address] [place], [address] [place] [address] (Wo rk) Social History Tobacco Use Types Packs/Day Years Used Date Never Assessed Sex Assigned at Date Recorded Not on file documented as of this encounter Progress Notes Yaya Alvarenga MD - 03/28/2009 6799 EST DIVISION OF GASTROENTEROLOGY PROGRESS/FOLLOWUP NOTE - 09/09/2005 Sadie is here in followup for chronic hepatitis C infection. I last saw her in June of 2004. Atthat time we had set her up to have a liver biopsy done at her request for further evaluation of herchronic hepatitis C infection. However, as she statestoday she chicken out for that and cancelled the appointment. I have not seen her since. She has been doing generally well since we did last see herwithout any real specific complaints. She continues to deny any specific type symptoms that she thinks might be related to the hepatitis C. She does have symptoms of gastroesophageal reflux disease butas long as she takes her Prevacid these are generally well controlled. She is known to have ljcxfjog2O disease thought to have been acquired through IV druguse back in the early . We did talk aboutthe potential response rates with this type of genotype and the method of treatment. She is very well aware of all of this. Despite her likelihood of responding, she is not particularly enthusiastic about proceeding just with therapy but would prefer to proceed with liver biopsy to better gauge the extent of liver injury. In her mind she feels that if the injury is quite mild that she would likely hold off on therapy at this time. On the other hand if it were more aggressive she probably would go forward despite her concerns about taking interferon. CURRENT MEDICATIONS: 1) Neurontin 400 mgs b.i.d. 2) clonazepam 0.5 mgs daily. 3) morphine 15 mgs b.i.d. 4) methadone LE. 5) albuterol 2 puffs as needed. 6) metformin 500 mgs b.i.d. 7) Prevacid 30 mgs a day. 8) cholestyramine 1 scoop daily. 9) docusate 1000 micrograms b.i.d. 10) Depo-Provera every three months. O: She is generally well appearing and in no acute distress. She is alert and oriented x3. Her weight is 170 pounds, blood pressure 90/58, pulse 84 and regular, respirations 17 and nonlabored. Her HEENT exam was unremarkable. There is no scleral icterus. Her neck was supple without any palpable lymphadenopathy. Her heart was regular, rate and rhythm without any murmurs, rubs or gallops. Her lungs areclear to auscultation bilaterally. Her abdomen was soft, somewhat potty looking, nontender, no appreciable hepatosplenomegaly or masses were noted. She had no inguinal adenopathy. I did not get the impression that there was any significant ascites as best I could tell. She had no significant pitting edema in the lower extremities. 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 See above for further details. PLAN: 1) Will obtain a CBC, comprehensive metabolic profile, PT, PTT at today's visit. 2) Will schedule her for an ultrasound of the liver as well as the abdomen particularly to rule outany ascites, which she would like to have done at her local hospital in [facility]. 3) Will tentatively schedule for a percutaneous liver biopsy to be done by me following the resultsof these tests. If there are any questionthat she might have underlying portal hypertension based onthe results above then we will consider the need for the biopsy or if we want consider having it done by interventional radiology. 4) Can make any further recommendations pending the results of the above. This was discussed in detail with the patient who is in agreement. Signed by Yaya Alvarenga MD 09/15/2005 13:43 Marquita Alvarenga [phone] Alvarenga MD Yaya Alvarenga MD [phone] - Yaya Alvarenga MD P - ROMY Job ID: tape Document ID: [id number] cc: Minda Velasco MD documented in this encounter Plan of Treatment Not on filedocumented as of this encounter Visit Diagnoses Not on filedocumented in this encounter Care Teams Extrusion Die Template Maker Relationship Specialty Start Date End Date Malena Rico NP PCP - General 07/25/08 04/09/09 [facility] [address] [place] [address] documented as of this encounter
--- OUTSIDE RECORDS SUMMARY | 2021-10-02 07:46 | XMS_ITS | Encounter Summary ---
:1960 Author Organization [facility] Address [address] [place] [address] Care Team Providers Name Role Phone Unavailable Primary Care Provider Unavailable Encounter Details Date Type Department Care Team Description 02/16/2006 Hospital Encounter [facility] [address] [place] [address] [facility] [phone] Pavilion, [address] [place] [address] (Wo rk) Social History Tobacco Use Types Packs/Day Years Used Date Never Assessed Sex Assigned at Date Recorded Not on file documented as of this encounter Discharge Disposition Disposition Code Departure Means Destination Auto Discharge documented in this encounter Progress Notes Yaya Alvarenga MD - 03/03/2006 0000 EST DIVISION OF GASTROENTEROLOGY ADDENDUM - 03/03/2006 spoke with Ms. Spann today regarding the results of her esophagram which is performed on February 16, 2006 because of some intermittent solid food dysphagia that she had reported to me during a previous visit. A small anterior esophageal web wasnoted in the area of the cervical esophagus but it was pretty minimal. They did notice some minimal aspiration and penetration of contrast into the airway and she did have some mild tertiary contractions associated with some gastroesophageal reflux disease. These results were discussed with the patient. I informed her that at the time that we plan on doing her colonoscopy for a history of blood in the stool that we could do the upper endoscopy as well and d ilate to see if that provides symptomatic relief.However, at that point she informed me that she decided not to go through with the colonoscopy at this point in time. She understands the potential consequences of not pursuing it at this time but feels that she is just not up for it. She does have a scheduled appointment with me in the liver clinic in April to discuss possible treatment for chronic hepatitis C and at that time she will let me know if she is interested in rescheduling. IMPRESSION: 1) Chronic hepatitis C infection (please see previous notes for details). 2) Intermittent solid food dysphagia with evidence of a very small anterior esophageal web seen in the cervical esophagus with some evidence of mild tertiary contractions with reflux. 3) Gastroesophageal reflux disease for which she is being treated with a PPI. PLAN: 1) Will be following up with the patient sometime in April in the liver clinic at which time theseissues will again be discussed. This was all discussed in detail with the patient who is in agreement. Signed by Yaya Alvarenga MD 03/10/2006 09:35 Marquita Alvarenga [phone] Alavrenga MD Yaya Alvarenga MD [phone] - MD Lyle P - chris Job ID: tape Document ID: [id number] cc: Minda Velasco MD documented in this encounter Plan of Treatment Not on filedocumented as of this encounter Procedures Procedure Name Priority Date/Time Associated Comments Diagnosis FL ESOPHAGRAM 02/16/2006 9:00 EST Results for this (BARIUM SWALLOW) procedure a re in the results section. documented in this encounter Results FL ESOPHAGRAM (02/16/2006 9:00 EST) Anatomical Region Laterality Modality Other Specimen Narrative [facility] - 10/12/2008 4: 31 EDT DYSPHAGIA. FLUOROSCOPIC ESOPHAGRAM: ??02/16/06. ??0 853. COMPARISON: No prior studies are availab le. CLINICAL HISTORY: 45 year old female wit h dysphagia. ??Rule out esophageal obstruction. TECHNIQUE: Single and double contrast im ages of the thoracic esophagus and stomach were obtained. In addition, rapid sequence images of the cervical esophagus, fronta l and lateral views, are also provided. FINDINGS: ??In the assessment of the eso phagus, the turf grower views demonstrate hardware in the cervical spi ne representing status post cervical vertebral fusion. ??After admin istration of double contrast, there is no evidence of esophageal ulcer s or intraluminal masses, although on the coated views of the phar ynx, there is a pooling of contrast in the left vallecula with some degree of penetration and aspiration of contrast into the airway ( image #50). ??With single contrast administration, the esophagus d emonstrates minimal tertiary contractions that may represent minimal esophageal dysmotility. During water siphon maneuver, there is c oncrete evidence of gastroesophageal reflux better visualize d on image #57. On the rapid sequences of the cervical e sophagus, there is a minimal esophageal web of the anterior wall on i mage #60 on the frontal view and image #82 in the lateral view. IMPRESSION: 1. Small anterior esophageal web. 2. Minimal aspiration and penetration of contrast into the airway. 3. Mild tertiary contractions with small gastroesophageal reflux. D: ??02/16/06 T: ??02/17/06 /lds. I have personally reviewed the images an d the above interpretation and agree with the findings. Procedure Note Jaime Dixon MD / Jian Juan MD - 10/12/2008 DYSPHAGIA. FLUOROSCOPIC ESOPHAGRAM: 02/16/06. 0853. COMPARISON: No prior studies are availab le. CLINICAL HISTORY: 45 year old female wit h dysphagia. Rule out esophageal obstruction. TECHNIQUE: Single and double contrast im ages of the thoracic esophagus and stomach were obtained. In addition, rapid sequence images of the cervical esophagus, fronta l and lateral views, are also provided. FINDINGS: In the assessment of the esoph quincy, the turf grower views demonstrate hardware in the cervical spi ne representing status post cervical vertebral fusion. After adminis tration of double contrast, there is no evidence of esophageal ulcer s or intraluminal masses, although on the coated views of the phar ynx, there is a pooling of contrast in the left vallecula with some degree of penetration and aspiration of contrast into the airway ( image #50). With single contrast administration, the esophagus d emonstrates minimal tertiary contractions that may represent minimal esophageal dysmotility. During water siphon maneuver, there is c oncrete evidence of gastroesophageal reflux better visualize d on image #57. On the rapid sequences of the cervical e sophagus, there is a minimal esophageal web of the anterior wall on i mage #60 on the frontal view and image #82 in the lateral view. IMPRESSION: 1. Small anterior esophageal web. 2. Minimal aspiration and penetration of contrast into the airway. 3. Mild tertiary contractions with small gastroesophageal reflux. [facility]. I have personally reviewed the images an d the above interpretation and agree with the findings. Performing Organization Address City/State/ZIP Code Phon e Number [facility] [address] [facility] [address] [facility] [address] [place], [place] [address] documented in this encounter Visit Diagnoses Not on filedocumented in this encounter
--- OUTSIDE RECORDS SUMMARY | 2021-10-02 07:46 | XMS_ITS | Encounter Summary ---
:1960 Author Organization [facility] Address [address] [place] [address] Care Team Providers Name Role Phone Minda Vleasco MD Primary Care Provider Encounter Details Date Type Department Care Team Description 11/26/2009 Results Only *[facility] Yaya Alvarenga, Gastroenterology - [facility] [address] [place] [address] Pavilion, [place] [address] (Wo rk) Social History Tobacco Use Types Packs/Day Years Used Date Never Assessed Sex Assigned at Date Recorded Not on file documented as of this encounter Plan of Treatment Not on filedocumented as of this encounter Procedures Procedure Name Priority Date/Time Associated Comments Diagnosis AFP TUMOR MARKER Routine 11/26/2009 15:50 Results for this EDT procedure are i n the results section. PTT Routine 11/26/2009 15:50 Results for this EDT procedure are i n the results section. PROTIME Routine 11/26/2009 15:50 Results for this EDT procedure are i n the results section. COMPLETE BLOOD COUNT Routine 11/26/2009 15:50 Res ults for this EDT procedure are i n the results section. COMPREHENSIVE Routine 11/26/2009 15:50 Results fo r this METABOLIC PANEL (CMP) EDT proced ure are in the results section. documented in this encounter Results AFP TUMOR MARKER (11/26/2009 15:50 EDT) AFP-Tumor Marker 3.0 <10 ng/ml [facility] Comment: LAB Reference value is less than 10 in 97% of healthy subj ects. AFP tumor marker cannot be interpreted in females. ?? Serum AF P concentration should not be ??interpreted as absolute evidence for the pres ence or absence of malignant disease. ?? Assayed utilizing [employer] technology. Values obtained by using different assay methods canno t be used interchangeably. Specimen Blood specimen (specimen) Performing Organization Address [facility]/ZIP Code Phon e Number [facility] [address] [place] [address] SERVICES [facility] [address] [place] [address] (ABNORMAL) COMPREHENSIVE METABOLIC PANEL (11/26/2009 15:50 EDT) Pathologist [facility] nature Potassium 4.4 3.5 - 5.0 mEq/L [facility] Sodium 141 136 - 145 mEq/L [facility] Chloride 102 96 - 110 mEq/L [facility] CO2 31 24 - 32 mEq/L [facility] Total Alkaline 68 38 - 126 U/L [facility] Phosphatase Bilirubin, Total <0.5 0.2 - 1.3 mg/dl [facility] AST 33 15 - 46 U/L [facility] ALT 33 9 - 52 U/L [facility] Albumin 4.0 3.4 - 4.9 g/dl [facility] Total Protein 7.8 6.5 - 8.3 g/dl [facility] Creatinine 0.72 0.7 - 1.5 mg/dl [facility] GFR, Calculated >60 ml/min/1.73m2 [facility] BUN 9 (L) 10 - 26 mg/dl [facility] Calcium 9.6 8.5 - 10.5 [facility] mg/dl Calculated Calcium 10.0 8.5 - 10.5 [facility] mg/dl Glucose, Serum 154 (H) 70 - 100 mg/dl [facility] Fasting? No [facility] Specimen Blood specimen (specimen) Performing Organization Address City/[facility]/ZIP Code Phon e Number [facility] [address] [place] [address] SERVICES [facility] [address] [place] [address] PTT (11/26/2009 15:50 EDT) Pathologist Sig nature PTT 29Comment: Therapeutic 24 - 35 secs [facility] Heparin range: 60-90 seconds Specimen Blood specimen (specimen) Performing Organization Address City/[facility]/ZIP Code Phon e Number [facility] [address] [place] [address] SERVICES [facility] [address] [place] [address] PROTIME (11/26/2009 15:50 EDT) Pro Time 12.7 9.9 - 13.1 [facility] secs I.N.R. 1.1 0.9 - 1.1 [facility] Comment: Ratio ??Moderate Intensity Coumadin INR = 2.0-3.0 Adjustmen ts in anticoagulant therapy dose should be based upon the INR and NOT the Pro Time. ?? Specimen Blood specimen (specimen) Performing Organization Address [facility] Phon e Number [facility] [address] [place] [address] SERVICES [facility] [address] [place] [address] (ABNORMAL) HEMAGRAM (11/26/2009 15:50 EDT) Pathologist Sig nature WBC 7.24 4.0 - 12.4 K/cmm [facility] RBC 4.44 3.86 - 5.04 M/cmm [facility] Hemoglobin 12.5 11.6 - 15.2 gm/dl [facility] HCT 37.3 34.9 - 44.4 % [facility] MCV 84 81 - 98 fl [facility] MCH 28.1 26.7 - 33.3 pg [facility] MCHC 33.4 32.1 - 35.9 gm/dl [facility] PLT 212 141 - 320 K/cmm [facility] RDW-CV 15.6 (H) 11.7 - 14.6 % [facility] Specimen Blood specimen (specimen) Performing Organization Address [facility]/ZIP [facility] Phon e Number [facility] [address] [place] [address] SERVICES [facility] [address] [place] [address] documented in this encounter Visit Diagnoses Not on filedocumented in this encounter Care Teams Senior Technical Support Analyst Relationship Specialty Start Date End Date Minda Velasco MD PCP - General 04/10/09 [address] [place] [address] documented as of this encounter
--- OUTSIDE RECORDS SUMMARY | 2021-10-02 07:46 | XMS_ITS | Encounter Summary ---
:1960 Author Organization [facility] Address [address] [place] [address] Care Team Providers Name Role Phone Minda Velasco MD Primary Care Provider Reason for Visit Reason Onset Date Comments Appointment Related 07/27/2011 Encounter Details Date Type Department Care Team Description 07/27/2011 Telephone [facility] Zoey Alvarenga nt Related Gastroenterology - [facility] MD Yaya [id number] [place] [address] [facility] [address] [place] [address] (Wo rk) Social History Tobacco Use Types Packs/Day Years Used Date Current Every Day Smoker 1 Smokeless Tobacco: Never Used Alcohol Use Standard Drinks/Week Comments No 0 (1 standard drink = 0.6 oz pure alcoho l) Sex Assigned at Date Recorded Not on file documented as of this encounter Miscellaneous Notes Telephone Encounter - Ruth Hamilton - 07/27/2011 1502 EDT Patient is scheduled for an EGD on 08/02/11. She is diabetic and would like instructions on how to adjust her insulin. Patient was strongly encouraged to contact Dr Velasco's office for advice. elephone Encounter - Tara Thompson - 07/27/2011 1438 EDT EGD scheduled on 08/01 at 12:20. Concerned about being NPO as she is diabetic. Will have nurse call documented in this encounter Plan of Treatment Not on filedocumented as of this encounter Visit Diagnoses Not on filedocumented in this encounter Care Teams Finisher [employer] Relationship Specialty Start Date End Date Minda Velasco MD PCP - General 04/10/[address] [place] [address] documented as of this encounter
--- OUTSIDE RECORDS SUMMARY | 2021-10-02 07:46 | XMS_ITS | Encounter Summary ---
:1960 Author Organization [facility] Address [address] [place] [address] Care Team Providers Name Role Phone Minda Velasco MD Primary Care Provider Encounter Details Date Type Department Care Team Description 11/25/2011 Phlebotomy Only [facility] Sports Book Writer, Chron ic hepatitis C - [facility] Outpatient with cirrhosis [address] [facility] ([facility]) [place] [address] Social History Tobacco Use Types Packs/Day Years [...] Associated Comments Diagnosis AFP TUMOR MARKER Routine 11/25/2011 9:44 Chronic hepatitis C R esults for this EDT with cirrhosis procedure are in ([facility]) the results section. PTT Routine 11/25/2011 9:44 Chronic hepatitis C Resul ts for this EDT with cirrhosis procedure are in ([facility]) the results section. PROTIME Routine 11/25/2011 9:44 Chronic hepatitis C Resul ts for this EDT with cirrhosis procedure are in (CMS-HCC) the results section. COMPLETE BLOOD COUNT Routine 11/25/2011 9:44 Chronic hepatitis C Results for this EDT with cirrhosis procedure are in ([facility]) the results section. COMPREHENSIVE Routine 11/25/2011 9:44 Chronic hepatitis C Resu lts for this METABOLIC PANEL (CMP) EDT with cirrhosis proc edure are in ([facility]) the results section. documented in this encounter Results AFP TUMOR MARKER (11/25/2011 9:44 EDT) AFP-Tumor Marker <2.5 <9 ng/ml [facility] Comment: LAB Reference value is less than 9 in 98.9% of healthy sub jects. AFP tumor marker cannot be interpreted in fem ales. Serum AFP concentration should not be interpreted as absolute evidence for the presence or absence of malignant disease. Assayed utilizing TYFFON chemiluminescent technology. ??Values obtained by using different assay methods cannot be used interchangeably. Specimen Blood specimen (specimen) Performing Organization Address [facility] Phon e Number [facility] [address] [place] [address] SERVICES [facility] [address] [place] [address] HEMAGRAM (11/25/2011 9:44 EDT) Pathologist Sig nature WBC 8.42 4.0 - 12.4 K/cmm [facility] RBC 4.32 3.86 - 5.04 M/cmm [facility] Hemoglobin 13.2 11.6 - 15.2 gm/dl [facility] HCT 38.9 34.9 - 44.4 % [facility] MCV 90 81 - 98 fl [facility] MCH 30.6 26.7 - 33.3 pg [facility] MCHC 34.0 32.1 - 35.9 gm/dl [facility] PLT 177 141 - 320 K/cmm [facility] RDW-CV 12.9 11.7 - 14.6 % [facility] Specimen Blood specimen (specimen) Performing Organization Address City/[facility]/ZIP [facility] Phon e Number [facility] [address] [place] [address] SERVICES [facility] [address] [place] [address] PTT (11/25/2011 9:44 EDT) Pathologist Sig nature PTT 29Comment: Therapeutic 26 - 37 secs [facility] Heparin range: 65-100 seconds Specimen Blood specimen (specimen) Performing Organization Address City/[facility]/ZIP [facility] Phon e Number [facility] [address] [place] [address] SERVICES [facility] [address] [place] [address] PROTIME (11/25/2011 9:44 EDT) Pro Time 11.4 9.5 - 13.1 [facility] secs I.N.R. 1.0 0.9 - 1.1 [facility] Comment: Ratio Moderate Intensity Coumadin INR = 2.0-3.0 Adjustments in anticoagulant therapy dose should be based upon the INR and NOT the Pro Time. Specimen Blood specimen (specimen) Performing Organization Address City/[facility]/ZIP [facility] Phon e Number [facility] [address] [place] [address] SERVICES [facility] [address] [place] [address] (ABNORMAL) COMPREHENSIVE METABOLIC PANEL (CMP) (11/25/2011 9:44 EDT) Pathologist Sig nature Potassium 4.4 3.5 - 5.0 mEq/L [...] specimen (specimen) Performing Organization Address City/[facility]/ZIP Code Phon e Number [facility] [address] [place] [address] SERVICES [facility] [address] [place] [address] documented in this encounter Visit Diagnoses Diagnosis Chronic hepatitis C with cirrhosis (HCC- CMS) (HCC) Chronic hepatitis C without mention of h epatic coma documented in this encounter Care Teams Computer Applications Instructor Relationship Specialty Start Date End Date Minda Velasco MD PCP - General 04/10/[address] [place] [id number] documented as of this encounter
--- OUTSIDE RECORDS SUMMARY | 2021-10-02 07:46 | XMS_ITS | Encounter Summary ---
:1960 Author Organization [facility] Address [address] [place] [address] Care Team Providers Name Role Phone Minda Velasco MD Primary Care Provider Reason for Referral Radiology Services (Routine) - Closed Specialty Diagnoses / Procedures Referred By Contact Refer red To Contact Diagnoses Other congenital anomaly of gallbladder, bile ducts, and liver Yaya Alvarenga MD Procedures CT ABDOMEN (LUNG BASES TO ILIAC CREST) [address] [phone] Referral ID Status Reason Start Date Expiration Date Visits Requ ested Visits Authorized [id number] Closed 04/20/2011 07/19/2011 1 1 Encounter Details Date Type Department Care Team Description 01/18/2011 Orders Only [facility] Mirella Alvarenga con genital Gastroenterology - [facility] MD Yaya anomaly of [place] [address] [place] gallbladder, bile 111 [facility] ducts, and liver [place], [place] [id number] [place] [address] (Primary Dx) [phone] [address] Social History Tobacco Use Types [...] Associated Diagnoses Order S chedule CT ABDOMEN (LUNG BASES Imaging Routine Other congenital a nomaly Ordered: 01/18/2011 TO ILIAC CREST) of gallbladder, bile ducts, and liver documented as of this encounter Visit Diagnoses Diagnosis Other congenital anomaly of gallbladder, bile ducts, and liver - Primary documented in this encounter Care Teams Paper Cone Maker Relationship Specialty Start Date End Date Minda Velasco MD PCP - General 04/10/[address] [place] [id number] documented as of this encounter
--- OUTSIDE RECORDS SUMMARY | 2021-10-02 07:46 | XMS_ITS | Encounter Summary ---
:1960 Author Organization [facility] Address [address] [place] [address] Care Team Providers Name Role Phone Minda Velasco MD Primary Care Provider Encounter Details Date Type Department Care Team Description 04/14/[address] [facility] - Darcy Polo [facility] [address] Interventional Pain [place] [address] [place] [phone] [place] [phone] Social History Tobacco Use Types Packs/Day Years Used Date Never Assessed Sex Assigned at Date Recorded Not on file documented as of this encounter Discharge Disposition Disposition Code Departure Means Destination Home or Self Assisted documented in this encounter Procedure Notes Harjinder Polo MD - 04/14/2009 0000 EST DIVISION OF PAIN MANAGEMENT PROCEDURE REPORT SERVICE DATE: 04/14/2009 CHIEF COMPLAINT: Left lower extremity pain. HISTORY OF PRESENT ILLNESS: Mrs Spann returns to us today for reevaluation. She has previously had a selective nerve root block at L5 on the left with a significant reduction in her pain though somewhat transitory in nature. Unfortunately due to other complex medical problems including rectal bleeding, abdominal pain associated with her cholecystitis she had been temporarily lost to followup. Fortunately, most of these issues have resolved and she is now wanting once again to turn her attention to her chronic pain and lower extremity discomfort. Please also see MRI which was reviewed and showing degenerative disk disease as well as multilevel foraminal stenosis including significant facet arthropathy at L3-4 and L4-5. REVIEW OF SYSTEMS: She does have a history of diabetes. She denies underlying bleeding disorders or coagulopathies. She denies any fevers, chills, night sweats, fatigue or recent signs of an infection process. ALLERGIES: None. MEDICATIONS: Prevacid, Depo-Provera, metformin, Lantus, Neurontin, clonazepam, methadone, Dulcolax, morphine, Protonix. OBJECTIVE: This is an alert and oriented female. She answered all questions appropriately and freelyengages in conversation. Skin is warm and try. Turgor is adequate. Skin over back is without signs of infection. Lungs are clear. Heart S1,S2. IMPRESSION: Spinal stenosis with lumbar facet arthropathy, foraminal stenosis, lower extremity radicular pain. PLAN: 1. Proceed on with transforaminal epidural steroid injection at L4 on the left. 2. Follow up in 4 to 6 weeks. Consider repeating transforaminal versus lumbar epidural steroid injection. 3. Consider repeat surgical evaluation. PROCEDURE NOTE: Transforaminal epidural steroid injection at L5. Signed consent was obtained and placed in the chart. Patient was taken to the fluoroscopy suite and placed in the face-down position. The area was sterilely prepped and draped with Hibiclens x3. Skin was anesthetized with a total volume of 6 mL of 2% lidocaine using a 1-1/2-inch, 27-gauge needle. Through a previously anesthetized area [id number], 3-1/2-inch spinal needle was advanced using a coaxial technique so that it came to rest within the neural foramina of L5 on the left. Position tip was confirmed with both AP and crosstable views as well as outline of the exiting nerve root with a total volume of 0.75 mL of Isovue. Then, after negative aspiration a total volume of 80 mg of Depo-Medrol combined with 1 mL of 0.25% bupivacaine was injected. Initially there was a slight paresthesia appreciated in the left lower extremity. The needle was withdrawn and this dissipated prior to injection. There were no complications, no CSF or heme was appreciated. Patient was discharged to home in stable condition. Unless otherwise noted, there were no complications, no blood loss, cultures obtained, specimens removed, or drains retained. Electronically Signed by Harjinder Polo DO 05/28/2009 12:46 Harjinder Polo DO - Harjinder Polo DO - BEV Job ID: SM Doc ID: [id number] Ext Doc ID: [id number] cc: Minda Velasco MD documented in this encounter Plan of Treatment Not on filedocumented as of this encounter Visit Diagnoses Not on filedocumented in this encounter Care Teams Corporate Development Intern Relationship Specialty Start Date End Date Minda Velasco MD PCP - General 04/10/[address] [place] [id number] documented as of this encounter
--- OUTSIDE RECORDS SUMMARY | 2021-10-02 07:46 | XMS_ITS | Encounter Summary ---
:1960 Author Organization [facility] Address [address] [place] [address] Care Team Providers Name Role Phone Minda Velasco MD Primary Care Provider Reason for Referral (Routine) - Closed Specialty Diagnoses / Procedures Referred By Contact Refer red To Contact Diagnoses Chronic hepatitis C with cirrhosis ([facility]CC-[facility]) (HCC) Yaya Alvarenga MD Procedures RAD US ABDOMEN ONE ORGAN/QUADRANT [address] [phone] Referral ID Status Reason Start Date Expiration Date Visits Requ ested Visits Authorized [id number] Closed 12/23/2010 1 1 Reason for Visit Reason Comments Follow-up 6 month f/u hep c Encounter Details Date Type Department Care Team Description 12/23/[address] [facility] Jania Alvarenga h epatitis C Gastroenterology - [facility] MD Yaya with cirrhosis [place] [address] [place] ([facility]) (Primary 111 [facility] D[facility]) [place], [place] [id number] [place] [address] [address] Social History Tobacco Use Types Packs/Day Years Used Date Current Every Day Smoker 1 Smokeless Tobacco: Never Used Alcohol Use Standard Drinks/Week Comments No 0 (1 standard drink = 0.6 oz pure alcoho l) Sex Assigned at Date Recorded Not on file documented as of this encounter Last Filed Vital Signs Vital Sign Reading Time Taken Comments Blood Pressure 129/81 12/23/2010 1304 EDT Pulse 70 12/23/2010 1304 EDT Temperature - - Respiratory Rate - - Oxygen Saturation - - Inhaled Oxygen Concentration - - Weight 68 kg (150 lb) 12/23/2010 1304 EDT Height 168.9 cm (5' 6.5) 12/23/2010 1304 EDT Body Mass Index 23.85 12/23/2010 1304 EDT documented in this encounter Progress Notes Yaya Alvarenga MD - 12/23/2010 1354 EDT Subjective: Patient ID: Sadie Spann is an 50 y.o. female. Chief Complaint Patient presents with ??? Follow-up 6 month f/u hep c HPI Mrs. 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 Her liver biopsy performed in 2004 revealing grade 3/4 inflammation and stage III/IV fibrosis with evidence of some steatohepatitis. More recently, however, within the last year or two, she has had clinical evidence suggesting that she may very well be cirrhotic with a nodular-appearing liver, seen on CT scan as well as an enlarged leftlobe of the liver and a palpable spleen on my physical exam in the past. She otherwise has been compensated. Today, however, since last seen her in June of this year, she has complained of some lower leg and ankle swelling, which is new for her. She has described kind of a fullness in the abdomen, but it is unclear if her weight really has increased. She has also been having some issues of constipation alternating with some breakthrough diarrhea and she has had some nonspecific epigastric discomfort that has been episodic. She apparently has seen somebody close to home in [facility] and will beundergoing an upper and lower endoscopy for further evaluation. She has also had some chest heaviness and some orthopnea and has undergone a cardiac evaluation, which apparently has been unremarkable. She has not been compliant with a low-salt diet, but is seeing a wound care coordinator. She has no other new co mplaints at the present time. Specifically, she has not had any issues with change in mental status,evidence of GI bleeding, fevers or chills. Patient Active Problem List Diagnoses Code ??? Lower extremity pain 729.5BR ??? Right elbow pain 719.42L Past Medical History Diagnosis Date ??? Asthma 1989 ??? Substance abuse 2001 ??? Anxiety 1989 ??? Diabetes mellitus 2005 ??? GERD (gastroesophageal reflux disease) 2007 Past Surgical History Procedure Date ??? Neck [...] Never Used ??? Alcohol Use: No Current outpatient prescriptions ordered prior to encounter Medication Sig Dispense Refill ??? clonazepam (KLONOPIN) [...] 400 Units by mouth daily. ??? Fish Oil-[place]-3 Fatty Acids (FISH OIL) 360-1,200 mg Cap Take 100 mg by mouth daily. ??? VITAMIN B COMPLEX (B COMPLEX 1 ORAL) Take 1 Tab by mouth daily. ??? pantoprazole (PROTONIX) 40 mg tablet Take 40 mg by mouth daily as needed. ??? insulin aspart (NOVOLOG) 100 unit/mL injection Inject into the skin 3 times daily before meals. Sliding scale ??? levalbuterol (XOPENEX HFA) 45 mcg/Actuation inhaler Inhale 1-2 Puffs as directed as needed for Wheezing. No Known Allergies ROS - See HPI Objective: BP 129/81 Pulse 70 Ht 168.9 cm (66.5) Wt 68.04 kg (150 lb) BMI 23.85 kg/m2 Physical Exam On physical exam, she is generally well appearing and in no acute distress. She is alert and oriented. To me she looks similar to when we had seen her back in June. Her vitals and weight are as noted above. Back in June, she was actually heavier at 159 pounds and today she is 150 pounds. Her HEENT exam is unremarkable. There is no scleral icterus. Neck was supple without any palpable lymphadenopathy. Heart was regular rate and rhythm without any murmurs, rubs or gallops. Her lungs were clear to auscultation bilaterally. Her abdomen was soft, nontender, nondistended, bowel sounds were positive. Left lobe of the liver was enlarged. Spleen tip was palpable, but no masses were appreciated. She had no inguinal adenopathy and her extremities did reveal trace to 1+ pitting edema bilaterally, which is similar to what I had seen back six months ago. 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 See above for further details. It is not clear to me if the fluid retention truly represents decompensation of her liver disease. In the past she has not had evidence of ascites and we will be repeating another ultrasound to not only screen her liver, but also to determine if there is any ascites present as well. We once again had a lengthy discussion about therapy and the importance of considering treatment for her and how much she has to gain from it, should she respond given her favorable genotype.However, she still seems quite reluctant to do so. She does understand the consequence of this in that her liver disease will likely progress to the point where it certainly will have a drastic impact on her survival, as well as the possibility of requiring liver transplant. Plan: PLAN: 1. I will obtain routine blood work today including CBC, PT, PTT, complex metabolic profile and alpha-fetoprotein level. 2. Will schedule her for a screening ultrasound of the liver to be performed in [facility] as we have done in the past. 3. Will schedule her for routine followup in the liver clinic in 6 months. 4. She will give continued thought to the idea of treatment, and if she is interested in pursuing that, she will contact me prior to our scheduled followup visit. 5. She should adhere strictly to a salt-restricted diet of less than 2 grams per day, as that alone might be helpful in improving the mild edema that she is having in the lower extremities. This was all discussed in detail with the patient, who is in agreement. CC: Minda Velasco MD. Sadie was seen today for follow-up. Diagnoses and associated orders for this visit: Chronic hepatitis c with cirrhosis - Comprehensive Metabolic Panel (CMP); Future - Protime; Future - PTT; Future - Hemagram; Future - AFP Tumor Marker; Future - RAD US ABDOMEN ONE ORGAN/QUADRANT documented in this encounter Plan of Treatment Scheduled Orders Name Type Priority Associated Diagnoses Order S chedule RAD US ABDOMEN ONE Imaging Routine Chronic hepatitis C wi th Ordered: 12/23/2010 ORGAN/QUADRANT cirrhosis (CMS-HCC) documented as of this encounter Results AFP TUMOR MARKER (12/23/2010 14:06 EDT) AFP-Tumor Marker 2.8 <9 ng/ml [facility] Comment: LAB Reference value is less than 9 in 98.9% of [facility] hy subjects. AFP tumor marker cannot be interpreted in females. ?? Serum AF P concentration should not be ??interpreted as absolute evidence for the pres ence or absence of malignant disease. ?? Assayed utilizing Lali chemil uminescent chemiluminescent technology. ??Values obtained by using different assay methods cannot be used interchangeably. Specimen Blood specimen (specimen) Performing Organization Address City/State/ZIP Code Phon e Number [facility] [address] [place] [address] SERVICES [facility] [address] [place] [address] HEMAGRAM (12/23/2010 14:06 EDT) Pathologist Sig nature WBC 7.22 4.0 - 12.4 K/cmm [facility] RBC 4.42 3.86 - 5.04 M/cmm [facility] Hemoglobin 12.8 11.6 - 15.2 gm/dl [facility] HCT 38.7 34.9 - 44.4 % [facility] MCV 88 81 - 98 fl [facility] MCH 28.9 26.7 - 33.3 pg [facility] MCHC 33.0 32.1 - 35.9 gm/dl [facility] PLT 178 141 - 320 K/cmm [facility] RDW-CV 14.4 11.7 - 14.6 % [facility] Specimen Blood specimen (specimen) Performing Organization Address [facility] Phon e Number [facility] [address] [place] [address] SERVICES [facility] [address] [place] [address] PTT (12/23/2010 14:06 EDT) Pathologist Sig nature PTT 26Comment: Therapeutic 24 - 35 secs [facility] Heparin range: 60-90 seconds Specimen Blood specimen (specimen) Performing Organization Address [facility] Phon e Number [facility] [address] [place] [address] SERVICES [facility] [address] [place] [address] PROTIME (12/23/2010 14:06 EDT) Pro Time 11.9 9.5 - 13.1 [facility] secs I.N.R. 1.0 0.9 - 1.1 [facility] Comment: Ratio ??Moderate Intensity Coumadin INR = 2.0-3.0 Adjustmen ts in anticoagulant therapy dose should be based upon the INR and NOT the Pro Time. ?? Specimen Blood specimen (specimen) Performing Organization Address [facility] Phon e Number [facility] [address] [place] [address] SERVICES [facility] [address] [place] [address] (ABNORMAL) COMPREHENSIVE METABOLIC PANEL (CMP) (12/23/2010 14:06 EDT) Pathologist Sig nature Potassium 4.4 3.5 - 5.0 mEq/L [facility] Sodium 141 136 - 145 [...] Organization Address City/State/ZIP Code Phon e Number [facility] [address] [place] [address] SERVICES [facility] [address] [place] [address] documented in this encounter Visit Diagnoses Diagnosis Chronic hepatitis C with cirrhosis (HCC- CMS) (HCC) - Primary Chronic hepatitis C without mention of h epatic coma documented in this encounter Care Teams Shoe Sewing Machine Operator And Tender Relationship Specialty Start Date End Date Minda Velasco MD PCP - General 04/10/[address] [place] [id number] documented as of this encounter
--- OUTSIDE RECORDS SUMMARY | 2021-10-02 07:46 | XMS_ITS | Encounter Summary ---
:1960 Author Organization [facility] Address [address] [place] [address] Care Team Providers Name Role Phone Minda Velasco MD Primary Care Provider Argelia Miranda MD Unavailable Encounter Details Date Type Department Care Team Description 07/17/2012 Hospital Encounter [facility] - Argelia Miranda MD [facility] [address] [place] [address] [place] [phone] [place] [address] (Wo rk) Social History Tobacco [...] mg iron) tablet 3 times daily. Fish Oil-[place]-3 Fatty Take 100 mg by mouth 0 [...] Code Departure Means Destination Home or Self Correction documented in this encounter Plan of Treatment Not on filedocumented as of this encounter Visit Diagnoses Not on filedocumented in this encounter Care Teams Mechanical Reliability Engineer Relationship Specialty Start Date End Date Minda Velasco MD PCP - General 04/10/[address] [place] [id number] Argelia Miranda MD Primary Care Provider Orthopaedic Surgery 07/13/12 documented as of this encounter
--- OUTSIDE RECORDS SUMMARY | 2021-10-02 07:46 | XMS_ITS | Encounter Summary ---
:1960 Author Organization [facility] Address [address] [place] [address] Care Team Providers Name Role Phone Minda Velasco MD Primary Care Provider Encounter Details Date Type Department Care Team Description 04/20/2012 Results Only [facility] Hernando Jordan MD Laboratory Services - [address] [place] [address] [address] [facility] [place], [place] [id number] [phone] Social History Tobacco Use Types Packs/Day Years [...] Associated Diagnosis Comme nts SURGICAL PATHOLOGY Routine 04/20/2012 16:33 Resul ts for this EST procedure are i n the results section. documented in this encounter Results SURGICAL PATHOLOGY (04/20/2012 16:33 EST) Pathology Report: SURGICAL PATHOLOGY REPORT MASSIEL SMITH Reports generated via electronic interface contain ang ginal data; LAB however they are lacking the format of the original re port. Caution should be taken when reading/interpreting unfo rmatted reports. Name: ? LINNEA BERKOWITZ ? Accession #: ? [id number] ? : ? 1960 (Age: 51) ??F ? Collect Date: ? 04/20/2012 ? Location: ? [facility] ? Receive Date: ? 04/21/19 13 ? Provider: HERNANDO JORDAN MD Copy to: ? Final Pathologic Diagnosis: ? 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 ??See comment. Comment: ? Better appreciated on deeper sections, fibroepithelial stroma contains few thin walled, benign ectatic vessels with protein aceous material. 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 Over lying epithelium shows focal mild dysplasia. No hig h grade dysplasia or carcinoma noted. Deeper levels have been examined. ??(Dr. Calderon)/[facility] Document reviewed and electronically signed by: DONNA CALDERON MD Report ??Date: 04/25/2012 10:39 By the signature above, the attending physician certif ies that he/she has personally conducted a gross and/or microscopic examin ation of the described specimens and rendered or confirmed the above diagnosi s. Specimen(s) Received: ? R tonsil mass Clinical History: ? R tonsil cystic structure; clinical diagnosis c ode: 239.0 Gross Description: ? Received in formalin labelled Berkowitz, Sadie and right tonsil mass is a tapia-pink, irregular sof t tissue fragment which measures 0.3 x 0.3 x 0.2 cm. The entire specimen is submitted in one cassette. (Atul Gutiérrez/[facility] End of Report Specimen Performing Organization Address City/State/ZIP Code Phon e Number [facility] [address] [place] [address] SERVICES [facility] [address] [place] [address] documented in this encounter Visit Diagnoses Not on filedocumented in this encounter Care Teams Temporary Staff Accountant Relationship Specialty Start Date End Date Minda Velasco MD PCP - General 04/10/[address] [place] [id number] documented as of this encounter
--- OUTSIDE RECORDS SUMMARY | 2021-10-02 07:46 | XMS_ITS | Encounter Summary ---
:1960 Author Organization [facility] Address [address] [place] [address] Care Team Providers Name Role Phone Minda Velasco MD Primary Care Provider Encounter Details Date Type Department Care Team Description 12/29/2011 Hospital Encounter [facility] Timbo Alvarenga, Endoscopy - [facility] [address] [address] [address], [place] [phone] (Wo rk) Social History Tobacco Use Types Packs/Day Years Used Date Current Every Day Smoker 1 Smokeless Tobacco: Never Used Alcohol Use Standard Drinks/Week Comments No 0 (1 standard drink = 0.6 oz pure alcoho l) Sex Assigned at Date Recorded Not on file documented as of this encounter Last Filed Vital Signs Vital Sign Reading Time Taken Comments Blood Pressure 112/66 12/29/2011 0949 EDT Pulse - - Temperature 36 ??C (96.8 ??F) 12/29/2011 0758 EDT Respiratory Rate 16 12/29/2011 0949 EDT Oxygen Saturation 98% 12/29/2011 0930 EDT Inhaled Oxygen Concentration - - Weight 70.3 kg (155 lb) 12/29/2011 0754 EDT Height 165.1 cm (5' 5) 12/29/2011 0754 EDT Body Mass Index 25.79 12/29/2011 0754 EDT documented in this encounter Medications at Time of Discharge Medication Sig Dispensed Refills Start Date End Date docusate sodium Take 100 mg by mouth 0 (DOC-Q-LACE) 100 mg daily as needed for capsule Constipation. ferrous sulfate 325 mg Take 325 mg by mouth 0 (65 mg iron) tablet 3 times daily. Fish Oil-[place]-3 Fatty Take 100 mg by mouth 0 Acids (FISH OIL) daily. 360-1,200 mg Cap gabapentin (NEURONTIN) Take 400 mg by mouth 0 400 mg capsule daily. insulin glargine (LANTUS) Inject 18 mL into 0 100 unit/mL injection the skin at bedtime. levalbuterol (XOPENEX Inhale 1-2 Puffs as 0 HFA) 45 mcg/Actuation directed as needed inhaler for Wheezing. metformin (GLUCOPHAGE) Take 500 mg by mouth [...] or Self Care documented in this encounter H&P Notes Yaya Alvarenga MD - 12/29/2011 0857 EDT Sedation for Procedure History & Physical Date: 12/29/2011 Time: 8:57 Location: [facility] Endo Planned Procedure: Gastroscopy Chief Complaint/Indications for Procedure: ck for varices History Previous Complication with Sedation and/or Anesthesia? No Allergies: No Known Allergies Current Medications: Prescriptions prior to admission Medication Sig Dispense Refill ??? Cod Liver Oil Oil Take 415 [...] 400 Units by mouth daily. ??? Fish Oil-[place]-3 Fatty Acids (FISH OIL) 360-1,200 mg Cap Take 100 mg by mouth daily. ??? VITAMIN B COMPLEX (B COMPLEX 1 ORAL) Take 1 Tab by mouth daily. ??? levalbuterol (XOPENEX HFA) 45 mcg/Actuation inhaler Inhale 1-2 Puffs as directed as needed for Wheezing. Past Medical History: Past Medical History Diagnosis Date ??? Asthma 1989 ??? Substance abuse 2001 ??? Anxiety 1989 ??? Diabetes mellitus 2005 ??? GERD (gastroesophageal reflux disease) 2007 ??? Spinal stenosis Social History: Past Surgical History Procedure Date ??? Neck surgery 1994 History Substance Use Topics ??? Smoking status: Current Everyday Smoker -- 1.0 packs/day ??? Smokeless tobacco: Never Used ??? Alcohol Use: No Family History: Family History Problem Relation Age of Onset ??? Cancer Mother ??? Heart Disease Father ??? High Blood Pressure Father ??? Diabetes Sister ??? Crohn's Disease Brother ??? Liver Disease Son ??? Mental Illness Son Review of Systems as pertinent: Physical Exam Vital Signs: BP 121/69 Temp(Src) 36 ??C (96.8 ??F) (Tympanic) Resp 16 Ht 165.1 cm (65) Wt 70.308 kg (155 lb) BMI 25.79 kg/m2 SpO2 97% Heart Examination: Cardiac Regularity: Regular Respiratory Examination: Respiratory Pattern: Regular Breath Sounds Right: Clear Breath Sounds Left: Clear Additional physical exam related to the proposed procedure, patient activity, disease state and treatment as pertinent: Assessment Previous complications with sedation or anesthesia?: No Airway Concerns: None Anesthesia Classification: ASA 2 Fasting Time: Date of Last Liquid Intake: 12/28/11 Time of last solid intake: 2329 Date of last solid intake: 12/28/11 Patient Appropriate Candidate for Planned Sedation?: Yes documented in this encounter Procedure Notes REEL BLADE BENDER FURNACE TENDER, SCAN 2 - 12/30/2011 0500 EDTAssociated Order(s): PROCEDURE REPORTS - SCANNED documented in this encounter OR Notes Anesthesia Preprocedure Evaluation - REEL BLADE BENDER FURNACE TENDER, SCAN 2 - 01/10/2012 1203 EDT nesthesia Procedure Notes - REEL BLADE BENDER FURNACE TENDER, SCAN 2 - 12/29/2011 0916 EDT documented in this encounter Miscellaneous Notes Scanned Note-Null - REEL BLADE BENDER FURNACE TENDER, SCAN 2 - 12/30/2011 1016 EDT canned Note- Null - REEL BLADE BENDER FURNACE TENDER, SCAN 2 - 12/30/2011 1016 EDT documented in this encounter Plan of Treatment Not on filedocumented as of this encounter Procedures Procedure Name Priority Date/Time Associated Comments Diagnosis PROCEDURE REPORTS - 12/30/2011 5:00 EDT R esults for this SCANNED procedure are i n the results section. GLUCOSE, GLUCOMETER Routine 12/29/2011 8:11 EDT R esults for this procedure are i n the results section. documented in this encounter Results PROCEDURE REPORTS - SCANNED (12/30/2011 5:00 EDT) Specimen Narrative 12/30/2011 8:33 EDT Procedure Note REEL BLADE BENDER FURNACE TENDER, SCAN 2 - 12/30/2011 5:00 EDT (ABNORMAL) GLUCOSE, GLUCOMETER (12/29/2011 8:11 EDT) Glucose, 125 (H) 70 - 100 [facility] Fingerstick mg/dl LAB Beef Trimmer [place] [id number]: [facility] Test Performed by LAB Nursing Services Specimen Performing Organization Address City/State/ZIP Code Phon e Number [facility] [address] [place] [address] SERVICES [facility] [address] [place] [address] documented in this encounter Visit Diagnoses Not on filedocumented in this encounter Administered Medications Inactive Administered Medications - up to 3 most recent administrations Medication Order MAR Action Action Date Dose Rate Site lactated ringers (LR) infusion New Bag 12/29/2011 8:14 EDT 75 mL/hr at 75 mL/hr, intravenous, CONTINUOUS, Starting on Tue12/29/11 at 0830, Until Tue12/29/11 at 1225, Routine documented in this encounter Active and Recently Administered Medications Times are shown in EDT. Continuous Medication Order 12/27/2011 12/28/2011 12/29/2011 lactated ringers (LR) infusion (CANCELED) 08 (New Bag - Provider: Ofe Dai, MALISSA)0949 (Completed - Provider: Ama Kyle RN) at 75 mL/hr, Intravenous, CONTINUOUS, St arting Tue12/29/11 at 0830, Until Tue12/29/11 at 1225 documented in this encounter Orders Medications Ordered That Might Not Have Count Last Ord ered Date First Ordered Date Been Administered sodium chloride 0.9 % (NS) infusion 1 12/29/2011 Discharge Count Last Ordered Date First Ordered Date DISCHARGE PATIENT 1 12/29/2011 documented in this encounter Care Teams Chief Service Observer Relationship Specialty Start Date End Date Minda Velasco MD PCP - General 04/10/09 [address] [place] [address] documented as of this encounter
--- OUTSIDE RECORDS SUMMARY | 2021-10-02 07:46 | XMS_ITS | Encounter Summary ---
:1960 Author Organization [facility] Address [address] [place] [address] Care Team Providers Name Role Phone Minda Velasco MD Primary Care Provider Reason for Visit Reason Comments Hand Pain left Back Pain lower Leg Pain left Encounter Details Date Type Department Care Team Description 09/28/[address] [facility] - Harjinder Polo r extremity pain [facility] E, DO (Primary Dx) [facility] [address] Interventional Pain [place] [address] [place] [phone] [place], [place] [address] Social History Tobacco Use Types Packs/Day Years Used Date Current Every Day Smoker 1 Smokeless Tobacco: Never Used Alcohol Use Standard Drinks/Week Comments No 0 (1 standard drink = 0.6 oz pure alcoho l) Sex Assigned at Date Recorded Not on file documented as of this encounter Last Filed Vital Signs Vital Sign Reading Time Taken Comments Blood Pressure 148/114 09/28/2011 0919 EDT Pulse 96 09/28/2011 0919 EDT Temperature 35.8 ??C (96.4 ??F) 09/28/2011 0841 EDT Respiratory Rate 16 09/28/2011 0919 EDT Oxygen Saturation - - Inhaled Oxygen Concentration - - Weight 68.9 kg (152 lb) 09/28/2011 0841 EDT Height 165.1 cm (5' 5) 09/28/2011 0841 EDT Body Mass Index 25.29 09/28/2011 0841 EDT documented in this encounter Patient Instructions Patient InstructionsShellie Russo RN - 09/28/2011 9:00 EDT [facility] [place] [address] Patient Instructions You have had your left transforaminal epidural steroid injection. The purpose of this procedure has been to place medication which may help relieve your pain. Steroid may be used to decrease the swelling and nerve irritation which may be causing [...] our office at once. Instructions for follow-up If you have any questions about your block, please call Patient Education Topic: Method: Handout and Verbal Taught to: Patient Barriers: None Outcomes: independent and verbalized understanding Signature: Shellie Russo RN documented in this encounter Discharge Disposition Disposition Code Departure Means Destination Auto Discharge documented in this encounter Progress Notes Harjinder Polo MD - 09/28/2011 0940 EDT Patient Name: Sadie Spann : 1960 Date of Service: 09/28/2011 Clin Nurse: Harjinder Polo DO Cnc Grinder: Shelly JIMENEZ CA-1 Procedure: Transforaminal epidural steroid injection Interval History: Ms. Spann presents for continued evaluation and treatment of her chronic back andleg pain. Her pain has not changed from that documented in the initial consultation. Her pain remains both the same distribution and character. As noted in the previous consultation she has been very well with previous transforaminal epidural steroid injections ROS: GENERAL: no complaints CARDIOVASCULAR: no complaints RESPIRATORY: no complaints HEMATOLOGICAL: positive for easy bruising/bleeding bleeding disorder coumadin anti-platelet meds Physical Exam: Vital signs: BP 148/114 Pulse 96 Temp(Src) 35.8 ??C (96.4 ??F) (Tympanic) Resp 16 Ht 165.1 cm (65) Wt 68.947 kg (152 lb) BMI 25.29 kg/m2 General:awake, alert, cooperative, no apparent distress Heart: regular rate and rhythm Lungs: clear to auscultation b/l Skin: clear, warm, dry and intact and no rashes, bruises or petechiae noted Assessment: 721.3 LUMBOSACRAL SPONDYLOSIS and 722.52 LUMB/LUMBOSAC DISC DEGEN Lower extremity radicular pain Plan: Proceed with transforaminal epidural steroid injection at left L4-L5. Follow up: as needed for further evaluation,, want to reevaluate the lumbar back pain Want to rediscuss treatment options at her next evaluation May also require repeat surgical evaluation PROCEDURE: The patient gave informed written consent [...] Flouoroscopy was used to visualize the left L4-L5 neuroforamen. The skin and subcutaneous tissue over this level was anesthetized by infiltration of 2% lidocaine. A 22 guage 3.5 inch spinal needle was inserted under fluoroscopic guidance using coaxial technique. The needle was slowly advanced by farmworker fur olateral approach to the superior aspect of the foramen. Fluoroscopic images in the AP and lateral views were taken to confirm final needle tip position in the distal foramen. No parasthesias occurred during needle insertion and aspiration was negative. Contrast dye was injected under live fluoroscopyand revealed good spread along the Lt L4 nerve root with no evidence of intravascular or intrathecaluptake. After negative aspiration, 80 mg Depo-Medrol and 0.5 ml 0.25% Bupivacaine was injected. The needle was then flushed and withdrawn. The patient tolerated the procedure well, there were no apparent complications, and she was discharged in stable condition. Written and verbal discharge instructions were reviewed with the patient prior to discharge. Carla Pitts - 09/28/2011 0844 EDT [facility] Rooming Note Does patient have a Radio Communications Mechanician? yes Is patient NPO? (Solids since midnight & liquids for 4 hrs) na Blood Thinners: Is patient on Blood Thinners? Yes, stopped a week ago If yes, taking? Vit d3, mag ox, fish oil, vitamin b If stopped, who authorized stopping? Related comments: Did not stop iron Infections: Any recent infections, fever of illnesses? Had a sore throat 6 or 7 days ago If on antibiotics, is it 7-10 days past the date of completion of antibiotics? no : (for females of child-bearing age) no Is there a chance current ? Other: documented in this encounter Miscellaneous Notes Scanned Note-Null - DIGITAL MARKETING PROJECT MANAGER, SCAN 2 - 09/29/2011 1019 EDT documented in this encounter Plan of Treatment Not on filedocumented as of this encounter Visit Diagnoses Diagnosis Lower extremity pain - Primary Pain in limb documented in this encounter Care Teams Cemetery Manager Relationship Specialty Start Date End Date Minda Velasco MD PCP - General 04/10/[address] [place] [id number] documented as of this encounter
--- OUTSIDE RECORDS SUMMARY | 2021-10-02 07:46 | XMS_ITS | Encounter Summary ---
:1960 Author Organization [facility] Address [address] [place] [address] Care Team Providers Name Role Phone Minda Velasco MD Primary Care Provider Encounter Details Date Type Department Care Team Description 06/18/2010 Phlebotomy Only [facility] Top Precipitator Operator, Chron ic hepatitis C - [facility] Outpatient with cirrhosis [address] [facility] ([facility] [place] [address] Social History Tobacco Use Types Packs/Day Years [...] Associated Comments Diagnosis AFP TUMOR MARKER Routine 06/18/2010 11:26 Chronic hepatitis C Results for this EDT with cirrhosis procedure are in (CMS-HCC) the results section. PTT Routine 06/18/2010 11:26 Chronic hepatitis C Resu lts for this EDT with cirrhosis procedure are in (CMS-HCC) the results section. PROTIME Routine 06/18/2010 11:26 Chronic hepatitis C Resu lts for this EDT with cirrhosis procedure are in (CMS-HCC) the results section. COMPLETE BLOOD COUNT Routine 06/18/2010 11:26 Chronic hepatiti s C Results for this EDT with cirrhosis procedure are in (CMS-HCC) the results section. COMPREHENSIVE Routine 06/18/2010 11:26 Chronic hepatitis C Res ults for this METABOLIC PANEL (CMP) EDT with cirrhosis proc edure are in ([facility]) the results section. documented in this encounter Results AFP TUMOR MARKER (06/18/2010 11:26 EDT) AFP-Tumor Marker 4.1 <10 ng/ml [facility] Comment: LAB Reference value is less than 10 in 97% of healthy subj ects. AFP tumor marker cannot be interpreted in females. ?? Serum AF P concentration should not be ??interpreted as absolute evidence for the pres ence or absence of malignant disease. ?? Assayed utilizing [employer] technology. Values obtained by using different assay methods canno t be used interchangeably. Specimen Blood specimen (specimen) Performing Organization Address City/[facility]/ZIP Code Phon e Number [facility] [address] [place] [address] SERVICES [facility] [address] [place] [address] (ABNORMAL) HEMAGRAM (06/18/2010 11:26 EDT) Pathologist Sig nature WBC 8.83 4.0 - 12.4 K/cmm [facility] RBC 4.36 3.86 - 5.04 M/cmm [facility] Hemoglobin 12.3 11.6 - 15.2 gm/dl [facility] HCT 36.8 34.9 - 44.4 % [facility] MCV 85 81 - 98 fl [facility] MCH 28.2 26.7 - 33.3 pg [facility] MCHC 33.4 32.1 - 35.9 gm/dl [facility] PLT 188 141 - 320 K/cmm [facility] RDW-CV 15.5 (H) 11.7 - 14.6 % [facility] Specimen Blood specimen (specimen) Performing Organization Address City/[facility]/ZIP Code Phon e Number [facility] [address] [place] [address] SERVICES [facility] [address] [place] [address] PTT (06/18/2010 11:26 EDT) Pathologist Sig nature PTT 27Comment: Therapeutic 24 - 35 secs [facility] Heparin range: 60-90 seconds Specimen Blood specimen (specimen) Performing Organization Address City/[facility]/ZIP Code Phon e Number [facility] [address] [place] [address] SERVICES [facility] [address] [place] [address] PROTIME (06/18/2010 11:26 EDT) Pro Time 11.3Comment: Note new 9.5 - 12.9 [facility] prothrombin time secs reference range effective 2010 I.N.R. 1.0 0.9 - 1.1 [facility] Comment: Ratio ??Moderate Intensity Coumadin INR = 2.0-3.0 Adjustmen ts in anticoagulant therapy dose should be based upon the INR and NOT the Pro Time. ?? Specimen Blood specimen (specimen) Performing Organization Address City/State/ZIP Code Phon e Number [facility] [address] [place] [address] SERVICES [facility] [address] [place] [address] (ABNORMAL) COMPREHENSIVE METABOLIC PANEL (CMP) (06/18/2010 11:26 EDT) Pathologist [facility] nature Potassium 4.7 3.5 - 5.0 mEq/L [facility] Sodium 143 136 - 145 mEq/L [facility] Chloride 100 96 - 110 mEq/L [facility] CO2 26 24 - 32 mEq/L [facility] Total Alkaline 86 38 - 126 U/L [facility] Phosphatase Bilirubin, Total <0.5 0.2 - 1.3 mg/dl [facility] AST 48 (H) 15 - 46 U/L [facility] ALT 71 (H) 9 - 52 U/L [facility] Albumin 4.5 3.4 - 4.9 g/dl [facility] Total Protein 8.2 6.5 - 8.3 g/dl [facility] Creatinine 0.81 0.7 - 1.5 mg/dl [facility] [...] Phon e Number [facility] [address] [place] [address] SERVICES [facility] [address] [place] [address] documented in this encounter Visit Diagnoses Diagnosis Chronic hepatitis C with cirrhosis (HCC- CMS) (HCC) Chronic hepatitis C without mention of h epatic coma documented in this encounter Care Teams Stamping Die Try Out Worker Relationship Specialty Start Date End Date Minda Velasco MD PCP - General 04/10/[address] [place] [address] documented as of this encounter
--- OUTSIDE RECORDS SUMMARY | 2021-10-02 07:46 | XMS_ITS | Encounter Summary ---
:1960 Author Organization [facility] Address [address] [place] [address] Care Team Providers Name Role Phone Minda Velasco MD Primary Care Provider Encounter Details Date Type Department Care Team Description 06/21/2012 Results Only [facility] Argelia Miranda MD Imaging Spine Program - [address] Spine [facility] [id number] [place] [phone] (Wo rk) Social History Tobacco Use Types [...] on filedocumented in this encounter Care Teams Direct Marketing Coordinator Relationship Specialty Start Date End Date Minda Velasco MD PCP - General 04/10/09 [address] [place], [place] [id number] documented as of this encounter
--- OUTSIDE RECORDS SUMMARY | 2021-10-02 07:46 | XMS_ITS | Encounter Summary ---
:1960 Author Organization [facility] Address [address] [place] [address] Care Team Providers Name Role Phone Minda Velasco MD Primary Care Provider Malena Rico NP Primary Care Provider Encounter Details Date Type Department Care Team Description 02/02/[address] [facility] - Yaya Alvarenga , Converted Visit Mary rbooke MD ([place]) [facility] [address] [place], [place] [id number] [place] [address] [place] [place] [address] (Wo rk) Social History Tobacco Use Types Packs/Day Years Used Date Never Assessed Sex Assigned at Date Recorded Not on file documented as of this encounter Progress Notes Yaya Alvarenga MD - 04/10/2009 0400 EST DIVISION OF GASTROENTEROLOGY PROGRESS/FOLLOWUP NOTE - 02/02/2006 is here in followup from liver biopsy performed for evaluation of chronic hepatitis C infection. I went over the results with her in detail. She was noted to have stage 3 out of 4 fibrosis and grade 3 out of 4 inflammation. There was also extensive amount of steatosis noted as well. We talked at length about the meaning of grading and staging systems that we use and then proceeded to discuss further the risks of progression of her disease to the ultimate development of cirrhosis. We then talked at length about therapy and the potential benefit especially given the fact that she is genotype 2. We did talk about the possible risks of therapy particularly in diabetics and all of her questions were ans wered to her satisfaction. We spent more than 30 minutes with counseling. She also informed me aboutsome difficulty swallowing that she has been having now for several months to maybe even longer. It happens intermittently but mainly with solids. She hasnever had any food impactions. She does have a very long history of reflux symptomswhich have only been partially controlled and are better on Prevacid. She states that she also had Hemoccult testing done in the past and they were noted to be positive and it was recommended to her that she should have acolonoscopy but she never did followup on thatand she is interested in doing so now. CURRENT MEDICATIONS: 1) Neurontin 400 mg b.i.d. 2) clonazepam 0.5 mg daily. 3) morphine 15 mg b.i.d. 4) methadone 50 mg daily. 5) albuterol 2 puffs as needed. 6) metformin 500 mg 1 daily. 7) Prevacid 30 mg a day. 8) cholestyramine 1 scoop daily. 9) docusate 1000 micrograms b.i.d. 10) depo Provera every 3 months. 11) methadone liquid 135 mg daily. 12 Relafen 500 mg a day. O: A complete physical was not performed on this visit, but on vitals check she is generally well appearing and in no acute distress. She is alert and oriented x3. Her weight was 165.8 pounds. Blood pressureis 122/74, pulse 76 and regular, respirations 16 and nonlabored. 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 See above for further details. Patient islikely going to want to start therapy but would like to wait until the beginning of the new year andparticularly until we finish the rest of her workup as outlined below. 2) Dysphagia. This could very well be reflux associated but would also like to rule out the possibility of an esophageal ring or the possible development of an esophageal stricture. As such would recommend beginning with an esophagram and then proceeding to upper endoscopy. 3) Hem positive stool. She is interested in proceeding with colonoscopy at this time. PLAN: 1) Will set her up for an esophagram to start with. 2) Will plan on scheduling her for a colonoscopy +/- upper endoscopy to be done with anesthesiology. 3) Will see her back in the liver clinic sometime in April at which point we can further discuss starting her on combination therapy for her chronic hepatitis C. This was discussed in detail with the patient who is in agreement. Signed by Yaya Alvarenga MD 02/14/2006 12:37 Marquita Alvarenga [phone] Alvarenga MD Yaya Alvarenga MD [phone] - MD Lyle P - chris Job ID: tape Document ID: [id number] cc: Minda Velasco MD documented in this encounter Plan of Treatment Not on filedocumented as of this encounter Visit Diagnoses Not on filedocumented in this encounter Care Teams Music Minister Relationship Specialty Start Date End Date Minda Velasco MD PCP - General 04/10/[address] [place] [id number] Malena Rico NP PCP - General 07/25/08 04/09/09 [facility] [address] [place] [address] documented as of this encounter
--- OUTSIDE RECORDS SUMMARY | 2021-10-02 07:46 | XMS_ITS | Encounter Summary ---
:1960 Author Organization [facility] Address [address] [place] [address] Care Team Providers Name Role Phone Minda Velasco MD Primary Care Provider Reason for Referral Consult, Test and Treat (Routine/Next Available) - Closed Specialty Diagnoses / Procedures Referred By Contact Refer red To Contact Diagnoses Low back pain radiating to left leg Hip pain, left Argelia Miranda MD [address] [place] [address] Referral ID Status Reason Start Date Expiration Date Visits V isits Requested Authorized [id number] Closed Specialty 05/26/2012 1 1 Services Required Question Answer Reason for Request: pool therapy Comments Stretching for spinal stenosis ascular Lab (Routine/Next Available) - Closed Specialty Diagnoses / Procedures Referred By Contact Refer red To Contact Diagnoses Low back pain radiating to left leg Argelia Miranda MD Procedures VL LOWER ARTERIAL PVR RESTING [address] [place] [address] Referral ID Status Reason Start Date Expiration Date Visits Requ ested Visits Authorized [id number] Closed 05/26/2012 1 1 adiology Services (Routine/Next Available) - Closed Specialty Diagnoses / Procedures Referred By Contact Refer red To Contact Diagnoses Low back pain radiating to left leg Argelia Miranda MD Procedures SCOLI 2 VIEW AP & LAT [address] [place] [address] Referral ID Status Reason Start Date Expiration Date Visits Requ ested Visits Authorized [id number] Closed 05/26/2012 1 1 adiology Services (Routine/Next Available) - Closed Specialty Diagnoses / Procedures Referred By Contact Refer red To Contact Diagnoses Hip pain, left Argelia Miranda MD Procedures HIP UNILATERAL 2 OR MORE VIEWS [address] [place] [address] Referral ID Status Reason Start Date Expiration Date Visits Requ ested Visits Authorized [id number] Closed 05/26/2012 1 1 adiology Services (Routine/Next Available) - Closed Specialty Diagnoses / Procedures Referred By Contact Refer red To Contact Diagnoses Low back pain radiating to left leg Argelia Miranda MD Procedures L SPINE 4 OR MORE VIEWS [address] [place] [address] Referral ID Status Reason Start Date Expiration Date Visits Requ ested Visits Authorized [id number] Closed 05/26/2012 1 1 Reason for Visit Reason Comments Back Pain Leg Pain With numbness - left. Encounter Details Date Type Department Care Team Description 05/26/2012 Office Visit [facility] Medical Isabella rAgelia Miranda MD Low back pain radiating to left leg (Nancy saenz Dx); Spine Program - [address] [facility] Hip pain, left; [facility] of lower extremity; [address] [facility] [address] Cody Portillo Spondylolisthesis, grade 1; [place], [facility], Lumba r spondylolysis; [address] [place] [phone] Scoliosis [phone] (Wo rk) Social History Tobacco Use Types [...] - Inhaled Oxygen Concentration - - Weight 69.4 kg (153 lb) 05/26/2012 1301 EST Height 165.1 cm (5' 5) 05/26/2012 1301 EST Body Mass Index 25.46 05/26/2012 1301 EST documented in this encounter Discharge Disposition Disposition Code Departure Means Destination Auto Discharge documented in this encounter Progress Notes Argelia Miranda MD - 05/29/2012 1059 EST [facility] ([facility] [address] [place] [address] NEW PATIENT EVALUATION - 05/26/2012 PROBLEM: Low back pain radiating into left lower extremity with left leg paresthesia and weakness. HISTORY OF PRESENT ILLNESS: Sadie Spann is a rai 51-year-old female who has been experiencing low back pain for more than 20 years. It has been over the past two years that she has been experiencing radiating into her left leg. She describes the leg pain as circumferential. The pain she is experiencing in her back is 80% back, 20% leg. Associated with that is a numbing, tingling sensation circumferentially throughout the left leg. Her pain today is a level 8, it flares to a 10 and is never less than a 4. It has an achy, burny, stabby quality and is made worse by walking, standing, sitting for prolonged periods of time. She does feel better with methadone and oxycodone and gabapentin. More recently she is having claudicatory-type symptoms. If she walks in the grocery store more than three aisles she needs to sit down. Any long distance walking, the entire left leg will go numb. Medical history is also complicated by a longstanding history of cigarette smoking, a pack a day for the past 40 years. She tried a TENS unit in the past and has not been helpful. She has had injection treatments in the past that have been helpful but not recently. She shared with me she does have a history of lumbar spinal stenosis, although I do not have any radiographs or notes that confirm this. She denies any bowel or bladder incontinence. Denies saddle anesthesia. She has had physical therapy at [facility], pool therapy, exercise machines. She finds the stretching with pool helpful. She is here today for additional recommendations, suggestions. PAST MEDICAL HISTORY: Significant for asthma, substance abuse, anxiety, diabetes mellitus, GERD. Herpast medical history is significant for hepatitis. PAST SURGICAL HISTORY: Cervical fusion in . FAMILY HISTORY: Brother with Crohn's. Father with heart disease. Mother, cancer. MEDICATIONS: Calcium carbonate. Cod liver oil. Fish oil supplement 1200 international units daily. Vitamin B complex. Vitamin C. Klonopin 0.5. Colace 100. Iron 325 daily. Gabapentin 400 daily. Levalbuterol inhaler. Glucophage 500. Methadone 10. Nephro-Rubén 0.8. Prilosec 20. Oxycodone 5, intervals not clear in PRISM. ALLERGIES: None known. REVIEW OF SYSTEMS: Per HPI. Through health information form, she does experience fatigue, wears glasses, sinus problems, arthritis, back pain, joint pain, joint swelling, numbness in the leg. She denies skin allergies. Does have hypercholesterolemia, asthma, diabetes type 2. Anemia, yes. Anxiety, yes.History of substance abuse. OBJECTIVE: The patient makes eye contact. She looks comfortable. She easily transitions from sit to stand. Her gait is normal. She can heel toe walk, tandem gait. Back exam: Left shoulder is slightly higher than right. Left hip higher than right. Range of motion lumbosacral spine: She can forward flexfew inches from the floor. Lumbar extension is limited and guarded. Lateral bending and rotation is pain free and supine, negative straight leg raises. Rotary motions to the hip, painful on the left with decreased on the left external rotation abduction. Strength in lower extremities, hip flexion/extension, knee flexion/extension, dorsi, plantarflexion 5/5. Muscle stretch reflexes 1 quads, Achilles. Babinskis downgoing, no ankle clonus. Proprioception is intact. No atrophy of the musculature. Weakened dorsalis pedis pulses bilaterally. RADIOGRAPHIC STUDIES: Evaluated today. X-ray of the left hip, AP frog, to my eye, there is a relatively normal hip exam, some mild degenerative changes laterally, no fracture noted. Lumbar spine x-ray reveals a levoscoliotic curve, apex L3 with a Amaro angle of 17 degrees. She has lateral listhesis to the left L4 onto L5 of approximately 9 mm. Lateral x-ray reveals disk space narrowing L4- 5, L5-S1, significant degenerative changes in the facet joints and mild calcification noted in the abdominal aorta. Assessing flexion-extension x-rays, to my eye, there is a slight anterolisthesis of L4 onto L5 in flexion, neutralizes in extension. Scoli films obtained. There is a mild compensatory thoracic S-shaped curve. ASSESSMENT: A 51-year-old female presents with back pain radiating into left lower extremity with left leg paresthesias. Clinically, she has intact reflexes, negative straight leg raise, decreased range of motion of the left hip. MEDICAL DECISION MAKING: I thought there might be a component of hip osteoarthritis but hip x-rays are relatively normal. She does have a lateral bursitis which is mild. Her x-rays of the lumbar spine do reveal lateral listhesis, anterolisthesis 4-5 with a scoliotic curve. I do believe that most probably she has a component of lumbar spinal stenosis, although I do not have MRI to confirm this. She iscertainly sounding as though she has a component of neurogenic claudication. But in light of her longstanding cigarette smoking, feel it would be beneficial to assess vascular studies of the legs. Therefore the plan is: 1. MRI of the lumbar spine. 2. Arterial PVRs resting. 3. Physical therapy with stretching, continue use of TENS unit. 4. Follow up with me after the testing is done. I had a lengthy discussion with the patient regarding various treatment options. At this point in time, would hold off on any additional injection treatments until better look at the MRI to assess central versus lateral recess or foraminal stenosis. Will assess vascular studies. In the interim physical therapy with stretching is in order. Did not provide any changes in her medication profile. Greater than 45 minutes spent [id number] with patient with clinical exam, review of radiographic data. Greater than 25 minutes spent with education regarding above. Electronically Signed by Argelia Miranda MD 06/05/2012 12:26 Argelia Miranda MD - Argelia Miranda MD - RF Job ID: SM Doc ID: [id number] Ext Doc ID: [id number] cc: MD Harjinder Lagos, rgelia Miranda MD - 05/26/2012 1451 EST This office note has been dictated. documented in this encounter Plan of Treatment Scheduled Referrals Name Type Priority Associated Diagnoses Order S chedule AMB CONSULT Outpatient Referral Routine Low back pain Ordered : PHYSICAL THERAPY radiating to left 2012 leg Hip pain, left documented as of this encounter Procedures Procedure Name Priority Date/Time Associated Comments Diagnosis VL LOWER ARTERIAL Routine 07/13/2012 9:27 EDT Low back pain Re sults for this PVR RESTING radiating to left procedure are in leg the results section. SCOLI 2 VIEW AP & Routine 05/26/2012 14:12 Low back pain Resul ts for this LAT EST radiating to left procedure are in leg the results section. L SPINE 4 OR MORE Routine 05/26/2012 13:47 Low back pain Resul ts for this VIEWS EST radiating to left procedure are in leg the results section. HIP UNILATERAL 2 OR Routine 05/26/2012 13:47 Hip pain, left Re sults for this MORE VIEWS EST procedure are i n the results section. documented in this encounter Results VL LOWER ARTERIAL PVR RESTING (07/13/2012 9:27 EDT) Anatomical Region Laterality Modality Other Specimen Narrative VASCULAR - 07/13/2012 11:58 EDT Lower Extremity Arterial Physiologic Evaluation PROCEDURE: ??Multi-level physiologic art erial evaluation of the lower extremities using pulse volume waveform analysis, segmental blood pressures and CW Doppler. [id number]. ?? Mult i-level physiologic arterial evaluation of the lower extremities usin g pulse volume waveform analysis, segmental blood pressures and CW Doppler; resting and post exercise study. [id number]. ? INDICATION: Leg pain with exercise, bein g treated for siatica. ? HISTORY: ?[facility]. DM. Smoking. ? SEGMENTAL PRESSURES RIGHT Brachial Art: ??135 mmHg Above Knee: ?119 mmHg Index: ??0.88 Below Knee: ?119 mmHg Index: ??0.88 Ankle (HEALTH AND WELLNESS ADVISOR): ?? 140 mmHg Index: ??1.04 Ankle (DPA): ?? 136 mmHg Index: ??1.01 First Digit: ?94 mmHg TBI: ?0.70 LEFT Brachial Art: ??126 mmHg Above Knee: ?123 mmHg Index: ??0.91 Below Knee: ?120 mmHg Index: ??0.89 Ankle (HEALTH AND WELLNESS ADVISOR): ?94 mmHg Index: ??0.70 Ankle (DPA): ?? 116 mmHg Index: ??0.86 First Digit: ?96 mmHg TBI: ?0.71 CW DOPPLER ANALYSIS: RIGHT Right HEALTH AND WELLNESS ADVISOR: Triphasic ? Right DPA: Triphasic ? LEFT Left HEALTH AND WELLNESS ADVISOR: ??Biphasic ? Left DPA: ??Biphasic ? PLETHYSMOGRAPHIC FINDINGS Right: ?? Normal appearing pulse volume recordings. ? Left: ?Normal appearing pulse volume recordings. ? STRESS TESTING Treadmill: ?? 5.0 min ? 12 % grade ? ? 2.0 m/hr INITIAL: ??Highest Brachial: ??159 mmHg Right DP: ??154 mmHg Index: ??0.97 Left DP: ?? 142 mmHg Index: ??0.89 IMPRESSION Right: ?? Segmental pressures and wavefo teresa demonstrate no significant disease. ?? After stress evaluation of t he right lower extremity there was no significant change. ? Left: ?Digital pressures and wavefor ms were diminished. ?? After stress evaluation of the left lower extr emity there was no significant change. Procedure Note 07/13/2012 Lower Extremity Arterial Physiologic Conchita luation PROCEDURE: Multi-level physiologic arter ial evaluation of the lower extremities using pulse volume waveform analysis, segmental blood pressures and CW Doppler. 54610. Multi-l evel physiologic arterial evaluation of the lower extremities lidia price pulse volume waveform analysis, segmental blood pressures and CW Doppler; resting and post exercise study. [id number]. INDICATION: Leg pain with exercise, beisabel price treated for siatica. HISTORY: [facility]. DM. Smoking. SEGMENTAL PRESSURES RIGHT Brachial Art: 135 mmHg Above Knee: 119 mmHg Index: 0.88 Below Knee: 119 mmHg Index: 0.88 Ankle (HEALTH AND WELLNESS ADVISOR): 140 mmHg Index: 1.04 Ankle (DPA): 136 mmHg Index: 1.01 First Digit: 94 mmHg TBI: 0.70 LEFT Brachial Art: 126 mmHg Above Knee: 123 mmHg Index: 0.91 Below Knee: 120 mmHg Index: 0.89 Ankle (HEALTH AND WELLNESS ADVISOR): 94 mmHg Index: 0.70 Ankle (DPA): 116 mmHg Index: 0.86 First Digit: 96 mmHg TBI: 0.71 CW DOPPLER ANALYSIS: RIGHT Right HEALTH AND WELLNESS ADVISOR: Triphasic Right DPA: Triphasic LEFT Left HEALTH AND WELLNESS ADVISOR: Biphasic Left DPA: Biphasic PLETHYSMOGRAPHIC FINDINGS Right: Normal appearing pulse volume rec ordings. Left: Normal appearing pulse volume jusitna rdings. STRESS TESTING Treadmill: 5.0 min 12 % grade 2.0 m/hr INITIAL: Highest Brachial: 159 mmHg Right DP: 154 mmHg Index: 0.97 Left DP: 142 mmHg Index: 0.89 IMPRESSION Right: Segmental pressures and waveforms demonstrate no significant disease. After stress evaluation of the right lower extremity there was no significant change. Left: Digital pressures and waveforms we re diminished. After stress evaluation of the left lower extr emity there was no significant change. Performing Organization Address City/State/ZIP Code Phon e Number [facility] SCOLI 2 VIEW AP & LAT (05/26/2012 14:12 EST) Anatomical Region Laterality Modality Other Specimen Narrative [facility] - 05/06 16:19 EST ENTIRE SPINE 2 VIEWS May 26, 2012 Indication: Scoliosis. Comparison: Lumbar spine films May 26, 2012. Technique: PA and lateral views of the entire spine were obtained. Findings: There has been prior posterior hardware fusion from C4 to C6. Straightening of the normal cervical garcia dosis and lumbar lordosis. Moderate thoracolumbar levoscoliotic cur vature is noted convex at about L2. There is a mild rightward conv ex curvature of the thoracic spine as well. A rotatory component of t he lumbar curvature is noted. There is slight lateral slip of L4 on L5 . Grade 1 anterolisthesis of L4 on L5 is noted. Vertebral body height s are preserved. There is disc space narrowing and small anterior marginal osteophytes at L3-L4, L4-L5 and L5-S1 consistent with d isc degeneration. Hypertrophy of the lower lumbar facet joints is note d. Atherosclerotic calcification is noted i n the abdominal aorta. Procedure Note 05/26/2012 ENTIRE SPINE 2 VIEWS May 26, 2012 Indication: Scoliosis. Comparison: Lumbar spine films May 26, 2012. Technique: PA and lateral views of the entire spine were obtained. Findings: There has been prior posterior hardware fusion from C4 to C6. Straightening of the normal cervical garcia dosis and lumbar lordosis. Moderate thoracolumbar levoscoliotic cur vature is noted convex at about L2. There is a mild rightward conv ex curvature of the thoracic spine as well. A rotatory component of t he lumbar curvature is noted. There is slight lateral slip of L4 on L5 . Grade 1 anterolisthesis of L4 on L5 is noted. Vertebral body height s are preserved. There is disc space narrowing and small anterior marginal osteophytes at L3-L4, L4-L5 and L5-S1 consistent with d isc degeneration. Hypertrophy of the lower lumbar facet joints is note d. Atherosclerotic calcification is noted i n the abdominal aorta. Performing Organization Address City/State/ZIP Code Phon e Number [facility] [place] HIP UNILATERAL 2 OR MORE VIEWS (05/26/2012 13:47 EST) Anatomical Region Laterality Modality Other Specimen Narrative [facility] - 10/03 13:43 EDT Addendum Begins 2 views of the left hip shows no fractur e or dislocation. Addendum Ends L SPINE 4 OR MORE VIEWS ??May 26, 2012 0 1:47:00 PM Signs and Symptoms/Comments: ??724.2-Lum [id number]-DPX-7-CM; low back pain Comparison: None. Findings: AP, lateral, flexion and extension view of the lumbar spine were obtained. Left levoscoliosis is seen with the cent er at the level of L3. A left laterolisthesis is seen of L4 on L5, wit h 7 mm of displacement. . Other lucency noted in the area of the ? ? pars interarticularis of lumbar 5 and, may represent spondylolyse s .There is normal posterior alignment of the lumbar spine without sp ondylolisthesis. The vertebral body and disc space height s are preserved. There is facet arthrosis at the level of L4-L5 and L5-S1. The sacroiliac joints are mildly sclerot ic. Soft tissues are unremarkable. Abdominal aortic calcification ??is iden tified. Impression: 1. Levoscoliosis associated with laterol isthesis of L4 on L5. Facet arthropathy at the level of L4-L5 and L5-S1. Possible pars defect, lumbar 5 I have personally reviewed the images an d the above interpretation and agree with the findings. I have personally reviewed the images an d the above interpretation and agree with the findings. Procedure Note Eder Arizmendi MD - 10/26/2012 Addendum Begins 2 views of the left hip shows no fractur e or dislocation. Addendum Ends L SPINE 4 OR MORE VIEWS May 26, 2012 01: 47:00 PM Signs and Symptoms/Comments: 724.2-Lumba go-ICD-9-CM; low back pain Comparison: None. Findings: AP, lateral, flexion and extension view of the lumbar spine were obtained. Left levoscoliosis is seen with the cent er at the level of L3. A left laterolisthesis is seen of L4 on L5, wit h 7 mm of displacement. . Other lucency noted in the area of the p ars interarticularis of lumbar 5 and, may represent spondylolyse s .There is normal posterior alignment of the lumbar spine without sp ondylolisthesis. The vertebral body and disc space height s are preserved. There is facet arthrosis at the level of L4-L5 and L5-S1. The sacroiliac joints are mildly sclerot ic. Soft tissues are unremarkable. Abdominal aortic calcification is identi fied. Impression: 1. Levoscoliosis associated with laterol isthesis of L4 on L5. Facet arthropathy at the level of L4-L5 and L5-S1. Possible pars defect, lumbar 5 I have personally reviewed the images an d the above interpretation and agree with the findings. I have personally reviewed the images an d the above interpretation and agree with the findings. Performing Organization Address City/State/ZIP Code Phon e Number [facility] L SPINE 4 OR MORE VIEWS (05/26/2012 13:47 EST) Anatomical Region Laterality Modality Other Specimen Narrative [facility] [place] - 10/03 13:43 EDT Addendum Begins 2 views of the left hip shows no fractur e or dislocation. Addendum Ends L SPINE 4 OR MORE VIEWS ??May 26, 2012 0 1:47:00 PM Signs and Symptoms/Comments: ??724.2-Lum cnwo-KNU-9-CM; low back pain Comparison: None. Findings: AP, lateral, flexion and extension view of the lumbar spine were obtained. Left levoscoliosis is seen with the cent er at the level of L3. A left laterolisthesis is seen of L4 on L5, wit h 7 mm of displacement. . Other lucency noted in the area of the ? ? pars interarticularis of lumbar 5 and, may represent spondylolyse s .There is normal posterior alignment of the lumbar spine without sp ondylolisthesis. The vertebral body and disc space height s are preserved. There is facet arthrosis at the level of L4-L5 and L5-S1. The sacroiliac joints are mildly sclerot ic. Soft tissues are unremarkable. Abdominal aortic calcification ??is iden tified. Impression: 1. Levoscoliosis associated with laterol isthesis of L4 on L5. Facet arthropathy at the level of L4-L5 and L5-S1. Possible pars defect, lumbar 5 I have personally reviewed the images an d the above interpretation and agree with the findings. I have personally reviewed the images an d the above interpretation and agree with the findings. Procedure Note Eder Arizmendi MD - 10/26/2012 Addendum Begins 2 views of the left hip shows no fractur e or dislocation. Addendum Ends L SPINE 4 OR MORE VIEWS May 26, 2012 01: 47:00 PM Signs and Symptoms/Comments: 724.2-Lumba go-ICD-9-CM; low back pain Comparison: None. Findings: AP, lateral, flexion and extension view of the lumbar spine were obtained. Left levoscoliosis is seen with the cent er at the level of L3. A left laterolisthesis is seen of L4 on L5, wit h 7 mm of displacement. . Other lucency noted in the area of the p ars interarticularis of lumbar 5 and, may represent spondylolyse s .There is normal posterior alignment of the lumbar spine without sp ondylolisthesis. The vertebral body and disc space height s are preserved. There is facet arthrosis at the level of L4-L5 and L5-S1. The sacroiliac joints are mildly sclerot ic. Soft tissues are unremarkable. Abdominal aortic calcification is identi fied. Impression: 1. Levoscoliosis associated with laterol isthesis of L4 on L5. Facet arthropathy at the level of L4-L5 and L5-S1. Possible pars defect, lumbar 5 I have personally reviewed the images an d the above interpretation and agree with the findings. I have personally reviewed the images an d the above interpretation and agree with the findings. Performing Organization Address City/State/ZIP Code Phon e Number [facility] documented in this encounter Visit Diagnoses Diagnosis Low back pain radiating to left leg - Pr imary Lumbago Hip pain, left Pain in joint, pelvic region and thigh Pain of lower extremity Pain in limb Spondylolisthesis, grade 1 Acquired spondylolisthesis Lumbar spondylolysis Acquired spondylolisthesis Scoliosis Scoliosis (and kyphoscoliosis), idiopath ic documented in this encounter Historical Medications This list may reflect changes made after this encounter. Medication Sig Dispensed Refills Start Date End Date CALCIUM CARBONATE (OS-MARCIANO Take by mouth daily. 0 ORAL) magnesium oxide (MAG-OX) Take 400 mg by mouth 0 400 mg tablet daily. ascorbic acid (VITAMIN C) Take 500 mg by mouth 0 09/05/2013 500 mg tablet daily. added in this encounter Care Teams Solar [employer] Consultant And Designer Relationship Specialty Start Date End Date Minda Velasco MD PCP - General 04/10/09 [address] [place] [address] documented as of this encounter
--- OUTSIDE RECORDS SUMMARY | 2021-10-02 07:46 | XMS_ITS | Encounter Summary ---
:1960 Author Organization [facility] Address [address] [place] [address] Care Team Providers Name Role Phone Minda Velasco MD Primary Care Provider Encounter Details Date Type Department Care Team Description 09/29/2009 Results Only [facility] Monica Magana MD Laboratory Services - [address] [place] [address] [place] [address] Social History Tobacco Use Types Packs/Day Years Used Date Never Assessed Sex Assigned at Date Recorded Not on file documented as of this encounter Plan of Treatment Not on filedocumented as of this encounter Procedures Procedure Name Priority Date/Time Associated Diagnosis Comme nts SURGICAL PATHOLOGY Routine 09/29/2009 0:00 EDT Re sults for this procedure are i n the results section. documented in this encounter Results SURGICAL PATHOLOGY (09/29/2009 0:00 EDT) Pathology Report: SURGICAL PATHOLOGY REPORT ? MASSIEL GONZALEZ Reports generated via electr [employer] interface contain original data; ? LAB however they are lacking the format of the original report. ? Caution should be taken when reading/interpreting unformatted reports. ? Name: ? BERKOWITZ, ERMELIND A ? Accession #: ? [id number] ? : ? 1960 (Age: 49) ??F ? Collec t Date: ? 09/29/2009 ? Location: ? [facility] ? R eceive Date: ? 09/30/2009 ? Provider: MONICA RONNIE MD ? Copy to: MINDA RICHARDSIAN MD ? Final Pathologic Diagnosis: ? Endometrium, biopsy: ? - Secretory endometrium. ? Document reviewed and electr onically signed by: ? ABDELMONEM ELHOSSEINY MD ? Report ??Date: 10/01/2009 17 :16 ? By the signature above, the attending physician certifies that he/she has ? personally conducted a gross and/or microscopic examination of the described ? specimens and rendered or co nfirmed the above diagnosis. ? Specimen(s) Received: ? Endometrial bx ? Clinical History: ? Bleeding after stoppi ng Depo-Provera. AUB-menorrhagia. (-) PT. LMP: ? 06/07/10 ? Gross Description: ? Received in formalin labelled Berkowitz, Sadie and endometrial bx are approximately 6cc of tapia-pin k tissue fragments admixed with clotted blood and ?? blood tinged mucus. ??The sp ecimen is submitted entirely as (A1)-(A3) following ?? filtration. (J.Ammy. Tessitorparker) /mpl ? End of Report ? Specimen Performing Organization Address City/State/ZIP Code Phon e Number [facility] [address] [place] [address] SERVICES [facility] [address] [place] [address] documented in this encounter Visit Diagnoses Not on filedocumented in this encounter Care Teams Kettle Operator Relationship Specialty Start Date End Date Minda Velasco MD PCP - General 04/10/09 [address] [place] [address] documented as of this encounter
--- OUTSIDE RECORDS SUMMARY | 2021-10-02 07:46 | XMS_ITS | Encounter Summary ---
:1960 Author Organization [facility] Address [address] [place] [address] Care Team Providers Name Role Phone Minda Velasco MD Primary Care Provider Argelia Miranda MD Unavailable Reason for Referral Radiology Services (Routine/Next Available) - Closed Specialty Diagnoses / Procedures Referred By Contact Refer red To Contact Diagnoses Chronic hepatitis C with cirrhosis (HCC-[facility]) (HCC) Yaya Alvarenga MD Procedures RAD US ABDOMEN ONE ORGAN/QUADRANT 111 [facility], [address] [phone] Referral ID Status Reason Start Date Expiration Date Visits Requ ested Visits Authorized [id number] Closed 07/13/2012 1 1 Reason for Visit Reason Comments Follow-up Cirrhosis Encounter Details Date Type Department Care Team Description 07/13/2012 Office Visit [facility] Jania Alvarenga epatitis C Gastroenterology - [facility] MD Yaya with cirrhosis [place] [address] [place] [address] (CMS-HCC) (Primary 111 [facility]) [place], [place] [id number] [place] [address] [facility] [address] [place] [address] Social History Tobacco Use Types Packs/Day Years Used Date Current Every Day Smoker 1 Smokeless Tobacco: Never Used Alcohol Use Standard Drinks/Week Comments No 0 (1 standard drink = 0.6 oz pure alcoho l) Sex Assigned at Date Recorded Not on file documented as of this encounter Last Filed Vital Signs Vital Sign Reading Time Taken Comments Blood Pressure 132/78 07/13/2012 0850 EDT Pulse 80 07/13/2012 0850 EDT Temperature - - Respiratory Rate - - Oxygen Saturation - - Inhaled Oxygen Concentration - - Weight 70.8 kg (156 lb) 07/13/2012 0850 EDT Height 165.1 cm (5' 5) 07/13/2012 0850 EDT Body Mass Index 25.96 07/13/2012 0850 EDT documented in this encounter Progress Notes Terrence Nguyễn MD - 07/13/2012 0911 EDT Subjective: Patient ID: Sadie Spann is an 51 y.o. female. Chief Complaint Patient presents with ??? Follow-up ??? Cirrhosis HPI Ms. Spann is a 51-year-old female who presents for followup regarding hepatitis C genotype 2B and presumed cirrhosis. 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 She is doing fairly well today. She has had some swelling in her legs but is off-and-on and worse at night. She denies jaundice, confusion, light stools, dark urine, increasing abdominal girth. She has been dealing with chronic pain issues including sciatica and continues to be on narcotics chronically. Patient Active Problem List Diagnoses ??? Pain of lower extremity ??? Right elbow pain ??? Scoliosis ??? Low back pain radiating to left leg ??? Lumbar spondylolysis ??? Spondylolisthesis, grade 1 Past Medical History Diagnosis Date ??? Asthma [...] 400 Units by mouth daily. ??? Fish Oil-Parksley-3 Fatty Acids (FISH OIL) 360-1,200 mg Cap Take 100 mg by mouth daily. ??? VITAMIN B COMPLEX (B COMPLEX 1 ORAL) Take 1 Tab by mouth daily. ??? levalbuterol (XOPENEX HFA) 45 mcg/Actuation inhaler Inhale 1-2 Puffs as directed as needed for Wheezing. No Known Allergies Review of Systems Constitutional: Negative for fever, chills, weight loss, malaise/fatigue and diaphoresis. Gastrointestinal: Negative for heartburn, nausea, vomiting, abdominal pain, diarrhea, constipation, blood in stool and melena. Neurological: Negative for weakness. - See HPI Objective: BP 132/78 Pulse 80 Ht 165.1 cm (65) Wt 70.761 kg (156 lb) BMI 25.96 kg/m2 Physical Exam Constitutional: She is oriented to person, place, and time. She appears well- developed and well-nourished. Abdominal: Soft. Bowel sounds are normal. She exhibits no distension and no mass. There is no tenderness. There is no rebound and no guarding. Neurological: She is alert and oriented to person, place, and time. Skin: Skin is warm and dry. Assessment: 51-year-old female with presumed cirrhosis which seems to be compensated at this time. She has hepatitis C genotype 2B and has deferred treatment with interferon-based therapy. Labs today including alpha-fetoprotein for HCC surveillance. Right upper quadrant ultrasound for HCC surveillance at [facility] Discussed the possibility of treatment with non-interferon based therapies when they become available. EGD in December 2011 showed no varices, repeat in 2013 Follow up in 6 months Plan: Sadie was seen today for follow-up and cirrhosis. Diagnoses and associated orders for this visit: Chronic hepatitis c with cirrhosis Terrence Nguyễn MD Yaya Alvarenga MD - 07/13/2012 0908 EDT GI Attending Attestation: I saw and evaluated this patient with the fellow/resident. I agree with the history and physical exam. I agree with the impression and plan. documented in this encounter Plan of Treatment Scheduled Orders Name Type Priority Associated Diagnoses Order S chedule RAD US ABDOMEN ONE Imaging Routine Chronic hepatitis C wi th Ordered: 07/13/2012 ORGAN/QUADRANT cirrhosis (CMS-HCC) documented as of this encounter Results AFP TUMOR MARKER (07/13/2012 9:23 EDT) AFP-Tumor Marker 2.7 <9 ng/ml MASSIEL GONZALEZ Comment: LAB Reference value is less than 9 in 98.9% of healthy sub jects. AFP tumor marker cannot be interpreted in fem ales. Serum AFP concentration should not be interpreted as absolute evidence for the presence or absence of malignant disease. Assayed utilizing [employer]o chemiluminescent technology. ??Values obtained by using different assay methods cannot be used interchangeably. Specimen Blood specimen (specimen) Performing Organization Address [facility]/ZIP [facility] Phon e Number [facility] [address] [place] [address] SERVICES [facility] [address] [place] [address] HEMAGRAM (07/13/2012 9:23 EDT) Pathologist Sig nature WBC 6.68 4.0 - 12.4 K/cmm [facility] RBC 4.23 3.86 - 5.04 M/cmm [facility] Hemoglobin 13.1 11.6 - 15.2 gm/dl [facility] HCT 38.8 34.9 - 44.4 % [facility] MCV 92 81 - 98 fl [facility] MCH 31.0 26.7 - 33.3 pg [facility] MCHC 33.8 32.1 - 35.9 gm/dl [facility] PLT 157 141 - 320 K/cmm [facility] RDW-CV 12.5 11.7 - 14.6 % [facility] Specimen Blood specimen (specimen) Performing Organization Address [facility] Phon e Number [facility] [address] [place] [address] SERVICES [facility] [address] [place] [address] PROTIME (07/13/2012 9:23 EDT) Pro Time 11.7Comment: Patient on 9.5 - 13.1 MASSIEL GONZALEZ LA B Coumadin secs I.N.R. 1.0 0.9 - 1.1 [facility] Comment: Ratio Moderate Intensity Coumadin INR = 2.0-3.0 Adjustments in anticoagulant therapy dose should be based upon the INR and NOT the Pro Time. Patient on Coumadin Specimen Blood specimen (specimen) Performing Organization Address [facility]/ZIP [facility] Phon e Number [facility] [address] [place] [address] SERVICES [facility] [address] [place] [address] (ABNORMAL) COMPREHENSIVE METABOLIC PANEL (CMP) (07/13/2012 9:23 EDT) Pathologist [facility] [...] Number [facility] [address] [place] [address] SERVICES [facility] [address] [place] [address] documented in this encounter Visit Diagnoses Diagnosis Chronic hepatitis C with cirrhosis (HCC- CMS) (HCC) - Primary Chronic hepatitis C without mention of h epatic coma documented in this encounter Care Teams Queen'S Counsel Relationship Specialty Start Date End Date Minda Velasco MD PCP - General 04/10/[address] [place] [address] Argelia Miranda MD Primary Care Provider Orthopaedic Surgery 07/13/12 documented as of this encounter
--- OUTSIDE RECORDS SUMMARY | 2021-10-02 07:46 | XMS_ITS | Encounter Summary ---
:1960 Author Organization [facility] Address [address] [place] [address] Care Team Providers Name Role Phone Unavailable Primary Care Provider Unavailable Encounter Details Date Type Department Care Team Description 02/23/2008 Hospital Encounter [facility] - Marialuisa Yates MD Maple conversion FA MAIL HOUSE STAFF 111 [facility] [address] [place], [place] [address] [place] [address] (Wo rk) Social History Tobacco Use Types Packs/Day Years Used Date Never Assessed Sex Assigned at Date Recorded Not on file documented as of this encounter Discharge Disposition Disposition Code Departure Means Destination Auto Discharge documented in this encounter Plan of Treatment Not on filedocumented as of this encounter Visit Diagnoses Not on filedocumented in this encounter
--- OUTSIDE RECORDS SUMMARY | 2021-10-02 07:46 | XMS_ITS | Encounter Summary ---
:1960 Author Organization [facility] Address [address] [place] [address] Care Team Providers Name Role Phone Minda Velasco MD Primary Care Provider Encounter Details Date Type Department Care Team Description 06/16/2011 Phlebotomy Only [facility] Population Geneticist, Chron ic hepatitis C - [facility] Outpatient with cirrhosis [facility]) [place] [address] Social History Tobacco Use Types Packs/Day Years [...] Associated Comments Diagnosis AFP TUMOR MARKER Routine 06/16/2011 13:39 Chronic hepatitis C Results for this EDT with cirrhosis procedure are in (CMS-HCC) the results section. PTT Routine 06/16/2011 13:39 Chronic hepatitis C Resu lts for this EDT with cirrhosis procedure are in (CMS-HCC) the results section. PROTIME Routine 06/16/2011 13:39 Chronic hepatitis C Resu lts for this EDT with cirrhosis procedure are in (CMS-HCC) the results section. COMPLETE BLOOD COUNT Routine 06/16/2011 13:39 Chronic hepatiti s C Results for this EDT with cirrhosis procedure are in (CMS-HCC) the results section. COMPREHENSIVE Routine 06/16/2011 13:39 Chronic hepatitis C Res ults for this METABOLIC PANEL (CMP) EDT with cirrhosis proc edure are in ([facility]-HCC) the results section. documented in this encounter Results AFP TUMOR MARKER (06/16/2011 13:39 EDT) AFP-Tumor Marker 2.5 <9 ng/ml MASSIEL GONZALEZ Comment: LAB Reference value is less than 9 in 98.9% of healthy sub jects. AFP tumor marker cannot be interpreted in fem ales. Serum AFP concentration should not be interpreted as absolute evidence for the presence or absence of malignant disease. Assayed utilizing eMoov chemiluminescent technology. ??Values obtained by using different assay methods cannot be used interchangeably. Specimen Blood specimen (specimen) Performing Organization Address [facility] Phon e Number [facility] [address] [place] [address] SERVICES [facility] [address] [place] [address] HEMAGRAM (06/16/2011 13:39 EDT) Pathologist Sig nature WBC 6.93 4.0 - 12.4 K/cmm [facility] RBC 4.31 3.86 - 5.04 [...] LAB RDW-CV 14.0 11.7 - 14.6 % [facility] Specimen Blood specimen (specimen) Performing Organization Address City/[facility]/ZIP [facility] Phon e Number [facility] [address] [place] [address] SERVICES [facility] [address] [place] [address] PTT (06/16/2011 13:39 EDT) Pathologist Sig nature PTT 30 26 - 37 secs [facility] Comment: Therapeutic Heparin range: ??65-100 seconds Note new reference range and Therapeutic Heparin Range in use effective 06/16/2011 Specimen Blood specimen (specimen) Performing Organization Address City/[facility]/ZIP Code Phon e Number [facility] [address] [place] [address] SERVICES [facility] [address] [place] [address] PROTIME (06/16/2011 13:39 EDT) Pro Time 11.6 9.5 - 13.1 [facility] secs I.N.R. 1.0 0.9 - 1.1 [facility] Comment: Ratio Moderate Intensity Coumadin INR = 2.0-3.0 Adjustments in anticoagulant therapy dose should be based upon the INR and NOT the Pro Time. Specimen Blood specimen (specimen) Performing Organization Address [facility] Phon e Number [facility] [address] [place] [address] SERVICES [facility] [address] [place] [address] (ABNORMAL) COMPREHENSIVE METABOLIC PANEL (CMP) (06/16/2011 13:39 [...] Specimen Blood specimen (specimen) Performing Organization Address City/[facility]/ZIP Code Phon e Number [facility] [address] [place] [address] SERVICES [facility] [address] [place] [address] documented in this encounter Visit Diagnoses Diagnosis Chronic hepatitis C with cirrhosis (HCC- CMS) (HCC) Chronic hepatitis C without mention of h epatic coma documented in this encounter Care Teams Accounting Methods Analyst Relationship Specialty Start Date End Date Minda Velasco MD PCP - General 04/10/[address] [place] [address] documented as of this encounter
--- OUTSIDE RECORDS SUMMARY | 2021-10-02 07:47 | XMS_ITS | Encounter Summary ---
:1960 Author Organization [facility] Address [address] [place] [address] Care Team Providers Name Role Phone Minda Velasco MD Primary Care Provider Malena Rico NP Primary Care Provider Argelia Miranda MD Unavailable Encounter Details Date Type Department Care Team Description 09/09/2005 Hospital Encounter [facility] - Jeanette Alvarenga, [facility] MD 111 [facility] [address] [place], [place] [phone] [place] [address] [facility] Level [address] [place] [address] (Wo rk) Social History Tobacco [...] Procedure Name Priority Date/Time Associated Comments Diagnosis PTT Routine 09/09/2005 10:13 Results for this EDT procedure are i n the results section. PROTIME Routine 09/09/2005 10:13 Results for this EDT procedure are i n the results section. COMPLETE BLOOD COUNT Routine 09/09/2005 10:13 Res ults for this EDT procedure are i n the results section. COMPREHENSIVE Routine 09/09/2005 10:13 Results fo r this METABOLIC PANEL (CMP) EDT proced ure are in the results section. documented in this encounter Results PTT (09/09/2005 10:13 EDT) Pathologist Sig nature PTT 26Comment: Therapeutic 20 - 35 secs [facility] Heparin range: 70-105 seconds Specimen Performing Organization Address City/State/ZIP Code Phon e Number [facility] [address] [place] [address] SERVICES [facility] [address] [place] [address] PROTIME (09/09/2005 10:13 EDT) Pro Time 13.9 12.0 - 15.0 [facility] secs I.N.R. 1.0 0.9 - 1.1 [facility] Comment: Ratio Moderate Intensity Coumadin INR = 2.0-3.0 Adjustments in anticoagulant therapy dose should be based upon the INR and NOT the Pro Time. Specimen Performing Organization Address City/[facility] Code Phon e Number [facility] [address] [place] [address] SERVICES [facility] [address] [place] [address] (ABNORMAL) COMPREHENSIVE METABOLIC PANEL (09/09/2005 10:13 EDT) Pathologist Sig nature Potassium 4.4 3.5 - 5.0 mEq/L [facility] Sodium 137 136 - 145 mEq/L [facility] Chloride 104 96 - 110 mEq/L [facility] CO2 27 24 - 32 mEq/L [facility] Total Alkaline 95 38 - 126 U/L [facility] Phosphatase Bilirubin, Total <0.5 0.2 - 1.3 mg/dl [facility] AST 95 (H) 15 - 46 U/L [facility] ALT 128 (H) 9 - 52 U/L [facility] Albumin 4.2 3.4 - 4.9 g/dl [facility] Total Protein 8.0 6.5 - 8.3 g/dl [facility] Creatinine 0.8 0.7 - 1.5 mg/dl [facility] BUN 9 (L) 10 - 26 mg/dl [facility] Calcium 9.1 8.5 - 10.5 [facility] mg/dl Calculated Calcium 9.3 8.5 - 10.5 [facility] mg/dl Glucose, Serum 145 (H) 70 - 100 mg/dl [facility] Fasting? No [facility] Albumin/Globulin Ratio 1.1 [facility] Specimen Performing Organization Address City/[facility] Code Phon e Number [facility] [address] [place] [address] SERVICES [facility] [address] [place] [address] HEMAGRAM (09/09/2005 10:13 EDT) Pathologist Sig nature WBC 8.41 4.0 - 12.4 K/cmm [facility] RBC 4.47 3.86 - 5.04 M/cmm [facility] Hemoglobin 13.6 11.6 - 15.2 gm/dl [facility] HCT 40.4 34.9 - 44.4 % [facility] MCV 91 81 - 98 fl [facility] MCH 30.5 26.7 - 33.3 pg [facility] MCHC 33.7 32.1 - 35.9 gm/dl [facility] PLT 217 141 - 320 K/cmm [facility] RDW-CV 12.3 11.7 - 14.6 % [facility] Specimen Performing Organization Address City/[facility] Code Phon e Number [facility] [address] [place] [address] SERVICES [facility] [address] [place] [address] documented in this encounter Visit Diagnoses Not on filedocumented in this encounter Care Teams Neuro Intensivist Physician Relationship Specialty Start Date End Date Minda Velasco MD PCP - General 04/10/09 [address] [place], [place] [address] Malena Rico, MARY PCP - General 07/25/08 04/09/09 [facility] [address] [place], [place] [address] Argelia Miranda MD Primary Care Provider Orthopaedic Surgery 07/13/12 documented as of this encounter
--- OUTSIDE RECORDS SUMMARY | 2021-10-02 07:47 | XMS_ITS | Encounter Summary ---
:1960 Author Organization [facility] Address [address] [place] [address] Care Team Providers Name Role Phone Minda Velasco MD Primary Care Provider Malena Rico NP Primary Care Provider Encounter Details Date Type Department Care Team Description 05/01/2003 Results Only [facility] - Gaye Magana MD Maple conversion [address] [place] [address] [place] [address] Social History Tobacco Use Types Packs/Day Years Used Date Never Assessed Sex Assigned at Date Recorded Not on file documented as of this encounter Plan of Treatment Not on filedocumented as of this encounter Procedures Procedure Name Priority Date/Time Associated Diagnosis Comme nts CYTOPATHOLOGY Routine 05/01/2003 0:00 EST Results for this procedure are i n the results section . documented in this encounter Results CYTOPATHOLOGY (05/01/2003 0:00 EST) Pathology Report: CYTOPATHOLOGY REPORT [facility] Reports generated via electronic interface contain ang ginal data; however they are lacking the format of the original re port. Caution should be taken when reading/interpreting unfo rmatted reports. Name: ? SADIE BERKOWITZ ? Accession #: ? [id number] : ? 1960 (Age: 42) ??F ?Collect Date: ? 04/05 Location: ? [facility] ? Receive Date : ? 05/03/2003 Provider: ?MODESTO MAGANA MD Copy to: ? Specimen/Source: ?ThinPrep Pap Test, Cervix/ Endocervix Last Menstrual Period: ? Hormonal/Contraceptive Status: ? Depo-Provera ? SPECIMEN ADEQUACY ? Satisfactory for Evaluation - transformation zone component present GENERAL CATEGORIZATION ? Negative for Intraepithelial Lesion or Malignan cy ? Document reviewed and electronically signed by: ? ALEXUS Hernandez(ASCP) ? Report Date: ??05/08/2003 12:44 End of Report Specimen Performing Organization Address City/State/ZIP Code Phon e Number [facility] [address] [place] [address] SERVICES [facility] [address] [place] [address] documented in this encounter Visit Diagnoses Not on filedocumented in this encounter Care Teams Lighting Fixture Installer Relationship Specialty Start Date End Date Minda Velasco MD PCP - General 04/10/[address] [place] [address] Malena Rico NP PCP - General 07/25/08 04/09/09 [id number] [place], [place] [address] documented as of this encounter
--- OUTSIDE RECORDS SUMMARY | 2021-10-02 07:47 | XMS_ITS | Encounter Summary ---
:[address] [facility] Address [address] [place] [address] Care Team Providers Name Role Phone Minda Velasco MD Primary Care Provider Malena Rico NP Primary Care Provider Encounter Details Date Type Department Care Team Description 04/25/2002 Results Only [facility] - Gaey Magana MD Maple conversion [address] [place] [address] [place] [address] Social History Tobacco Use Types Packs/Day Years Used Date Never Assessed Sex Assigned at Date Recorded Not on file documented as of this encounter Plan of Treatment Not on filedocumented as of this encounter Procedures Procedure Name Priority Date/Time Associated Diagnosis Comme nts CYTOPATHOLOGY Routine 04/25/2002 0:00 EST Results for this procedure are i n the results section . documented in this encounter Results CYTOPATHOLOGY (04/25/2002 0:00 EST) Pathology Report: CYTOPATHOLOGY REPORT [facility] Reports generated via electronic interface contain ang ginal data; however they are lacking the format of the original re port. Caution should be taken when reading/interpreting unfo rmatted reports. Name: ? SADIE BERKOWITZ ? Accession #: ? [id number] : ? 1960 (Age: 41) ??F ?Collect Date: ? 04/05 Location: ? [facility] ? Receive Date : ? 04/27/2002 Provider: ?MODESTO MAGANA MD Copy to: ? Specimen/Source: ?ThinPrep Pap Test, Cervix/ Endocervix Last Menstrual Period: ? 01/30/99 Hormonal/Contraceptive Status: ? Depo-Provera ? SPECIMEN ADEQUACY ? Satisfactory for Evaluation - transformation zone component present GENERAL CATEGORIZATION ? Negative for Intraepithelial Lesion or Malignan cy ? Document reviewed and electronically signed by: ? ALEXUS Aragon(ASCP) ? Report Date: ??04/30/2002 12:40 End of Report Specimen Performing Organization Address City/State/ZIP Code Phon e Number [facility] [address] [place] [address] SERVICES [facility] [address] [place] [address] documented in this encounter Visit Diagnoses Not on filedocumented in this encounter Care Teams Seismograph Observer Relationship Specialty Start Date End Date Minda Velasco MD PCP - General 04/10/[address] [place] [address] [id number] Malena Rico NP PCP - General 07/25/08 04/09/09 [id number] [place], [place] [id number] documented as of this encounter
--- OUTSIDE RECORDS SUMMARY | 2021-10-02 07:47 | XMS_ITS | Encounter Summary ---
:1960 Author Organization [facility] Address [address] [place] [address] Care Team Providers Name Role Phone Minda Velasco MD Primary Care Provider Malena Rico NP Primary Care Provider Encounter Details Date Type Department Care Team Description 06/02/2005 Results Only [facility] - Gaye Magana MD Maple conversion [address] [place] [address] [place] [address] Social History Tobacco Use Types Packs/Day Years Used Date Never Assessed Sex Assigned at Date Recorded Not on file documented as of this encounter Plan of Treatment Not on filedocumented as of this encounter Procedures Procedure Name Priority Date/Time Associated Diagnosis Comme nts CYTOPATHOLOGY Routine 06/02/2005 0:00 EST Results for this procedure are i n the results section . documented in this encounter Results CYTOPATHOLOGY (06/02/2005 0:00 EST) Pathology Report: CYTOPATHOLOGY REPORT [facility] Reports generated via electronic interface contain ang ginal data; however they are lacking the format of the original re port. Caution should be taken when reading/interpreting unfo rmatted reports. Name: ? SADIE BERKOWITZ ? Accession #: ? [id number] : ? 1960 (Age: 44) ??F ?Collect Date: ? 03/04/2005 Location: ? [facility] ? Receive Date : ? 06/04/2005 Provider: ?MODESTO MAGANA MD Copy to: ? Specimen/Source: ? ThinPrep Pap Test, Cervix/Endocervix, processed on [employer] ThinPrep Imaging System, with manual evaluation Last Menstrual Period: ? 2004 Hormonal/Contraceptive Status: ? Depo-Provera Other: ? HPVA - HPV testing requested if ASC-US on the current ThinPrep Pap test. ? SPECIMEN ADEQUACY ? Satisfactory for Evaluation - transformation zone component present GENERAL CATEGORIZATION ? Negative for Intraepithelial Lesion or Malignan cy INTERPRETATION ? Trichomonas vaginalis present. ? Document reviewed and electronically signed by: ? ALEXUS Morrison(ASCP) ? Report Date: ??06/09/2005 07:29 End of Report Specimen Performing Organization Address City/State/ZIP Code Phon e Number [facility] [address] [place] [address] SERVICES [facility] [address] [place] [address] documented in this encounter Visit Diagnoses Not on filedocumented in this encounter Care Teams Ticket Puller Relationship Specialty Start Date End Date Minda Velasco MD PCP - General 04/10/[address] [place] [address] [id number] Malena Rico NP PCP - General 07/25/08 04/09/[address] [address] documented as of this encounter
--- OUTSIDE RECORDS SUMMARY | 2021-10-02 07:47 | XMS_ITS | Encounter Summary ---
:1960 Author Organization [facility] Address [address] [place] [address] Care Team Providers Name Role Phone Minda Velasco MD Primary Care Provider Malena Rico NP Primary Care Provider Encounter Details Date Type Department Care Team Description 03/05/2002 Results Only [facility] - Kiko Patiño MD Maple conversion [address] [facility] [address] [facility] [address] [place] [address] [place], [place] [phone] (Wo rk) Social History Tobacco Use Types Packs/Day Years Used Date Never Assessed Sex Assigned at Date Recorded Not on file documented as of this encounter Plan of Treatment Not on filedocumented as of this encounter Procedures Procedure Name Priority Date/Time Associated Diagnosis Comme nts SYPHILIS SERO (RPR) Routine 03/05/2002 13:21 Resu lts for this EST procedure are i n the results section. ALT Routine 03/05/2002 13:21 Results for this EST procedure are i n the results section. AST Routine 03/05/2002 13:21 Results for this EST procedure are i n the results section. documented in this encounter Results SYPHILIS SERO (RPR) (03/05/2002 13:21 EST) Pathologist Sig nature Syphilis Sero (RPR) NONREACT. NR Dils [facility] Specimen Performing Organization Address City/State/ZIP Code Phon e Number [facility] [address] [place] [address] SERVICES [facility] [address] [place] [address] AST (03/05/2002 13:21 EST) Pathologist Sig nature AST 25 8 - 50 U/L [facility] Specimen Performing Organization Address City/[facility]/ZIP Code Phon e Number [facility] [address] [place] [address] SERVICES [facility] [address] [place] [address] ALT (03/05/2002 13:21 EST) Pathologist Sig nature ALT 40 15 - 75 U/L [facility] Specimen Performing Organization Address City/[facility] Code Phon e Number [facility] [address] [place] [address] SERVICES [facility] [address] [place] [address] documented in this encounter Visit Diagnoses Not on filedocumented in this encounter Care Teams Gyro Compass Tester Relationship Specialty Start Date End Date Minda Velasco MD PCP - General 04/10/[address] [place] [address] Malena Rico NP PCP - General 07/25/08 04/09/09 [facility] [address] [place], [place] [address] documented as of this encounter
== END ==
PROVIDERS: PCP Family Medicine; Visit Provider Family Medicine

== ENCOUNTER 2021-10-29 12:14 | Outpatient (REF) | payer MEDICAID, SELFPAY | END 2021-10-29 12:15 | disposition home or self-care (01) | LOC: NCHCN 12:14 | PROVIDERS: PCP Family Medicine; Visit Provider Family Medicine | DX: N39.8 Other specified disorders of urinary system (principal) | CPT/HCPCS: 87086 ==

== ENCOUNTER 2022-01-21 11:44 | Outpatient (REF) | payer MEDICAID, SELFPAY ==
[2022-01-21 15:54] LABS: HCT 38.8 % (36.0-46.0); HGB 12.6 g/dL (11.2-15.7); MCH 29.7 pg (27.0-33.0); MCHC 32.5 % (32.0-36.0); MCV 92 fL (80-95); MPV 10.8 fL (8.0-11.0); Platelet Count 192 10^3/uL (130-400); RBC 4.24 10^6/uL (3.93-5.22); RDW 11.9 % (11.7-14.6); RDW-SD 39.9 fL; WBC 6.68 10^3/uL (4.4-10.8)
[2022-01-21 16:21] LABS: ALT 22 U/L (14-59); AST 20 U/L (15-37); Albumin 3.9 g/dL (3.4-5.0); Alkaline Phosphatase 63 U/L (46-116); Anion Gap 6.2 mmol/L (3-11); BUN 15 mg/dL (7-18); Bilirubin, Total 0.3 mg/dL (0.2-1.0); CO2 33.8 mmol/L (21.0-32.0); Calcium 9.1 mg/dL (8.5-10.1); Calculated LDL 109 mg/dL (<100); Chloride 101 mmol/L (98-107); Cholesterol 182 mg/dL (<200); Glucose 203 mg/dL (74-106); HDL Cholesterol 50 mg/dL (40-60); Potassium 3.8 mmol/L (3.5-5.1); Sodium 141 mmol/L (136-145); Total Protein 7.5 g/dL (6.4-8.2); Triglyceride 119 mg/dL (<150)
[2022-01-22 10:26] LABS: AFP Tumor Marker <2.5 ng/mL (<8.1)
== END 2022-01-21 11:45 | disposition home or self-care (01) ==
LOC: NCHCN 11:44
PROVIDERS: PCP Family Medicine; Visit Provider Family Medicine
DX: E11.9 Type 2 diabetes mellitus without complications (principal); F41.9 Anxiety disorder, unspecified; K74.60 Unspecified cirrhosis of liver
CPT/HCPCS: 80053; 80061; 85027; 82105

== ENCOUNTER 2022-06-17 14:44 | Outpatient (REF) | payer MEDICAID, SELFPAY ==
[2022-06-17 19:07] LABS: ALT 15 U/L (14-59); AST 17 U/L (15-37); Albumin 3.8 g/dL (3.4-5.0); Alkaline Phosphatase 61 U/L (46-116); Anion Gap 5.1 mmol/L (3-11); BUN 18 mg/dL (7-18); Bilirubin, Total 0.3 mg/dL (0.2-1.0); CO2 30.9 mmol/L (21.0-32.0); CREATININE 1.2 mg/dL (0.55-1.02); Calcium 9.1 mg/dL (8.5-10.1); Chloride 100 mmol/L (98-107); Estimated GFR 50.86 (mL/min/1.73m2); Glucose 179 mg/dL (74-106); Potassium 4.4 mmol/L (3.5-5.1); Sodium 136 mmol/L (136-145); Total Protein 7.5 g/dL (6.4-8.2)
[2022-06-17 19:11] LABS: Hemoglobin A1C 7.5 % (<5.7)
== END 2022-06-17 14:45 | disposition home or self-care (01) ==
LOC: NCHCN 14:44
PROVIDERS: PCP Family Medicine; Visit Provider Family Medicine
DX: K59.09 Other constipation (principal); B18.2 Chronic viral hepatitis C; F17.210 Nicotine dependence, cigarettes, uncomplicated; N89.8 Other specified noninflammatory disorders of vagina; R30.0 Dysuria; R73.09 Other abnormal glucose
CPT/HCPCS: 80053; 83036; 87086

== ENCOUNTER 2022-08-17 19:04 | Outpatient (REF) | payer MEDICAID, SELFPAY ==
--- OUTSIDE RECORDS SUMMARY | 2022-08-17 19:07 | XMS_ITS ---
Author Name HadleyJohn parikh Address [address] [place] [address] Organization [facility] Address [address] [place] [address] Care Team Providers Care Cap Jewel Plate Assembler Name Role Phone John Singer Unavailable [phone] PROBLEMS Type Condition ICD9-CM Code LOQ64-VH Code Onset Dates Condition Status SNOMED Code Problem Type II or unspecified type diabetes mellitus with peripheral circulatory disorders, not stated as uncontrolled E11.59 Active 918188486 Problem Ingrown left greater toenail L60.0 Active 575255218 Problem Encounter for diabetic foot exam E11.9 Active 872800336 Problem Venous insufficiency I87.2 Active 65749596 Problem Porokeratosis Q82.8 Active 710263930 Problem Hammertoe of right foot M20.41 Active [id number] 5 Problem Toe pain, right M79.674 Active 92320641 ALLERGIES Substance Reaction Event Type Date Status Motrin IB Unknown Drug Allergy Dec, Active Pamelor Unknown Drug Allergy Dec, Active Daypro Unknown Drug Allergy Dec, Active Cyclobenzaprine HCl Unknown Drug Allergy Dec, A ctive Valium Unknown Drug Allergy Dec, Active PROzac Unknown Drug Allergy Dec, Active Oxazepam serax,unknown Drug Allergy Dec, Active Ultram Unknown Drug Allergy Dec, Active Zoloft Unknown Drug Allergy Dec, Active Dilantin Unknown Drug Allergy Dec, Active Xanax Unknown Drug Allergy Dec, Active Butorphanol Tartrate stadol,unknown Drug Allergy Dec, 020 Active Paxil Unknown Drug Allergy Dec, Active antihistamine Unknown Non Drug Allergy Dec, Act wes Nabumetone relafen,unknown Drug Allergy Dec, Activ e BusPIRone HCl buspar,unknown Drug Allergy Dec, Act wes Amitriptyline HCl elavil,unknown Drug Allergy Dec, Active ENCOUNTERS Encounter Location Date Diagnosis [facility] [address] Apr, [facility] [address] Dec, Ingrown left greater toenail L60.0 ; Encounter for diabetic foot exam E11.9 ; Type II or unspecified type diabetes mellitus with peripheral circulatory disorders, not stated as uncontrolled E11.59 ; Venous insufficiency I87.2 ; Hammertoe of right foot M20.41 and Toe pain, right M79.674 [facility] [address] August, Ingrown left greater toenail L60.0 ; Encounter for diabetic foot exam E11.9 ; Type II or unspecified type diabetes mellitus with peripheral circulatory disorders, not stated as uncontrolled E11.59 ; Venous insufficiency I87.2 ; Hammertoe of right foot M20.41 and Toe pain, right M79.674 [facility] [address] Apr, Ingrown left greater toenail L60.0 ; Encounter for diabetic foot exam E11.9 ; Type II or unspecified type diabetes mellitus with peripheral circulatory disorders, not stated as uncontrolled E11.59 ; Venous insufficiency I87.2 ; Hammertoe of right foot M20.41 and Toe pain, right M79.674 [facility] [address] [place] [address] Jan, Ingrown left greater toenail L60.0 ; Encounter for diabetic foot exam E11.9 ; Type II or unspecified type diabetes mellitus with peripheral circulatory disorders, not stated as uncontrolled E11.59 ; Venous insufficiency I87.2 ; Hammertoe of right foot M20.41 and Toe pain, right M79.674 [facility] [address] [place] [address] August, Ingrown left greater toenail L60.0 ; Encounter for diabetic foot exam E11.9 ; Type II or unspecified type diabetes mellitus with peripheral circulatory disorders, not stated as uncontrolled E11.59 ; Venous insufficiency I87.2 ; Hammertoe of right foot M20.41 and Toe pain, right M79.674 [facility] [address] August, [facility] [address] Jan, Ingrown left greater toenail L60.0 ; Type II or unspecified type diabetes mellitus with peripheral circulatory disorders, not stated as uncontrolled E11.59 and Venous insufficiency I87.2 [facility] [address] [place] [address] Jan, [facility] [address] August, Type II or unspecified type diabetes mellitus with peripheral circulatory disorders, not stated as uncontrolled E11.59 ; Encounter for diabetic foot exam E11.9 ; Venous insufficiency I87.2 and Porokeratosis Q82.8 [facility] [address] [place] [address] Nov, [facility] [address] Nov, [facility] [address] [place] [address] Nov, [facility] [address] Feb, Type II or unspecified type diabetes mellitus with peripheral circulatory disorders, not stated as uncontrolled E11.59 ; Venous insufficiency I87.2 and Porokeratosis Q82.8 [facility] [address] Jul, Venous (peripheral) insufficiency, unspecified 459.81 and Diabetes mellitus type II 250.00 [facility] [address] Mar, Venous (peripheral) insufficiency, unspecified 459.81 and Diabetes mellitus type II 250.00 [facility] [address] August, Venous (peripheral) insufficiency, unspecified 459.81 and Diabetes mellitus type II 250.[address] [facility] [address] Jul, FOOT PAIN 729.5 ; Sesamoiditis 733.99 ; Venous (peripheral) insufficiency, unspecified 459.81 and Diabetes mellitus type II 250.[address] [facility] [address] Jun, [facility] [address] [place] [address] Jul, [facility] [address] [place] [address] Jun, [facility] [address] [place] [address] Apr, FOOT PAIN 729.5 ; Sesamoiditis 733.99 ; Venous (peripheral) insufficiency, unspecified 459.81 and Diabetes mellitus type II 250.00 IMMUNIZATIONS No Known Immunizations SOCIAL HISTORY Qualifiers Date Current Smoker REASON FOR REFERRAL FUNCTIONAL STATUS PLAN OF CARE Activity Details VITAL SIGNS Height 65 in 2019-12-25 Height 65 in 2019-08-15 Height 65 in 2019-04-17 Height 65 in 2019-01-02 Height 65 in 2018-08-03 Height 65 in 2018-01-25 Height 65 in 2017-08-16 Height 65 in 2015-02-19 Height 65 in 2014-07-17 Height N/A in 2013-03-14 Height 65 in 2012-08-02 Height 65 in 2011-07-07 Weight 143 lbs 2019-12-25 Weight 151.0 lbs 2019-08-15 Weight 146.0 lbs 2019-04-17 Weight 147 lbs 2019-01-02 Weight 147.8 lbs 2018-08-03 Weight 150.6 lbs 2018-01-25 Weight 151.4 lbs 2017-08-16 Weight 151.6 lbs 2015-02-19 Weight 155.8 lbs 2014-07-17 Weight 152.8 lbs 2013-03-14 Weight 152.2 lbs 2012-08-02 Weight 153 lbs 2011-07-07 BMI 23.79 kg/m2 2019-12-25 BMI 25.12 kg/m2 2019-08-15 BMI 24.29 kg/m2 2019-04-17 BMI 24.46 kg/m2 2019-01-02 BMI 24.59 kg/m2 2018-08-03 BMI 25.06 kg/m2 2018-01-25 BMI 25.19 kg/m2 2017-08-16 BMI 25.22 kg/m2 2015-02-19 BMI 25.92 kg/m2 2014-07-17 BMI 25.42 kg/m2 2013-03-14 BMI 25.32 kg/m2 2012-08-02 BMI 25.46 kg/m2 2011-07-07 Temperature 97.5 degrees Fahrenheit Temperature 98.8 degrees Fahrenheit Temperature 97.9 degrees Fahrenheit Temperature 98.5 degrees Fahrenheit Temperature 98.3 degrees Fahrenheit Temperature 98.0 degrees Fahrenheit Temperature 97.1 degrees Fahrenheit Temperature 96.7 degrees Fahrenheit Temperature 98.8 degrees Fahrenheit Temperature 97.7 degrees Fahrenheit Temperature TYMPANIC:98.4 degrees Fahrenheit 2012-08-02 Temperature TYMPANIC:98.2 degrees Fahrenheit 2011-07-07 Temperature 97.9 degrees Fahrenheit Heart Rate 72 /min 2019-12-25 Heart Rate 70 /min 2019-08-15 Heart Rate 70 /min 2019-04-17 Heart Rate 68 /min 2019-01-02 Heart Rate 63 /min 2018-08-03 Heart Rate 82 /min 2018-01-25 Heart Rate 70 /min 2017-08-16 Heart Rate 73 /min 2015-02-19 Heart Rate 76 /min 2014-07-17 Heart Rate 72 /min 2013-03-14 Heart Rate 76 /min 2012-08-02 Heart Rate 84 /min 2011-07-07 Heart Rate 81 /min 2010-04-06 Respiratory Rate 18 /min 2019-12-25 Respiratory Rate 18 /min 2019-08-15 Respiratory Rate 18 /min 2019-04-17 Respiratory Rate 18 /min 2019-01-02 Respiratory Rate 16 /min 2018-08-03 Respiratory Rate 18 /min 2018-01-25 Respiratory Rate 16 /min 2017-08-16 Respiratory Rate 18 /min 2015-02-19 Respiratory Rate 16 /min 2014-07-17 Respiratory Rate 18 /min 2013-03-14 Respiratory Rate 18 /min 2012-08-02 Respiratory Rate 18 /min 2011-07-07 Respiratory Rate 18 /min 2010-04-06 Oximetry 94 % 2019-12-25 Oximetry 94 % 2019-08-15 Oximetry 97 % 2019-04-17 Oximetry 98 % 2019-01-02 Oximetry 98 % 2018-08-03 Oximetry 97 % 2018-01-25 Oximetry 94 % 2017-08-16 Oximetry 95 % 2015-02-19 Oximetry 95 % 2014-07-17 Oximetry 97 % 2013-03-14 Oximetry 94 % 2012-08-02 Oximetry 94 % 2011-07-07 Oximetry 95 % 2010-04-06 Blood pressure systolic 149 mm Hg Blood pressure diastolic 72 mm Hg 2019-12 MEDICATIONS Medication Instructions Dosage Frequency Start Date End Date Duration Status Lantus SoloStar 100 UNIT/ML as directed Active -TEST STRIPS as directed Active -NEEDLES [place] for unit dose pen sc as directed A ctive Gabapentin 100 MG Orally Use 1 to 4 capsules at HS 1 capsule Active Vitamin B Complex - as directed Active Omeprazole 10 MG Orally Once a day 1 capsule 30 minutes before morning meal 24h 30 day(s) Active -NICOTENE PATCH 14mg Active Nitrostat 0.4 MG as directed Active Estradiol 10 % 1 tablet Active Simvastatin 10 mg orally once a day (at bedtime) 1 tab(s) Active MiraLax - as directed Ac tive Methadone HCl 10 mg orally 4 tabs daily 1 tab(s) Active Vitamin D3 50,000 intl units orally once a week 1 cap(s) Active ProAir HFA 90 mcg/inh inhaled 4 times a day 2 puff(s) 6h Active Aspirin Low Dose 81 mg orally once a day 1 tab(s) 24h Active Magnesium Oxide 400 (240 Mg) MG Orally twice a day 1 tablet as needed 12h Active Methadone HCl 10 MG/ML Orally Once a day 24h Active -LANCETS Active Losartan Potassium 25 mg orally once a day 1/2 tab(s) 24h Active Narcan 4 mg/0.1 mL intranasally once Active -ONE TOUCH GLUCOMETER Active NovoLOG 100 UNIT/ML as directed Active Zantac 150 Maximum Strength 150 MG Orally Once a day 1 tablet 24h 30 day(s) Active PROCEDURES Procedure Date Ordered Result Body Site [facility](05265) July 07, 2011 REMOVAL INGROWN TOENAIL Dec 25, 2019 REMOVAL INGROWN TOENAIL Apr 17, 2019 TRIM SKIN LESIONS, 2 TO 4 Feb 19, 2015 REMOVAL INGROWN TOENAIL Jan 02, 2019 REMOVAL INGROWN TOENAIL August 15, 2019 REMOVAL INGROWN TOENAIL Jan 25, 2018 zzPREV: DIABETES foot exam 2017-08-16 See progress n otes [facility]-xray foot, 2 views Apr 06, 2010 zzPREV: DIABETES foot exam 2018-08-03 N/A X-RAY EXAM OF FOOT Apr 06, 2010 [facility](63041) Apr 06, 2010 RESULTS Name Result Date Reference Range PREV: DIABETIC FOOT EXAM 2019-12-25 HEMOGLOBIN A1C 2018-10-03 HGA1C 7.8 CALC. MEAN GLUC HB2 reviously reported u [facility]OD-xray foot,left [facility]-xray foot,left REASON FOR VISIT 4 month f/u, referral done, 4 month f/u, referral done, pt states that she is here for ingrown nailf/u , follow up , 6 month f/u patient cancelled will r/s later 07/08, 6 month f/u, patient r/s 06/17, possible infected toe patient requested date referral done, last seen by WS on 01/02/19 for DM foot care , pt states that both of her both of her big toes are red and painful , pt states that the pain has continued since her last visit , pt states that she has been soaking her feet in epsom salts twice a day for the past couple months , DM f/u referral done, last seen by WS for DM footcare and ingrowing nails-KG, pt here for DM foot care. Left great toe nail looks inflamed. mrr , pt states that the second toe is also sore. mrr, DM footcare f/u referral done, pt last seen by WS on 08/03/18 for care of ingrowing nails, 3 month DM footcare f/u, referral done, pt last seen by WS on 08/03/18 for DM footcare, pt is to continue using compression socks and can also use Tubigrip size D as an alternativeto her more compressive socks, 6 month follow up , Patient was last seen on 01/25/18 diabetic foot and nailcare and nail boder of left great toenail removed temporarily., pt states she is here for a 6 month f/u DM footcare , pt states left great toenail border is bothering her again , A1C drawn June 2018 was 9.1 per pt , New referral requested, dm foot care Referral Done, last seen by WS 08/16/17or DM foot care , pt states that there is an issue with her left great toenail, Updating chart, consult DM, Referral Done, pt states that her feet have been swelling along with her legs. She also has some cramping, consult DM, Referral Done, Dm foot care referral done, udate chart, DM , Updating pt chart, Medical Summary, 1YR, Referral Done., DM foot care Referral done, DM footcare patient r/s 01/28, Nail and Foot care, Referral Done, dm yearly check up, Referral Done, pt states that she has foot pain caused by neuropathy, pt has seen a vascular doctor for an ultrasound on her legs/feet and they saw no blockages, F/U, pt states she is here for a DM Footcheck and some corns, Meds reviewed by pt,no longer taking: Protonix, Xopenex, Metformin 400mg--KW, dm footcheck--friend cancelled due totransportation 01/31, DM footcare, Medications reviewed w/pt,med. list is correct-tp, DM foot care-cx'd by pt 06/26 AP, DM with footpain/swelling, Pt. states she has been applying Gold [place] Lotion onher feet which has helped with the itching-TE, Meds reviewed by pt,no longer taking:Aclyclovir,Prilosec, Protonix, Insulin Aspart., Meds reviewed by pt,new meds: Prevacid 40 mg/ once a day-TE, chart updates, Shoes, Information needed, DM / foot pain, pain in both feet, mostly in the left foot, has had for at least five years, progressively getting worse, , Medications reviewed w/pt,med. list is correct (DARSHAN) Insurance Providers Health Insurance Type Health Plan Insurance Address Health Plan Insurance Phone Health Plan Insurance Name Health Plan Coverage Dates Member ID Patient Relationship to Subscriber Patient Address Patient Phone Patient Name Patient Date of Subscriber ID Subscriber Name Subscriber Date of Group No SELF PAY NO INSURANCE [address] ST[address] [facility] [id number] SELF PAY NO INSURANCE self LINNEA BERKOWITZ [id number] MED[place]ID [place] [facility] [id number] MED[place]ID [place] self LINNEA BERKOWITZ [id number]
--- OUTSIDE RECORDS SUMMARY | 2022-08-17 19:07 | XMS_ITS ---
Author Name Rip Dawn Address [address], [place] [id number] [facility] Address [address], [place] [id number] Care Team Providers Care Account Solutions Analyst Name Role Phone Rip Dawn Unavailable [phone] PROBLEMS Type Condition ICD9-CM Code [id number] Code Onset Dates Condition Status SNOMED Code Problem Uterine prolapse N81.4 Active Problem Prolapse of uterus N81.4 Active 84685 005 Problem Neoplasm of unspecified nature of bone, soft tissue, and skin D49.2 Active 02307031 Problem Cystocele, midline N81.11 Active 75060 3003 Problem Hypertrophy of nasal turbinates J34.3 Active 49007353 Problem Tobacco use disorder F17.200 Active 238441091 Problem Rectocele N81.6 Active 076871397 Problem Unspecified cirrhosis of liver K74.60 Active 96348768 Problem Other cirrhosis of liver K74.69 Active 86969294 Problem Atrophic vaginitis N95.2 Active 43250 000 Problem 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 Active 37746087 Problem 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 Active 42973624 Problem Acquired deflected nasal septum J34.2 Active 60753158 Problem Common bile duct dilation K83.8 Active 835631715 Problem detention (current) use of insulin Z79.4 Active 738160142 Problem Type 2 diabetes mellitus without complications E11.9 Active 486080964 Problem Narcotic dependence F11.20 Active 7554 4000 ALLERGIES Substance Reaction Event Type Date Status antihistamine Unknown Non Drug Allergy Nov, Act wes Motrin stomach bleed if takes too much Drug Allergy Nov, Active Pamelor didn't seem to work Drug Allergy Nov, A ctive Serax cannot tolerate Drug Allergy Nov, Activ e Dilantin unsure of reaction Drug Allergy Nov, Ac tive Elavil unsure of reaction Drug Allergy Nov, Ac tive BuSpar very tired, dry mouth Drug Allergy Nov, Active Prozac unsure of reaction Drug Allergy Nov, Ac tive Daypro unsure of reaction Drug Allergy Nov, Ac tive Stadol feels foggy Drug Allergy Nov, Active Flexeril very tired Drug Allergy Nov, Active Paxil unsure of reaction Drug Allergy Nov, Ac tive Valium cannot tolerate Drug Allergy Nov, Activ e Xanax cannot tolerate Drug Allergy Nov, Activ e Zoloft unsure of reaction Drug Allergy Nov, Ac tive Relafen unsure of reaction Non Drug Allergy Nov, Active ENCOUNTERS Encounter Location Date Diagnosis [address] [id number] Nov, 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 [id number] Jul, Urgency of urination R39.15 and Atrophic vaginitis N95.[address] [id number] 13 Mar, [address] [id number] Mar, [address] [id number] 17 Jan, 2021 Acute cystitis without hematuria N30.[address] [place] [id number] 14 Jan, 2021 Postoperative follow-up Z09 and Dysuria R30.[address] [id number] Nov, Postoperative pain G89.18 ; Cystocele, midline N81.11 ; Uterine prolapse N81.4 and Rectocele N81.[address] [id number] 18 Nov, [address] [id number] 13 Nov, [address] [id number] 13 Nov, 2020 Rectocele N81.6 ; Uterine prolapse N81.4 ; Cystocele, midline N81.11 ; Tobacco use disorder F17.200 ; Narcotic dependence F11.20 ; Type 2 diabetes mellitus without complications E11.9 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.[address] [id number] Oct, [address] [id number] Oct, [address] [id number] Oct, [address] [id number] 30 Sep, [address] [id number] 26 Sep, 2019 Common bile duct dilation K83.8 and Other cirrhosis of liver K74.[address] [id number] 18 Sep, [address] [id number] 17 Sep, 2019 Encounter for pre-operative examination Z01.[address] [id number] 16 Sep, 2019 Unspecified cirrhosis of liver K74.60 ; Chronic viral hepatitis C B18.2 ; Encounter for screening for malignant neoplasm of rectum Z12.12 and Encounter for screening for malignant neoplasm of colon Z12.11 [facility] [address] [id number] Jun, [address] [id number] Jul, [address] [id number] Jul, Cystocele, midline N81.11 ; Uterine prolapse N81.4 ; Tobacco use disorder F17.200 ; Encounter for screening for malignant neoplasm of cervix Z12.4 ; Rectocele N81.6 ; Type 2 diabetes mellitus with diabetic peripheral angiopathy without gangrene, unspecified whether skilled nursing insulin use E11.51 and Screening for malignant neoplasm of cervix Z12.4 [facility] [address] [facility] [address] [place], [place] [id number] Jun, Rip Dawn MD [address] [place], [place] [id number] Nov, Cystocele, midline 618.01 ; Uterine prolapse NOS 618.1 and Fibroids, intramural 218.1 Rip Dawn MD [address] [place], [place] [id number] Dec, Rip Dawn MD [address] [place], [place] [id number] Dec, Cystocele 618.01 and Uterine prolapse NOS 618.1 [facility] 600 [facility] [address] [place] [id number] May, Benign neoplasm of pharynx, unspecified 210.9 and Deviated nasal septum 470 [facility] [address] [id number] Apr, Cyst of pharynx 478.26 [facility] [address] [place] [id number] Feb, Neoplasm of unspecified nature of bone, soft tissue, and skin 239.2 ; Acquired deflected nasal septum 470 ; Hypertrophy of nasal turbinates 478.0 and Tobacco use disorder 305.1 IMMUNIZATIONS No Known Immunizations SOCIAL HISTORY Qualifiers Date Current Smoker REASON FOR REFERRAL FUNCTIONAL STATUS PLAN OF CARE Activity Details VITAL SIGNS Height 65 in 2021-12-02 Height 65 in 2021-07-03 Height 65 in 2021-01-15 Height 65 in 2020-11-14 Height 65 in 2019-09-18 Height 65 in 2017-07-05 Height 65 in 2014-11-25 Height 65 in 2013-12-14 Height 65 in 2012-05-22 Height 65 in 2012-04-20 Weight 132.0 lbs 2021-12-02 Weight 135.4 lbs 2021-07-03 Weight 132.8 lbs 2021-01-15 Weight 137 lbs 2020-11-14 Weight 149.4 lbs 2019-09-18 Weight 152 lb 8 oz lbs 2017-07-05 Weight 152 lbs 2014-11-25 Weight 151 lb 0 oz lbs 2013-12-14 Weight 153 lbs 2012-05-22 Weight 153 lbs 2012-04-20 Weight 153 lbs 2012-02-10 Temperature 98.1 degrees Fahrenheit Heart Rate 75 /min 2019-09-18 Heart Rate 72 /min 2012-05-22 Heart Rate 80 /min 2012-04-20 Heart Rate 74 /min 2012-02-10 Oximetry 96 2019-09-18 BMI 21.96 kg/m2 2021-12-02 BMI 22.53 kg/m2 2021-07-03 BMI 22.10 kg/m2 2021-01-15 BMI 22.80 kg/m2 2020-11-14 BMI 24.86 kg/m2 2019-09-18 BMI 25.37 kg/m2 2017-07-05 BMI 25.29 kg/m2 2014-11-25 BMI 25.12 kg/m2 2013-12-14 BMI 25.46 kg/m2 2012-05-22 BMI 25.46 kg/m2 2012-04-20 Blood pressure systolic 146 mm Hg Blood pressure diastolic 72 mm Hg 2021-11 MEDICATIONS Medication Instructions Dosage Frequency Start Date End Date Duration Status MiraLax 17 GM Orally Once a day 1 packet mixed with 8 ounces of fluid 24h 30 day(s) Active Nitroglycerin 0.4 MG DISSOLVE 1 TABLET UNDER THE TONGUE EVERY 5 MINUTES UP TO THREE TIMES DIRECTED FOR CHEST PAIN. CALL 911 AFTER FIRST DOSE 8 Active ProAir HFA 108 (90 Base) MCG/ACT INHALE 2 PUFFS BY MOUTH EVERY 4 HOURS IF NEEDED 50 Active Simvastatin 10 MG TAKE 1 TABLET BY MOUTH EVERY DAY 90 Active Lantus SoloStar 100 UNIT/ML ADMINISTER 25 UNITS UNDER THE SKIN EVERY NIGHT Diagnosis Unavailable 55 Active Narcan 4 MG/0.1ML SPRAY 1 SPRAY INTO BOTH NOSTRILS DIRECTED 1 Active B Complex - TAKE ONE CAPSULE BY MOUTH ONCE DAILY 90 Active BD Pen Needle Mini U/F 31G X 5 MM USE TO INJECT HUMALOG AND LANTUS SUBCUTANEOUSLY FOUR TIMES DAILY Diagnosis Unavailable 50 Active Magnesium Oxide 400 (240 Mg) MG TAKE 1 TO 2 TABLETS BY MOUTH DAILY 90 Active Ibuprofen 600 MG 13 Active Methadone HCl 5 MG/5ML Orally every 12 hrs 5 ml as needed 12h Active Nicotine 14 MG/24HR APPLY 1 PATCH ONCE DAILY TO HAIRLESS AREA ROTATE SKIN SITES 14 Not-Valentino ing oxyCODONE HCl 5 MG 5 Not-Valentino ing buPROPion HCl ER (SR) 100 MG TK 1 T PO D FOR 1 WEEK. INCREASE TO 2 XD 60 Not-Valentino ing Cephalexin 500 MG TAKE 1 CAPSULE BY MOUTH THREE TIMES DAILY 5 Not-Valentino ing Vitamin D3 1.25 MG (43969 UT) TAKE ONE CAPSULE BY MOUTH ONCE A WEEK 84 Active Losartan Potassium 25 MG TAKE 1/2 TABLET BY MOUTH EVERY DAY 90 Active Polyethylene Glycol 3350 17 GM/SCOOP 14 Active Omeprazole 20 MG TAKE 1 CAPSULE BY MOUTH DAILY 90 Not-Valentino ing NovoLOG FlexPen 100 UNIT/ML INJECT UP TO 10 UNITS SUBCUTANEOUSLY PER MEAL PER SLIDING SCALE 100 Active Nicotine Polacrilex 4 MG CHEW 1 PICE OF GUM EVERY 1 TO 2 HOURS MAXIMUM OF 12 PER 24 HOURS 9 Not-Valentino ing FreeStyle Serene 2 Sensor - USE DIRECTED EVERY 14 DAYS Diagnosis Unavailable 14 Active OneTouch Delica Plus [id number] - USE TO TEST BLOOD GLUCOSE FOUR TIMES DAILY 25 Active PROCEDURES Procedure Date Ordered Result Body Site URINALYSIS NONAUTO W/O SCOPE Jan 15, 2021 BIOPSY OF THROAT Apr 20, 2012 RESULTS Name Result Date Reference Range CULTURE URINE 2021-01-15 CBC, WITH AUTO DIFF 2020-12-02 WBC 7.7 4.8-10.8 RBC 4.70 4.20-5.40 HGB 13.7 12.0-16.0 HCT 43.2 37.0-47.0 MCV 91.9 81.0-99.0 MCH 29.1 27.0-31.0 MCHC 31.7 32.0-37.0 RDW-CV 12.1 11.5-14.5 PLT 185 130-400 MPV 10.1 7.4-10.4 NE% 67.8 42.2-75.2 LY% 24.1 20.5-51.1 MO% 6.2 1.7-9.3 EO% 1.0 0.9-2.9 BA% 0.6 0.0-0.8 NE# 5.2 1.4-6.5 LY# 1.9 1.2-3.4 MO# 0.5 0.1-0.6 EO# 0.1 0.0-0.2 BA# 0.1 0.0-0.2 TYPE AND SCREEN 2020-12-02 ABORh B POSITIVE ANTIBODY SCREEN NEGATIVE NEGATIVE TS COMM Pre-op Type & Screen specimens are valid for 7 days. If the patient has been transfused or been within the past 3 months, the specimen is only valid for 3 days. URINALYSIS, DIP ONLY 2020-12-02 COLOR Malena YELLOW CLARITY Clear CLEAR SPECIFIC GRAVITY 1.020 1.000-1.030 pH 6.0 5.0-8.0 PROTEIN Negative NEGATIVE GLUCOSE Negative NEGATIVE KETONES Negative NEGATIVE UROBILINOGEN 0.2 E.U./dL 0.2 E.U./DL BILIRUBIN Negative NEGATIVE BLOOD Small NEGATIVE LEUKOCYTES Negative NEGATIVE NITRITES Negative NEGATIVE SURGICAL PATH 2020-12-02 CBC, WITH AUTO DIFF 2019-09-18 WBC 7.7 4.8-10.8 RBC 4.47 4.20-5.40 HGB 13.0 12.0-16.0 HCT 39.6 37.0-47.0 MCV 88.6 81.0-99.0 MCH 29.1 27.0-31.0 MCHC 32.8 32.0-37.0 RDW-CV 11.9 11.5-14.5 PLT 184 130-400 MPV 10.1 7.4-10.4 NE% 64.9 42.2-75.2 LY% 26.9 20.5-51.1 MO% 6.0 1.7-9.3 EO% 1.2 0.9-2.9 BA% 0.7 0.0-0.8 NE# 5.0 1.4-6.5 LY# 2.1 1.2-3.4 MO# 0.5 0.1-0.6 EO# 0.1 0.0-0.2 BA# 0.1 0.0-0.2 ALPHA FETOPROTEIN, TUMOR MAR JH ([id number]) 2019-09-18 AFP, Serum, Tumor Marker 2.9 0.0 -8.3 COMPREHENSIVE METABOLIC PROFILE 2019-09-03 6 SODIUM 139 136-145 POTASSIUM 4.3 3.5-5.1 CHLORIDE 99 98-111 CO2 29 22-32 CALCIUM 9.9 8.9-10.3 BUN 12 8-26 CREATININE 0.72 0.44-1.00 TOTAL BILIRUBIN 0.3 0.3-1.2 TOTAL PROTEIN 7.4 6.5-8.1 ALBUMIN 4.1 3.5-5.0 ALKALINE PHOS 60 32-92 AST 22 15-41 ALT 19 14-54 A/GAP 11.0 3.0-12.0 B/CR 16.7 8.0-20.0 OSMOLARITY 277 275-295 GLOBULIN 3.3 2.3-3.5 A/G 1.2 1.0-2.5 HCV RNA, Qn (Rfx [place] w/Seri al Monitoring)[id number] 0927-06-16 Hepatitis C Quantitation HCV Not Detected HCV log10 UPTCAL HCV Genotype RTNI FERRITIN 2019-09-18 FERRITIN 44.3 11.0-307.0 IRON/TRANSFERRIN PANEL 2019-09-18 IRON 64 28-170 TRANSFERRIN 232 192-382 TIBC 325 250-400 IRON SATURATION 20 20-55 HEPATITIS A TOTAL ANTIBODY ([id number]) 2019-09-18 Hep A Ab, Total Positive Negative HEPATITIS B SURFACE ANTIBODY 2019-09-18 US ABDOMINAL LIMITED 2019-09-28 Pap Lb, HPV-hr 2017-07-05 . Note: Clinical history: DIAGNOSIS: Neg RIO neg HR HPV Specimen adequacy: Additional comment: Recommendation: Performed by: Electronically signed by: Test ordered: Maturation index: Amended report: Addendum: QC reviewed by: Cytology history: Special procedure: QA comment: Diagnosis provided by: Source: Pathologist provided ICD9: Clinician provided ICD9: Interpretation HPV, high-risk LBP CPT Code Automation REASON FOR VISIT 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 perineum rash/burning, 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 follow up urinary hesitency and hysterectomy, 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 follow up urinary hesitency and hysterectomy, 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 post op concern, appt w/Dr Dawn, post op concerns , UTI, 6 week post-op, Vaginal hysterectomy, anterior posterior repair, possible enterocele repair, uteroscral plication, psossible salpingo-oophorectomy bilat, *bowel concerns , ? postpone surgery or amend, * update, surgery, 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 Uterine Prolapse - referred by Margret, 3 month F/U EGD/ COLO, GI-colo/EGD, GI-EGD/COLO, procedure , MRI, rtng call?, RS colo 10/01 CALL RETURNED , false results, Covid order, GI HEP C, chronic viral, w/o hepatic coma, GI HEP C, chronic viral, w/o hepatic coma, Pre load, 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 2 week post op, surgery, Pre-op visit with Anesthesia consult., 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 Urinary incontinence Ref from Minda Velasco, pre load, 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 Urinary incontinence Ref from Minda Velasco, 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 EST FIBROIDS, 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 NEW PROBLEM, 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 NEW REF MINDA VELASCO MD, tonsillar mass, right tonsil lesion, rt tonsil lesion/septal Insurance Providers Health Insurance Type Health Plan Insurance Address Health Plan Insurance Phone Health Plan Insurance Name Health Plan Coverage Dates Member ID Patient Relationship to Subscriber Patient Address Patient Phone Patient Name Patient Date of Subscriber ID Subscriber Name Subscriber Date of Group No [place] [address] [facility] [id number] [place] self Ermelind a Zana [id number] [facility] [place] [address] [facility] [phone] [address] [facility] [place] self Ermelind a Spann [id number]
[2022-08-17 19:18] LABS: HCT 38.7 % (36.0-46.0); HGB 12.6 g/dL (11.2-15.7); MCHC 32.6 % (32.0-36.0); MCV 89 fL (80-95); MPV 11.2 fL (8.0-11.0); Platelet Count 197 10^3/uL (130-400); RBC 4.35 10^6/uL (3.93-5.22); RDW 12.6 % (11.7-14.6); RDW-SD 41.4 fL; WBC 6.97 10^3/uL (4.4-10.8)
[2022-08-17 20:02] LABS: ALT 20 U/L (14-59); AST 16 U/L (15-37); Albumin 3.9 g/dL (3.4-5.0); Alkaline Phosphatase 54 U/L (46-116); BUN 13 mg/dL (7-18); Bilirubin, Total 0.3 mg/dL (0.2-1.0); CREATININE 0.9 mg/dL (0.55-1.02); Calcium 9.4 mg/dL (8.5-10.1); Chloride 103 mmol/L (98-107); Estimated GFR 71.39 (mL/min/1.73m2); Glucose 146 mg/dL (74-106); Magnesium 1.7 mg/dL (1.8-2.4); Sodium 142 mmol/L (136-145); TSH 0.88 uIU/mL (0.36-3.74); Total Protein 7.3 g/dL (6.4-8.2); Vitamin B12 386 pg/mL (193-986)
[2022-08-20 08:58] LABS: AFP Tumor Marker <2.5 ng/mL (<8.1)
== END 2022-08-17 19:05 | disposition home or self-care (01) ==
LOC: NCHCN 19:04
PROVIDERS: PCP Family Medicine; Visit Provider Family Medicine
DX: Z91.81 History of falling (principal); E11.9 Type 2 diabetes mellitus without complications; K74.60 Unspecified cirrhosis of liver; K31.89 Other diseases of stomach and duodenum
CPT/HCPCS: 80053; 85027; 82105; 82607; 83735; 84443; 87086

== ENCOUNTER 2022-08-24 15:42 | Outpatient (REF) | payer MEDICAID, SELFPAY ==
[2022-08-24 16:39] LABS: Bacteria Negative HPF (Negative); C & S Indicated? No; Casts Negative LPF (Negative); Crystals Negative HPF (Negative); Epithelial Cells Few HPF (Negative); Mucus Negative (Negative); WBC 0-2 HPF (0-5)
== END 2022-08-24 15:43 | disposition home or self-care (01) ==
LOC: NCHCN 15:42
PROVIDERS: PCP Family Medicine; Visit Provider Family Medicine
DX: R31.9 Hematuria, unspecified (principal)
CPT/HCPCS: 81015

== ENCOUNTER 2023-01-18 14:00 | Outpatient (REF) | payer MEDICAID, SELFPAY | END 2023-01-18 14:01 | disposition home or self-care (01) | LOC: NCHCN 14:00 | PROVIDERS: PCP Family Medicine; Visit Provider Family Medicine | DX: I83.028 Varicose veins of left lower extremity with ulcer other part of lower leg (principal) | CPT/HCPCS: 87077; 87070; 87186; 87205 ==

== ENCOUNTER 2023-01-21 18:59 | Outpatient (REF) | payer MEDICAID, SELFPAY ==
[2023-01-21 16:11] LABS: HCT 35.1 % (36.0-46.0); HGB 11.3 g/dL (11.2-15.7); MCH 26.5 pg (27.0-33.0); MCHC 32.2 % (32.0-36.0); MCV 82 fL (80-95); MPV 11.7 fL (8.0-11.0); Platelet Count 207 10^3/uL (130-400); RBC 4.26 10^6/uL (3.93-5.22); RDW 15.1 % (11.7-14.6); RDW-SD 45.3 fL; WBC 6.16 10^3/uL (4.4-10.8)
[2023-01-21 16:29] LABS: ALT 14 U/L (14-59); AST 16 U/L (15-37); Albumin 3.5 g/dL (3.4-5.0); Alkaline Phosphatase 59 U/L (46-116); Anion Gap 7.9 mmol/L (3-11); BUN 17 mg/dL (7-18); Bilirubin, Total 0.5 mg/dL (0.2-1.0); C-Reactive Protein 0.41 mg/dL (0.0-0.3); CO2 29.1 mmol/L (21.0-32.0); Calcium 9.4 mg/dL (8.5-10.1); Chloride 100 mmol/L (98-107); Estimated GFR 62.91 (mL/min/1.73m2); Glucose 136 mg/dL (74-106); NT-proBNP 12437 pg/mL (<300); Potassium 4.5 mmol/L (3.5-5.1); Sodium 137 mmol/L (136-145); Total Protein 7.2 g/dL (6.4-8.2)
== END 2023-01-21 19:00 | disposition home or self-care (01) ==
LOC: NCHCN 18:59
PROVIDERS: PCP Family Medicine; Visit Provider Family Medicine
DX: R63.4 Abnormal weight loss (principal)
CPT/HCPCS: 80053; 85027; 83880; 86140

== ENCOUNTER → 2023-04-11 02:29 | Outpatient (CLI) | payer MEDICAID, SELFPAY ==
--- NOTE | 2023-04-11 14:42 | DI.US_ITS ---
APPROVED REPORT EXAM: Comprehensive 2D, Doppler, and color-flow Echocardiogram Patient Location: Out-Patient [facility] Assistant: Jeff Sky RDCS (AE) Indications: limb edema Conclusion 1. The atria are moderately dilated,ventricles are moderately dilated. 2. Severe global LV hypokinesis,EF 20-25%. Moderate RV systolic dysfunction. 3. Anatomically normal valves. Moderate MR. Moderate to severe TRwithout pulmonary hypertension. 4. No intracardiac shunt 5. Small pericardial effusion. Pleural effusion incidentally noted. 6. Compared to the study of 08/2015, the LVEF has dropped significantly from 60-65%. Wall motion Left Ventricle Left ventricle is moderately dilated. Left ventricular systolic function is severely decreased. There is normal left ventricular wall thickness. There is global hypokinesis of the left ventricle. The le ft ventricular diastolic function is abnormal. There is no ventricular septal defect visualized. LVEF is 19%. Right Ventricle Right ventricle is moderately dilated. Right ventricle is moderately hypokinetic. Atria Left atrium is severely dilated. Right atrium is severely dilated. The interatrial septum is intact w ith no evidence for an atrial septal defect. Aortic Valve The aortic valve is normal in structure. Aortic valve is trileaflet. There is no aortic valvular sten osis. No aortic regurgitation is present. Mitral Valve Mitral valve leaflets are mildly thickened. No evidence of mitral valve stenosis. Moderate mitral reg urgitation. Tricuspid Valve The tricuspid valve is normal in structure. There is no tricuspid valve stenosis. Moderate to severe tricuspid regurgitation. The RVSP is 26.1 mmHg. Pulmonic Valve The pulmonary valve is normal in structure. There is no pulmonic valvular stenosis. Mild to moderate pulmonic regurgitation. Great Vessels The aortic root is normal in size. The ascending aorta is normal in size. Aortic arch is not well vis ualized. The IVC collapses <50% with inspiration. Pericardium Trace pericardial effusion. Moderate right pleural effusion. 2D Dimensions IVSD d PLAX 0.71 cm F: 0.6-1.0 Ao Root d 3.32 cm F: 2.7 - 3.3 LVPW d PLAX 0.93 cm F: 0.6 - 1.0 Ao Asc Diam d 3.04 cm F: 2.3 - 3.1 LVID d PLAX 5.99 cm F: 3.8 - 5.2 LVDs 5.46 cm F: 2.2 - 3.5 LV EF Teichholz 19.2 % FS 8.88 % LV EDV (Teich) 179.1 mL LV ESV (Teich) 144.7 mL Stroke Vol Index (Teich) 22.49 M-Mode TAPSE 1.50 cm (M/F) >1.7 Auto EF LV EDV A4C 124.5 mL LV EDV A2C 208.9 mL LV EDV BP LV ESV A4C 101.0 mL LV ESV A2C 168.8 mL LV ESV BP LVEF(%) A4C 18.9 % LVEF(%) A2C 19.2 % LVEF(%) BP LV SV A4C 23.5 ml LV SV A2C 40.1 ml LV SV BP LV CO A4C 2.0 L/min LV CO A2C 3.5 L/min LV CO BP HR A4C 87.17 BPM HR A2C 88.24 BPM LV EDV Index (BP) LA Volume LA Length A4C 6.1 cm LA Length A2C LA Area A4C s 21.95 cm2 LA Area A2C s LA Vol A4C A-L 66.78 mL LA Vol A2C A-L LA Vol Biplane A-L LA Vol A4C MOD 66.0 mL LA Vol A2C MOD LA Vol BP MOD RA Volume RA Area A4C 27.7 cm2 RA ESV A4C (A-L) 110.5mL RA Vol/BSA A4C A-L RA Length A4C 5.9 cm RA ESV A4C (MOD) 109.1mL LV Diastology MV E' medial 0.036 (>0.07 m/s) MV E Vmax 0.60 (0.4-1.3 m/s) MV E/E' MED 16.67 (<14) MV A Vmax 0.30 (0.4-1.3 m/s) MV E' lateral 0.036 (>0.1 m/s) E/A Ratio 2.0 MV E/E' LAT 16.42 (<14) MV E' Average 0.036 m/s MV E/E'(average) 16.55 Aortic Valve AoV Vmax 0.95 m/s LVOT Vmax 0.65 m/s AoV Peak Grad 3.6 mmHg LVOT Peak Grad 1.7 mmHg AoV Area (Vmax) 1.75 cm2 LVOT VTI 0.101 m AoV VTI 0.170 m LVOT Mean Grad 0.8 mmHg AoV Mean Oneal. 0.71 m/s LVOT SV 25.90 mL AoV Mean Grad 2.3 mmHg LVOT Diam s 1.80 cm AoV Area (VTI) 1.52 cm2 Velocity Ratio 0.68 Mitral Valve MV DT 100 (160-240 msec) Pulmonary Valve PV Vmax 0.56 (0.5-1.5 m/s) RVOT Vmax 0.33 m/s PV Peak Grad 1.3 mmHg RVOT Peak Gr. 0.4 mmHg PV Mean Oneal 0.44 m/s RVOT VTI 0.069 m PV Mean Grad 0.9 mmHg RVOT Mean Gr. 0.3 mmHg Tricuspid Valve RA Pressure 8.00 mmHg TR Vmax 2.13 m/s TR Peak Grad 18.0 mmHg RVSP (TR) 26.1 mmHg
== END ==
PROVIDERS: PCP Family Medicine; Visit Provider Family Medicine
DX: I31.39 Other pericardial effusion (noninflammatory) (principal); I51.89 Other ill-defined heart diseases; I51.7 Cardiomegaly; R60.0 Localized edema
CPT/HCPCS: 93306

== ENCOUNTER 2023-04-14 13:45 | Outpatient (REF) | payer MEDICAID, SELFPAY ==
[2023-04-14 16:27] LABS: Abs Immature Grans 0.03 10^3/uL (0.0-0.06); Absolute Basophil Count 0.05 10^3/uL (0.0-0.2); Absolute Eosinophil Count 0.06 10^3/uL (0.0-0.7); Absolute Lymphocyte Count 0.79 10^3/uL (1.2-3.4); Absolute Monocyte Count 0.66 10^3/uL (0.1-0.8); Absolute Neutrophil Count 7.07 10^3/uL (1.2-6.7); Basophils % 0.6; Eosinophils % 0.7; HCT 36.1 % (36.0-46.0); HGB 11.5 g/dL (11.2-15.7); Immature Grans % 0.3; Lymphocytes % 9.1; MCH 25.7 pg (27.0-33.0); MCHC 31.9 % (32.0-36.0); MCV 81 fL (80-95); MPV 11.4 fL (8.0-11.0); Monocytes % 7.6; Neutrophils % 81.7; Platelet Count 213 10^3/uL (130-400); RBC 4.47 10^6/uL (3.93-5.22); RDW 17.2 % (11.7-14.6); RDW-SD 50.4 fL; WBC 8.66 10^3/uL (4.4-10.8)
[2023-04-14 17:21] LABS: ALT 20 U/L (14-59); AST 27 U/L (15-37); Albumin 3.3 g/dL (3.4-5.0); Alkaline Phosphatase 61 U/L (46-116); Anion Gap 6.2 mmol/L (3-11); BUN 22 mg/dL (7-18); Bilirubin, Total 0.9 mg/dL (0.2-1.0); CO2 28.8 mmol/L (21.0-32.0); Calcium 9.1 mg/dL (8.5-10.1); Chloride 102 mmol/L (98-107); Estimated GFR 62.91 (mL/min/1.73m2); Glucose 190 mg/dL (74-106); Magnesium 2.1 mg/dL (1.8-2.4); NT-proBNP 16864 pg/mL (<300); Sodium 137 mmol/L (136-145); TSH (W/Ref FT4) 1.12 uIU/mL (0.36-3.74); Total Protein 6.8 g/dL (6.4-8.2)
[2023-04-18 09:22] LABS: AFP Tumor Marker <2.5 ng/mL (<8.1)
== END 2023-04-14 13:46 | disposition home or self-care (01) ==
LOC: NCHCN 13:45
PROVIDERS: PCP Family Medicine; Visit Provider Family Medicine
DX: R60.0 Localized edema (principal); K74.60 Unspecified cirrhosis of liver; R63.4 Abnormal weight loss
CPT/HCPCS: 80053; 82105; 83036; 83735; 83880; 84443; 85025

== ENCOUNTER 2023-05-12 13:50 | Outpatient (REF) | payer MEDICAID, SELFPAY ==
[2023-05-12 15:30] LABS: HCT 37.4 % (36.0-46.0); HGB 11.7 g/dL (11.2-15.7)
[2023-05-12 16:00] LABS: Anion Gap 7.8 mmol/L (3-11); BUN 26 mg/dL (7-18); CO2 32.2 mmol/L (21.0-32.0); CREATININE 1.2 mg/dL (0.55-1.02); Calcium 9.7 mg/dL (8.5-10.1); Chloride 101 mmol/L (98-107); Estimated GFR 50.55 (mL/min/1.73m2); Glucose 170 mg/dL (74-106); Potassium 4.3 mmol/L (3.5-5.1); Sodium 141 mmol/L (136-145)
[2023-05-12 16:36] LABS: NT-proBNP 11899 pg/mL (<300)
== END 2023-05-12 13:51 | disposition home or self-care (01) ==
LOC: NCHCN 13:50
PROVIDERS: PCP Family Medicine; Visit Provider Family Medicine
DX: I42.9 Cardiomyopathy, unspecified (principal)
CPT/HCPCS: 80048; 83880; 85014; 85018

== ENCOUNTER 2023-06-07 12:58 | Outpatient (CLI) | payer MEDICAID, SELFPAY ==
--- NOTE | 2023-06-07 12:45 | RT.EKG_ITS ---
APPROVED REPORT Exam: Resting ECG Reason for Exam: CAD Patient Location: O HR:68 bpm ECG Measurements Heart Rate 68 AXIS ND 192 P 54 QRSd 131 QRS 143 QT 459 T 39 QTc 489 Conclusion Sinus rhythm...normal P axis, V-rate 50- 99 Probable left atrial enlargement...P >50mS, <-0.10mV V1 Nonspecific intraventricular conduction delay...QRSd >115mS, not LBBB/RBBB Right axis Old anterior infarct
== END 2023-06-07 12:59 | disposition home or self-care (01) ==
LOC: DI.CARD 12:59
PROVIDERS: PCP Family Medicine; Visit Provider Internal Medicine Cardiovascular Disease
DX: Z86.79 Personal history of other diseases of the circulatory system (principal); I42.9 Cardiomyopathy, unspecified
CPT/HCPCS: 93010

== ENCOUNTER 2023-07-21 17:16 | Outpatient (REF) | payer MEDICARE, MEDICAID, SELFPAY ==
[2023-07-21 18:14] LABS: Anion Gap 6.5 mmol/L (3-11); BUN 28 mg/dL (7-18); CO2 32.5 mmol/L (21.0-32.0); CREATININE 1.2 mg/dL (0.55-1.02); Calcium 9.1 mg/dL (8.5-10.1); Chloride 102 mmol/L (98-107); Estimated GFR 50.23 (mL/min/1.73m2); Glucose 173 mg/dL (74-106); HCT 37.9 % (36.0-46.0); HGB 11.9 g/dL (11.2-15.7); MCH 26.8 pg (27.0-33.0); MCHC 31.4 % (32.0-36.0); MCV 85 fL (80-95); MPV 10.9 fL (8.0-11.0); Magnesium 2.1 mg/dL (1.8-2.4); Platelet Count 167 10^3/uL (130-400); Potassium 3.8 mmol/L (3.5-5.1); RBC 4.44 10^6/uL (3.93-5.22); RDW-SD 63.7 fL; Sodium 141 mmol/L (136-145); WBC 6.01 10^3/uL (4.4-10.8)
[2023-07-21 18:37] LABS: Hemoglobin A1C 7.3 % (<5.7)
[2023-07-21 18:38] LABS: RDW 20.3 % (11.7-14.6)
== END 2023-07-21 17:17 | disposition home or self-care (01) ==
LOC: NCHCN 17:16
PROVIDERS: PCP Family Medicine; Visit Provider Family Medicine
DX: E11.9 Type 2 diabetes mellitus without complications (principal); I42.8 Other cardiomyopathies; I50.89 Other heart failure; R60.0 Localized edema
CPT/HCPCS: 80048; 85027; 83036; 83735

== ENCOUNTER → 2023-08-08 02:06 | Outpatient (CLI) | payer MEDICARE, MEDICAID, SELFPAY ==
[2023-08-08] MEDS: Barium Sulfate 2% W/V-Creamy Vanilla Smoothie 450 ML BTL PO ×2 (07:56→07:57)
[2023-08-08] MEDS: Omnipaque 350 MG/ML 100 ML BTL IJ (10:00)
[2023-08-08] MEDS: Normal Saline - Diluent 50 ML VIAL IJ (10:00)
--- NOTE | 2023-08-08 10:09 | DI.CTLCSR_ITS ---
Exam(s) CT CHEST LUNG CANCER SCREEN EXAM: CT CHEST LUNG CANCER SCREEN CLINICAL HISTORY: CURRENT SMOKER, F17.200, SCREENING FOR LUNG CANCER TECHNIQUE: Imaging Protocol: Axial computed tomography images with coronal and sagittal reformatted images were created and reviewed COMPARISON: CT CHEST WITHOUT CONTRAST from 04/15/2015 CT CHEST - LUNG CANCER SCREENING from 12/15/2016 FINDINGS: Tracheobronchial tree: Patent where visualized. Pulmonary parenchyma: No consolidation or dominant measurable mass. No architectural distortion. Ther e is a calcified granuloma in the left lingula. Lung Nodules: None. Mediastinum and Marry: No dominant adenopathy or fluid collection. The esophagus is unremarkable. Thyroid gland: Unremarkable. Lymph nodes: Unremarkable. Pleura: There is a moderately large right pleural effusion. No left pleural effusion. No pneumothor ax. Heart: Cardiomegaly. Coronary artery calcifications are present. There is aortic annular calcificat ion. No pericardial effusion. Aorta: Thoracic aorta non-dilated.Atherosclerotic calcification is present. Upper abdomen: Abdominal ascites is seen. Please refer to the CT scan of the abdomen and pelvis rep ort for complete details. Soft Tissues: Unremarkable. Bones: Within normal limits. IMPRESSION: 1. No pulmonary nodules. 2. Moderately large right pleural effusion. Lung RADS Cat 1S - Negative: No nodules and definitely benign nodules. Other: Clinically Significant or Potentially Clinically Significant Findings (non lung cancer) Lung-RADS 1.0 CATEGORIES: Category 0 - Prior chest CT exam(s) being located for comparison. Category 1 - Annual screening in 12 months. No nodules or definitely benign nodules. Category 2 - Annual screening in 12 months. Benign appearance. Nodules with low likelihood of becomin g active cancer. Category 3 - 6-month follow-up. Probably benign. Short-term follow-up suggested. Nodules with low lik elihood of becoming active cancer. Category 4A - 3-month follow-up and CT/PET if >8 mm in size. Suspicious finding. Findings which requi re additional testing. Category 4B - Findings which require additional testing and tissue sampling. Suspicious finding. Category 4X - Category 3 or 4 nodules with additional features or imaging findings that increases the suspicion of malignancy. Modifier S- Potentially clinically significant finding. (Non lung cancer) Unexpected findings RADIATION DOSE DELIVERED: 80.98mGy.cm Total DLP 80.98mGy.cmTotal DLP DATA REPOSITORY: All CT scans at this facility are submitted to the National Radiology Data Registry (NRDR) Dose Index Registry (DIR) with the [employer] (ACR). RADIATION OPTIMIZATION: All CT scans at this facility use at least one of these dose optimization te chniques: automated exposure control; mA and/or kV adjustment per patient size (includes targeted exa ms where dose is matched to clinical indication); or iterative reconstruction.
--- NOTE | 2023-08-08 10:15 | DI.CT_ITS ---
Exam(s) CT ABDOMEN PELVIS W EXAM: CT ABDOMEN PELVIS W CLINICAL HISTORY: INTRA-ABDOMINAL/PELVIC SWELLING/MASS, R19.00. TECHNIQUE: Imaging Protocol: Axial computed tomography images with coronal and sagittal reformatted images were created and reviewed CONTRAST MATERIAL: Intravenous: Omnipaque 350 Contrast volume:85ml Oral: yes / COMPARISON: CT UPPER ABD WITH CONTRAST (P) from 04/26/2011 CT ABD PELVIS WITH CONTRAST from 06/19/2013 US US ABDOMEN from 12/14/2017 FINDINGS: ABDOMEN and PELVIS: Lung Bases: Moderate-sized right pleural effusion. The heart is quite dilated. Liver: Cirrhotic appearing liver. Hepatic venous congestion. No suspicious mass. Gallbladder and biliary tract: Cholelithiasis no gallbladder wall thickening. No stable mild dilatat ion of the common bile duct.. Pancreas: Normal density. No abnormal calcifications or inflammatory process. No evidence of mass. Spleen: Normal. Kidneys: Normal size, contour and axis. No radiodense stones. No obstructive uropathy. No suspicious masses seen. Adrenal glands: No masses seen. Vasculature: Abdominal aorta non-dilated. Severe atherosclerotic changes. Soft tissues: Anasarca. Bladder: No gross wall thickening. No calculi.No focal mass. Bowel: No obstruction. No bowel wall thickening. Appendix not identified Peritoneal cavity: Moderate ascites. No focal collection. No mesenteric inflammatory response. Bones: Scoliosis and degenerative changes. Reproductive organs: Status post hysterectomy. Lymph nodes: No pathologically enlarged lymph nodes. IMPRESSION:: Moderate-sized right pleural effusion. Moderate quantity of ascites. Cirrhotic appearing liver with passive venous congestion. RADIATION DOSE DELIVERED: 588.44mGy.cm Total DLP DATA REPOSITORY: All CT scans at this facility are submitted to the National Radiology Data Registry (NRDR) Dose Index Registry (DIR) with the [employer] (ACR). RADIATION OPTIMIZATION: All CT scans at this facility use at least one of these dose optimization te chniques: automated exposure control; mA and/or kV adjustment per patient size (includes targeted exa ms where dose is matched to clinical indication); or iterative reconstruction.
== END ==
PROVIDERS: PCP Family Medicine; Visit Provider Family Medicine
DX: Z12.2 Encounter for screening for malignant neoplasm of respiratory organs (principal); F17.210 Nicotine dependence, cigarettes, uncomplicated; R91.8 Other nonspecific abnormal finding of lung field; R19.09 Other intra-abdominal and pelvic swelling, mass and lump
CPT/HCPCS: 71271; 74177; J3490

== ENCOUNTER 2023-10-26 01:27 | Outpatient (CLI) | payer MEDICARE, MEDICAID, SELFPAY ==
[2023-10-26 11:02] LABS: Ammonia < 10 umol/L (11-32)
[2023-10-26 11:13] LABS: Hemoglobin A1C 7.2 % (<5.7)
[2023-10-26 12:03] LABS: ALT 18 U/L (14-59); AST 21 U/L (15-37); Albumin 3.7 g/dL (3.4-5.0); Alkaline Phosphatase 54 U/L (46-116); Anion Gap 7.4 mmol/L (3-11); BUN 25 mg/dL (7-18); Bilirubin, Total 1.01 mg/dL (0.2-1.0); CO2 31.6 mmol/L (21.0-32.0); CREATININE 1.1 mg/dL (0.55-1.02); Chloride 103 mmol/L (98-107); Estimated GFR 55.76 (mL/min/1.73m2); Glucose 150 mg/dL (74-106); NT-proBNP 16284 pg/mL (<300); Potassium 3.8 mmol/L (3.5-5.1); Sodium 142 mmol/L (136-145); Total Protein 7.3 g/dL (6.4-8.2)
== END 2023-10-26 01:28 | disposition home or self-care (01) ==
LOC: LBO 01:27
PROVIDERS: PCP Family Medicine; Visit Provider Family Medicine
DX: E11.9 Type 2 diabetes mellitus without complications (principal); I50.9 Heart failure, unspecified; R41.3 Other amnesia
CPT/HCPCS: 36415; 80053; 82140; 83036; 83880

== ENCOUNTER 2023-11-09 16:19 | Emergency (ER) | payer MEDICARE, MEDICAID, SELFPAY ==
[2023-11-09] VITALS (24 sets, daily range): BP systolic 109–145; BP diastolic 63–99; PULSE 75–97; RESP 13–24; TEMP 36.6; O2SAT 96–100
--- NOTE | 2023-11-09 16:15 | RT.EKG_ITS ---
APPROVED REPORT Exam: Resting ECG Reason for Exam: dizziness Patient Location: E HR:80 bpm ECG Measurements Heart Rate 80 AXIS PA 195 P 90 QRSd 122 QRS 135 QT 398 T 15 QTc 458 Conclusion Sinus rhythm...normal P axis, V-rate 60- 99 Probable left atrial enlargement...P >50mS, <-0.10mV V1 IVCD, consider RBBB...QRSd>120mS, terminal axis(90,270) Anterior infarct, old...Q >40mS, abnormal ST-T, V2-V5 sinus, normal axis, consider partial bundle branch block, subtle st seg depression lateral
--- NOTE | 2023-11-09 16:30 | DI.CT_ITS ---
Exam(s) CT BRAIN NECK CTA EXAM: CT BRAIN NECK CTA CLINICAL HISTORY: unsteady gait. TECHNIQUE: Imaging Protocol: Axial CT angiography was performed with multi-slice acquisition and mu lti-planar and MIP reconstructions. CONTRAST MATERIAL: Intravenous: Omnipaque 350 Contrast volume:70 ml COMPARISON: MR MRI - BRAIN W/WO CONTRAST from 05/14/2015 FINDINGS: CT Head W/O and W contrast: Ventricles and Extra axial spaces: Normal in size and morphology for the patient's age. Hemorrhage: None. Cerebral parenchyma: No evidence of acute infarct or mass. Midline shift: None. Brainstem/Cerebellum: No acute findings.. Calvarium: Normal. Visualized Paranasal sinuses/Mastoids: Clear. Soft Tissues: Unremarkable. Enhancement: Normal. CTA Brain W: Internal Carotid Arteries: Petrous: Normal. Cavernous: Calcification but no significant stenosis. Cerebral: Normal. Middle Cerebral Arteries: Right: No aneurysm, occlusion or significant stenosis. Left: No aneurysm, occlusion or significant stenosis. Anterior Cerebral Arteries: Right: No aneurysm, occlusion or significant stenosis. Left: No aneurysm, occlusion or significant stenosis. Posterior cerebral Arteries: Right: No aneurysm, occlusion or significant stenosis. Left: No aneurysm, occlusion or significant stenosis. Vertebral Arteries: Right: No aneurysm, occlusion or significant stenosis. Left: Dominant. Calcification in the proximal intracranial portion. No aneurysm, occlusion or signi ficant stenosis. Basilar Artery: No aneurysm, occlusion or significant stenosis. CTA Neck W: Common Carotid: Mild calcific plaque at the bulbs. Right: No dissection, occlusion or significant stenosis. Left: No dissection, occlusion or significant stenosis. External Carotid: Right: No dissection, occlusion or significant stenosis. Left: No dissection, occlusion or significant stenosis. Internal Carotid: Right: No dissection, occlusion or significant stenosis. Left: No dissection, occlusion or significant stenosis. Vertebral Artery: Right: No dissection, occlusion or significant stenosis. Left: No dissection, occlusion or significant stenosis. Lung Apices: Moderate size right pleural effusion. Visualized pulmonary arteries show no evidence of emboli. Calcification at the aortic arch. Bones: No acute abnormality. Posterior fusion hardware at C4 through C7. Soft Tissues: Normal. IMPRESSION: 1. CTA brain: No evidence of occlusion or significant stenosis. 2. Head CT: Unremarkable CT Head. 3. CTA neck: Mild calcific plaque at the common carotid bulbs. No significant stenosis. RADIATION DOSE DELIVERED: Total DLP DATA REPOSITORY: All CT scans at this facility are submitted to the National Radiology Data Registry (NRDR) Dose Index Registry (DIR) with the [employer] (A[employer]). RADIATION OPTIMIZATION: All CT scans at this facility use at least one of these dose optimization te chniques: automated exposure control; mA and/or kV adjustment per patient size (includes targeted exa ms where dose is matched to clinical indication); or iterative reconstruction.
--- NOTE | 2023-11-09 16:30 | DI.RAD_ITS ---
Exam(s) XR CHEST 2V PA LATERAL EXAM: XR CHEST 2V PA LATERAL CLINICAL HISTORY: fatigued, unsteady, hx polysubstance TECHNIQUE: 2D digital imaging was performed. Two views. COMPARISON: MR MRI - BRAIN W/WO CONTRAST from 05/14/[address] CHEST LUNG CANCER SCREEN from 08/08/2023 FINDINGS: HEART: Enlarged. Aorta: Not dilated. PULMONARY VASCULATURE: Normal. MEDIASTINUM: Unremarkable. LUNGS: Clear. PLEURAL SPACE: Small right pleural effusion and mild adjacent atelectasis. No pneumothorax. BONE:Unremarkable for age. SOFT TISSUES: Unremarkable. IMPRESSION: Small right pleural effusion. DATA REPOSITORY: RADIATION DOSE DELIVERED:
--- NOTE | 2023-11-09 16:48 | ED.GENADUL_ITS ---
Discharge Plan Disposition Patient Disposition: Home Condition: Improving Discharge Details Chief Complaint: GenMedical Clinical Impression: Generally unsteady Primary Care Provider: Minda Velasco V ED Provider: Brice Avitia Home Meds and New Rx's Prescriptions: No Action Entresto 24-26 mg tablet 0.5 tab PO BID gabapentin 400 mg capsule 400 mg PO DAILY PRN spironolactone 25 mg tablet 12.5 mg PO DAILY Qty: 60 8RF insulin glargine [Lantus Solostar U-100 Insulin] 100 unit/mL (3 mL) insulin pen 25 unit SC HS furosemide 20 mg tablet 20 mg PO DAILY Qty: 1 0RF Patient Comments: Pt has been unable to find her prescription 11/09/23 aspirin [Aspir-81] 81 MG tablet,delayed release (DR/EC) 81 mg PO DAILY magnesium oxide 400 MG tablet 400 mg PO DAILY estradiol [Estrace] 42.5 GM cream 1 g VG 2x/wk Qty: 1 Rx Instructions: use qd for first 2 wks B Complex 1 EACH tablet extended release 1 ea PO DAILY albuterol sulfate 8.5 GM HFA aerosol inhaler 2 puff Inhalation Q4H PRN docusate sodium [Doc-Q-Lace] 100 mg capsule 100 - 200 mg PO BID PRN insulin aspart U-100 [Novolog FlexPen U-100 Insulin] 100 unit/mL (3 mL) insulin pen 1 unit subcut TID Rx Instructions: Per Sliding Scale, Up to 10u per meal cholecalciferol (vitamin D3) 50 mcg (2,000 unit) capsule 50 mcg PO DAILY methocarbamol 500 mg tablet 500 mg PO TID PRN omeprazole 20 mg capsule,delayed release(DR/EC) 20 mg PO DAILY budesonide-formoterol [Symbicort] 80-4.5 mcg/actuation HFA aerosol inhaler 1 puff inhalation BID naloxone [Narcan] 4 mg/actuation spray,non-aerosol 1 spray intranasal Q2M PRN Rx Instructions: spray 1 dose into ONE nostril; alternate nostrils w each dose until help arrives Spiriva Respimat 1.25 mcg/actuation mist 1 puff inhalation DAILY polyethylene glycol 3350 17 gram powder in packet 17 g PO DAILY PRN duloxetine 30 mg capsule,delayed release(DR/EC) 30 mg PO DAILY methadone 10 mg/5 mL solution 117 mg PO Q12H Discharge Instructions Instructions: Preventing falls in adults Additional Instructions: Please follow-up with your primary care physician. Please return to the emergency department for any worsening symptoms HPI General Date/Time Provider Initiated Documentation: 11/09/23 16:34 . HPI Narrative: 63-year-old female history of prior substance abuse, CHF, cardiomyopathy presents with generalized fatigue unsteady gait feels as if she is falling into things. Denies chest pain or shortness of breath denies headache neck pain change in speech. Has acute on chronic lower extremity edema bilaterally. Denies history of thromboembolic disease Related Data Home Medications ?Medication ?Instructions ?Recorded ?Confirmed aspirin 81 mg tablet,delayed 81 mg PO DAILY 04/10/13 11/09/23 release (Aspir-) estradiol 0.01% (0.1 mg/gram) 1 g vaginal 2x/wk #1 tube 04/10/13 11/09/23 vaginal cream (Estrace) magnesium oxide 400 mg (241.3 mg 400 mg PO DAILY 04/10/13 11/09/23 magnesium) tablet albuterol sulfate 90 mcg/actuation 2 puff inhalation Q4H PRN 11/05/14 11/09/23 aerosol inhaler vitamin B complex (B Complex 1 ea PO DAILY 11/05/14 11/09/23 tablet,extended release) insulin glargine 100 unit/mL (3 25 unit subcut HS 05/17/18 11/09/23 mL) subcutaneous pen (Lantus Solostar U-100 Insulin) budesonide-formoterol HFA 80 1 puff inhalation BID 04/29/23 11/09/23 mcg-4.5 mcg/actuation aerosol inhaler (Symbicort) cholecalciferol (vitamin D3) 50 50 mcg PO DAILY 04/29/23 11/09/23 mcg (2,000 unit) capsule docusate sodium 100 mg capsule 100 - 200 mg PO BID PRN 04/29/23 11/09/23 (Doc-Q-Lace) insulin aspart U-100 100 unit/mL 1 unit subcut TID 04/29/23 11/09/23 (3 mL) subcutaneous pen (Novolog FlexPen U-100 Insulin aspart) methocarbamol 500 mg tablet 500 mg PO TID PRN 04/29/23 11/09/23 naloxone 4 mg/actuation nasal 1 spray intranasal Q2M PRN 04/29/23 11/09/23 spray (Narcan) omeprazole 20 mg capsule,delayed 20 mg PO DAILY 04/29/23 11/09/23 release polyethylene glycol 3350 17 gram 17 g PO DAILY PRN 04/29/23 11/09/23 oral powder packet tiotropium bromide 1.25 1 puff inhalation DAILY 04/29/23 11/09/23 mcg/actuation mist for inhalation (Spiriva Respimat) duloxetine 30 mg capsule,delayed 30 mg PO DAILY 06/02/23 11/09/23 release gabapentin 400 mg capsule 400 mg PO DAILY PRN 06/07/23 11/09/23 sacubitril 24 mg-valsartan 26 mg 0.5 tab PO BID 06/07/23 11/09/23 tablet (Entresto) spironolactone 25 mg tablet 12.5 mg (1/2 x 25 mg) PO DAILY #60 06/07/23 11/09/23 tabs furosemide 20 mg tablet 20 mg PO DAILY #1 tab 08/16/23 11/09/23 methadone 10 mg/5 mL oral solution 117 mg PO Q12H 08/16/23 11/09/23 Previous Rx's ?Medication ?Instructions ?Recorded spironolactone 25 mg tablet 12.5 mg (1/2 x 25 mg) PO DAILY #60 06/07/23 tabs furosemide 20 mg tablet 20 mg PO DAILY #1 tab 08/16/23 Allergies Allergy/AdvReac Type Severity Reaction Status Date / Time fluoxetine (From Prozac) Allergy Severe unknown Verified 11/09/23 16:20 lisinopril Allergy Intermediate unknown Verified 11/09/23 16:20 alprazolam (From Xanax) Allergy Unknown unknown Verified 11/09/23 16:20 amitriptyline HCl (From Allergy Unknown unknown Verified 11/09/23 16:20 Elavil) Antihistamines - Alkylamine Allergy Unknown ANTIHISTAMINE Verified 11/09/23 16:20 ALLERGIC TO UNSPECIFIED buspirone HCl (From BuSpar) Allergy Unknown unknown Verified 11/09/23 16:20 butorphanol tartrate (From Allergy Unknown unknown Verified 11/09/23 16:20 Stadol) cyclobenzaprine HCl (From Allergy Unknown unknown Verified 11/09/23 16:20 Flexeril) diazepam (From Valium) Allergy Unknown unknown Verified 11/09/23 16:20 ibuprofen (From Motrin) Allergy Unknown unknown Verified 11/09/23 16:20 nabumetone (From Relafen) Allergy Unknown unknown Verified 11/09/23 16:20 oxaprozin (From Daypro) Allergy Unknown unknown Verified 11/09/23 16:20 oxazepam (From Serax) Allergy Unknown unknown Verified 11/09/23 16:20 paroxetine HCl (From Paxil) Allergy Unknown unknown Verified 11/09/23 16:20 phenytoin sodium (From Allergy Unknown unknown Verified 11/09/23 16:20 Dilantin) phenytoin sodium extended Allergy Unknown unknown Verified 11/09/23 16:20 (From Dilantin) sertraline HCl (From Zoloft) Allergy Unknown unknown Verified 11/09/23 16:20 tramadol HCl (From Ultram) Allergy Unknown unknown Verified 11/09/23 16:20 bupropion (From Wellbutrin) Allergy unknown Verified 11/09/23 16:20 nortriptyline HCl (From Allergy unknown Verified 11/09/23 16:20 Pamelor) simvastatin Allergy unknown Verified 11/09/23 16:20 General Stated Complaint: GenMedical NICOLE: 3 Exam Narrative Exam Narrative: Alert oriented interactive Voice mucous membranes tongue secretions normal voice Lungs clear bilaterally no wheezes rales or rhonchi Normal heart sounds no murmurs rubs or gallops All extremities without deficit cranial nerves intact normal speech 5-5 strength upper and lower extremities bilaterally, no truncal ataxia appreciated Pitting edema to level of shins bilaterally Course Vital Signs Vital signs: Vital Signs Temperature 36.6 C 11/09/23 16:14 Pulse 82 11/09/23 16:14 Respiratory Rate 16 11/09/23 16:14 Blood Pressure 109/77 11/09/23 16:14 Pulse Oximetry 100 11/09/23 16:14 Temperature 36.6 C 11/09/23 16:42 Temperature Source Oral 11/09/23 16:42 Pulse 82 11/09/23 16:42 Respiratory Rate 16 11/09/23 16:42 Respiratory Effort Normal 11/09/23 16:40 Blood Pressure 109/77 11/09/23 16:42 Pulse Oximetry 100 11/09/23 16:42 Oxygen Delivery Method Room Air 11/09/23 16:42 Oxygen Flow Rate 0 11/09/23 16:42 Pain Level 8 11/09/23 16:42 Comment Lower abd pain 11/09/23 16:42 Medical Decision Making 63-year-old female history of CHF prior substance abuse, presents feeling uns teady on her feet as well as fatigue, noted to have peripheral edema pitting to bilateral shins, EKG normal sinus rhythm normal axis possible ST depression T wave inversions V5 V6. Patient denies chest pain or shortness of breath. Denies history of thromboembolic disease. Neurologically intact without deficits. No truncal ataxia. Patient endorses that she had her methadone cut off approximately 2 weeks ago; no lacrimation sneezing yawning piloerection or diarrhea to suggest opiate withdrawal at this time. Consider CHF exacerbation versus ACS versus electrolyte derangement versus CVA 19: 18 patient resting and in no acute distress ambulatory without ataxia. Labs and imaging unremarkable. Daughter expressing concern the patient likely needs more resources. Patient feels comfortable in her living situation. Given strict return precautions for any worsening symptoms. Have placed consultation for care management review. 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 Current dose 114 mg/day. Many years. Memory loss (Acute) Cardiomyopathy (Acute) Ejection fraction 20-25% 04/27 ECHO Advanced care planning/counseling discussion (Acute) Palliative care encounter (Acute) Atrophy of vagina (Acute 04/10/13) Cystocele (Acute 04/10/13) Uterine prolapse (Acute 06/05/13) Medical History Abdominal bloating Anxiety Cervicalgia Chest pain Chronic hepatitis C without hepatic coma Chronic pain Cirrhosis Controlled diabetes mellitus type II without complication COPD (chronic obstructive pulmonary disease) Diarrhea Edema Fatigue Heroin abuse Herpes, genital History of syncope HSV (herpes simplex virus) infection Kidney cyst, acquired Low back pain Lung nodule Memory loss Myalgia Rectal bleed Skin lesion Smoker Thickened endometrium Urinary bladder incontinence Uterine fibroid Vascular disease of the skin Venous stasis ulcers Social History Smoking/Tobacco Use Status: Current every day Smoking risk assessment performed?: Yes Alcohol Intake: never Drug use: Never Substance use type: does not use Housing: assisted living facility Do you feel safe at home: Yes Do you feel safe in your relationship?: Yes
[2023-11-09 17:33] LABS: *AMPHETAMINES SCREEN URINE Negative (Negative); *BARBITURATES SCREEN URINE Negative (Negative); *BENZODIAZEPINES SCREEN URINE Negative (Negative); Bilirubin Negative (Negative); Blood Trace-intact (Negative); Cannabinoids THC Negative (Negative); Clarity Clear (Clear); Cocaine Screen,Urine Negative (Negative); Glucose 500 mg/dL (Negative); Ketones Negative (Negative); Leukocyte Esterase Negative (Negative); Nitrite Negative (Negative); OPIATES URINE SCREEN Negative (Negative); Tricyclic Antidepressants Negative (Negative); Urobilinogen 0.2 mg/dL (Up to 0.2); pH 7.5 (5-8)
[2023-11-09 17:38] LABS: Abs Immature Grans 0.01 10^3/uL (0.0-0.06); Absolute Basophil Count 0.04 10^3/uL (0.0-0.2); Absolute Lymphocyte Count 1.01 10^3/uL (1.2-3.4); Absolute Monocyte Count 0.28 10^3/uL (0.1-0.8); Absolute Neutrophil Count 3.72 10^3/uL (1.2-6.7); Basophils % 0.8 %; Eosinophils % 1.9 %; HGB 14.2 g/dL (11.2-15.7); Immature Grans % 0.2 %; Lymphocytes % 19.6 %; MCH 29.2 pg (27.0-33.0); MCHC 31.6 % (32.0-36.0); MCV 92 fL (80-95); MPV 10.6 fL (8.0-11.0); Monocytes % 5.4 %; Neutrophils % 72.1 %; Platelet Count 157 10^3/uL (130-400); RBC 4.87 10^6/uL (3.93-5.22); RDW 14.9 % (11.7-14.6); RDW-SD 50.4 fL; WBC 5.16 10^3/uL (4.4-10.8)
[2023-11-09 17:52] LABS: Prothrombin Time 13.2 sec (9.1-11.1)
[2023-11-09] MEDS: Normal Saline - Diluent 50 ML VIAL IJ (17:55)
[2023-11-09 17:56] LABS: Epithelial Cells Rare HPF (Negative)
[2023-11-09 17:57] LABS: Bacteria Rare HPF (Negative); C & S Indicated? No; Casts Negative LPF (Negative); Crystals Negative HPF (Negative); Mucus Trace (Negative)
[2023-11-09] MEDS: Omnipaque 350 MG/ML 100 ML BTL 70 ML IJ (17:57)
[2023-11-09 17:58] LABS: INR 1.3 (0.9-1.1)
[2023-11-09 18:02] LABS: ALT 27 U/L (14-59); AST 33 U/L (15-37); Albumin 3.8 g/dL (3.4-5.0); Alkaline Phosphatase 75 U/L (46-116); Ammonia < 10 umol/L (11-32); Anion Gap 6.5 mmol/L (3-11); BUN 27 mg/dL (7-18); CO2 31.5 mmol/L (21.0-32.0); CREATININE 1.1 mg/dL (0.55-1.02); Calcium 9.1 mg/dL (8.5-10.1); Chloride 104 mmol/L (98-107); Estimated GFR 55.76 (mL/min/1.73m2); Glucose 133 mg/dL (74-106); Magnesium 2.3 mg/dL (1.8-2.4); NT-proBNP 13955 pg/mL (<300); Sodium 142 mmol/L (136-145); TSH (W/Ref FT4) 1.51 uIU/mL (0.36-3.74); Total Protein 8.1 g/dL (6.4-8.2); Troponin I < 50 ng/L (< or =60)
== END 2023-11-09 19:31 | disposition home or self-care (01) ==
LOC: ER 19:23 → RED 19:33
PROVIDERS: Emergency Provider Emergency Medicine; PCP Family Medicine
DX: R42 Dizziness and giddiness (principal); R53.83 Other fatigue; R26.81 Unsteadiness on feet; Z86.79 Personal history of other diseases of the circulatory system; Z92.29 Personal history of other drug therapy; Z86.718 Personal history of other venous thrombosis and embolism
CPT/HCPCS: 70496; 70498; 80053; 80307; 93005; 99285; 71046; 81003; 81015; 82140; 83735; 83880; 84443; 84484; 85025; 85610; 85730; 93010; 99283; J3490

== ENCOUNTER 2023-12-04 07:10 | Emergency (ER) | payer MEDICARE, MEDICAID, SELFPAY ==
[2023-12-04 07:11] VITALS: BP 107/70; PULSE 71; RESP 16; TEMP 36.6; O2SAT 97
--- NOTE | 2023-12-04 07:22 | W.ED.GENAD ---
Discharge Plan Disposition Patient Disposition: Home Condition: Stable Discharge Details Clinical Impression: Erythema of lower limb, Venous stasis dermatitis Primary Care Provider: Minda Velasco V ED Provider: Kerwin Davis Home Meds and New Rx's Prescriptions: Continued Entresto 24-26 mg tablet 0.5 tab PO BID gabapentin 400 mg capsule 400 mg PO DAILY PRN spironolactone 25 mg tablet 12.5 mg PO DAILY Qty: 60 8RF insulin glargine [Lantus Solostar U-100 Insulin] 100 unit/mL (3 mL) insulin pen 25 unit SC HS aspirin [Aspir-81] 81 MG tablet,delayed release (DR/EC) 81 mg PO DAILY magnesium oxide 400 MG tablet 400 mg PO DAILY estradiol [Estrace] 42.5 GM cream 1 g VG 2x/wk Qty: 1 Rx Instructions: use qd for first 2 wks B Complex 1 EACH tablet extended release 1 ea PO DAILY albuterol sulfate 8.5 GM HFA aerosol inhaler 2 puff Inhalation Q4H PRN docusate sodium [Doc-Q-Lace] 100 mg capsule 100 - 200 mg PO BID PRN insulin aspart U-100 [Novolog FlexPen U-100 Insulin] 100 unit/mL (3 mL) insulin pen 1 unit subcut TID Rx Instructions: Per Sliding Scale, Up to 10u per meal cholecalciferol (vitamin D3) 50 mcg (2,000 unit) capsule 50 mcg PO DAILY methocarbamol 500 mg tablet 500 mg PO TID PRN omeprazole 20 mg capsule,delayed release(DR/EC) 20 mg PO DAILY budesonide-formoterol [Symbicort] 80-4.5 mcg/actuation HFA aerosol inhaler 1 puff inhalation BID naloxone [Narcan] 4 mg/actuation spray,non-aerosol 1 spray intranasal Q2M PRN Rx Instructions: spray 1 dose into ONE nostril; alternate nostrils w each dose until help arrives Spiriva Respimat 1.25 mcg/actuation mist 1 puff inhalation DAILY polyethylene glycol 3350 17 gram powder in packet 17 g PO DAILY PRN duloxetine 30 mg capsule,delayed release(DR/EC) 30 mg PO DAILY methadone 10 mg/5 mL solution 117 mg PO Q12H furosemide 20 mg tablet 40 mg PO DAILY Patient Comments: Pt has been unable to find her prescription 11/09/23 Discharge Instructions Additional Instructions: You should return to have a ultrasound of both your legs to evaluate for a blood clot. There is no findings of an infection on your lab work so you do not need antibiotics at this time Follow-up with your primary care provider within 1 to 2 weeks If you feel more ill or develop severe pain or fevers return to the emergency department for reevaluation HPI General Mode of arrival: ambulatory. Date/Time Provider Initiated Documentation: 12/04/23 07:17. Limitations to Documentation: no limitations. Information obtained by: patient. History of Present Illness 63 year old F presents to the emergency department with the chief complaint of bilateral leg redness, described as mild, Patient started experiencing this month(s) (2) and it has been constant. No relieving factors improve symptom(s), No exacerbating factors reported . Patient notes no other symptoms.. Patient did receive the following treatments prior to arrival, none Related Data Home Medications ?Medication ?Instructions ?Recorded ?Confirmed aspirin 81 mg tablet,delayed 81 mg PO DAILY 04/10/13 12/04/23 release (Aspir-) estradiol 0.01% (0.1 mg/gram) 1 g vaginal 2x/wk #1 tube 04/10/13 12/04/23 vaginal cream (Estrace) magnesium oxide 400 mg (241.3 mg 400 mg PO DAILY 04/10/13 12/04/23 magnesium) tablet albuterol sulfate 90 mcg/actuation 2 puff inhalation Q4H PRN 11/05/14 12/04/23 aerosol inhaler vitamin B complex (B Complex 1 ea PO DAILY 11/05/14 12/04/23 tablet,extended release) insulin glargine 100 unit/mL (3 25 unit subcut HS 05/17/18 12/04/23 mL) subcutaneous pen (Lantus Solostar U-100 Insulin) budesonide-formoterol HFA 80 1 puff inhalation BID 04/29/23 12/04/23 mcg-4.5 mcg/actuation aerosol inhaler (Symbicort) cholecalciferol (vitamin D3) 50 50 mcg PO DAILY 04/29/23 12/04/23 mcg (2,000 unit) capsule docusate sodium 100 mg capsule 100 - 200 mg PO BID PRN 04/29/23 12/04/23 (Doc-Q-Lace) insulin aspart U-100 100 unit/mL 1 unit subcut TID 04/29/23 12/04/23 (3 mL) subcutaneous pen (Novolog FlexPen U-100 Insulin aspart) methocarbamol 500 mg tablet 500 mg PO TID PRN 04/29/23 12/04/23 naloxone 4 mg/actuation nasal 1 spray intranasal Q2M PRN 04/29/23 12/04/23 spray (Narcan) omeprazole 20 mg capsule,delayed 20 mg PO DAILY 04/29/23 12/04/23 release polyethylene glycol 3350 17 gram 17 g PO DAILY PRN 04/29/23 12/04/23 oral powder packet tiotropium bromide 1.25 1 puff inhalation DAILY 04/29/23 12/04/23 mcg/actuation mist for inhalation (Spiriva Respimat) duloxetine 30 mg capsule,delayed 30 mg PO DAILY 06/02/23 12/04/23 release gabapentin 400 mg capsule 400 mg PO DAILY PRN 06/07/23 12/04/23 sacubitril 24 mg-valsartan 26 mg 0.5 tab PO BID 06/07/23 12/04/23 tablet (Entresto) spironolactone 25 mg tablet 12.5 mg (1/2 x 25 mg) PO DAILY #60 06/07/23 12/04/23 tabs methadone 10 mg/5 mL oral solution 117 mg PO Q12H 08/16/23 12/04/23 furosemide 20 mg tablet 40 mg PO DAILY 12/04/23 12/04/23 Previous Rx's ?Medication ?Instructions ?Recorded spironolactone 25 mg tablet 12.5 mg (1/2 x 25 mg) PO DAILY #60 06/07/23 tabs Allergies Allergy/AdvReac Type Severity Reaction Status Date / Time fluoxetine (From Prozac) Allergy Severe unknown Verified 12/04/23 07:17 lisinopril Allergy Intermediate unknown Verified 12/04/23 07:17 alprazolam (From Xanax) Allergy Unknown unknown Verified 12/04/23 07:17 amitriptyline HCl (From Allergy Unknown unknown Verified 12/04/23 07:17 Elavil) Antihistamines - Alkylamine Allergy Unknown ANTIHISTAMINE Verified 12/04/23 07:17 ALLERGIC TO UNSPECIFIED buspirone HCl (From BuSpar) Allergy Unknown unknown Verified 12/04/23 07:17 butorphanol tartrate (From Allergy Unknown unknown Verified 12/04/23 07:17 Stadol) cyclobenzaprine HCl (From Allergy Unknown unknown Verified 12/04/23 07:17 Flexeril) diazepam (From Valium) Allergy Unknown unknown Verified 12/04/23 07:17 ibuprofen (From Motrin) Allergy Unknown unknown Verified 12/04/23 07:17 nabumetone (From Relafen) Allergy Unknown unknown Verified 12/04/23 07:17 oxaprozin (From Daypro) Allergy Unknown unknown Verified 12/04/23 07:17 oxazepam (From Serax) Allergy Unknown unknown Verified 12/04/23 07:17 paroxetine HCl (From Paxil) Allergy Unknown unknown Verified 12/04/23 07:17 phenytoin sodium (From Allergy Unknown unknown Verified 12/04/23 07:17 Dilantin) phenytoin sodium extended Allergy Unknown unknown Verified 12/04/23 07:17 (From Dilantin) sertraline HCl (From Zoloft) Allergy Unknown unknown Verified 12/04/23 07:17 tramadol HCl (From Ultram) Allergy Unknown unknown Verified 12/04/23 07:17 bupropion (From Wellbutrin) Allergy unknown Verified 12/04/23 07:17 nortriptyline HCl (From Allergy unknown Verified 12/04/23 07:17 Pamelor) simvastatin Allergy unknown Verified 12/04/23 07:17 General Stated Complaint: Vascular NICOLE: 3 Review of Systems All systems reviewed & are unremarkable except as noted in HPI and below Constitutional Constitutional: Denies chills, Denies fever(s) and Denies weakness Cardiovascular Cardiovascular: Denies chest pain and Denies dyspnea Respiratory Respiratory: Denies cough and Denies dyspnea Gastrointestinal Gastrointestinal: Denies abdominal pain, Denies nausea and Denies vomiting Musculoskeletal Musculoskeletal: Denies joint swelling Integumentary/Breasts Skin/Breast: Reports erythema Neurologic Neurologic: Denies weakness Exam Const General: no acute distress Orientation: alert HENMT Head: normal to inspection Ears: external ears normal General nose exam: external nose normal Mouth: moist mucous membranes Eyes General: appearance normal, both eyes and all related structures Neck Neck: normal visual inspection Resp Effort & Inspection: normal respiratory effort and able to speak in complete sentences Cardio Rate: regular rate Skin General skin exam: elasticity normal Neuro General: patient alert and patient oriented x3 Extrem General: full ROM and capillary refill normal Psych Mental Status: mental status grossly normal Course Vital Signs Vital signs: Vital Signs Temperature 36.6 C 12/04/23 07:11 Pulse 71 12/04/23 07:11 Respiratory Rate 16 12/04/23 07:11 Blood Pressure 107/70 12/04/23 07:11 Pulse Oximetry 97 12/04/23 07:11 Temperature 36.6 C 12/04/23 07:11 Temperature Source Oral 12/04/23 07:11 Pulse 71 12/04/23 07:11 Respiratory Rate 16 12/04/23 07:11 Blood Pressure 107/70 12/04/23 07:11 Blood Pressure Position Supine 12/04/23 07:11 Pulse Oximetry 97 12/04/23 07:11 Oxygen Delivery Method Room Air 12/04/23 07:11 Oxygen Flow Rate 0 12/04/23 07:11 Pain Level 8 12/04/23 07:11 Comment pain predominately in left leg 12/04/23 07:11 Medical Decision Making 63-year-old female with a history of PTSD, prior substance abuse on methadone, mild cognitive impairment comes in with EMS with concerns for several months of lower bilateral leg redness. She denies any fevers, no severe pain. Is unclear what made her concerned today to come to the hospital to have this evaluated. Both lower anterior extremities have mild erythema that is not warm to touch and there is no crepitus or tenderness. Patient has full range of motion of the extremities with intact sensation and pulses. I suspect chronic venous stasis but will check inflammatory markers and CBC along with procalcitonin to evaluate for possible cellulitis though seems unlikely given both legs are affected. There is no findings on exam to suggest acute arterial occlusion. There is no significant swelling so doubt DVT but will screen for this with a D-dimer. Patient stable, labs unremarkable other than a D-dimer over 1000. Will see if there is an surface water technician available to do DVT ultrasound but if unable we will likely discharge and have her return for an ultrasound on Tuesday. It would take several hours for an surface water technician to come in if able, I discussed this with the patient she is not to wait to have this done. My suspicion for DVT is low so do not feel empiric anticoagulation is indicated. I will have her return to have a ultrasound done and if negative she can follow-up with her PCP if it is positive she will follow-up in the ED. 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 Current dose 114 mg/day. Many years. Memory loss (Acute) Cardiomyopathy (Acute) Ejection fraction 20-25% 04/27 ECHO Advanced care planning/counseling discussion (Acute) Palliative care encounter (Acute) Atrophy of vagina (Acute 04/10/13) Cystocele (Acute 04/10/13) Uterine prolapse (Acute 06/05/13) Medical History Abdominal bloating Anxiety Cervicalgia Chest pain Chronic hepatitis C without hepatic coma Chronic pain Cirrhosis Controlled diabetes mellitus type II without complication COPD (chronic obstructive pulmonary disease) Diarrhea Edema Fatigue Heroin abuse Herpes, genital History of syncope HSV (herpes simplex virus) infection Kidney cyst, acquired Low back pain Lung nodule Memory loss Myalgia Rectal bleed Skin lesion Smoker Thickened endometrium Urinary bladder incontinence Uterine fibroid Vascular disease of the skin Venous stasis ulcers Social History Smoking/Tobacco Use Status: Current every day Smoking risk assessment performed?: Yes Alcohol Intake: never Drug use: Never Substance use type: does not use Housing: assisted living facility Do you feel safe at home: Yes Do you feel safe in your relationship?: Yes
[2023-12-04 07:46] LABS: Abs Immature Grans 0.01 10^3/uL (0.0-0.06); Absolute Basophil Count 0.05 10^3/uL (0.0-0.2); Absolute Lymphocyte Count 1.14 10^3/uL (1.2-3.4); Absolute Monocyte Count 0.29 10^3/uL (0.1-0.8); Absolute Neutrophil Count 3.15 10^3/uL (1.2-6.7); Basophils % 1.1 %; Eosinophils % 2.1 %; HCT 42.8 % (36.0-46.0); HGB 13.5 g/dL (11.2-15.7); Immature Grans % 0.2 %; Lymphocytes % 24.1 %; MCH 28.8 pg (27.0-33.0); MCHC 31.5 % (32.0-36.0); MCV 92 fL (80-95); MPV 10.5 fL (8.0-11.0); Monocytes % 6.1 %; Neutrophils % 66.4 %; Platelet Count 159 10^3/uL (130-400); RBC 4.68 10^6/uL (3.93-5.22); RDW 15.4 % (11.7-14.6); RDW-SD 51.4 fL; WBC 4.74 10^3/uL (4.4-10.8)
[2023-12-04 07:52] LABS: ESR 6 mm/hr (0-30)
[2023-12-04 08:01] LABS: ALT 42 U/L (14-59); AST 68 U/L (15-37); Albumin 3.6 g/dL (3.4-5.0); Alkaline Phosphatase 67 U/L (46-116); Anion Gap 7.9 mmol/L (3-11); BUN 21 mg/dL (7-18); Bilirubin, Total 0.63 mg/dL (0.2-1.0); CO2 31.1 mmol/L (21.0-32.0); Calcium 9.4 mg/dL (8.5-10.1); Chloride 105 mmol/L (98-107); Estimated GFR 62.52 (mL/min/1.73m2); Glucose 154 mg/dL (74-106); Magnesium 1.9 mg/dL (1.8-2.4); Potassium 3.4 mmol/L (3.5-5.1); Sodium 144 mmol/L (136-145); Total Protein 7.6 g/dL (6.4-8.2)
[2023-12-04 08:06] LABS: C-Reactive Protein < 0.50 mg/dL (<or=0.5)
[2023-12-04 08:20] LABS: Procalcitonin < 0.1 ng/mL
[2023-12-04 08:21] LABS: D-Dimer 1342 ng/mlFEU (<500)
[2023-12-04 08:24] VITALS: RESP 12
--- NOTE | 2023-12-04 08:33 | NUR.NOTE ---
Request for outpatient US faxed to [facility]. Bilateral DVT US; leg pain, redness; follow up if negative PCP and if positive ED; [facility]. Nursing Note:
[2023-12-04 08:48] VITALS: BP 109/70; PULSE 72; RESP 16; TEMP 36.6; O2SAT 99
== END 2023-12-04 09:00 | disposition home or self-care (01) ==
PROVIDERS: Emergency Provider Emergency Medicine; PCP Family Medicine
DX: M79.604 Pain in right leg (principal); M79.605 Pain in left leg; I87.2 Venous insufficiency (chronic) (peripheral); L53.9 Erythematous condition, unspecified
CPT/HCPCS: 36415; 80053; 84145; 85652; 99283; 83735; 85025; 85379; 86140

== ENCOUNTER 2023-12-13 06:14 | Emergency (ER) | payer MEDICARE, MEDICAID, SELFPAY ==
[2023-12-13 06:15] VITALS: BP 135/80; PULSE 81; RESP 16; TEMP 36.6; O2SAT 99
--- NOTE | 2023-12-13 07:10 | W.ED.GENAD ---
Discharge Plan Disposition Patient Disposition: Home Condition: Stable Discharge Details Clinical Impression: Cognitive impairment Primary Care Provider: Minda Velasco V ED Provider: Kerwin Davis Home Meds and New Rx's Prescriptions: Continued Entresto 24-26 mg tablet 0.5 tab PO BID insulin glargine [Lantus Solostar U-100 Insulin] 100 unit/mL (3 mL) insulin pen 25 unit SC HS magnesium oxide 400 MG tablet 400 mg PO DAILY insulin aspart U-100 [Novolog FlexPen U-100 Insulin] 100 unit/mL (3 mL) insulin pen 1 unit subcut TID Rx Instructions: Per Sliding Scale, Up to 10u per meal omeprazole 20 mg capsule,delayed release(DR/EC) 20 mg PO DAILY Spiriva Respimat 1.25 mcg/actuation mist 1 puff inhalation DAILY methadone 10 mg/5 mL solution 117 mg PO Q12H Patient Comments: Per nursing pt has dementia and is unable to contribute to medication history at all. No Rx record of Methadone, pt unable to confirm or deny or supply name of clinic dapagliflozin propanediol [Farxiga] 10 mg tablet 10 mg PO DAILY Patient Comments: TAKE ONE TABLET BY MOUTH EVERY DAY furosemide 40 mg tablet 40 mg PO QAM Patient Comments: TAKE ONE TABLET BY MOUTH EVERY MORNING spironolactone 25 mg tablet 25 mg PO DAILY Discharge Instructions Additional Instructions: He met with care management and saw physical therapy you did well with. We have set you up with home health physical therapy and nursing Follow-up with your primary care provider within 1 week If you feel more ill or feel you are suffering from emergent medical process return to the emergency department for reevaluation HPI General Mode of arrival: ambulatory. Date/Time Provider Initiated Documentation: 12/13/23 06:59. Limitations to Documentation: no limitations. Information obtained by: patient. History of Present Illness 63 year old F presents to the emergency department with the chief complaint of i'm hungry, described as moderate, Patient started experiencing this unknown No relieving factors improve symptom(s), No exacerbating factors reported . Patient notes no other symptoms.. Patient did receive the following treatments prior to arrival, none Related Data Home Medications ?Medication ?Instructions ?Recorded ?Confirmed magnesium oxide 400 mg (241.3 mg 400 mg PO DAILY 04/10/13 12/13/23 magnesium) tablet insulin glargine 100 unit/mL (3 25 unit subcut HS 05/17/18 12/13/23 mL) subcutaneous pen (Lantus Solostar U-100 Insulin) insulin aspart U-100 100 unit/mL 1 unit subcut TID 04/29/23 12/13/23 (3 mL) subcutaneous pen (Novolog FlexPen U-100 Insulin aspart) omeprazole 20 mg capsule,delayed 20 mg PO DAILY 04/29/23 12/13/23 release tiotropium bromide 1.25 1 puff inhalation DAILY 04/29/23 12/13/23 mcg/actuation mist for inhalation (Spiriva Respimat) sacubitril 24 mg-valsartan 26 mg 0.5 tab PO BID 06/07/23 12/13/23 tablet (Entresto) methadone 10 mg/5 mL oral solution 117 mg PO Q12H 08/16/23 12/04/23 dapagliflozin propanediol 10 mg 10 mg PO DAILY 12/13/23 12/13/23 tablet (Farxiga) furosemide 40 mg tablet 40 mg PO QAM 12/13/23 12/13/23 spironolactone 25 mg tablet 25 mg PO DAILY 12/13/23 12/13/23 Allergies Allergy/AdvReac Type Severity Reaction Status Date / Time fluoxetine (From Prozac) Allergy Severe unknown Verified 12/13/23 06:23 lisinopril Allergy Intermediate unknown Verified 12/13/23 06:23 alprazolam (From Xanax) Allergy Unknown unknown Verified 12/13/23 06:23 amitriptyline HCl (From Allergy Unknown unknown Verified 12/13/23 06:23 Elavil) Antihistamines - Alkylamine Allergy Unknown ANTIHISTAMINE Verified 12/13/23 06:23 ALLERGIC TO UNSPECIFIED buspirone HCl (From BuSpar) Allergy Unknown unknown Verified 12/13/23 06:23 butorphanol tartrate (From Allergy Unknown unknown Verified 12/13/23 06:23 Stadol) cyclobenzaprine HCl (From Allergy Unknown unknown Verified 12/13/23 06:23 Flexeril) diazepam (From Valium) Allergy Unknown unknown Verified 12/13/23 06:23 ibuprofen (From Motrin) Allergy Unknown unknown Verified 12/13/23 06:23 nabumetone (From Relafen) Allergy Unknown unknown Verified 12/13/23 06:23 oxaprozin (From Daypro) Allergy Unknown unknown Verified 12/13/23 06:23 oxazepam (From Serax) Allergy Unknown unknown Verified 12/13/23 06:23 paroxetine HCl (From Paxil) Allergy Unknown unknown Verified 12/13/23 06:23 phenytoin sodium (From Allergy Unknown unknown Verified 12/13/23 06:23 Dilantin) phenytoin sodium extended Allergy Unknown unknown Verified 12/13/23 06:23 (From Dilantin) sertraline HCl (From Zoloft) Allergy Unknown unknown Verified 12/13/23 06:23 tramadol HCl (From Ultram) Allergy Unknown unknown Verified 12/13/23 06:23 bupropion (From Wellbutrin) Allergy unknown Verified 12/13/23 06:23 nortriptyline HCl (From Allergy unknown Verified 12/13/23 06:23 Pamelor) simvastatin Allergy unknown Verified 12/13/23 06:23 General Stated Complaint: GenMedical NICOLE: 5 Review of Systems All systems reviewed & are unremarkable except as noted in HPI and below Constitutional Constitutional: Denies chills, Denies fever(s) and Denies weakness Cardiovascular Cardiovascular: Denies chest pain and Denies dyspnea Respiratory Respiratory: Denies cough and Denies dyspnea Gastrointestinal Gastrointestinal: Denies abdominal pain, Denies nausea and Denies vomiting Musculoskeletal Musculoskeletal: Denies joint swelling Neurologic Neurologic: Denies weakness Exam Const General: no acute distress Orientation: alert [facility] Head: normal to inspection Ears: external ears normal General nose exam: external nose normal Mouth: moist mucous membranes Eyes General: appearance normal, both eyes and all related structures Neck Neck: normal visual inspection Resp Effort & Inspection: normal respiratory effort and able to speak in complete sentences Cardio Rate: regular rate Skin General skin exam: no rashes or lesions noted Neuro General: patient alert and oriented Patient Orientation: Person, Place and Time Extrem General: normal to inspection Psych Mental Status: mental status grossly normal Course Vital Signs Vital signs: Vital Signs Temperature 36.6 C 12/13/23 06:15 Pulse 81 12/13/23 06:15 Respiratory Rate 16 12/13/23 06:15 Blood Pressure 135/80 12/13/23 06:15 Pulse Oximetry 99 12/13/23 06:15 Temperature 36.6 C 12/13/23 06:15 Pulse 81 12/13/23 06:15 Respiratory Rate 16 12/13/23 06:15 Respiratory Effort Normal 12/13/23 06:20 Blood Pressure 135/80 12/13/23 06:15 Pulse Oximetry 99 12/13/23 06:15 Oxygen Delivery Method Room Air 12/13/23 06:15 Oxygen Flow Rate 0 12/13/23 06:15 Pain Level 0 12/13/23 06:15 Medical Decision Making 63-year-old female with a history of cognitive impairment, COPD, who apparently left her living residence and was not allowed back for some reason was found at, and farms without someone to pick her up so EMS was called and brought her here. She currently has no acute complaints other than she feels hungry. She has no focal deficits, she is ambulatory. She does not know where she is and also left the morning and her name. She says that she is here because she is not sure she can return home. Apparently family is not willing to take her home. She had labs done on the first which were unremarkable. She has no findings on exam to warrant an emergent medical workup. Feel this is most likely a social reason she is here, will have care management evaluate her case. Patient does note that she has had some acid reflux and has not been taking her omeprazole recently. Will order this along with Mylanta and some Zofran. She has a soft nontender abdomen so do not feel imaging or labs indicated. patient evaluated by physical therapy and did well and did not need any assistance walking. We will set her up with home health physical therapy to do an echo and home evaluation also set her up with home health nursing to evaluate for med compliance and help with this. She is stable for discharge and will follow-up with her PCP return precautions given Differential Diagnosis Differential Diagnosis: Cognitive impairment, dementia Medical Records Medical records reviewed: Yes I reviewed the patient's medical records. 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 Current dose 114 mg/day. Many years. Memory loss (Acute) Cardiomyopathy (Acute) Ejection fraction 20-25% 04/27 ECHO Advanced care planning/counseling discussion (Acute) Palliative care encounter (Acute) Atrophy of vagina (Acute 04/10/13) Cystocele (Acute 04/10/13) Uterine prolapse (Acute 06/05/13) Medical History Abdominal bloating Anxiety Cervicalgia Chest pain Chronic hepatitis C without hepatic coma Chronic pain Cirrhosis Controlled diabetes mellitus type II without complication COPD (chronic obstructive pulmonary disease) Diarrhea Edema Fatigue Heroin abuse Herpes, genital History of syncope HSV (herpes simplex virus) infection Kidney cyst, acquired Low back pain Lung nodule Memory loss Myalgia Rectal bleed Skin lesion Smoker Thickened endometrium Urinary bladder incontinence Uterine fibroid Vascular disease of the skin Venous stasis ulcers Social History Smoking/Tobacco Use Status: Current every day Smoking risk assessment performed?: Yes Alcohol Intake: never Drug use: Never Substance use type: does not use Housing: assisted living facility Do you feel safe at home: Yes Do you feel safe in your relationship?: Yes
--- NOTE | 2023-12-13 07:22 | TELEP.MEDR_ITS ---
Date of service: 12/13/23 Time of Service: 07:22 Telepharmacy Home Med Rec Allergies Allergies: fluoxetine (From Prozac) Allergy (Severe, Verified 12/13/23 06:23) unknown lisinopril Allergy (Intermediate, Verified 12/13/23 06:23) unknown alprazolam (From Xanax) Allergy (Unknown, Verified 12/13/23 06:23) unknown amitriptyline HCl (From Elavil) Allergy (Unknown, Verified 12/13/23 06:23) unknown Antihistamines - Alkylamine Allergy (Unknown, Verified 12/13/23 06:23) ANTIHISTAMINE ALLERGIC TO UNSPECIFIED buspirone HCl (From BuSpar) Allergy (Unknown, Verified 12/13/23 06:23) unknown butorphanol tartrate (From Stadol) Allergy (Unknown, Verified 12/13/23 06:23) unknown cyclobenzaprine HCl (From Flexeril) Allergy (Unknown, Verified 12/13/23 06:23) unknown diazepam (From Valium) Allergy (Unknown, Verified 12/13/23 06:23) unknown ibuprofen (From Motrin) Allergy (Unknown, Verified 12/13/23 06:23) unknown nabumetone (From Relafen) Allergy (Unknown, Verified 12/13/23 06:23) unknown oxaprozin (From Daypro) Allergy (Unknown, Verified 12/13/23 06:23) unknown oxazepam (From Serax) Allergy (Unknown, Verified 12/13/23 06:23) unknown paroxetine HCl (From Paxil) Allergy (Unknown, Verified 12/13/23 06:23) unknown phenytoin sodium (From Dilantin) Allergy (Unknown, Verified 12/13/23 06:23) unknown phenytoin sodium extended (From Dilantin) Allergy (Unknown, Verified 12/13/23 06:23) unknown sertraline HCl (From Zoloft) Allergy (Unknown, Verified 12/13/23 06:23) unknown tramadol HCl (From Ultram) Allergy (Unknown, Verified 12/13/23 06:23) unknown bupropion (From Wellbutrin) Allergy (Verified 12/13/23 06:23) unknown nortriptyline HCl (From Pamelor) Allergy (Verified 12/13/23 06:23) unknown simvastatin Allergy (Verified 12/13/23 06:23) unknown Interview Person Interviewed: Patient was unable to be interviewed due to severe cognitive impairment. Per nursing daughters were contacted and were unwilling to speak with staff due to social issues within the family. Quality Quality of Interview/Accuracy of Medication List: Poor Sources Sources used to compile medication list: SureScripts Changes made to Home Medication List: ADDITIONS: Farxiga, Furosemide 40 mg DELETIONS: Put not taking on all out of date medications that were associated with prescriptions. Deleted all medications from list that had no prescription associ ated wit them. The only things recently filled are now represented. Additional Notes Additional Notes: Methadone was on medication list, however, pt is unable to provide any history regarding this medication. Recommend a tox screen to confirm is this medication is being taken. Unable to confirm dose without more information about possible methadone clinic pt may use. Recommended Changes Recommended Changes(reason for recommendation): Please feel welcome to re-consult us if more information becomes available. Per nursing okay to use fill history for the time being. Attestation: The home medication list is now updated to the best of my knowledge and is ready to be reconciled by the provider. Please contact the TelePharmacy Medication Reconciliation Pharmacist at for any questions.
[2023-12-13] MEDS: Ondansetron O.D.T. 4 MG TABEF PO (08:03)
[2023-12-13] MEDS: Mylanta Suspension 30 ML CUP PO (08:03)
[2023-12-13] MEDS: Omeprazole 20 MG CAPCR PO (08:03)
--- NOTE | 2023-12-13 09:50 | PT.INIE ---
PT Notes Visit Reasons: [facility] Initial Evaluation Date: 12/13/2023 Referring Doctor: Dr Davis PT Orders: PT CONSULT: PT evaluation for safety Precautions: Standard Patient Profile/Admitting Diagnosis: Pt is 63yo felinda who presented to ED after leaving her living residence at 3am. The external door locked and she was unable to get back into the building. She was picked up by EMS and brought to ED. She reported being hungry as her chief complaint. Medical workup completed. Pt continues to report abdominal pain and nausea which she was given Zofran. 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 Current dose 114 mg/day. Many years.Memory loss (Acute) Cardiomyopathy (Acute) Ejection fraction 20-25% 04/27 ECHOAdvanced care planning/counseling discussion (Acute) Palliative care encounter (Acute) Atrophy of vagina (Acute 04/10/13) Cystocele (Acute 04/10/13) Uterine prolapse (Acute 06/05/13) Medical History Abdominal bloating Anxiety Cervicalgia Chest pain Chronic hepatitis C without hepatic coma Chronic pain Cirrhosis Controlled diabetes mellitus type II without complication COPD (chronic obstructive pulmonary disease) Diarrhea Edema Fatigue Heroin abuse Herpes, genital History of syncope HSV (herpes simplex virus) infection Kidney cyst, acquired Low back pain Lung nodule Memory loss Myalgia Rectal bleed Skin lesion Smoker Thickened endometrium Urinary bladder incontinence Uterine fibroid Vascular disease of the skin Venous stasis ulcers Social History/Home Situation: Resides in a residential living apt with elevator access. Her daughter sets up medication however pt frequently forgets to take them. She is Independent with ambulation and ADLs. Equipment Owned/DME: none Subjective: Pt reports her stomach hurts and feels hard.She intermittently reports legs fatigue quickly. Objective: General Observation: Pt in position on stretcher easily aroused and willing to participate in assessment Mental Status:Alert and oriented to person and place, word finding and STM impairment Pain: abdominal 4/10 ROM: [] Right Upper Extremity: WNL Left Upper Extremity: WNL Right Lower Extremity: WNL Left Lower Extremity: WNL Strength: [] Right Upper Extremity: 5/5 Left Upper Extremity: 5/5 Right Lower Extremity: hip 4/5, knee 4/5, ankle 4/5 Left Lower Extremity:hip 3+/5 , knee 4/5, ankle 4/5 Sensation: intact light touch ; reports numbness and tingling B feet Bed Mobility/Transfers: Supine to sit Independent Sit to stand independent Stand to sit independent Bed to chair independent Gait: ambulates without device 300 feet including turns and doorways on level surfaces supervision. slight forward lean of trunk which pt reports is d/t her abdominal pain. She demonstrate one crossover step during turn to left able to stabilize without assistance. Stairs: 2 with rail supervision reciprocal Balance: [] Static Sitting: Normal Dynamic Sitting: Normal Static Standing: fair+ Dynamic Standing: Fair Special Tests: [] Mobility Limitations Standardized Measure [] [facility] AM-PAC 6 clicks Basic Mobility Inpatient Short Form: [] Raw Score: 24 CMS Score: 0% disability Informed Consent/Education: Patient and daughter instructed in purpose of PT consult. Education also provided for bed bar to provide spatial parameter Assessment: Pt is 63yo female presenting with report of abdominal pain. She demonstrates cognitive impairments, including word finding and short term memory impairments. She demonstrates left LE decreased strength compared to right. with increased distance of ambulation she demonstrated one crossover step during a a turn which she was able to self correct without external assistance. Pt scored 24 on the AM-PAC indicating no disability however d/t cognitive impairment and decreased insight pt is risk for falls. Functionally pt demonstrates independent ability to function within her home. Patient is assessed as a low complexity based on the following: History: 63-year-old female with impairment level findings, functional limitations, and past medical history as indicated above Examination: Demonstrable impairment in strength, balance, with underlying impairments and functional limitations as documented above Presentation: stable Decision Making: low Goals: N/A. Plan of Care/Treatment Plan: N/A. DISCHARGE RECOMMENDATIONS: Home with HH-PT or OT for safety assessment within her residential living facility as dtr rports she has rolled out of bed and off couch while sleeping. TREATMENT CODE/TIME: [id number] Thank you for the opportunity to participate in the care of this patient. Please sign an return this page within 30 days if you agree with the above POC. Thank you! Physician Signature Date [facility]
[2023-12-13 10:55] VITALS: BP 135/80; PULSE 81; RESP 16; TEMP 36.6; O2SAT 99
== END 2023-12-13 10:55 | disposition home or self-care (01) ==
PROVIDERS: Emergency Provider Emergency Medicine; PCP Family Medicine
DX: G31.84 Mild cognitive impairment of uncertain or unknown etiology (principal); J44.9 Chronic obstructive pulmonary disease, unspecified; I25.10 Atherosclerotic heart disease of native coronary artery without angina pectoris; F17.200 Nicotine dependence, unspecified, uncomplicated; Z79.4 Long term (current) use of insulin; E11.9 Type 2 diabetes mellitus without complications
CPT/HCPCS: 97161; 99283

== ENCOUNTER 2023-12-16 19:07 | Outpatient (REF) | payer MEDICARE, MEDICAID, SELFPAY ==
[2023-12-21 02:38] LABS: EDDP-by GC-MS 224 ng/mL; Methadone Interpretation Positive.; Methadone-by GC-MS 223 ng/mL
[2023-12-21 13:23] LABS: Buprenorphine Negative ng/mL (Cutoff: 5.0); Norbuprenorphine 52.3 ng/mL (Cutoff: 2.5)
== END 2023-12-16 19:08 | disposition home or self-care (01) ==
LOC: NCHCN 19:07
PROVIDERS: PCP Family Medicine; Visit Provider Family Medicine
DX: Z51.81 Encounter for therapeutic drug level monitoring (principal)
CPT/HCPCS: 80348; 80358

== ENCOUNTER 2023-12-27 12:39 | Inpatient (IN) | payer MEDICARE, MEDICAID, SELFPAY ==
[2023-12-27] VITALS (28 sets, daily range): BP systolic 70–162; BP diastolic 48–133; PULSE 56–157; RESP 12–20; TEMP 36.4–36.9; O2SAT 84–99
--- NOTE | 2023-12-27 12:45 | RT.EKG_ITS ---
APPROVED REPORT Exam: Resting ECG Reason for Exam: nausea Patient Location: E HR:78 bpm ECG Measurements Heart Rate 78 AXIS WA 169 P 100 QRSd 116 QRS 134 QT 423 T -1 QTc 481 Conclusion Sinus rhythm...normal P axis, V-rate 60- 99 Ventricular premature complex...V complex w/ short R-R interval Nonspecific intraventricular conduction delay...QRSd >115mS, not LBBB/RBBB Anterolateral infarct, age indeterminate...Q >35mS, flat/neg T, V3-V6,I,aVL Sinus rhythm normal axis PVC
--- NOTE | 2023-12-27 13:15 | DI.CT_ITS ---
Exam(s) CT HEAD WO EXAM: CT HEAD WO CLINICAL HISTORY: nausea. TECHNIQUE: Imaging Protocol: Axial computed tomography images with coronal and sagittal reformatted images were created and reviewed COMPARISON: CT CT BRAIN NECK CTA from 11/09/2023 FINDINGS: Ventricles and Extra axial spaces: Normal in size and morphology for the patient's age. Hemorrhage: None. Cerebral parenchyma: No evidence of an acute territorial infarct. No mass effect is identified. Midline shift: None. Brainstem/Cerebellum: Normal. Calvarium: Normal. Visualized Paranasal sinuses/Mastoids: Clear. Soft Tissues: Unremarkable. IMPRESSION: No acute intracranial process. RADIATION DOSE DELIVERED: 868.71mGy.cm Total DLP DATA REPOSITORY: All CT scans at this facility are submitted to the National Radiology Data Registry (NRDR) Dose Index Registry (DIR) with the [employer] (ACR). RADIATION OPTIMIZATION: All CT scans at this facility use at least one of these dose optimization te chniques: automated exposure control; mA and/or kV adjustment per patient size (includes targeted exa ms where dose is matched to clinical indication); or iterative reconstruction.
--- NOTE | 2023-12-27 13:15 | ED.GENADUL_ITS ---
Discharge Plan Disposition Patient Disposition: Home Condition: Improving Discharge Details Chief Complaint: Abd Prob Clinical Impression: COVID Primary Care Provider: Minda Velasco V ED Provider: Brice Avitia Home Meds and New Rx's Prescriptions: No Action Entresto 24-26 mg tablet 0.5 tab PO BID insulin glargine [Lantus Solostar U-100 Insulin] 100 unit/mL (3 mL) insulin pen 25 unit SC HS magnesium oxide 400 MG tablet 400 mg PO DAILY insulin aspart U-100 [Novolog FlexPen U-100 Insulin] 100 unit/mL (3 mL) insulin pen 1 unit subcut TID Rx Instructions: Per Sliding Scale, Up to 10u per meal omeprazole 20 mg capsule,delayed release(DR/EC) 20 mg PO DAILY Spiriva Respimat 1.25 mcg/actuation mist 1 puff inhalation DAILY methadone 10 mg/5 mL solution 117 mg PO Q12H Patient Comments: Per nursing pt has dementia and is unable to contribute to medication history at all. No Rx record of Methadone, pt unable to confirm or deny or supply name of clinic dapagliflozin propanediol [Farxiga] 10 mg tablet 10 mg PO DAILY Patient Comments: TAKE ONE TABLET BY MOUTH EVERY DAY furosemide 40 mg tablet 40 mg PO QAM Patient Comments: TAKE ONE TABLET BY MOUTH EVERY MORNING spironolactone 25 mg tablet 25 mg PO DAILY Discharge Instructions Instructions: COVID-19 ED Additional Instructions: Please follow with your primary care physician. Return to the emergency department for any worsening symptoms HPI General Date/Time Provider Initiated Documentation: 12/27/23 12:40 . HPI Narrative: 63-year-old female brought in by EMS for evaluation of nausea, family thought that patient was less coordinated than normal, patient endorses nausea without vomiting no abdominal pain no headache no chest pain or shortness of breath Related Data Home Medications ?Medication ?Instructions ?Recorded ?Confirmed magnesium oxide 400 mg (241.3 mg 400 mg PO DAILY 04/10/13 12/20/23 magnesium) tablet insulin glargine 100 unit/mL (3 25 unit subcut HS 05/17/18 12/20/23 mL) subcutaneous pen (Lantus Solostar U-100 Insulin) insulin aspart U-100 100 unit/mL 1 unit subcut TID 04/29/23 12/20/23 (3 mL) subcutaneous pen (Novolog FlexPen U-100 Insulin aspart) omeprazole 20 mg capsule,delayed 20 mg PO DAILY 04/29/23 12/20/23 release tiotropium bromide 1.25 1 puff inhalation DAILY 04/29/23 12/20/23 mcg/actuation mist for inhalation (Spiriva Respimat) sacubitril 24 mg-valsartan 26 mg 0.5 tab PO BID 06/07/23 12/20/23 tablet (Entresto) methadone 10 mg/5 mL oral solution 117 mg PO Q12H 08/16/23 12/20/23 dapagliflozin propanediol 10 mg 10 mg PO DAILY 12/13/23 12/20/23 tablet (Farxiga) furosemide 40 mg tablet 40 mg PO QAM 12/13/23 12/20/23 spironolactone 25 mg tablet 25 mg PO DAILY 12/13/23 12/20/23 Allergies Allergy/AdvReac Type Severity Reaction Status Date / Time fluoxetine (From Prozac) Allergy Severe unknown Verified 12/20/23 10:31 lisinopril Allergy Intermediate unknown Verified 12/20/23 10:31 alprazolam (From Xanax) Allergy Unknown unknown Verified 12/20/23 10:31 amitriptyline HCl (From Allergy Unknown unknown Verified 12/20/23 10:31 Elavil) Antihistamines - Alkylamine Allergy Unknown ANTIHISTAMINE Verified 12/20/23 10:31 ALLERGIC TO UNSPECIFIED buspirone HCl (From BuSpar) Allergy Unknown unknown Verified 12/20/23 10:31 butorphanol tartrate (From Allergy Unknown unknown Verified 12/20/23 10:31 Stadol) cyclobenzaprine HCl (From Allergy Unknown unknown Verified 12/20/23 10:31 Flexeril) diazepam (From Valium) Allergy Unknown unknown Verified 12/20/23 10:31 ibuprofen (From Motrin) Allergy Unknown unknown Verified 12/20/23 10:31 nabumetone (From Relafen) Allergy Unknown unknown Verified 12/20/23 10:31 oxaprozin (From Daypro) Allergy Unknown unknown Verified 12/20/23 10:31 oxazepam (From Serax) Allergy Unknown unknown Verified 12/20/23 10:31 paroxetine HCl (From Paxil) Allergy Unknown unknown Verified 12/20/23 10:31 phenytoin sodium (From Allergy Unknown unknown Verified 12/20/23 10:31 Dilantin) phenytoin sodium extended Allergy Unknown unknown Verified 12/20/23 10:31 (From Dilantin) sertraline HCl (From Zoloft) Allergy Unknown unknown Verified 12/20/23 10:31 tramadol HCl (From Ultram) Allergy Unknown unknown Verified 12/20/23 10:31 bupropion (From Wellbutrin) Allergy unknown Verified 12/20/23 10:31 nortriptyline HCl (From Allergy unknown Verified 12/20/23 10:31 Pamelor) simvastatin Allergy unknown Verified 12/20/23 10:31 General Stated Complaint: Abd Prob NICOLE: 3 Exam Narrative Exam Narrative: Alert interactive Dry oral mucosa Normal voice tolerating secretions Lungs clear bilaterally no wheezes rales or rhonchi Normal heart sounds no murmurs rubs or gallops Abdomen soft nontender nondistended Alert, cranial nerves intact, 5/5 strength upper lower extremities bilaterally sensation intact, no truncal ataxia no evidence of dyskinesia Course Vital Signs Vital signs: Vital Signs Temperature 36.4 C 12/27/23 12:44 Pulse 78 12/27/23 12:44 Respiratory Rate 20 12/27/23 12:44 Blood Pressure 106/71 12/27/23 12:44 Pulse Oximetry 96 12/27/23 12:44 Temperature 36.4 C 12/27/23 12:46 Temperature Source Oral 12/27/23 12:46 Pulse 78 12/27/23 12:46 Respiratory Rate 20 12/27/23 12:46 Respiratory Effort Normal 12/27/23 12:46 Blood Pressure 106/71 12/27/23 12:46 Blood Pressure Position Sitting 12/27/23 12:46 Pulse Oximetry 96 12/27/23 12:46 Oxygen Delivery Method Room Air 12/27/23 12:46 Oxygen Flow Rate 0 12/27/23 12:46 Pain Level 0 12/27/23 12:46 Medical Decision Making 63-year-old female history of COPD, hepatitis, diabetes, methadone use, brought in by EMS for evaluation of nausea, family endorses that patient was less coordinated than normal, no external signs of trauma patient hemodynamically stable afebrile nontoxic normotensive no tachypnea no hypoxia, neurologic examination intact with normal cranial nerve strength sensation no signs of ataxia, no signs of cranial trauma nausea without vomiting nonperitoneal abdomi nal examination, does appear moderately dry on examination with dry oromucosa and dry skin. Consider dehydration versus electrolyte derangement versus viral illness versus UTI lower suspicion for ACS intracranial hemorrhage or stroke, patient is nonmeningeal low suspicion for encephalitis or meningitis, patient has no rash, will provide fluid hydration basic labs EKG CT head urinalysis close reassessment 16: 01 resting comfortably no acute distress neurologically intact no respiratory distress. COVID-positive. Likely the cause of patient symptomatology Quality:SDOH Health Related Social Needs: No Data to Display PFSH All Active Problems (Updated 12/27/23 @ 16:02 by Brice Avitia MD) COVID (Acute) Cognitive impairment (Acute) Venous stasis dermatitis (Acute) Erythema of lower limb (Acute) Nicotine dependence (Acute) PTSD (post-traumatic stress disorder) (Acute) shelter current use of opiate analgesic (Acute) History of CAD (coronary artery disease) (Acute) GERD (gastroesophageal reflux disease) (Chronic) Adjustment disorder (Chronic) Congestive heart failure (Chronic) Mild cognitive impairment with memory loss (Acute) 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 Current dose 114 mg/day. Many years. Memory loss (Acute) Cardiomyopathy (Acute) Ejection fraction 20-25% 04/27 ECHO Advanced care planning/counseling discussion (Acute) Palliative care encounter (Acute) Atrophy of vagina (Acute 04/10/13) Cystocele (Acute 04/10/13) Uterine prolapse (Acute 06/05/13) Medical History Abdominal bloating Anxiety Cervicalgia Chest pain Chronic hepatitis C without hepatic coma Chronic pain Cirrhosis Controlled diabetes mellitus type II without complication COPD (chronic obstructive pulmonary disease) Diarrhea Edema Fatigue Heroin abuse Herpes, genital History of syncope HSV (herpes simplex virus) infection Kidney cyst, acquired Low back pain Lung nodule Memory loss Myalgia Rectal bleed Skin lesion Smoker Thickened endometrium Urinary bladder incontinence Uterine fibroid Vascular disease of the skin Venous stasis ulcers Social History Smoking/Tobacco Use Status: Current every day Smoking risk assessment performed?: Yes Alcohol Intake: never Drug use: Never Substance use type: does not use Housing: assisted living facility Do you feel safe at home: Yes Do you feel safe in your relationship?: Yes
[2023-12-27] MEDS: Normal Saline 1,000 ML 1000 ML IV (13:19)
[2023-12-27] MEDS: Ondansetron 4 MG/2 ML VIAL IVP (13:19)
[2023-12-27 13:34] LABS: Abs Immature Grans 0.07 10^3/uL (0.0-0.06); Absolute Basophil Count 0.05 10^3/uL (0.0-0.2); Absolute Eosinophil Count 0.03 10^3/uL (0.0-0.7); Absolute Lymphocyte Count 1.13 10^3/uL (1.2-3.4); Absolute Monocyte Count 0.63 10^3/uL (0.1-0.8); Absolute Neutrophil Count 9.58 10^3/uL (1.2-6.7); Basophils % 0.4 %; Eosinophils % 0.3 %; HCT 47.2 % (36.0-46.0); HGB 14.6 g/dL (11.2-15.7); Immature Grans % 0.6 %; Lymphocytes % 9.8 %; MCH 29.5 pg (27.0-33.0); MCHC 30.9 % (32.0-36.0); MCV 95 fL (80-95); MPV 12.2 fL (8.0-11.0); Monocytes % 5.5 %; Neutrophils % 83.4 %; Platelet Count 158 10^3/uL (130-400); RBC 4.95 10^6/uL (3.93-5.22); RDW 16.8 % (11.7-14.6); RDW-SD 58.9 fL; WBC 11.49 10^3/uL (4.4-10.8)
[2023-12-27 14:18] LABS: ALT 32 U/L (14-59); AST 22 U/L (15-37); Albumin 2.9 g/dL (3.4-5.0); Alkaline Phosphatase 73 U/L (46-116); Anion Gap 8.5 mmol/L (3-11); BUN 41 mg/dL (7-18); Bilirubin, Total 0.73 mg/dL (0.2-1.0); CO2 25.5 mmol/L (21.0-32.0); CREATININE 1.2 mg/dL (0.55-1.02); Calcium 8.1 mg/dL (8.5-10.1); Chloride 103 mmol/L (98-107); Estimated GFR 50.23 (mL/min/1.73m2); Glucose 260 mg/dL (74-106); Lipase 141 U/L (16-77); Potassium 3.9 mmol/L (3.5-5.1); Sodium 137 mmol/L (136-145); Total Protein 6.5 g/dL (6.4-8.2)
[2023-12-27 14:22] LABS: Influenza A PCR Negative (Negative); Influenza B PCR Negative (Negative); RSV PCR Negative (Negative)
[2023-12-27 15:11] LABS: Bilirubin Small (Negative); Blood Trace-intact (Negative); Clarity Sl Cloudy (Clear); Glucose Negative (Negative); Ketones Negative (Negative); Leukocyte Esterase Negative (Negative); Nitrite Negative (Negative); Specific Gravity >= 1.030 (1.005-1.025); Urobilinogen 0.2 mg/dL (Up to 0.2)
[2023-12-27 15:18] LABS: COVID-19 PCR Positive (Negative); Source Nasopharynx
[2023-12-27 15:26] LABS: Epithelial Cells Few HPF (Negative)
[2023-12-27 15:27] LABS: Bacteria Few HPF (Negative)
[2023-12-27 15:30] LABS: C & S Indicated? No; Crystals Rare Calcium Oxalate HPF (Negative); Mucus Negative (Negative)
--- NOTE | 2023-12-27 16:34 | W.EDPROG ---
Date of service: 12/27/23 Time of Service: 16:35 Medical Decision Making Initial plan for discharge as patient's labs were largely unremarkable and patient was resting comfortably however patient developed oxygen requirement while here in department saturating high 80s, 87 to 89% on room air placed on nasal cannula with good response. In the setting of COVID with hypoxia have added dexamethasone and given patient a nebulized albuterol treatment, will order chest x-ray. Discussed case with hospitalist Dr. Barrow, we will initiate remdesivir. Patient to be admitted for further observation of respiratory status Quality:[facility] Health Related Social Needs: No Data to Display Discharge Plan Disposition Patient Disposition: Admit to [facility] Condition: Stable Discharge Details Clinical Impression: COVID, Hypoxia Primary Care Provider: Minda Velasco V ED Provider: Brice Avitia Home Meds and New Rx's Prescriptions: No Action Entresto 24-26 mg tablet 0.5 tab PO BID insulin glargine [Lantus Solostar U-100 Insulin] 100 unit/mL (3 mL) insulin pen 25 unit SC HS magnesium oxide 400 MG tablet 400 mg PO DAILY insulin aspart U-100 [Novolog FlexPen U-100 Insulin] 100 unit/mL (3 mL) insulin pen 1 unit subcut TID Rx Instructions: Per Sliding Scale, Up to 10u per meal omeprazole 20 mg capsule,delayed release(DR/EC) 20 mg PO DAILY Spiriva Respimat 1.25 mcg/actuation mist 1 puff inhalation DAILY methadone 10 mg/5 mL solution 117 mg PO Q12H Patient Comments: Per nursing pt has dementia and is unable to contribute to medication history at all. No Rx record of Methadone, pt unable to confirm or deny or supply name of clinic dapagliflozin propanediol [Farxiga] 10 mg tablet 10 mg PO DAILY Patient Comments: TAKE ONE TABLET BY MOUTH EVERY DAY furosemide 40 mg tablet 40 mg PO QAM Patient Comments: TAKE ONE TABLET BY MOUTH EVERY MORNING spironolactone 25 mg tablet 25 mg PO DAILY Discharge Instructions Instructions: COVID-19 ED Additional Instructions: Please follow with your primary care physician. Return to the emergency department for any worsening symptoms
--- NOTE | 2023-12-27 16:41 | HPE_ITS ---
Date of service: 12/27/23 Time of Service: 16:41 Assessment and Plan Assessment and plan (1) COVID: Status: Acute Assessment and plan: Unable to point start of symptoms O2 for sat > 92% remdesivir decadron (2) Hypoxia: Status: Acute Assessment and plan: On ambulation As above (3) Cognitive impairment: Status: Acute Assessment and plan: Seems chronic as per previous provider noted NH3 ordered (4) Nicotine dependence: Status: Acute Assessment and plan: Nicotine replacement therappy (5) USP current use of opiate analgesic: Status: Acute Assessment and plan: Unable to state that she has been feeling her methadone at [facility] to verify in AM (6) Diabetes: Status: Chronic Assessment and plan: Fingerstick AC and HS with SSI BMP in AM (7) Cardiomyopathy: Status: Acute Assessment and plan: EFrEF LVEF 20-25% in 04/2023 Does not seem to be compliant Will hold drug ( Entresto,aldactone) that can also affect renal function BUN 41 , Cr 1.2 w baseline 1.0- not at VIKKI definition yet - one liter of crystalloid given in ED CXR small amount of pleural fluid. Bilateral lower lobe infiltrates. Cardiomegaly. Also mildly increased interstitial pattern. Cannot exclude additional element of CHF. Considering chest CT scan in AM Will give lasix 20 mg IVP was on 40 mg PO at home Discussed with Dr. Barrow Qualifiers: Cardiomyopathy type: unspecified Qualified Code(s): I42.9 - Cardiomyopathy, unspecified History of Present Illness History of Present Illness Chief Complaint: Fatigue, decreased level of energy Narrative: This 63 years old female patient with past medical history of diabetes, ongoing tobacco abuse, chronic pain from neuropathy and arthritis, distant history of opioid abuse with ongoing methadone use, mild cognitive impairment diagnosed with severe cardiomyopathy with an EF of 2024% recently presented to the emergency room at [facility] for evaluation of increased fatigue, nausea and low energy levels. The emergency room workup was significant for positive COVID test, negative head CT, slight leukocytosis at 11.49, creatinine of 1.2 with a baseline around 1.0, BUN of 41. The ED provider reported saturation in oxygen dropping into the 88- 89 on ambulation on room air but responding well to oxygen supplementation at 2 L via nasal cannula. The hospitalist was consulted and the patient admitted to the medical surgical floor for evaluation and management of COVID infection, nausea and hypoxic respiratory failure. Decadron IV was administered and the ED provider initiated a bolus dose of remdesivir. When seen in the ED, patient appears tired but opens her eyes to voice, unable to sustain response. Patient reported earlier dizziness, fatigue, nausea that has subsided. The patient denies any pain at this time. Reported feeling thirsty. Patient confirms that she would like CPR and intubation if necessary, thus the patient is a full code. Noted in previous notes that the patient is also palliative care patient. 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 Current dose 114 mg/day. Many years. Memory loss (Acute) Cardiomyopathy (Acute) Ejection fraction 20-25% 04/27 ECHO Advanced care planning/counseling discussion (Acute) Palliative care encounter (Acute) Atrophy of vagina (Acute 04/10/13) Cystocele (Acute 04/10/13) Uterine prolapse (Acute 06/05/13) Medical History Venous stasis ulcers Memory loss Anxiety Smoker Heroin abuse Herpes, genital Lung nodule Thickened endometrium History of syncope Cirrhosis COPD (chronic obstructive pulmonary disease) Low back pain HSV (herpes simplex virus) infection Skin lesion Fatigue Kidney cyst, acquired Cervicalgia Rectal bleed Chronic hepatitis C without hepatic coma Chronic pain Controlled diabetes mellitus type II without complication Urinary bladder incontinence Edema Vascular disease of the skin Diarrhea Abdominal bloating Myalgia Chest pain Uterine fibroid Social History Smoking/Tobacco Use Status: Current every day Smoking risk assessment performed?: Yes Alcohol Intake: never Drug use: Never Substance use type: does not use Housing: assisted living facility Do you feel safe at home: Yes Do you feel safe in your relationship?: Yes Meds Allergies and Home Medications Allergies Allergy/AdvReac Type Severity Reaction Status Date / Time fluoxetine (From Prozac) Allergy Severe unknown Verified 12/20/23 10:31 lisinopril Allergy Intermediate unknown Verified 12/20/23 10:31 alprazolam (From Xanax) Allergy Unknown unknown Verified 12/20/23 10:31 amitriptyline HCl (From Allergy Unknown unknown Verified 12/20/23 10:31 Elavil) Antihistamines - Alkylamine Allergy Unknown ANTIHISTAMINE Verified 12/20/23 10:31 ALLERGIC TO UNSPECIFIED buspirone HCl (From BuSpar) Allergy Unknown unknown Verified 12/20/23 10:31 butorphanol tartrate (From Allergy Unknown unknown Verified 12/20/23 10:31 Stadol) cyclobenzaprine HCl (From Allergy Unknown unknown Verified 12/20/23 10:31 Flexeril) diazepam (From Valium) Allergy Unknown unknown Verified 12/20/23 10:31 ibuprofen (From Motrin) Allergy Unknown unknown Verified 12/20/23 10:31 nabumetone (From Relafen) Allergy Unknown unknown Verified 12/20/23 10:31 oxaprozin (From Daypro) Allergy Unknown unknown Verified 12/20/23 10:31 oxazepam (From Serax) Allergy Unknown unknown Verified 12/20/23 10:31 paroxetine HCl (From Paxil) Allergy Unknown unknown Verified 12/20/23 10:31 phenytoin sodium (From Allergy Unknown unknown Verified 12/20/23 10:31 Dilantin) phenytoin sodium extended Allergy Unknown unknown Verified 12/20/23 10:31 (From Dilantin) sertraline HCl (From Zoloft) Allergy Unknown unknown Verified 12/20/23 10:31 tramadol HCl (From Ultram) Allergy Unknown unknown Verified 12/20/23 10:31 bupropion (From Wellbutrin) Allergy unknown Verified 12/20/23 10:31 nortriptyline HCl (From Allergy unknown Verified 12/20/23 10:31 Pamelor) simvastatin Allergy unknown Verified 12/20/23 10:31 Home Medications ?Medication ?Instructions ?Recorded ?Confirmed ?Type magnesium oxide 400 mg (241.3 mg 400 mg PO DAILY 04/10/13 12/20/23 History magnesium) tablet insulin glargine 100 unit/mL (3 25 unit subcut HS 05/17/18 12/20/23 History mL) subcutaneous pen (Lantus Solostar U-100 Insulin) insulin aspart U-100 100 unit/mL 1 unit subcut TID 04/29/23 12/20/23 History (3 mL) subcutaneous pen (Novolog FlexPen U-100 Insulin aspart) omeprazole 20 mg capsule,delayed 20 mg PO DAILY 04/29/23 12/20/23 History release tiotropium bromide 1.25 1 puff inhalation DAILY 04/29/23 12/20/23 History mcg/actuation mist for inhalation (Spiriva Respimat) sacubitril 24 mg-valsartan 26 mg 0.5 tab PO BID 06/07/23 12/20/23 History tablet (Entresto) methadone 10 mg/5 mL oral solution 117 mg PO Q12H 08/16/23 12/20/23 History dapagliflozin propanediol 10 mg 10 mg PO DAILY 12/13/23 12/20/23 History tablet (Farxiga) furosemide 40 mg tablet 40 mg PO QAM 12/13/23 12/20/23 History spironolactone 25 mg tablet 25 mg PO DAILY 12/13/23 12/20/23 History Exam Narrative Exam Narrative: HENMT: Facial structures with normal appearance Eyes: Well aligned Neuro:alert and oriented X2 . 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 Results Labs 12/27/23 13:20 12/27/23 13:52 Labs: Laboratory Results - last 24 hr 09/24/24 09/24/24 09/24/24 13:15 13:20 13:52 WBC 11.49 H RBC 4.95 Hgb 14.6 Hct 47.2 H MCV 95 MCH 29.5 MCHC 30.9 L RDW 16.8 H Plt Count 158 MPV 12.2 H Immature Gran % 0.6 Neutrophils % 83.4 Lymphocytes % 9.8 Monocytes % 5.5 Eosinophils % 0.3 Basophils % 0.4 Nucleated RBC % 0.0 Absolute Neutrophils 9.58 H Absolute Lymphocytes 1.13 L Absolute Monocytes 0.63 Absolute Eosinophils 0.03 Absolute Basophils 0.05 Sodium Cancelled 137 Potassium Cancelled 3.9 Chloride Cancelled 103 Carbon Dioxide Cancelled 25.5 Anion Gap Cancelled 8.5 BUN Cancelled 41 H Creatinine Cancelled 1.2 H Est GFR (CKD-EPI 2020) Cancelled 50.23 Glucose Cancelled 260 H Calcium Cancelled 8.1 L Total Bilirubin Cancelled 0.73 AST Cancelled 22 ALT Cancelled 32 Alkaline Phosphatase Cancelled 73 Total Protein Cancelled 6.5 Albumin Cancelled 2.9 L Lipase Cancelled 141 H Urine Color Urine Clarity Urine pH Ur Specific [place] Urine Protein Urine Ketones Urine Blood Urine Nitrite Urine Bilirubin Urine Urobilinogen Ur Leukocyte Esterase Urine RBC Urine WBC Ur Epithelial Cells Urine Crystals Urine Bacteria Urine Casts Urine Mucus Ur Culture Indicated? Urine Glucose COVID-19 Source Nasopharynx SARS-CoV-2 (PCR) Positive A Influenza Type A (PCR) Negative Influenza Type B (PCR) Negative RSV (PCR) Negative 12/27/23 14:50 WBC RBC Hgb Hct MCV MCH MCHC RDW Plt Count MPV Immature Gran % Neutrophils % Lymphocytes % Monocytes % Eosinophils % Basophils % Nucleated RBC % Absolute Neutrophils Absolute Lymphocytes Absolute Monocytes Absolute Eosinophils Absolute Basophils Sodium Potassium Chloride Carbon Dioxide Anion Gap BUN Creatinine Est GFR (CKD-EPI 2020) Glucose Calcium Total Bilirubin AST ALT Alkaline Phosphatase Total Protein Albumin Lipase Urine Color Yellow Urine Clarity Sl Cloudy Urine pH 5.0 Ur Specific [place] >= 1.030 H Urine Protein 30 H Urine Ketones Negative Urine Blood Trace-intact H Urine Nitrite Negative Urine Bilirubin Small H Urine Urobilinogen 0.2 Ur Leukocyte Esterase Negative Urine RBC 3-5 H Urine WBC 5-10 Ur Epithelial Cells Few Urine Crystals Rare Calcium Oxalate Urine Bacteria Few Urine Casts >50 Hyaline Urine Mucus Negative Ur Culture Indicated? No Urine Glucose Negative COVID-19 Source SARS-CoV-2 (PCR) Influenza Type A (PCR) Influenza Type B (PCR) RSV (PCR) Last Vital Signs Temp 36.4 C 12/27/23 12:46 Pulse 78 12/27/23 12:46 Resp 20 12/27/23 12:46 BP 106/71 12/27/23 12:46 Pulse Ox 96 12/27/23 12:46 Time Spent Time spent with Patient: >75 minutes Time was spent: preparing to see the patient(eg.review tests), obtaining and/or reviewing separately otained hiistory, ordering medications,tests, procedures, referring, communicating with other health early breastfeeding care specialist, indepentently interpreting results, counseling the patient and care coordination
[2023-12-27] MEDS: Dexamethasone 10 MG/ML VIAL IVP (16:51)
[2023-12-27] MEDS: Albuterol 2.5 MG/3 ML INH SOLN VIAL UPD (16:51)
--- NOTE | 2023-12-27 17:16 | DI.RAD_ITS ---
Exam(s) XR CHEST 2V PA LATERAL EXAM: XR CHEST 2V PA LATERAL CLINICAL HISTORY: covid, hypoxia. TECHNIQUE: 2D digital imaging was performed. COMPARISON: No exams were available for comparison FINDINGS: 2 views: Cardiomegaly again noted. Mediastinum not widened There is infiltrate in both lower lobes. Mild blunting of the costophrenic angles may indicate small amount of pleural fluid. IMPRESSION: Bilateral lower lobe infiltrates. Cardiomegaly. Also mildly increased interstitial pattern. Cannot exclude additional element of CHF. If clinically indicated follow-up chest CT scan can be performed. DATA REPOSITORY: RADIATION DOSE DELIVERED:
[2023-12-27] MEDS: REMDESIVIR 200 MG in Normal Saline 250 ML 250 MG IVPB (17:22)
[2023-12-27 18:46] LABS: Ammonia 14 umol/L (11-32)
--- NOTE | 2023-12-27 18:46 | W.PC.ACHO ---
Registration Status: Primary Language: Preferred Language: ED Information & Data Chief Complaint Abd Prob 12/27/23 13:20 Triage Note PT reports waking up this 12/27/23 12:44 morning feeling nauseous. No vomiting according to EMS and caretakers. Care takers concerned that the PT seemed less coordinated than her usual, apparently normal last night. Medical / Surgical History (Last Reviewed 12/27/23 @ 18:12 by Naomi Garcia APRN) Venous stasis ulcers Memory loss Anxiety Smoker Heroin abuse Herpes, genital Lung nodule Thickened endometrium History of syncope Cirrhosis COPD (chronic obstructive pulmonary disease) Low back pain HSV (herpes simplex virus) infection Skin lesion Fatigue Kidney cyst, acquired Cervicalgia Rectal bleed Chronic hepatitis C without hepatic coma Chronic pain Controlled diabetes mellitus type II without complication Urinary bladder incontinence Edema Vascular disease of the skin Diarrhea Abdominal bloating Myalgia Chest pain Uterine fibroid Most Recent Vital Signs Temperature 36.9 C 12/27/23 18:14 Temperature Source Oral 12/27/23 12:46 Pulse 76 12/27/23 18:14 Respiratory Rate 12 12/27/23 18:14 Respiratory Effort Normal 12/27/23 18:14 Respiratory Depth Shallow 12/27/23 18:14 Respiratory Pattern Normal 12/27/23 18:14 Blood Pressure 101/75 12/27/23 18:14 Blood Pressure Mean 92 12/27/23 17:46 Blood Pressure Position Sitting 12/27/23 12:46 Pulse Oximetry 99 12/27/23 18:14 Oxygen Delivery Method Nasal Cannula 12/27/23 18:14 Oxygen Flow Rate 1 12/27/23 18:14 Pain Level 0 12/27/23 18:14 Allergies fluoxetine (From Prozac) Allergy (Severe, Verified 12/20/23 10:31) unknown lisinopril Allergy (Intermediate, Verified 12/20/23 10:31) unknown alprazolam (From Xanax) Allergy (Unknown, Verified 12/20/23 10:31) unknown amitriptyline HCl (From Elavil) Allergy (Unknown, Verified 12/20/23 10:31) unknown Antihistamines - Alkylamine Allergy (Unknown, Verified 12/20/23 10:31) ANTIHISTAMINE ALLERGIC TO UNSPECIFIED buspirone HCl (From BuSpar) Allergy (Unknown, Verified 12/20/23 10:31) unknown butorphanol tartrate (From Stadol) Allergy (Unknown, Verified 12/20/23 10:31) unknown cyclobenzaprine HCl (From Flexeril) Allergy (Unknown, Verified 12/20/23 10:31) unknown diazepam (From Valium) Allergy (Unknown, Verified 12/20/23 10:31) unknown ibuprofen (From Motrin) Allergy (Unknown, Verified 12/20/23 10:31) unknown nabumetone (From Relafen) Allergy (Unknown, Verified 12/20/23 10:31) unknown oxaprozin (From Daypro) Allergy (Unknown, Verified 12/20/23 10:31) unknown oxazepam (From Serax) Allergy (Unknown, Verified 12/20/23 10:31) unknown paroxetine HCl (From Paxil) Allergy (Unknown, Verified 12/20/23 10:31) unknown phenytoin sodium (From Dilantin) Allergy (Unknown, Verified 12/20/23 10:31) unknown phenytoin sodium extended (From Dilantin) Allergy (Unknown, Verified 12/20/23 10:31) unknown sertraline HCl (From Zoloft) Allergy (Unknown, Verified 12/20/23 10:31) unknown tramadol HCl (From Ultram) Allergy (Unknown, Verified 12/20/23 10:31) unknown bupropion (From Wellbutrin) Allergy (Verified 12/20/23 10:31) unknown nortriptyline HCl (From Pamelor) Allergy (Verified 12/20/23 10:31) unknown simvastatin Allergy (Verified 12/20/23 10:31) unknown IV IV Catheter Type [Right Saline Lock Forearm] IV Catheter Gauge [Right 18 Forearm] Diagnostics 12/27/23 12/27/23 12/27/23 Range/Units 18:25 14:50 13:52 WBC (4.4-10.8) 10^3/uL RBC (3.93-5.22) 10^6/uL Hgb (11.2-15.7) g/dL Hct (36.0-46.0) % MCV (80-95) fL MCH (27.0-33.0) pg MCHC (32.0-36.0) % RDW (11.7-14.6) % Plt Count (130-400) 10^3/uL MPV (8.0-11.0) fL Immature Gran % % Neutrophils % % Lymphocytes % % Monocytes % % Eosinophils % % Basophils % % Nucleated RBC % (0.0-0.3) % Absolute Neutrophils (1.2-6.7) 10^3/uL Absolute Lymphocytes (1.2-3.4) 10^3/uL Absolute Monocytes (0.1-0.8) 10^3/uL Absolute Eosinophils (0.0-0.7) 10^3/uL Absolute Basophils (0.0-0.2) 10^3/uL Sodium 137 Potassium 3.9 Chloride 103 Carbon Dioxide 25.5 Anion Gap 8.5 BUN 41 H Creatinine 1.2 H Est GFR (CKD-EPI 2020) 50.23 Glucose 260 H Calcium 8.1 L Total Bilirubin 0.73 AST 22 ALT 32 Alkaline Phosphatase 73 Ammonia Pending Total Protein 6.5 Albumin 2.9 L Lipase 141 H Urine Color Yellow (Yellow) Urine Clarity Sl Cloudy (Clear) Urine pH 5.0 (5-8) Ur Specific [place] >= 1.030 H (1.005-1.025) Urine Protein 30 H (Neg-Trace) mg/dL Urine Ketones Negative (Negative) mg/dL Urine Blood Trace-intact H (Negative) Urine Nitrite Negative (Negative) Urine Bilirubin Small H (Negative) Urine Urobilinogen 0.2 (Up to 0.2) mg/dL Ur Leukocyte Esterase Negative (Negative) Urine RBC 3-5 H (0-2) HPF Urine WBC 5-10 (0-5) HPF Ur Epithelial Cells Few (Negative) HPF Urine Crystals Rare Calcium Oxalate (Negative) HPF Urine Bacteria Few (Negative) HPF Urine Casts >50 Hyaline (Negative) LPF Urine Mucus Negative (Negative) Ur Culture Indicated? No Urine Glucose Negative (Negative) mg/dL COVID-19 Source SARS-CoV-2 (PCR) (Negative) Influenza Type A (PCR) (Negative) Influenza Type B (PCR) (Negative) RSV (PCR) (Negative) 12/27/23 12/27/23 Range/Units 13:20 13:15 WBC 11.49 H (4.4-10.8) 10^3/uL RBC 4.95 (3.93-5.22) 10^6/uL Hgb 14.6 (11.2-15.7) g/dL Hct 47.2 H (36.0-46.0) % MCV 95 (80-95) fL MCH 29.5 (27.0-33.0) pg MCHC 30.9 L (32.0-36.0) % RDW 16.8 H (11.7-14.6) % Plt Count 158 (130-400) 10^3/uL MPV 12.2 H (8.0-11.0) fL Immature Gran % 0.6 % Neutrophils % 83.4 % Lymphocytes % 9.8 % Monocytes % 5.5 % Eosinophils % 0.3 % Basophils % 0.4 % Nucleated RBC % 0.0 (0.0-0.3) % Absolute Neutrophils 9.58 H (1.2-6.7) 10^3/uL Absolute Lymphocytes 1.13 L (1.2-3.4) 10^3/uL Absolute Monocytes 0.63 (0.1-0.8) 10^3/uL Absolute Eosinophils 0.03 (0.0-0.7) 10^3/uL Absolute Basophils 0.05 (0.0-0.2) 10^3/uL Sodium Cancelled Potassium Cancelled Chloride Cancelled Carbon Dioxide Cancelled Anion Gap Cancelled BUN Cancelled Creatinine Cancelled Est GFR (CKD-EPI 2020) Cancelled Glucose Cancelled Calcium Cancelled Total Bilirubin Cancelled AST Cancelled ALT Cancelled Alkaline Phosphatase Cancelled [place] Total Protein Cancelled Albumin Cancelled Lipase Cancelled Urine Color (Yellow) Urine Clarity (Clear) Urine pH (5-8) Ur Specific [place] (1.005-1.025) Urine Protein (Neg-Trace) mg/dL Urine Ketones (Negative) mg/dL Urine Blood (Negative) Urine Nitrite (Negative) Urine Bilirubin (Negative) Urine Urobilinogen (Up to 0.2) mg/dL Ur Leukocyte Esterase (Negative) Urine RBC (0-2) HPF Urine WBC (0-5) HPF Ur Epithelial Cells (Negative) HPF Urine Crystals (Negative) HPF Urine Bacteria (Negative) HPF Urine Casts (Negative) LPF Urine Mucus (Negative) Ur Culture Indicated? Urine Glucose (Negative) mg/dL COVID-19 Source Nasopharynx SARS-CoV-2 (PCR) Positive A (Negative) Influenza Type A (PCR) Negative (Negative) Influenza Type B (PCR) Negative (Negative) RSV (PCR) Negative (Negative) [id number] Documentation Fingerstick Glucose Start: 12/27/23 13:38 Freq: Status: Complete Protocol: Activity Type Activity Date Activity User E-sign Co-sign Detail Recorded Client Recorded Date Recorded By Document 12/27/23 13:37 BKG DAEMON(9) [id number] 12/27/23 13:38 BKG DAEMON(10) Intake and Output - 24 Hour Total 12/27/23 12:32 thru 12/27/23 12:44 Weight 52.163 kg Falls Risk Assessment History of Falls Previous History 12/27/23 18:14 Contributing Factors Confusion,Impairments 12/27/23 18:14 Ambulatory Aids Uses ambulatory device 12/27/23 18:14 Tubes/Lines None 12/27/23 12:46 Gait Evaluation No gait disturbance 12/27/23 12:46 Cognition Cognitive impairment 12/27/23 12:46 Fall Total Score 36 12/27/23 18:14 Level of Risk Moderate Risk 12/27/23 18:14 Problems (Last Reviewed 12/27/23 @ 18:12 by Naomi Garcia APRN) Diabetes (Chronic) Hypoxia (Acute) COVID (Acute) Cognitive impairment (Acute) Nicotine dependence (Acute) senior care current use of opiate analgesic (Acute) Cardiomyopathy (Acute) v v v v v v v v v Sending and/or Receiving Nurses: Please use comment section below to note any information pertinent to the patient hand-off not included above. Information / Comments: Covid+ pt admitted for new oxygen needs. Hx of dementia, increased confusion noted by home providers, started on Remdesivir in ED. Report received from: Malena
[2023-12-27] MEDS: Normal Saline Flush 10 ML SYR IVP (20:13)
[2023-12-27] MEDS: Furosemide 20 MG/2 ML VIAL IVP (20:13)
[2023-12-27] MEDS: Acetaminophen 325 MG TAB 650 MG PO (20:13)
[2023-12-27] MEDS: Enoxaparin 40 MG/0.4 ML SYR SC (21:39)
[2023-12-28] VITALS (10 sets, daily range): BP systolic 88–106; BP diastolic 54–82; PULSE 64–77; RESP 15–18; TEMP 36.2–36.9; O2SAT 94–98
[2023-12-28] MEDS: Acetaminophen 325 MG TAB 650 MG PO ×4 (00:39→20:31)
[2023-12-28 06:34] LABS: Abs Immature Grans 0.04 10^3/uL (0.0-0.06); Absolute Basophil Count 0.01 10^3/uL (0.0-0.2); Absolute Lymphocyte Count 0.84 10^3/uL (1.2-3.4); Absolute Monocyte Count 0.29 10^3/uL (0.1-0.8); Absolute Neutrophil Count 6.45 10^3/uL (1.2-6.7); Basophils % 0.1 %; HCT 41.4 % (36.0-46.0); HGB 13.3 g/dL (11.2-15.7); Immature Grans % 0.5 %; MCHC 32.1 % (32.0-36.0); MCV 93 fL (80-95); MPV 11.4 fL (8.0-11.0); Monocytes % 3.8 %; Neutrophils % 84.6 %; Platelet Count 161 10^3/uL (130-400); RBC 4.44 10^6/uL (3.93-5.22); RDW 16.3 % (11.7-14.6); RDW-SD 55.9 fL; WBC 7.63 10^3/uL (4.4-10.8)
[2023-12-28 06:46] LABS: Anion Gap 11.9 mmol/L (3-11); BUN 48 mg/dL (7-18); CO2 21.1 mmol/L (21.0-32.0); CREATININE 1.4 mg/dL (0.55-1.02); Calcium 8.2 mg/dL (8.5-10.1); Chloride 100 mmol/L (98-107); Estimated GFR 41.75 (mL/min/1.73m2); Glucose 281 mg/dL (74-106); Potassium 4.8 mmol/L (3.5-5.1); Sodium 133 mmol/L (136-145)
[2023-12-28] MEDS: Tiotropium Bromide-Respimat 10 PUFF INH IH (08:28)
[2023-12-28] MEDS: Magnesium Oxide 400 MG TAB PO (08:47)
[2023-12-28] MEDS: Omeprazole 20 MG CAPCR PO (08:47)
[2023-12-28] MEDS: Dexamethasone 10 MG/ML VIAL 6 MG IVP (08:47)
[2023-12-28] MEDS: Normal Saline Flush 10 ML SYR IVP ×2 (08:48→20:32)
[2023-12-28] MEDS: Insulin Aspart 300 UNITS/3 ML PEN SC ×3 (08:53→17:10)
[2023-12-28] MEDS: Nicotine 14 MG/24 HR PATCH TD (09:02)
[2023-12-28] MEDS: Nicotine 7 MG/24 HR PATCH TD (10:46)
--- NOTE | 2023-12-28 10:58 | NUR.NOTE ---
RN spoke with pts daughter regarding home medication, pt medication not able to be brought in at this time. DIRECTOR PHARMACOVIGILANCE notified and pharamcy notofied. Rn spoke with pharamcy, due to change in nicotine patch mg, 14 mg patch on Left shoulder and 7mg patch on right shoulder for combo dose of 21mg. AP RN Nursing Note:
--- NOTE | 2023-12-28 12:08 | W.PM.PROGNOT ---
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: Status: Acute Assessment and plan: Initiallu unable to state that she has been filling her methadone at [facility], but has been discharged for the service as per pharmacy Contacted PCP - plan to discuss the patient's care and compliance on 12/28; was not in ofice today - discussed with nurse (6) Diabetes: Status: Chronic Assessment and plan: Continue Fingerstick AC and HS with SSI Home dose lantus resumed BMP in AM (7) Cardiomyopathy: Status: Acute Assessment and plan: EFrEF LVEF 20-25% in 04/2023 Does not seem to be compliant Will hold drug ( Entresto,aldactone) that can also affect renal function BUN 41 , Cr 1.2 w baseline 1.0- not at VIKKI definition yet - one liter of crystalloid given in ED CXR small amount of pleural fluid. Bilateral lower lobe infiltrates. Cardiomegaly. Also mildly increased interstitial pattern. Cannot exclude additional element of CHF. Considering chest CT scan in AM Received lasix 20 mg IVP on admission Resume home lasix dose of 40 mg PO Qualifiers: Cardiomyopathy type: unspecified Qualified Code(s): I42.9 - Cardiomyopathy, unspecified (8) HFrEF (heart failure with reduced ejection fraction): Status: Acute Assessment and plan: Last Echo with LVEF 20-25% on 04/2023 On GDMT as per cardiology but not compliant as per filling records Entresto, aldactone, on hold Not on beta augustin as predicted in cardiology not - seemed to have missed f/u due in September d/t no transport mode (9) VIKKI (acute kidney injury): Status: Acute Assessment and plan: Cr 1.4 baseline 1.0 was 1.2 on admit IVF: NS at 50 ml/hr and as above (10) Palliative care patient: Status: Acute Assessment and plan: Consult ordered and pending (11) Pain management: Status: Acute Assessment and plan: D/c form [facility] program 8 weeks ago but has a Hx of subtance abuse Now on buprenorphine induction trial Gabapentin 100 mg TID Scheduled APAP Discussed with Dr. Vargas Subjective Subjective Patient reports: feels better, still having pain, tolerating liquids well, tolerating a regular diet, voiding w/o difficulty, flatus, bowel movement and nausea; denies vomiting, shortness of breath or fever Exam Narrative Exam Narrative: HENMT: Facial structures with normal appearance Eyes: Well aligned Neuro:alert and oriented X2 , unable to focus during conversation No focal deficit Resp: Normal respiratory pattern, unlabored shallow breathing, right base velcro -like crackles,decreased left base, clear upper posterior lung bilaterally Cardio: regular rhythm, S1, S2, no murmur., bilateral radial and pedal pulse are positive GI: Abdomen is not distended, soft and non tender, bowel sounds are present, c/o of pain at LMWH injection site Extremities: strength 4/5 to bilateral lower and upper extremities, sample taker operator 5/5 Psych: RASS 0, congruent mood and normal affect. Objective Last Vital Signs Temp 36.9 C 12/28/23 11:24 Pulse 77 12/28/23 11:24 Resp 18 12/28/23 11:24 BP 100/75 12/28/23 11:51 Pulse Ox 95 12/28/23 11:24 Laboratory Results - last 24 hr 12/27/23 12/27/23 12/27/23 13:15 13:20 13:52 WBC 11.49 H RBC 4.95 Hgb 14.6 Hct 47.2 H MCV 95 MCH 29.5 MCHC 30.9 L RDW 16.8 H Plt Count 158 MPV 12.2 H Immature Gran % 0.6 Neutrophils % 83.4 Lymphocytes % 9.8 Monocytes % 5.5 Eosinophils % 0.3 Basophils % 0.4 Nucleated RBC % 0.0 Absolute Neutrophils 9.58 H Absolute Lymphocytes 1.13 L Absolute Monocytes 0.63 Absolute Eosinophils 0.03 Absolute Basophils 0.05 Sodium Cancelled 137 Potassium Cancelled 3.9 Chloride Cancelled 103 Carbon Dioxide Cancelled 25.5 Anion Gap Cancelled 8.5 BUN Cancelled 41 H Creatinine Cancelled 1.2 H Est GFR (CKD-EPI 2020) Cancelled 50.23 Glucose Cancelled 260 H Calcium Cancelled 8.1 L Total Bilirubin Cancelled 0.73 AST Cancelled 22 ALT Cancelled 32 Alkaline Phosphatase Cancelled 73 Ammonia Total Protein Cancelled 6.5 Albumin Cancelled 2.9 L Lipase Cancelled 141 H Urine Color Urine Clarity Urine pH Ur Specific [place] Urine Protein Urine Ketones Urine Blood Urine Nitrite Urine Bilirubin Urine Urobilinogen Ur Leukocyte Esterase Urine RBC Urine WBC Ur Epithelial Cells Urine Crystals Urine Bacteria Urine Casts Urine Mucus Ur Culture Indicated? Urine Glucose COVID-19 Source Nasopharynx SARS-CoV-2 (PCR) Positive A Influenza Type A (PCR) Negative Influenza Type B (PCR) Negative RSV (PCR) Negative 12/27/23 12/27/23 12/28/23 14:50 18:25 06:20 WBC 7.63 RBC 4.44 Hgb 13.3 Hct 41.4 MCV 93 MCH 30.0 MCHC 32.1 RDW 16.3 H Plt Count 161 MPV 11.4 H Immature Gran % 0.5 Neutrophils % 84.6 Lymphocytes % 11.0 Monocytes % 3.8 Eosinophils % 0.0 Basophils % 0.1 Nucleated RBC % 0.0 Absolute Neutrophils 6.45 Absolute Lymphocytes 0.84 L Absolute Monocytes 0.29 Absolute Eosinophils 0.00 Absolute Basophils 0.01 Sodium 133 L Potassium 4.8 Chloride 100 Carbon Dioxide 21.1 Anion Gap 11.9 H BUN 48 H Creatinine 1.4 H Est GFR (CKD-EPI 2020) 41.75 Glucose 281 H Calcium 8.2 L Total Bilirubin AST ALT Alkaline Phosphatase Ammonia 14 Total Protein Albumin Lipase Urine Color Yellow Urine Clarity Sl Cloudy Urine pH 5.0 Ur Specific [place] >= 1.030 H Urine Protein 30 H Urine Ketones Negative Urine Blood Trace-intact H Urine Nitrite Negative Urine Bilirubin Small H Urine Urobilinogen 0.2 Ur Leukocyte Esterase Negative Urine RBC 3-5 H Urine WBC 5-10 Ur Epithelial Cells Few Urine Crystals Rare Calcium Oxalate Urine Bacteria Few Urine Casts >50 Hyaline Urine Mucus Negative Ur Culture Indicated? No Urine Glucose Negative COVID-19 Source SARS-CoV-2 (PCR) Influenza Type A (PCR) Influenza Type B (PCR) RSV (PCR) Time Spent with Patient Time Spent with Patient: >50 minutes Time was spent: preparing to see the patient(eg.review tests), obtaining and/or reviewing separately otained hiistory, ordering medications,tests, procedures, referring, communicating with other health med care manager, indepentently interpreting results, counseling the patient and care coordination
--- NOTE | 2023-12-28 12:30 | PHA.REVIEW2 ---
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 (Acute) Cardiomyopathy (Acute) fluoxetine (From Prozac) Allergy (Severe, Verified 12/20/23 10:31) unknown lisinopril Allergy (Intermediate, Verified 12/20/23 10:31) unknown alprazolam (From Xanax) Allergy (Unknown, Verified 12/20/23 10:31) unknown amitriptyline HCl (From Elavil) Allergy (Unknown, Verified 12/20/23 10:31) unknown Antihistamines - Alkylamine Allergy (Unknown, Verified 12/20/23 10:31) ANTIHISTAMINE ALLERGIC TO UNSPECIFIED buspirone HCl (From BuSpar) Allergy (Unknown, Verified 12/20/23 10:31) unknown butorphanol tartrate (From Stadol) Allergy (Unknown, Verified 12/20/23 10:31) unknown cyclobenzaprine HCl (From Flexeril) Allergy (Unknown, Verified 12/20/23 10:31) unknown diazepam (From Valium) Allergy (Unknown, Verified 12/20/23 10:31) unknown ibuprofen (From Motrin) Allergy (Unknown, Verified 12/20/23 10:31) unknown nabumetone (From Relafen) Allergy (Unknown, Verified 12/20/23 10:31) unknown oxaprozin (From Daypro) Allergy (Unknown, Verified 12/20/23 10:31) unknown oxazepam (From Serax) Allergy (Unknown, Verified 12/20/23 10:31) unknown paroxetine HCl (From Paxil) Allergy (Unknown, Verified 12/20/23 10:31) unknown phenytoin sodium (From Dilantin) Allergy (Unknown, Verified 12/20/23 10:31) unknown phenytoin sodium extended (From Dilantin) Allergy (Unknown, Verified 12/20/23 10:31) unknown sertraline HCl (From Zoloft) Allergy (Unknown, Verified 12/20/23 10:31) unknown tramadol HCl (From Ultram) Allergy (Unknown, Verified 12/20/23 10:31) unknown bupropion (From Wellbutrin) Allergy (Verified 12/20/23 10:31) unknown nortriptyline HCl (From Pamelor) Allergy (Verified 12/20/23 10:31) unknown simvastatin Allergy (Verified 12/20/23 10:31) unknown Resuscitation Status Full Code Height 5 ft 5 in Weight 52.163 kg Pharmacy Admission Review Renal Dosing Renal Dosing: BUN 48 mg/dL (7-18) H 12/28/23 06:20 Creatinine 1.4 mg/dL (0.55-1.02) H 12/28/23 06:20 Medications needing adjustments: Reviewed (CrCl 32.99 mL/min, BUN increased from 41 and SCr increased from 1.2) Anticoagulation Anticoagulation: Hgb 13.3 g/dL (11.2-15.7) 12/28/23 06:20 Hct 41.4 % (36.0-46.0) 12/28/23 06:20 Plt Count 161 10^3/uL (130-400) 12/28/23 06:20 Creatinine 1.4 mg/dL (0.55-1.02) H 12/28/23 06:20 DVT Prophylaxis: Reviewed Medications: Enoxaparin (40mg daily) Relevant Labs Relevant Labs: Sodium 133 mmol/L (136-145) L 12/28/23 06:20 Potassium 4.8 mmol/L (3.5-5.1) 12/28/23 06:20 Chloride 100 mmol/L (98-107) 12/28/23 06:20 Electrolytes, C-Reactive P, ESR: Reviewed (Na 133) DM Control DM Control: Glucose 281 mg/dL (74-106) H 12/28/23 06:20 Finger Stick Blood Glucose 300 1201 Finger Stick Blood Glucose 300 1149 Finger Stick Blood Glucose 300 1149 Finger Stick Blood Glucose 246 0853 Finger Stick Blood Glucose 246 0730 Finger Stick Blood Glucose 246 0724 Finger Stick Blood Glucose 246 0724 DM Control: Reviewed Insulin Dosing, Diabetic Medication: Has order for SS insulin, takes Farxiga at home but unable to bring in per nursing Cardiac Review BP, HR, EF%: Reviewed (BP and HR WNL) QTc Review QTc: Reviewed (458 from 11/09/23 - EKG report from 12/27/23 is pending) IV to PO Switch IV Medications: Reviewed (dexamethasone and remdesivir) Home Meds Home Med List reviewed: Intervened Relevent Home Meds Not ordered & why?: Entresto (on hold per H+P), spironolactone (on hold per H+P), furosemide (on hold per H+P), glargine (has order for SS insulin) and methadone Called [facility] this AM to confirm patients methadone dose. Per [facility], patient has not been there for over 2 months. Notified provider. Nursing stated during morning meeting that patients daughter said she had been weaned off the methadone. Guerrero entered as patients own order. Asked nursing to check if this could be brought in for patient. Per nursing, patient is unable to have that brought in for her. Patient recently filled gabapentin 100mg prescription but is not on home med list. Asked nursing to confirm with patient, waiting to hear back. Current Meds Current Medication Order Review: Reviewed Comments: Now one dose of Suboxone ordered today Pharmacy Antibiotic Review Relevant Labs: WBC 7.63 10^3/uL (4.4-10.8) 12/28/23 06:20 Temperature 36.9 C Temperature 36.8 C Temperature 36.2 C Temperature 36.5 C Temperature 36.4 C Pharmacy Antibiotic Activity: Reviewed, no change Comments: Patient is on day 1 of remdesivir for COVID.
[2023-12-28] MEDS: Normal Saline 1,000 ML 50 ML IV (13:57)
[2023-12-28] MEDS: REMDESIVIR 100 MG in Normal Saline 250 ML 250 MG IVPB (17:11)
[2023-12-28] MEDS: Ipratropium/Albuterol 4 GM 120 PUFF INH IH (17:20)
--- NOTE | 2023-12-28 18:38 | INITIAL_ITS ---
Date of service: 12/28/23 Time of Service: 17:03 Care Management Initial Assmt Initial Assessment Reason for Hospitalization: COVID, hypoxic respiratory failure Functional Status/Living Situation Patient Presentation: COVID precautions. Town of Residence: [place] Resides with: Spouse (Ed) Significant Other/Family: Local [employer] Supp[employer]: Family locally, daughter involved. Ama and Ed moved into [facility] a few months ago-per reports they are both struggling in the community related to ongoing medical concerns and current functioning. Medications Medication Management: Issues/Barriers ([facility] discontinued methadone per provider) Advance Directives Advance Directives: Do you have an Advance Directive: Y 06/19/19 10:50 AD On File at [facility]: Y 07/21/22 01:20 Date Asked 12/27/23 12/27/23 17:58 AD Date Reviewed 12/27/23 12/27/23 17:58 COLST On File at [facility] Yes 12/30/23 17:57 COLST Date Scanned 12/30/23 12/30/23 17:57 Code Status Resuscitation Status Full Code Insurance Coverage/Financial Issues Insurance: Medicare Medicaid Care Team Visit Care Team Role Provider Type Minda Velasco MD Primary Care Provider [facility] STAFF PHYSICIAN Jennifer Regalado RDN, CDCES Other Providers TOOL SPECIALIST Ana Luisa Kyle Other Providers TOOL SPECIALIST Isrrael Swan Other Providers OTHER Nic Kingsley RDN Other Providers TOOL SPECIALIST Brice Avitia MD Emergency Provider [facility] STAFF PHYSICIAN Sly Barrow MD Admit Provider [facility] STAFF PHYSICIAN Attending Provider Discharge Potential Discharge Needs: Consult Anticipated Barriers to Discharge: Bed availability, Medical Status, SDOH and Other (Capacity) Patient/Family Education Needs: Review discharge instructions, discuss Ask Me Three Transportation: Other (To be determined by disposition. ) Plan: Ama continues to be closely monitored and treated, CM following. COA, [facility] involved in the community-short term to rat exterminator care appears to be the preferred pathway per service and family reports, anticipate Ama's capacity will be assessed to determine her ability to engage in discharge planning. 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 Current dose 114 mg/day. Many years. Memory loss (Acute) Cardiomyopathy (Acute) Ejection fraction 20-25% 04/27 ECHO Advanced care planning/counseling discussion (Acute) Palliative care encounter (Acute) Atrophy of vagina (Acute 04/10/13) Cystocele (Acute 04/10/13) Uterine prolapse (Acute 06/05/13) Medical History Venous stasis ulcers Memory loss Anxiety Smoker Heroin abuse Herpes, genital Lung nodule Thickened endometrium History of syncope Cirrhosis COPD (chronic obstructive pulmonary disease) Low back pain HSV (herpes simplex virus) infection Skin lesion Fatigue Kidney cyst, acquired Cervicalgia Rectal bleed Chronic hepatitis C without hepatic coma Chronic pain Controlled diabetes mellitus type II without complication Urinary bladder incontinence Edema Vascular disease of the skin Diarrhea Abdominal bloating Myalgia Chest pain Uterine fibroid Social History Smoking/Tobacco Use Status: Current every day Smoking risk assessment performed?: Yes Alcohol Intake: never Drug use: Never Substance use type: does not use Housing: assisted living facility Do you feel safe at home: Yes Do you feel safe in your relationship?: Yes SDOH(Care Management) Screening Will the Patient Participate in the Screening?: Unable to obtain Social Determinants of Health Comments(SDOH Details): pt confused, unable to obtain answers
[2023-12-28] MEDS: Mylanta Suspension 30 ML CUP PO (20:30)
[2023-12-28] MEDS: Enoxaparin 40 MG/0.4 ML SYR SC (20:31)
[2023-12-28] MEDS: Insulin Glargine 300 UNITS/3 ML PEN 25 UNITS SC (20:57)
[2023-12-29] VITALS (10 sets, daily range): BP systolic 99–130; BP diastolic 68–86; PULSE 74–82; RESP 15–18; TEMP 36.1–36.5; O2SAT 94–98
[2023-12-29] MEDS: Nicotine 21 MG/24 HR PATCH TD (04:26)
[2023-12-29] MEDS: Ondansetron 4 MG/2 ML VIAL IVP ×2 (04:56→22:15)
[2023-12-29 06:29] LABS: Abs Immature Grans 0.06 10^3/uL (0.0-0.06); Absolute Basophil Count 0.02 10^3/uL (0.0-0.2); Absolute Lymphocyte Count 1.73 10^3/uL (1.2-3.4); Absolute Neutrophil Count 8.83 10^3/uL (1.2-6.7); Basophils % 0.2 %; HGB 13.9 g/dL (11.2-15.7); Immature Grans % 0.5 %; Lymphocytes % 15.1 %; MCH 29.6 pg (27.0-33.0); MCHC 33.1 % (32.0-36.0); MCV 89 fL (80-95); MPV 11.9 fL (8.0-11.0); Neutrophils % 77.2 %; Platelet Count 151 10^3/uL (130-400); RDW 16.3 % (11.7-14.6); RDW-SD 53.3 fL; WBC 11.44 10^3/uL (4.4-10.8)
[2023-12-29 06:50] LABS: Anion Gap 10.6 mmol/L (3-11); BUN 54 mg/dL (7-18); CO2 17.4 mmol/L (21.0-32.0); CREATININE 1.4 mg/dL (0.55-1.02); Calcium 8.2 mg/dL (8.5-10.1); Chloride 100 mmol/L (98-107); Estimated GFR 41.75 (mL/min/1.73m2); Glucose 163 mg/dL (74-106); Magnesium 2.1 mg/dL (1.8-2.4); Potassium 4.8 mmol/L (3.5-5.1); Sodium 128 mmol/L (136-145)
[2023-12-29] MEDS: Tiotropium Bromide-Respimat 10 PUFF INH IH (08:03)
[2023-12-29] MEDS: Acetaminophen 325 MG TAB 650 MG PO ×2 (08:10→21:22)
[2023-12-29] MEDS: Dexamethasone 4 MG TAB PO (08:10)
[2023-12-29] MEDS: Magnesium Oxide 400 MG TAB PO (08:10)
[2023-12-29] MEDS: Furosemide 40 MG TAB PO (08:10)
[2023-12-29] MEDS: Normal Saline Flush 10 ML SYR IVP ×3 (08:13→21:23)
--- NOTE | 2023-12-29 09:32 | PGE_ITS ---
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 Marlow - recommemded transfer- Aceepted by Dr. Hannon to cardiac ICU but patient refused later Recommendation for diuresis - no beta augustin Previous EFrEF LVEF 20-25% in 04/2023 Does not seem to be compliant with GDMT Will hold drug ( Entresto,aldactone) that can also affect renal function BUN 41 , Cr 1.4 w baseline 1.0- VIKKI - unable to tolerate IVF Initial CXR small amount of pleural fluid. Bilateral lower lobe infiltrates. Cardiomegaly. Also mildly increased interstitial pattern. Cannot exclude additional element of CHF. lasix 20 mg IVP BID now with MAP above or equal to 65 mmHg Qualifiers: Cardiomyopathy type: unspecified Qualified Code(s): I42.9 - Cardiomyopathy, unspecified (8) HFrEF (heart failure with reduced ejection fraction): Status: Acute Assessment and plan: As above (9) VIKKI (acute kidney injury): Status: Acute Assessment and plan: Cr 1.4 baseline 1.0 was 1.2 on admit IVF: stopped re: LVEF and as above BMP in AM (10) Palliative care patient: Status: Acute Assessment and plan: Consult ordered and in progress Psych consult for capacity (11) Hyponatremia: Status: Acute Assessment and plan: Ns at 100 ccc/hr stopped d/t LVEF Fluid restriction 1000 ml/ 24 hours (12) Pain management: Status: Acute Assessment and plan: D/c form [facility] program 8 weeks ago but has a Hx of subtance abuse On buprenorphine induction trial Gabapentin 100 mg TID Scheduled APAP Discussed with Dr. Vargas Subjective Subjective Patient reports: still having pain, tolerating liquids well, tolerating a regular diet, voiding w/o difficulty and other (report difficulty taking deep breaths,no increased WOB ); denies diarrhea, nausea, vomiting or shortness of breath Exam Narrative Exam Narrative: In bed w/o acute distress HENMT: Facial structures with normal appearance Eyes: Well aligned Neuro:alert and oriented X2 , digresses during conversation- improved . 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 Objective Last Vital Signs Temp 36.5 C 12/29/23 08:47 Pulse 74 12/29/23 08:47 Resp 16 12/29/23 08:47 BP 106/76 12/29/23 08:47 Pulse Ox 95 12/29/23 08:47 Laboratory Results - last 24 hr 12/29/23 05:45 WBC 11.44 H RBC 4.70 Hgb 13.9 Hct 42.0 MCV 89 D MCH 29.6 MCHC 33.1 RDW 16.3 H Plt Count 151 MPV 11.9 H Immature Gran % 0.5 Neutrophils % 77.2 Lymphocytes % 15.1 Monocytes % 7.0 Eosinophils % 0.0 Basophils % 0.2 Nucleated RBC % 0.0 Absolute Neutrophils 8.83 H Absolute Lymphocytes 1.73 Absolute Monocytes 0.80 Absolute Eosinophils 0.00 Absolute Basophils 0.02 Sodium 128 L Potassium 4.8 Chloride 100 Carbon Dioxide 17.4 L Anion Gap 10.6 BUN 54 H Creatinine 1.4 H Est GFR (CKD-EPI 2020) 41.75 Glucose 163 H Calcium 8.2 L Magnesium 2.1 Time Spent with Patient Time Spent with Patient: >50 minutes Time was spent: preparing to see the patient(eg.review tests), obtaining and/or reviewing separately otained hiistory, ordering medications,tests, procedures, referring, communicating with other health director of patient care, indepentently interpreting results, counseling the patient and care coordination
[2023-12-29] MEDS: Normal Saline 1,000 ML 100 ML IV (10:21)
[2023-12-29] MEDS: Furosemide 20 MG/2 ML VIAL IVP ×2 (12:32→15:12)
--- NOTE | 2023-12-29 14:02 | PCNE_ITS ---
Date of service: 12/29/23 Time of Service: 14:02 History of Present Illness Narrative: Ama was seen in her room. She was alone initially until nursing came in to give IV lasix and place mcguire. Her echo today revealed LEVF of 10%, down from 20-25% earlier this year (04/2023). There was consideration to transfer her to [facility] cardiac ICU and she was accepted. She and her daughter agreed that she did not want transfer and the transfer was cancelled. There is question if Ama has capacity at this time to make medical decisions. She does not appear to by my assessment. She is able to state where she is and who she is but unable to state why she is in the hospital or express what the echo showed, shortly after discussing it in simple terms. She is weak, she had an unwitnessed fall in the room today. She is currently a FULL code. She has not been taking her cardiac medications at home- it is unclear if this is due to confusion or that she does not want to take them for other reasons. She has AD. Her daughter, Marleny is listed as her first HCA. She was seen in 06/[address] Albert, Plant Quality Manager. Her note states: Patient has a cardiomyopathy. We talked about whether or not to reschedule a stress test, which presumably is to exclude coronary disease as an etiology. The daughter and patient agree that the patient would not be interested in an invasive approach if the stress test were abnormal, specifically not wanting cardiac catheterization. She was clear at that time that she did not want invasive measures. Her daughter feels this to be true today, according to staff that have spoken to her. She has a psychiatric consultation pending to assess her capacity to make decisions re: CODE status/Goals of care. Will await this consult to further discuss. Assessment and Plan Assessment and plan (1) COVID: Status: Acute Assessment and plan: On remdesivir and decadron day 3. Does not appear to be in distress. (2) Hypoxia: Status: Acute Assessment and plan: Resolved (3) Cognitive impairment: Status: Acute Assessment and plan: Appears to be some chronic cognitive impairment, daughter was seeking guardianship prior to this admission. ? worse in setting of covid/possible encephalopathy. (4) Nicotine dependence: Status: Acute (5) residential current use of opiate analgesic: Status: Acute Assessment and plan: On suboxone for pain management in the setting of previous OUD (6) Diabetes: Status: Chronic (7) Cardiomyopathy: Status: Acute Assessment and plan: LVEF < 10 % today - [facility] cardioogist Dr. Marlow - recommemded transfer- Aceepted by Dr. Hannon to cardiac ICU but patient and daughter/HCA declined. Previous EFrEF LVEF 20-25% in 04/2023 Does not seem to be compliant with medication recommendations. She was seen in 06/[address] Albert, Plant Quality Manager. Her note states: Patient has a cardiomyopathy. We talked about whether or not to reschedule a stress test, which presumably is to exclude coronary disease as an etiology. The daughter and patient agree that the patient would not be interested in an invasive approach if the stress test were abnormal, specifically not wanting cardiac catheterization. Qualifiers: Cardiomyopathy type: unspecified Qualified Code(s): I42.9 - Cardiomyopathy, unspecified (8) HFrEF (heart failure with reduced ejection fraction): Status: Acute Assessment and plan: As above (9) VIKKI (acute kidney injury): Status: Acute (10) Palliative care patient: Status: Acute (11) Goals of care, counseling/discussion: Status: Acute Assessment and plan: Her daughter, Marleny is her HCA. She has AD from 2016. There is also evidence in her chart that she previously stated that she would not want invasive care/treatment as noted in cardiology note from 6 months ago. She does not appear to have capacity to make medical decisions at this time. Will await psychiatric consultation. Palliative to continue to follow. Review of Systems Narrative: Feels her abdomen is bloated. PFSH All Active Problems (Updated 12/30/23 @ 15:22 by Tahira Ruiz NP) Goals of care, counseling/discussion (Acute) Hyponatremia (Acute) Pain management (Acute) Palliative care patient (Acute) VIKKI (acute kidney injury) (Acute) HFrEF (heart failure with reduced ejection fraction) (Acute) Diabetes (Chronic) Hypoxia (Acute) COVID (Acute) Cognitive impairment (Acute) Venous stasis dermatitis (Acute) Erythema of lower limb (Acute) Nicotine dependence (Acute) PTSD (post-traumatic stress disorder) (Acute) residential current use of opiate analgesic (Acute) History of CAD (coronary artery disease) (Acute) GERD (gastroesophageal reflux disease) (Chronic) Adjustment disorder (Chronic) Congestive heart failure (Chronic) Mild cognitive impairment with memory loss (Acute) 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 Current dose 114 mg/day. Many years. Memory loss (Acute) Cardiomyopathy (Acute) Ejection fraction 20-25% 04/27 ECHO Advanced care planning/counseling discussion (Acute) Palliative care encounter (Acute) Atrophy of vagina (Acute 04/10/13) Cystocele (Acute 04/10/13) Uterine prolapse (Acute 06/05/13) Medical History Venous stasis ulcers Memory loss Anxiety Smoker Heroin abuse Herpes, genital Lung nodule Thickened endometrium History of syncope Cirrhosis COPD (chronic obstructive pulmonary disease) Low back pain HSV (herpes simplex virus) infection Skin lesion Fatigue Kidney cyst, acquired Cervicalgia Rectal bleed Chronic hepatitis C without hepatic coma Chronic pain Controlled diabetes mellitus type II without complication Urinary bladder incontinence Edema Vascular disease of the skin Diarrhea Abdominal bloating Myalgia Chest pain Uterine fibroid Social History Smoking/Tobacco Use Status: Current every day Smoking risk assessment performed?: Yes Alcohol Intake: never Drug use: Never Substance use type: does not use Housing: assisted living facility Do you feel safe at home: Yes Do you feel safe in your relationship?: Yes Exam Narrative Exam Narrative: General: very pleasant female, appears older than stated age. She is awake and alert, able to state she is at [facility] and her name, she gave January, for date (close), but not oriented to situation. HEENT: atraumatic, EOMI, mmm Neck: supple, +JVD Respiratory: respirations appear even and unlabored at rest. ext: moves all 4 extremities. Results Last Vital Signs Temp 36.2 C L 12/29/23 11:31 Pulse 77 12/29/23 11:31 Resp 18 12/29/23 11:31 BP 108/86 12/29/23 11:31 Pulse Ox 97 12/29/23 11:31 Labs 12/30/23 05:45 12/30/23 05:45 Labs: Laboratory Results - last 24 hr 12/29/23 05:45 WBC 11.44 H RBC 4.70 Hgb 13.9 Hct 42.0 MCV 89 D MCH 29.6 MCHC 33.1 RDW 16.3 H Plt Count 151 MPV 11.9 H Immature Gran % 0.5 Neutrophils % 77.2 Lymphocytes % 15.1 Monocytes % 7.0 Eosinophils % 0.0 Basophils % 0.2 Nucleated RBC % 0.0 Absolute Neutrophils 8.83 H Absolute Lymphocytes 1.73 Absolute Monocytes 0.80 Absolute Eosinophils 0.00 Absolute Basophils 0.02 Sodium 128 L Potassium 4.8 Chloride 100 Carbon Dioxide 17.4 L Anion Gap 10.6 BUN 54 H Creatinine 1.4 H Est GFR (CKD-EPI 2020) 41.75 Glucose 163 H Calcium 8.2 L Magnesium 2.1 Time Spent Time Spent with Patient Time Spent(min): 88
--- NOTE | 2023-12-29 14:27 | PT.INIE ---
PT Notes Visit Reasons: Covid, hypoxic respiratory failure Physical Therapy Initial Evaluation Date: 12/29/2023 Referring Doctor: Rip Vargas MD PT Orders: PT CONSULT: Safety Consult for D/C. 63-year-old F with COVID, CHF, generalized weakness Precautions: AIRBORNE PRECAUTIONS in place for COVID-19. Activity as tolerated, EF 20-25% as of last echo. Patient Profile/Admitting Diagnosis: Patient is a 63-year-old female on methadone maintenance admitted with diagnoses of COVID-19 infection, hypoxia, cognitive impairment nicotine dependence, long-term use of opites, diabetes and cardiomyopathy. Per Nurse Stan, patient had an unwitnessed fall before lunch today. PMHX: All Active Problems Diabetes (Chronic) Hypoxia (Acute) COVID (Acute) Cognitive impairment (Acute) Venous stasis dermatitis (Acute) Erythema of lower limb (Acute) Nicotine dependence (Acute) PTSD (post-traumatic stress disorder) (Acute) technician terminal and repeater current use of opiate analgesic (Acute) History of CAD (coronary artery disease) (Acute) GERD (gastroesophageal reflux disease) (Chronic) Adjustment disorder (Chronic) Congestive heart failure (Chronic) Mild cognitive impairment with memory loss (Acute) Methadone maintenance therapy patient (Acute) [facility]. Current dose 114 mg/day. Many years. Memory loss (Acute) Cardiomyopathy (Acute) Ejection fraction 20-25% 04/27 ECHO Advanced care planning/counseling discussion (Acute) Palliative care encounter (Acute) Atrophy of vagina (Acute 04/10/13) Cystocele (Acute 04/10/13) Uterine prolapse (Acute 06/05/13) Medical History Venous stasis ulcers Memory loss Anxiety Smoker Heroin abuse Herpes, genital Lung nodule Thickened endometrium History of syncope Cirrhosis COPD (chronic obstructive pulmonary disease) Low back pain HSV (herpes simplex virus) infection Skin lesion Fatigue Kidney cyst, acquired Cervicalgia Rectal bleed Chronic hepatitis C without hepatic coma Chronic pain Controlled diabetes mellitus type II without complication Urinary bladder incontinence Edema Vascular disease of the skin Diarrhea Abdominal bloating Myalgia Chest pain Uterine fibroid Social History/Home Situation: Resides in a residential living apt with elevator access and an alternate 3-4 steps to enter the building. Independent with all mobility ADLs without an assistive device. Equipment Owned/DME: None Subjective: reports no pain in the head. Discomfort in sides of her trunk and on her ribs due to her dad dancing too quickly with her in the past. Perseverated on her dad being a good cook and liking pork. Was giving account of how she fell this morning but said that she did not remember falling when asked again at end of session. Objective: General Observation: Resting in bed. Cachectic. B legs skin discolored. L posterior elbow swollen. Abdomen distended. Mental Status: Oriented as to place. Lucidity in and out throughout session. Pain: Abdomen and lateral ribs at 2-3/10 ROM: Right Upper Extremity: Shoulder Flexion WFL. Shoulder abduction WFL. Elbow flexion WFL. Wrist flexion WFL. Functional opening and closing of hand WFL. Left Upper Extremity: Shoulder Flexion WFL. Shoulder abduction WFL. Elbow flexion WFL. Wrist flexion WFL. Functional opening and closing of hand WFL. Right Lower Extremity: Hip flexion WFL. Hip abduction WFL. Knee flexion WFL. Ankle dorsiflexion WFL. Ankle plantarflexion WFL. Left Lower Extremity: Hip flexion WFL. Hip abduction WFL. Knee flexion WFL. Ankle dorsiflexion WFL. Ankle plantarflexion WFL. Strength: Right Upper Extremity: Shoulder flexors 4-/5. Shoulder abductors 4-/5. Elbow flexors 4-/5. Elbow extensors 4-/5. Freight Separator strong. Left Upper Extremity: Shoulder flexors 4-/5. Shoulder abductors 4-/5. Elbow flexors 4-/5. Elbow extensors 4-/5. Freight Separator strong. Right Lower Extremity: Hip flexors 4-/5. Hip abductors 4-/5. Knee flexors 4-/5. Knee extensors 4-/5. Ankle dorsiflexors 4-/5. Ankle plantarflexors 4-/5. Left Lower Extremity: Hip flexors 4-/5. Hip abductors 4-/5. Knee flexors 4-/5. Knee extensors 4-/5. Ankle dorsiflexors 4-/5. Ankle plantarflexors 4-/5. Sensation: Intact light touch and pain in B LE Bed Mobility/Transfers: Moderate cueing provided for use of B hands as needed for support, movement sequence, AD management, and posture to reduce fall risk and minimize pain report Supine to sit contact guard assist Sit to stand contact guard assist Stand to sit contact guard assist Bed to chair contact guard assist Gait: 40 feet with front-wheeled walker with contact guard assist. Minimal path deviation. Increased trunk flexion. Impaired directional change ability. Balance: Static Sitting: Normal Dynamic Sitting: Normal Static Standing: Fair Dynamic Standing: Fair Special Tests: Mobility Limitations Standardized Measure [facility] AM-PAC 6 clicks Basic Mobility Inpatient Short Form: Raw Score: 28 CMS Score: 29% disability Informed Consent/Education: Patient instructed in purpose of PT consult and plan of care. Agreeable to proceed with established PT POC to achieve personal goals. ASSESSMENT: Lucidity on and off, responses off tangent 25-50% of the time. Short-term memory impairment evident. Patient presents with clinical signs and symptoms consistent with current/admitting diagnoses that have resulted to mobility limitations, gait instability, generalized weakness, and overall ADL decline as demonstrated by the following impairment level findings: 1. Decreased strength to B UE/LE major muscle groups 2. Impaired sitting/standing balance 3. Impaired activity tolerance Impairments are contributing to the following functional limitations: 1. Difficulty with ambulation without assistive device and physical assistance 2. Increased completion time for mobility ADL performance 3. Increased risk for falls 4. Difficulty with managing steps alone safely Patient is assessed as a 49987 moderate complexity based on the following: History: 63-year-old female with past medical history as indicated above Examination: Demonstrable impairment in strength, balance, and mobility level with underlying impairments and functional limitations as exhibited above as well as deficit score of 29% utilizing the [facility] Mobility Inpatient Short Form Presentation: Evolving Decision Makin moderate complexity Plan of Care/Treatment Plan: 1x/day for 2 weeks. Patient will highly benefit from skilled physical therapy services including functional mobility training, bed mobility/transfer training, gait and balance training, therapeutic exercises, therapeutic activity, caregiver/staff/family education and training 1x/day, 7 days/week x 1 week. Plan of care has been reviewed with the SALES REPRESENTATIVE LIVESTOCK providing the service under Physical Therapy direction. Initiate Physical Therapy intervention for strengthening, bed mobility, transfers, gait, stairs, balance training, use of assistive device. DISCHARGE RECOMMENDATIONS: [] Home with no services [] [X] Home with services. Patient will benefit from home health PT services in order to progress mobility level using least restrictive assistive ambulatory device, assess home safety, identify additional equipment needs, and establish a functional maintenance program that will increase ability of patient to remain at home. [] Home with outpatient PT [] [] SNF for continued rehabilitation [] [] [facility] [] [] SNF versus LTC based on ability to participate and progress [] TREATMENT CODE/TIME: 16629 x 20 minutes for 1 unit, 05668 x 20 minutes for 1 unit (14: 27?15: 07). Thank you for the opportunity to participate in the care of this patient. Marta Blank PT, DPT, CLT [facility] [place], [place]
--- NOTE | 2023-12-29 17:02 | PSYCO_ITS ---
Date of service: 12/29/23 Time of Service: 16:58 Summary Note Psychiatry phone consult Received telepsychiatry consult for this patient but did not receive meeting link for [employer] so was unable to connect to video meeting. [facility] attempted to troubleshoot with on-site staff while policy writer sales reviewed chart information, but staff was unable to obtain or provide meeting link at that time. Have just received update that alternate video platform (Zoom) is available. However, unfortunately policy writer sales is now unable to complete consult due to the time and nearing end of shift. [facility] is aware and will reassign case as soon as possible.
[2023-12-29] MEDS: REMDESIVIR 100 MG in Normal Saline 250 ML 250 MG IVPB (17:14)
[2023-12-29] MEDS: Insulin Aspart 300 UNITS/3 ML PEN SC (17:21)
[2023-12-29 19:04] LABS: NT-proBNP 18097 pg/mL (<300)
[2023-12-29] MEDS: Enoxaparin 40 MG/0.4 ML SYR SC (21:22)
[2023-12-29] MEDS: Gabapentin 100 MG CAP PO (21:23)
[2023-12-30] VITALS (9 sets, daily range): BP systolic 91–110; BP diastolic 53–74; PULSE 71–82; RESP 18; TEMP 36.6–36.9; O2SAT 92–97
[2023-12-30] MEDS: Acetaminophen 325 MG TAB 650 MG PO ×3 (02:36→13:24)
[2023-12-30] MEDS: Normal Saline Flush 10 ML SYR IVP ×3 (02:37→20:00)
[2023-12-30 06:50] LABS: Abs Immature Grans 0.05 10^3/uL (0.0-0.06); Absolute Basophil Count 0.02 10^3/uL (0.0-0.2); Absolute Eosinophil Count 0.01 10^3/uL (0.0-0.7); Absolute Lymphocyte Count 1.18 10^3/uL (1.2-3.4); Absolute Monocyte Count 0.77 10^3/uL (0.1-0.8); Absolute Neutrophil Count 7.83 10^3/uL (1.2-6.7); Basophils % 0.2 %; Eosinophils % 0.1 %; HCT 38.1 % (36.0-46.0); HGB 12.7 g/dL (11.2-15.7); Immature Grans % 0.5 %; MCH 29.7 pg (27.0-33.0); MCHC 33.3 % (32.0-36.0); MCV 89 fL (80-95); MPV 11.1 fL (8.0-11.0); Monocytes % 7.8 %; Neutrophils % 79.4 %; Platelet Count 147 10^3/uL (130-400); RBC 4.27 10^6/uL (3.93-5.22); RDW 16.5 % (11.7-14.6); RDW-SD 53.4 fL; WBC 9.86 10^3/uL (4.4-10.8)
[2023-12-30 07:22] LABS: Anion Gap 7.6 mmol/L (3-11); BUN 53 mg/dL (7-18); CO2 24.4 mmol/L (21.0-32.0); CREATININE 1.1 mg/dL (0.55-1.02); Chloride 104 mmol/L (98-107); Estimated GFR 55.76 (mL/min/1.73m2); Glucose 149 mg/dL (74-106); Magnesium 2.2 mg/dL (1.8-2.4); Potassium 3.8 mmol/L (3.5-5.1); Sodium 136 mmol/L (136-145)
[2023-12-30] MEDS: Tiotropium Bromide-Respimat 10 PUFF INH IH (08:00)
[2023-12-30] MEDS: Ipratropium/Albuterol 4 GM 120 PUFF INH IH (08:03)
[2023-12-30] MEDS: Furosemide 20 MG/2 ML VIAL IVP ×2 (08:20→16:15)
[2023-12-30] MEDS: Magnesium Oxide 400 MG TAB PO (08:20)
[2023-12-30] MEDS: Omeprazole 20 MG CAPCR PO (08:20)
[2023-12-30] MEDS: Gabapentin 100 MG CAP PO ×2 (08:20→13:24)
[2023-12-30] MEDS: Dexamethasone 4 MG TAB PO (08:20)
[2023-12-30] MEDS: Insulin Aspart 300 UNITS/3 ML PEN SC ×3 (08:21→16:15)
[2023-12-30] MEDS: Nicotine 21 MG/24 HR PATCH TD (08:26)
--- NOTE | 2023-12-30 08:41 | PT.INTREAT ---
PT Notes Visit Reasons: Covid, hypoxic respiratory failure Physical Therapy Treatment Note Date: 12/30/2023 Referring Doctor: Rip Vagras MD PT Orders: PT CONSULT: Safety Consult for D/C. 63-year-old F with COVID, CHF, generalized weakness Precautions: AIRBORNE PRECAUTIONS in place for COVID-19. Activity as tolerated, EF 20-25% as of last echo. Subjective: Reports increased pain and distension in her abdomen, worried about a mobile nodule below her right lower belly. Daughter said that her abdomen has been like that but now appears to be more swollen. Daughter Carmina said that her sister who is a nurse is hoping to be here later today. Had a good breakfast. Slept better last night. Mildly bothered by a small cough that has started. Per Nurse Wei and Nurse Fantasma, patient will be getting water pill via IV this morning. Patient and daughter are unsure whether patient could safely come back to the [facility] from the hospital. Objective: General Observation: Resting in bed. Cachectic. B legs skin discolored. L posterior elbow swollen. Abdomen distended. Subcutanoeus fatty nodule about 2 inches lateral and inferior on the R of the umbilicus palpated. Mental Status: Oriented as to person and place. Lucidity in and out throughout session. Pain: Abdomen and lateral ribs at 4-5/10 Bed Mobility/Transfers: Moderate cueing provided for use of B hands as needed for support, movement sequence, AD management, and posture to reduce fall risk and minimize pain report Supine to sit stand by assist Sit to stand stand by assist Stand to sit contact guard assist Bed to chair contact guard assist Gait: 100 feet with front-wheeled walker with contact guard assist. Minimal path deviation. Increased trunk flexion. Impaired directional change ability. Moderate cueing provided for optimal weight distribution onto AD, posture, and safe directional change to minimize path deviaiton. Balance: Static Sitting: Normal Dynamic Sitting: Normal Static Standing: Fair Dynamic Standing: Fair THERA EX: Direct one-one-one instruction on safe and accurate execution of movement to target B LE muscle groups against red exercise band: Seated clam shell exercises x 10 Chest expansion exercises with deep breathing x 5 Seated marches x 10 Chest expansion exercises with deep breathing x 5 LAQs x 10 Chest expansion exercises with deep breathing x 5 Sit<>stand activity at edge of bed x 5 ASSESSMENT: Complained of increased abdominal distension and R lower quadrant subcutaneous fatty nodule being more palpable. Increased coughing bout duirng exertion during session. Increased activity tolerance. Lucidity on and off, responses off tangent 25% of the time. Short-term memory impairment evident. Plan of Care/Treatment Plan: 1x/day for 2 weeks. Patient will highly benefit from skilled physical therapy services including functional mobility training, bed mobility/transfer training, gait and balance training, therapeutic exercises, therapeutic activity, caregiver/staff/family education and training 1x/day, 7 days/week x 1 week. Plan of care has been reviewed with the ADJUNCT SOCIOLOGY PROFESSOR providing the service under Physical Therapy direction. Initiate Physical Therapy intervention for strengthening, bed mobility, transfers, gait, stairs, balance training, use of assistive device. DISCHARGE RECOMMENDATIONS: [] Home with no services [] [] Home with services [] Home with outpatient PT [] [] SNF for continued rehabilitation [] [] [facility] [] [] SNF versus LTC based on ability to participate and progress [] [X] PT vs short-term SNF based on progess towards goals TREATMENT CODE/TIME: 22386 x 40 minutes for 3 units, 54078 x 14 minutes for 1 unit (08:40?09:33).
--- NOTE | 2023-12-30 09:17 | PGE_ITS ---
Date of Service Date of service: 12/30/23 Time of Service: 09:17 Assessment and Plan Assessment and plan (1) Comfort measures only status: Status: Acute Assessment and plan: This PM at 17:00 became COPYRIGHT EXPERT as per HCA, orders in place (2) COVID: Status: Acute Assessment and plan: Now on RA X 2 days Continue remdesivir and decadron day 4 then stop (3) Hypoxia: Status: Acute Assessment and plan: Resolved As above (4) Cognitive impairment: Status: Acute Assessment and plan: Seems chronic as per previous provider noted, improved ammonia normal (5) Nicotine dependence: Status: Acute Assessment and plan: Continue Nicotine replacement therappy (6) jail current use of opiate analgesic: Status: Acute Assessment and plan: COPYRIGHT EXPERT (7) Diabetes: Status: Chronic Assessment and plan: COPYRIGHT EXPERT (8) Cardiomyopathy: Status: Acute Assessment and plan: Lasix 20 mg IVP BID for comfort Qualifiers: Cardiomyopathy type: unspecified Qualified Code(s): I42.9 - Cardiomyopathy, unspecified (9) HFrEF (heart failure with reduced ejection fraction): Status: Acute Assessment and plan: As above (10) VIKKI (acute kidney injury): Status: Acute Assessment and plan: COPYRIGHT EXPERT (11) Palliative care patient: Status: Acute Assessment and plan: Consult ordered and in progress Psych consult for capacity: Patient does not currently demonstrate decisional capacity for decisions regarding code status/goals of care Upon discussion with Tahira Ruiz palliative care CAGE MAKER MACHINE who confirmed through expert fro [place] ethics network: Health care agent can make decisions for the patient re: code status. COPYRIGHT EXPERT status as discussed with health care agent (12) Hyponatremia: Status: Acute Assessment and plan: COPYRIGHT EXPERT (13) Pain management: Status: Acute Assessment and plan: COPYRIGHT EXPERT (14) Discharge planning issues: Status: Acute Assessment and plan: Now COPYRIGHT EXPERT , considering hospice Discussed with Dr. Vargas Subjective Subjective Patient reports: still having pain, tolerating liquids well, tolerating a regular diet and voiding w/o difficulty; denies diarrhea, nausea, vomiting or shortness of breath Exam Narrative Exam Narrative: In bed w/o acute distress HENMT: Facial structures with normal appearance Neuro:alert and oriented X2 , digresses during conversation- improved . No focal deficit Resp:minimal right base velcro -like crackles, slightly diminished left base Cardio: regular rhythm, S1, S2, no murmur., bilateral radial and pedal pulse are positive, as per echo on 12/28 LVEF < 10% GI: Abdomen was slighlty bloated but improving - soft and non tender to palp, bowel sounds are present Extremities: strength 4/5 to bilateral lower and upper extremities, electrician yard 5/5 Psych: RASS 0, congruent mood and normal affect. Objective Last Vital Signs Temp 36.6 C 12/30/23 08:24 Pulse 76 12/30/23 08:24 Resp 18 12/30/23 08:24 BP 97/73 L 12/30/23 08:24 Pulse Ox 96 12/30/23 08:24 Laboratory Results - last 24 hr 12/29/23 12/30/23 12/30/23 18:35 05:45 05:45 WBC 9.86 RBC 4.27 Hgb 12.7 Hct 38.1 MCV 89 MCH 29.7 MCHC 33.3 RDW 16.5 H Plt Count 147 MPV 11.1 H Immature Gran % 0.5 Neutrophils % 79.4 Lymphocytes % 12.0 Monocytes % 7.8 Eosinophils % 0.1 Basophils % 0.2 Nucleated RBC % 0.0 Absolute Neutrophils 7.83 H Absolute Lymphocytes 1.18 L Absolute Monocytes 0.77 Absolute Eosinophils 0.01 Absolute Basophils 0.02 Sodium 136 Potassium 3.8 D Chloride 104 Carbon Dioxide 24.4 Anion Gap 7.6 BUN 53 H Creatinine 1.1 H Est GFR (CKD-EPI 2020) 55.76 Glucose 149 H Calcium 8.0 L Magnesium 2.2 Cancelled NT-Pro-B Natriuret Pep 94808 H Time Spent with Patient Time Spent with Patient: >50 minutes Time was spent: preparing to see the patient(eg.review tests), obtaining and/or reviewing separately otained hiistory, ordering medications,tests, procedures, referring, communicating with other health health care social worker, indepentently interpreting results, counseling the patient and care coordination
--- NOTE | 2023-12-30 09:39 | NUR.NOTE ---
Nursing Note: Assessment reviewed by this nurse
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
--- NOTE | 2023-12-30 16:42 | CMPROGNOTE_ITS ---
Date of service: 12/29/23 Time of Service: 16:42 Care Management Progress Note Progress Note Text Progress Note Text: CONRAD returned call from [facility] CONRAD Green-who inquired if Ama could discharge to SNF. CM provided education re: SNF discharge requirements. CM spoke with daughter Yuliet who stated COA CM and PCP CM encouraged her to seek SNF placement. She reviewed attempted to seek guardianship, but PCP was not willing to fill out required statements-so there would be a hearing scheduled in the future. CM provided patient education re: SNF placement requirements, LTC navigation, Emergency Guardianship and Hospice navigation including insurance limitations. Ama was evaluated by PT-recommendation is for HH PT. Ama was evaluated by Palliative, per assessment they feel Ama does not currently have capacity to make decisions. ZONING TECHNICIAN then ordered Tele-Psych for capacity determination re: goals of care. Psychiatrist agreed with Palliative assessment. Discharge Potential Discharge Needs: Consult Consult Services Needed: Palliative and PT Evaluation Anticipated Barriers to Discharge: Medical Status and Other Patient/Family Education Needs: Review discharge instructions, discuss Ask Me Three Transportation: Other (Dependent on disposition. ) Plan: Undetermined plan at this time, anticipate possible Hospice [id number], Ama continues to be evaluated-and will meet with Palliative again this evening. CM following. SDOH(Care Management) Screening Will the Patient Participate in the Screening?: Unable to obtain Social Determinants of Health Comments(SDOH Details): pt confused, unable to obtain answers
--- NOTE | 2023-12-30 16:53 | CMPROGNOTE_ITS ---
Date of service: 12/30/23 Time of Service: 16:53 Care Management Progress Note Progress Note Text Progress Note Text: Ama remains inpatient; CM discussed PT limitations in morning rounds-MACHINE ROOM OPERATOR reports Ama fell last night and could benefit from SNF. CM spoke with Palliative; anticipate Hospice placement will be reviewed with goals of care discussion with daughter, Kristy; awaiting goals of care discussion to inform discharge planning. Discharge Potential Discharge Needs: Consult (Tele-Psych) Consult Services Needed: Palliative and PT Evaluation Anticipated Barriers to Discharge: Medical Status and Other (Mentation, capacity) Patient/Family Education Needs: Other (SNF placement requirements, LTC navigation, Emergency Guardianship and Hospice navigation including insurance limitations.) Transportation: Other (Dependent on disposition. ) Plan: Undetermined plan at this time, anticipate possible Hospice [id number], Ama continues to be evaluated-and will meet with Palliative again this evening. CM following. SDOH(Care Management) Screening Will the Patient Participate in the Screening?: Unable to obtain Social Determinants of Health Comments(SDOH Details): pt confused, unable to obtain answers
[2023-12-30] MEDS: REMDESIVIR 100 MG in Normal Saline 250 ML 250 MG IVPB (17:14)
--- NOTE | 2023-12-30 17:21 | PCPN_ITS ---
Date of service: 12/30/23 Time of Service: 15:10 Assessment and Plan Assessment and plan (1) COVID: Status: Resolved (2) Hypoxia: Status: Resolved (3) Cognitive impairment: Status: Resolved Assessment and plan: Appears to be chronic cognitive impairment, daughter was seeking guardianship prior to this admission. ? worse in setting of covid/possible encephalopathy. (4) Nicotine dependence: Status: Acute (5) manager long term care current use of opiate analgesic: Status: Acute Assessment and plan: Hospitalist was initiating suboxone but with the transition to RECONSTRUCTIVE SURGEON, consider fentanyl patches with PRN hydromorphone for pain management. (6) Diabetes: Status: Chronic Assessment and plan: Consider liberalizing in the setting of transition to RECONSTRUCTIVE SURGEON. (7) Cardiomyopathy: Status: Acute Assessment and plan: LVEF < 10 % on this admission. Previous EFrEF LVEF 20-25% in 04/2023. She was seen in 06/[address] Albert, Paint Spray Tender. Her note states: Patient has a cardiomyopathy. We talked about whether or not to reschedule a stress test, which presumably is to exclude coronary disease as an etiology. The daughter and patient agree that the patient would not be interested in an invasive approach if the stress test were abnormal, specifically not wanting cardiac catheterization. Qualifiers: Cardiomyopathy type: unspecified Qualified Code(s): I42.9 - Cardiomyopathy, unspecified (8) HFrEF (heart failure with reduced ejection fraction): Status: Acute Assessment and plan: As above (9) Palliative care patient: Status: Acute (10) Goals of care, counseling/discussion: Status: Acute Assessment and plan: Meeting with her daughters, Marleny and Carmina. Her daughter, Marleny is her HCA. Carmina was working on getting guardianship prior to this admission. She has AD from 2016. There is also evidence in her chart that she previously stated that she would not want invasive care/treatment as noted in cardiology note from 6 months ago. She does not appear to have capacity to make medical decisions at this time. Psychiatric consult with same conclusion yesterday. Goals of care discussion with her daughters. Her daughters feel strongly that their mother would want to focus on comfort and quality of life. They would like to transition to comfort care. They do not feel she is safe to return to her apartment. They would like to pursue placement at SNF. CODE STATUS discussed. COLST completed, she is a DNR/DNI. Palliative will continue to follow. Her family is interested in hospice after discharge. Subjective Subjective Interval history since last seen: Since her visit yesterday, Ama was seen for Psychiatric consultation. During that visit, it was determined that she lacks capacity to make decisions re: CODE STATUS/GOALS OF CARE. She was unable to verbalized understanding of her current medical condition. This does not appear to be new but may potentially be worsened in the setting of acute illness with COVID and decreased cardiac function. Her daughters, Marleny and Carmina were present for the visit today. They verbalize that they have been concerned about her cognitive function and her ability to safely care for herself for months. They were in the process of trying to get guardianship for her due to safety concerns. Her daughters are clear that she has avoided aggressive care for most of her life and has not been particularly concerned about things like eating healthy. She has lived her life in a way that she wanted to and they would like her to be allowed to continue to live that way. She enjoys eating sweets like cupcakes and they would like her to be allowed to do that. She has AD from 2015 that indicate that she would want CPR/intubation, however, there has been a lot of change and decline since then. She has previously declined having invasive procedures including cardiac catheterization as documented in her Cardiology note from 06/2023. She did not follow up and told the hospitalist that she did not have a ride but this was not accurate, Marleny takes her to appointments. She often cancelled appointments. I spoke with Taylor Shepherd at [facility]- her daughter, Marleny, is named as her first health care agent on her AD from 2015. Her HCA has the authority to make health care decisions and the responsibility to make decisions that she feels are in line with her mother?s goals. Reviewed overall goals of care. Her daughters agree that she would not want aggressive care and that she would want comfort care. They understand that her heart function is very low and that she has been declining over time. They have been worried about her living in her apartment and about her ability to take c are of herself and remain safe. They feel that she needs to go to SNF. Code status reviewed. Her daughters believe she would not want to undergo a CODE if her heart stops and that she would not want to be on a ventilator. Her advanced directives were written in 2015 and her health has changed drastically since then. COLST form completed. Exam Narrative Exam Narrative: Ama was sitting on her bed with HOB elevated, does not appear to be in distress Objective Last Vital Signs Temp 36.9 C 12/30/23 15:41 Pulse 82 12/30/23 15:41 Resp 18 12/30/23 15:41 BP 103/59 L 12/30/23 15:41 Pulse Ox 92 12/30/23 15:41 Laboratory Results - last 24 hr 12/29/23 12/30/23 12/30/23 18:35 05:45 05:45 WBC 9.86 RBC 4.27 Hgb 12.7 Hct 38.1 MCV 89 MCH 29.7 MCHC 33.3 RDW 16.5 H Plt Count 147 MPV 11.1 H Immature Gran % 0.5 Neutrophils % 79.4 Lymphocytes % 12.0 Monocytes % 7.8 Eosinophils % 0.1 Basophils % 0.2 Nucleated RBC % 0.0 Absolute Neutrophils 7.83 H Absolute Lymphocytes 1.18 L Absolute Monocytes 0.77 Absolute Eosinophils 0.01 Absolute Basophils 0.02 Sodium 136 Potassium 3.8 D Chloride 104 Carbon Dioxide 24.4 Anion Gap 7.6 BUN 53 H Creatinine 1.1 H Est GFR (CKD-EPI 2020) 55.76 Glucose 149 H Calcium 8.0 L Magnesium 2.2 Cancelled NT-Pro-B Natriuret Pep 32289 H
[2023-12-30] MEDS: Scopolamine 1 MG/3 DAYS PATCH TD (18:12)
[2023-12-30] MEDS: Bisacodyl 10 MG SUPP PR (23:30)
--- NOTE | 2023-12-30 23:57 | NUR.NOTE ---
Nursing Note:2300 Earlier this evening patient complained of inability to have a bowel movement. So upon return to check on patient condition asked if she wanted her prn suppository for bowel movements. She affirmed that she wished that. I then proceeded to insert the suppository into the patient's vagina in error. I was unable to recover the medication and requested assistance from a female nurse. They also were unable to recover the medication. An additional suppository was placed properly for the patient.
[2023-12-31] MEDS: Furosemide 20 MG/2 ML VIAL IVP ×2 (08:05→15:38)
[2023-12-31] MEDS: Omeprazole 20 MG CAPCR PO (08:06)
[2023-12-31] MEDS: Magnesium Oxide 400 MG TAB PO (08:06)
[2023-12-31] MEDS: Dexamethasone 4 MG TAB 2 MG PO (08:06)
[2023-12-31] MEDS: Normal Saline Flush 10 ML SYR IVP ×2 (08:10→20:22)
[2023-12-31] MEDS: Tiotropium Bromide-Respimat 10 PUFF INH IH (08:43)
--- NOTE | 2023-12-31 09:17 | W.PM.PROGNOT ---
Date of Service Date of service: 12/31/23 Time of Service: 09:17 Assessment and Plan Assessment and plan (1) Comfort measures only status: Status: Acute Assessment and plan: This on 12/29 at 17:00 became ADMINISTRATIVE STAFF SUPERVISOR as per [facility], orders in place Hesitant to take pain meds d/t concerns for constipation - small BM on 12/29- encourage to take pain meds and bowel management meds for both abd pain; pain medicines will also assist in relieving SOB, headaches (2) COVID: Status: Acute Assessment and plan: on RA remdesivir and decadron completed (3) Hypoxia: Status: Acute Assessment and plan: Resolved As above (4) Cognitive impairment: Status: Acute Assessment and plan: Seems chronic as per previous provider noted, improved ammonia normal (5) Nicotine dependence: Status: Acute Assessment and plan: Continue Nicotine replacement therappy (6) senior care current use of opiate analgesic: Status: Acute Assessment and plan: ADMINISTRATIVE STAFF SUPERVISOR (7) Diabetes: Status: Chronic Assessment and plan: ADMINISTRATIVE STAFF SUPERVISOR (8) Cardiomyopathy: Status: Acute Assessment and plan: Lasix 20 mg IVP BID for comfort Qualifiers: Cardiomyopathy type: unspecified Qualified Code(s): I42.9 - Cardiomyopathy, unspecified (9) HFrEF (heart failure with reduced ejection fraction): Status: Acute Assessment and plan: As above (10) VIKKI (acute kidney injury): Status: Acute Assessment and plan: ADMINISTRATIVE STAFF SUPERVISOR (11) Palliative care patient: Status: Acute Assessment and plan: Consult ordered---ADMINISTRATIVE STAFF SUPERVISOR as off 12/29 Completed psych consult for capacity: Patient does not currently demonstrate decisional capacity for decisions regarding code status/goals of care As previously documented upon discussion with Tahira Ruiz palliative care AIRPLANE DESIGNER who confirmed through expert fro [place] ethics network: Health care agent can make decisions for the patient re: code status. ADMINISTRATIVE STAFF SUPERVISOR status as discussed with health care agent (12) Hyponatremia: Status: Acute Assessment and plan: ADMINISTRATIVE STAFF SUPERVISOR (13) Pain management: Status: Acute Assessment and plan: ADMINISTRATIVE STAFF SUPERVISOR (14) Discharge planning issues: Status: Acute Assessment and plan: Now ADMINISTRATIVE STAFF SUPERVISOR , considering hospice depending on the outcome during the weekend (15) Constipation: Status: Acute Assessment and plan: Bowel management medicines ordered Discussed with Dr. Vargas Subjective Subjective Patient reports: no new complaints, still having pain, tolerating liquids well, tolerating a regular diet, voiding w/o difficulty, no bowel movement and shortness of breath; denies diarrhea, nausea, vomiting, afebrile or fever Exam Narrative Exam Narrative: In bed w/o acute distress HENMT: Facial structures with normal appearance Neuro:alert and oriented X2. No focal deficit Resp:minimal right & left base velcro -like crackles, slightly diminished left base Cardio: regular rhythm, S1, S2, no murmur., bilateral radial and pedal pulse are positive, as per echo on 12/28 LVEF < 10% GI: Abdomen soft and non tender to palp but c/o cramps d/t constipation, bowel sounds are present Psych: RASS 0, congruent mood and normal affect. Objective Last Vital Signs Temp 36.9 C 12/30/23 15:41 Pulse 82 12/30/23 15:41 Resp 18 12/30/23 15:41 BP 103/59 L 12/30/23 15:41 Pulse Ox 97 12/30/23 17:32 Time Spent with Patient Time Spent with Patient: >50 minutes Time was spent: preparing to see the patient(eg.review tests), obtaining and/or reviewing separately otained hiistory, ordering medications,tests, procedures, referring, communicating with other health vocational childcare teacher, indepentently interpreting results, counseling the patient and care coordination
[2023-12-31] MEDS: HYDROmorphone 2 MG/ML SYR IVP ×2 (12:57→20:21)
[2023-12-31] MEDS: Docusate Sodium 100 MG CAP 200 MG PO (12:57)
[2024-01-01] MEDS: Haloperidol 5 MG/ML VIAL IM ×3 (02:11→23:47)
[2024-01-01] MEDS: HYDROmorphone 2 MG/ML SYR IVP ×4 (04:00→23:46)
[2024-01-01] MEDS: Normal Saline Flush 10 ML SYR IVP ×5 (04:01→20:39)
[2024-01-01] MEDS: Tiotropium Bromide-Respimat 10 PUFF INH IH (08:03)
[2024-01-01] MEDS: Furosemide 20 MG/2 ML VIAL IVP ×2 (11:46→17:07)
--- NOTE | 2024-01-01 16:25 | PGE_ITS ---
Date of Service Date of service: 01/01/24 Time of Service: 16:25 Assessment and Plan Assessment and plan (1) Comfort measures only status: Status: Acute Assessment and plan: This on 12/29 at 17:00 became LACE TEARING SUPERVISOR as per [facility], orders in place Hesitant to take pain meds d/t concerns for constipation - small BM on 12/29- encourage to take pain meds and bowel management meds for both abd pain; pain medicines will also assist in relieving SOB, headaches (2) COVID: Status: Acute Assessment and plan: on RA remdesivir and decadron completed (3) Hypoxia: Status: Resolved Assessment and plan: Resolved As above (4) Cognitive impairment: Status: Resolved Assessment and plan: Seems chronic as per previous provider noted, improved ammonia normal (5) Nicotine dependence: Status: Acute Assessment and plan: Continue Nicotine replacement therappy (6) adjunct faculty for medical terminology current use of opiate analgesic: Status: Acute Assessment and plan: LACE TEARING SUPERVISOR (7) Diabetes: Status: Chronic Assessment and plan: LACE TEARING SUPERVISOR (8) Cardiomyopathy: Status: Acute Assessment and plan: Lasix 20 mg IVP BID for comfort Qualifiers: Cardiomyopathy type: unspecified Qualified Code(s): I42.9 - Cardiomyopathy, unspecified (9) HFrEF (heart failure with reduced ejection fraction): Status: Acute Assessment and plan: As above (10) VIKKI (acute kidney injury): Status: Acute Assessment and plan: LACE TEARING SUPERVISOR (11) Palliative care patient: Status: Acute Assessment and plan: Consult ordered---LACE TEARING SUPERVISOR as off 12/29 Completed psych consult for capacity: Patient does not currently demonstrate decisional capacity for decisions regarding code status/goals of care As previously documented upon discussion with Tahira Ruiz palliative care PHOTOGRAPHIC PRESS SCREWMAKER who confirmed through expert from [place] ethics network: Health care agent can make decisions for the patient re: code status. LACE TEARING SUPERVISOR status as discussed with health care agent (12) Hyponatremia: Status: Acute Assessment and plan: LACE TEARING SUPERVISOR (13) Pain management: Status: Acute Assessment and plan: LACE TEARING SUPERVISOR (14) Discharge planning issues: Status: Acute Assessment and plan: Now LACE TEARING SUPERVISOR , considering hospice depending on the outcome during the weekend (15) Constipation: Status: Acute Assessment and plan: Bowel management medicines ordered Discussed with Dr. Vargas Subjective Subjective Patient reports: no new complaints Exam Narrative Exam Narrative: In bed w/o acute distress HENMT: Facial structures with normal appearance Neuro:alert and oriented X2. No focal deficit Resp: dimished lung sounds left base Cardio: regular rhythm, S1, S2, no murmur., bilateral radial and pedal pulse are positive, as per echo on 12/28 LVEF < 10% GI: Abdomen soft and non tender to palp but c/o cramps d/t constipation, bowel sounds are present Psych: Congruent mood and normal affect. Objective Last Vital Signs Temp 36.9 C 12/30/23 15:41 Pulse 82 12/30/23 15:41 Resp 18 12/30/23 15:41 BP 103/59 L 12/30/23 15:41 Pulse Ox 97 12/30/23 17:32 Time Spent with Patient Time Spent with Patient: 25-34 minutes Time was spent: preparing to see the patient(eg.review tests), ordering medications,tests, procedures, referring, communicating with other health respiratory care technician, indepentently interpreting results, counseling the patient and care coordination
[2024-01-02] MEDS: Tiotropium Bromide-Respimat 10 PUFF INH IH (08:13)
[2024-01-02] MEDS: Magnesium Oxide 400 MG TAB PO (08:16)
[2024-01-02] MEDS: Nicotine 21 MG/24 HR PATCH TD (08:16)
[2024-01-02] MEDS: HYDROmorphone 2 MG/ML SYR IVP ×3 (08:16→23:56)
[2024-01-02] MEDS: Furosemide 20 MG/2 ML VIAL IVP (08:16)
[2024-01-02] MEDS: Omeprazole 20 MG CAPCR PO (08:16)
[2024-01-02] MEDS: Normal Saline Flush 10 ML SYR IVP ×3 (08:17→23:57)
--- NOTE | 2024-01-02 09:19 | PDOC.CMPRO ---
Date of service: 01/02/24 Time of Service: 09:20 Care Management Progress Note Progress Note Text Progress Note Text: Ama remains on Covid precautions so CM was unable to visit in person. CM reached out to her daughter Marleny to discuss next steps. Per nursing, Ama is clearer today and is eating and drinking some. [facility] were sent last week before Ama transitioned to comfort care. As her does not seem imminent, transitioning to hospice or end of life care in a senior living facility is an option under discussion. Marleny informed CM that she would like for her mother to go to a SNF as a hospice patient if possible. Her preference would be [facility] or [facility]. As referrals had been sent to both facilities, CM reached out for follow up. [facility] needed the referral sent again with updated clinicals and the [facility] admission director was unavailable. CM will follow up again tomorrow. Discharge Potential Discharge Needs: Other (COAL DUMPING EQUIPMENT OPERATOR) Anticipated Barriers to Discharge: Bed availability and Medical Status Patient/Family Education Needs: Review discharge instructions, discuss Ask Me Three Transportation: Other (to be determined by disposition) Plan: Ama is currently on comfort measures. It has not been determined if she will remain at [facility] for end of life care or transition to a SNF on hospice. CM will follow and continue to support Ama and her family through this process. SDOH(Care Management) Screening Will the Patient Participate in the Screening?: Unable to obtain Social Determinants of Health Comments(SDOH Details): pt confused, unable to obtain answers
[2024-01-02] MEDS: QUEtiapine 25 MG TAB PO ×2 (10:13→21:14)
--- NOTE | 2024-01-02 10:41 | NUR.NOTE ---
Nursing Note: Assessment reviewed by this nurse
--- NOTE | 2024-01-02 12:48 | W.PM.PROGNOT ---
Date of Service Date of service: 01/02/24 Time of Service: 12:48 Assessment and Plan Assessment and plan (1) Comfort measures only status: Status: Acute Assessment and plan: Dilaudid prn Some pm agitation, seroquel started Many allergies (2) COVID: Status: Acute Assessment and plan: on RA remdesivir and decadron completed (3) Hypoxia: Status: Resolved Assessment and plan: Resolved As above (4) Cognitive impairment: Status: Resolved (5) Nicotine dependence: Status: Acute Assessment and plan: Continue Nicotine replacement therapy - scheduled - patient forgets to ask for it and she becomes agitated (6) custodial current use of opiate analgesic: Status: Acute Assessment and plan: MACHINE MAINTENANCE SUPERVISOR (7) Diabetes: Status: Chronic Assessment and plan: MACHINE MAINTENANCE SUPERVISOR (8) Cardiomyopathy: Status: Acute Assessment and plan: Furosemide 40 mg orally daily Qualifiers: Cardiomyopathy type: unspecified Qualified Code(s): I42.9 - Cardiomyopathy, unspecified (9) HFrEF (heart failure with reduced ejection fraction): Status: Acute Assessment and plan: As above (10) VIKKI (acute kidney injury): Status: Acute Assessment and plan: MACHINE MAINTENANCE SUPERVISOR (11) Hyponatremia: Status: Acute Assessment and plan: MACHINE MAINTENANCE SUPERVISOR (12) Pain management: Status: Acute Assessment and plan: MACHINE MAINTENANCE SUPERVISOR (13) Discharge planning issues: Status: Acute Assessment and plan: Now MACHINE MAINTENANCE SUPERVISOR , considering hospice or SNF (14) Constipation: Status: Acute Assessment and plan: Bowel management medicines ordered Discussed with Dr. Vargas Subjective Subjective Patient reports: no new complaints Interval history since last seen: Patient is eating, drinking fluids Exam Narrative Exam Narrative: In bed w/o acute distress HENMT: Facial structures with normal appearance Neuro:alert and oriented X2. No focal deficit Resp: dimished lung sounds left base Cardio: regular rhythm, S1, S2, no murmur., bilateral radial and pedal pulse are positive, as per echo on 12/28 LVEF < 10% GI: Abdomen soft and non tender to palp but c/o cramps d/t constipation, bowel sounds are present Psych: Congruent mood and normal affect. Objective Last Vital Signs Temp 36.9 C 12/30/23 15:41 Pulse 82 12/30/23 15:41 Resp 18 12/30/23 15:41 BP 103/59 L 12/30/23 15:41 Pulse Ox 97 12/30/23 17:32 Time Spent with Patient Time Spent with Patient: 35-49 minutes Time was spent: preparing to see the patient(eg.review tests), ordering medications,tests, procedures, referring, communicating with other health restorative care technician, indepentently interpreting results, counseling the patient and care coordination
--- NOTE | 2024-01-02 12:48 | NUR.NOTE ---
Nursing Note: Esters And Emulsifiers Supervisor talked to daughter Ra, who states pt didnt have any reactions to benzos, or most of her meds. mom just did not want to take them so she kept telling the doctors she had allergies to them ra also stated that Pt was on Klonipin for years and recently had Valium this spring prior to a scan and had no reactions to it. Pts daughter Madhuri also feels that her mom would do fine on a prescribed benzo to help with anxiety.
[2024-01-02 16:18] VITALS: O2SAT 96
[2024-01-02] MEDS: Scopolamine 1 MG/3 DAYS PATCH TD (17:07)
[2024-01-03] MEDS: QUEtiapine 50 MG TAB PO (02:11)
[2024-01-03] MEDS: HYDROmorphone 2 MG/ML SYR IVP (02:12)
[2024-01-03] MEDS: Tiotropium Bromide-Respimat 10 PUFF INH IH (08:13)
[2024-01-03] MEDS: Nicotine 21 MG/24 HR PATCH TD (09:45)
[2024-01-03] MEDS: QUEtiapine 25 MG TAB PO ×2 (09:45→20:14)
[2024-01-03] MEDS: Magnesium Oxide 400 MG TAB PO (09:45)
[2024-01-03] MEDS: Omeprazole 20 MG CAPCR PO (09:45)
[2024-01-03] MEDS: Normal Saline Flush 10 ML SYR IVP ×2 (09:46→20:13)
[2024-01-03 09:51] VITALS: BP 108/55; PULSE 61; RESP 14; TEMP 36.7; O2SAT 94
--- NOTE | 2024-01-03 10:13 | CMPROGNOTE_ITS ---
Date of service: 01/03/24 Time of Service: 10:14 Care Management Progress Note Progress Note Text Progress Note Text: Ama remains inpatient, placement coordination continues. CM following. Discharge Potential Discharge Needs: Consult Consult Services Needed: Palliative Plan: Ama remains on comfort care status. Marleny maintains that she would like for her mother to go to a SNF as a hospice patient if possible. Her preference would be [place] or [facility].Referrals pending; [id number], CM following. Anticipate EMS transport. SDOH(Care Management) Screening Will the Patient Participate in the Screening?: Unable to obtain Social Determinants of Health Comments(SDOH Details): pt confused, unable to obtain answers
--- NOTE | 2024-01-03 14:39 | PGE_ITS ---
Date of Service Date of service: 01/03/24 Time of Service: 14:39 Assessment and Plan Assessment and plan (1) Comfort measures only status: Status: Acute Assessment and plan: Start fentanyl patch 12 mcg q 72h Dilaudid prn for pain not relieved by fentanyl patch - change IV to PO meds Some pm agitation, seroquel improved agitation, increased last night. Many allergies (2) COVID: Status: Resolved Assessment and plan: on RA remdesivir and decadron completed (3) Hypoxia: Status: Resolved Assessment and plan: Resolved As above (4) Cognitive impairment: Status: Resolved (5) Nicotine dependence: Status: Acute Assessment and plan: Continue Nicotine replacement therapy - scheduled - patient forgets to ask for it and she becomes agitated (6) skilled nursing current use of opiate analgesic: Status: Acute Assessment and plan: COST RECORDER (7) Diabetes: Status: Chronic Assessment and plan: COST RECORDER (8) Cardiomyopathy: Status: Acute Assessment and plan: Furosemide 40 mg orally daily Qualifiers: Cardiomyopathy type: unspecified Qualified Code(s): I42.9 - Cardiomyopathy, unspecified (9) HFrEF (heart failure with reduced ejection fraction): Status: Acute Assessment and plan: As above (10) VIKKI (acute kidney injury): Status: Acute Assessment and plan: COST RECORDER (11) Hyponatremia: Status: Acute Assessment and plan: COST RECORDER (12) Pain management: Status: Acute Assessment and plan: COST RECORDER (13) Discharge planning issues: Status: Acute Assessment and plan: Now COST RECORDER , considering hospice or SNF PT ordered to determine level (14) Constipation: Status: Acute Assessment and plan: Bowel management medicines ordered Discussed with Dr. Gamboa Subjective Subjective Patient reports: no new complaints, tolerating liquids well, tolerating a regular diet, voiding w/o difficulty, bowel movement and afebrile; denies diarrhea or vomiting Interval history since last seen: States she had some agitation yesterday but is feeling calm today. She states she has no new issues or concerns. Continues to want COST RECORDER status and DNR/DNI. Exam Narrative Exam Narrative: In bed w/o acute distress HENMT: Facial structures with normal appearance Neuro:alert and oriented X2. No focal deficit Resp: dimished lung sounds left base Cardio: regular rhythm, S1, S2, no murmur., bilateral radial and pedal pulse are positive, as per echo on 12/28 LVEF < 10% GI: Abdomen soft and non tender to palp but c/o cramps d/t constipation, bowel sounds are present Psych: Congruent mood and normal affect. Objective Last Vital Signs Temp 36.7 C 01/03/24 09:51 Pulse 61 01/03/24 09:51 Resp 14 01/03/24 09:51 BP 108/55 L 01/03/24 09:51 Pulse Ox 94 01/03/24 09:51 Time Spent with Patient Time Spent with Patient: 25-34 minutes Time was spent: preparing to see the patient(eg.review tests), ordering medications,tests, procedures, referring, communicating with other health critical care unit nurse, indepentently interpreting results, counseling the patient and care coordination
--- NOTE | 2024-01-03 14:53 | W.PALPGNOTE ---
Date of service: 01/03/24 Time of Service: 13:32 Assessment and Plan Assessment and plan (1) COVID: Status: Resolved Assessment and plan: Her clinical situation is improving. Overall patient seems to be doing better and getting back to her baseline. She is very much awake and responsive. Although she is oriented to the year and the season fall , her answers to other questions, especially questions involving her medical situation and health, are highly tangential and off topic. Therefore it appears she still does not have capacity to make medical decisions. #Cognitive changes: Looking back on my interactions over the past 9 months with this patient, I believe a lot of her previous memory concerns had a significant aspect of anxiety. Her mental status changes that I witnessed as an outpatient a few weeks ago had more of a psychiatric flavor with some mild psychosis (delusions, some paranoia, difficulty with attention). What may have transpired in the hospital was more a COVID encephalopathy which appears to be improving. Jessica is still concerned that she is confused, and doesn't remember her #Goals of Care: Given her clinical improvement, she does not appear to be imminently dying. Jessica was hoping ideally hoped that she could be admitted to hospice and then move in to a nice SNF facility to be cared for. Marleny really thinks she should remain comfort measures/hospice level. Pt does not have capacity to participate in this decision. Jessica is worried that Ed will convince her to leave SNF (or wherever) and go back to apartment. Jessica says that Ed was refusing to let [facility] in to meet with Ama. Jessica notes that Ed seems to try to isolate her. Marleny made report to APS early November and no response yet from them. Plan: Marleny and CM will continue to work on placement. Marleny would consider a small amount of IV fluids if she was dehydrated from a stomach bug or a trial of oral abx if Ama had a bronchits. Jessica thinks Ama would want to be on comfort measures. Madhuri feels very strongly about this and a is sure that Ama does not want her dying prolonged. So if she was to be transferred to SNF, she does not think her mom would want to come back to the hospital. #Agitation: So far tolerating twice daily dose of quetiapine. -Suggest discontinuing Lorenz catheter, so she can be more comfortable and free to move around her room. -I suspect that ultimately she will be best with a a lower dose of quetiapine at 25 mg in the evening and an additional 25 mg if needed for agitation. #Opioid use disorder/chronic pain: Still quite the conundrum. Patient reportedly on methadone over 100 mg for over 20 years for opiate use disorder. She did not get any methadone for the previous 6 weeks from [facility]. She did not exhibit any withdrawal. Unclear if she did not have withdrawal or if actually there was some diversion going on. Had UDS positive for buprenorphine (not prescribed) at PCP office a few weeks ago. Looks like she was not started on buprenorphine by PCP. I asked her straight out today if she was getting anything from friends to replace the methadone during the time that and was in the hospital and she did not go to the methadone clinic. Her answer was tangential and off topic. Her answer also was that she was having terrible pain and it was not being treated. Suggest the following: -Switch as needed pain medicine to oral now that she is no longer on comfort measures: Trial of hydromorphone 1-2 milligram orally every 4 hours as needed. -Could consider fentanyl patch 12 mcg change every 3 days. Usually we do not start this on an opioid na?ve patients. But she is not really an opioid na?ve patient. Would monitor very carefully for sedation. #Cardiac: After discussion with Marleny, she would want mom as comfortable as possible with dyspnea managed. Recommend resuming Entresto and diuretics as needed. Can stop entressto if patient requests. Using Morphine elixir as needed for SOB. No ICU admission and no transfer to tertiary hospital Palliative Care will continue to follow. (2) Palliative care patient: Status: Acute (3) HFrEF (heart failure with reduced ejection fraction): Status: Acute (4) Diabetes: Status: Chronic (5) Advanced care planning/counseling discussion: Status: Acute (6) History of opioid abuse: Status: Acute (7) Delirium: Status: Acute Subjective Subjective Interval history since last seen: Ama Spann is a 62-year-old woman from [facility] who has medical issues including severe cardiomyopathy EF 20-25%), type 2 diabetes, active smoking, chronic pain from neuropathy and arthritis, stable on longstanding methadone maintenance for distant history of opioid abuse, and mild cognitive impairment . Palliative care has been meeting with her and her daughter Jolanta since May 2023 to facilitate decision-making around further evaluation and treatment of cardiomyopathy, goals of care and advance care planning. At my last outpatient visit with her about 2 weeks ago, I was concerned that there was a psychiatric process going on. Although she was oriented to month, date and year, she and her thoughts were tangential, she exhibited paranoia and multiple times and seem to also be delusional. It had more a psychiatric flavor than the dementia flavor to it. Patient was admitted about a week ago with hypoxia and change in mental status due to COVID infection. 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 However over the last 2 days she is rallied and is more awake, more talkative and eating. Seen twice during this admission by Tahira Ruiz. Today I met with patient in her isolation room. Also phone call with daughter Jessica. Care Team: Primary Care physician: Minda Velasco MD Cardiology: Dr. Albert June 2023 OUD: [facility], Malena Lombardi NP Social HX: Ama and Ed moved to [facility] about 2 months ago. Lives with boyfriend Jd Perez Patient reports that she switches apartments very often. Frequently bothered by noise or unpleasant neighbors. Current apartment not handicapped assessable, needs to take a flight of stairs (very difficult). 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 Does not answer if she had any additional jobs Impression of currents health status: Not so good, doing better. What bothers you the most: Abd distension and pain. What worries you the most: Abd distension and pain. Goals: Patient: AT last outpt visit, pt Wanted to be able to take care of herself and To live independently. Today says she is going to have to live somewhere else and is ready to go there, wherever it is. Palliative Performance Scale % Ambulation Activity and Evidence of Disease Self Care Intake Level of Consciousness 100 Full Normal activity, no evidence of disease Full Normal Full 90 Full Normal activity, some evidence of disease Full Normal Full 80 Full Normal activity with effort, some evidence of disease Full Normal or reduced Full 70 Reduced Unable to do normal work, some evidence of disease Full Normal or reduced Full 60 Reduced Unable to do hobby or some housework, significant disease Occasional assist necessary Normal or reduced Full or confusion 50 Mainly sit/lie Unable to do any work, extensive disease Considerable assistance required Normal or reduced Full or confusion 40 Mainly in bed Unable to do any work, extensive disease Mainly assistance Normal or reduced Full, drowsy, or confusion 30 Totally bed bound Unable to do any work, extensive disease Total care Reduced Full, drowsy, or confusion 20 Totally bed bound Unable to do any work, extensive disease Total care Minimal sips Full, drowsy, or confusion 10 Totally bed bound Unable to do any work, extensive disease Total care Mouth care only Drowsy or coma 0 - - - - Patient Score: 50 Advanced Care Planning: Advanced Directive: None Health Care Agent: Primary HCA is daughter Marleny. See scanned in form on file COLST: 12/29/23 COLST: DNI/DNR/MACHINE CLOTHING REPLACER Limitations: Objective Last Vital Signs Temp 36.7 C 01/03/24 09:51 Pulse 61 01/03/24 09:51 Resp 14 01/03/24 09:51 BP 108/55 L 01/03/24 09:51 Pulse Ox 94 01/03/24 09:51
--- NOTE | 2024-01-03 15:25 | PT.INIE ---
PT Notes Visit Reasons: Covid, hypoxic respiratory failure Physical Therapy Initial Evaluation Date: 01/03/2024 Referring Doctor: Enedina Pitts NP PT Orders: PT CONSULT: SNF placement Precautions: AIRBORNE PRECAUTIONS in place for COVID-19. Activity as tolerated, EF 20-25% as of last echo. Patient Profile/Admitting Diagnosis: Comofort measures lifted up as of today. Re-evaluation completed for patient to determine safest discharge destination. Patient is a 63-year-old female on methadone maintenance admitted with diagnoses of COVID-19 infection, hypoxia, cognitive impairment nicotine dependence, long-term use of opiates, diabetes and cardiomyopathy. 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 Current dose 114 mg/day. Many years. Memory loss (Acute) Cardiomyopathy (Acute) Ejection fraction 20-25% 04/27 ECHO Advanced care planning/counseling discussion (Acute) Palliative care encounter (Acute) Atrophy of vagina (Acute 04/10/13) Cystocele (Acute 04/10/13) Uterine prolapse (Acute 06/05/13) Medical History Venous stasis ulcers Memory loss Anxiety Smoker Heroin abuse Herpes, genital Lung nodule Thickened endometrium History of syncope Cirrhosis COPD (chronic obstructive pulmonary disease) Low back pain HSV (herpes simplex virus) infection Skin lesion Fatigue Kidney cyst, acquired Cervicalgia Rectal bleed Chronic hepatitis C without hepatic coma Chronic pain Controlled diabetes mellitus type II without complication Urinary bladder incontinence Edema Vascular disease of the skin Diarrhea Abdominal bloating Myalgia Chest pain Uterine fibroid Social History/Home Situation: Resides in a residential living aparment with elevator access and an alternate 3-4 steps to enter the building. Independent with all mobility ADLs without an assistive device. Equipment Owned/DME: None Subjective: Complained of discomfort on her sit bone. requested a seat cushion from nursing staff, placed cushion on chair and removed crinkly sheet from under patient. Objective: General Observation: Resting on chair. Cachectic. B legs skin discolored. L posterior elbow swollen. Abdomen distended. Mental Status: Oriented as to place. Lucidity in and out throughout session. Pain: None reported ROM: Right Upper Extremity: Shoulder Flexion WFL. Shoulder abduction WFL. Elbow flexion WFL. Wrist flexion WFL. Functional opening and closing of hand WFL. Left Upper Extremity: Shoulder Flexion WFL. Shoulder abduction WFL. Elbow flexion WFL. Wrist flexion WFL. Functional opening and closing of hand WFL. Right Lower Extremity: Hip flexion WFL. Hip abduction WFL. Knee flexion WFL. Ankle dorsiflexion WFL. Ankle plantarflexion WFL. Left Lower Extremity: Hip flexion WFL. Hip abduction WFL. Knee flexion WFL. Ankle dorsiflexion WFL. Ankle plantarflexion WFL. Strength: Right Upper Extremity: Shoulder flexors 4-/5. Shoulder abductors 4-/5. Elbow flexors 4-/5. Elbow extensors 4-/5. Supervisor [employer] strong. Left Upper Extremity: Shoulder flexors 4-/5. Shoulder abductors 4-/5. Elbow flexors 4-/5. Elbow extensors 4-/5. Supervisor [employer] strong. Right Lower Extremity: Hip flexors 4-/5. Hip abductors 4-/5. Knee flexors 4-/5. Knee extensors 4-/5. Ankle dorsiflexors 4-/5. Ankle plantarflexors 4-/5. Left Lower Extremity: Hip flexors 4-/5. Hip abductors 4-/5. Knee flexors 4-/5. Knee extensors 4-/5. Ankle dorsiflexors 4-/5. Ankle plantarflexors 4-/5. Sensation: Intact light touch and pain in B LE Bed Mobility/Transfers: Moderate cueing provided for use of B hands as needed for support, movement sequence, AD management, and posture to reduce fall risk and minimize pain report Supine to sit contact guard assist Sit to stand contact guard assist Stand to sit contact guard assist Bed to chair contact guard assist Gait: 40 feet + 40 feet with front-wheeled walker with contact guard assist. Minimal path deviation. Increased trunk flexion. Impaired directional change ability. Balance: Static Sitting: Normal Dynamic Sitting: Normal Static Standing: Fair Dynamic Standing: Fair Special Tests: Mobility Limitations Standardized Measure [facility]-PAC 6 clicks Basic Mobility Inpatient Short Form: Raw Score: 22 CMS Score: 21% disability Informed Consent/Education: Patient instructed in purpose of PT consult and plan of care. Agreeable to proceed with established PT POC to achieve personal goals. ASSESSMENT: Lucidity on and off, responses off tangent 25% of the time. Short-term memory impairment evident. Patient presents with clinical signs and symptoms consistent with current/admitting diagnoses that have resulted to mobility limitations, gait instability, generalized weakness, and overall ADL decline as demonstrated by the following impairment level findings: 1. Decreased strength to B UE/LE major muscle groups 2. Impaired sitting/standing balance 3. Impaired activity tolerance Impairments are contributing to the following functional limitations: 1. Difficulty with ambulation without assistive device and physical assistance 2. Increased completion time for mobility ADL performance 3. Increased risk for falls 4. Difficulty with managing steps alone safely Patient is assessed as a 63619 moderate complexity based on the following: History: 63-year-old female with past medical history as indicated above Examination: Demonstrable impairment in strength, balance, and mobility level with underlying impairments and functional limitations as exhibited above as well as deficit score of 29% utilizing the [facility] Mobility Inpatient Short Form Presentation: Evolving Decision Makin moderate complexity Plan of Care/Treatment Plan: 1x/day for 2 weeks. Patient will highly benefit from skilled physical therapy services including functional mobility training, bed mobility/transfer training, gait and balance training, therapeutic exercises, therapeutic activity, caregiver/staff/family education and training 1x/day, 7 days/week x 1 week. Plan of care has been reviewed with the RISK CONTROL CONSULTANT providing the service under Physical Therapy direction. Initiate Physical Therapy intervention for strengthening, bed mobility, transfers, gait, stairs, balance training, use of assistive device. DISCHARGE RECOMMENDATIONS: [] Home with no services [] [] Home with services. Patient will benefit from home health PT services in order to progress mobility level using least restrictive assistive ambulatory device, assess home safety, identify additional equipment needs, and establish a functional maintenance program that will increase ability of patient to remain at home. [] Home with outpatient PT [] [X] SNF for continued rehabilitation. Patient will benefit from home health PT services in order to progress mobility level using least restrictive assistive ambulatory device, assess home safety, identify additional equipment needs, and establish a functional maintenance program that will increase ability of patient to remain at home. [] [facility] [] [] SNF versus LTC based on ability to participate and progress [] TREATMENT CODE/TIME: 00630 x 28 minutes for 1 unit (15:25?15:53). Thank you for the opportunity to participate in the care of this patient. Marta Blank PT, DPT, CLT [facility] [place], [place]
[2024-01-03] MEDS: fentaNYL 12 MCG PATCH TD (16:26)
[2024-01-03 16:29] VITALS: BP 95/55; PULSE 88; RESP 16; TEMP 37.1; O2SAT 97
[2024-01-03] MEDS: Sacubitril/Valsartan 24 mg/26 mg TAB 0.5 EACH PO (20:14)
[2024-01-03] MEDS: HYDROmorphone 2 MG TAB PO (23:05)
[2024-01-04] MEDS: QUEtiapine 50 MG TAB PO (01:32)
[2024-01-04] MEDS: HYDROmorphone 2 MG TAB PO ×2 (03:38→18:42)
[2024-01-04] MEDS: Tiotropium Bromide-Respimat 10 PUFF INH IH (07:48)
[2024-01-04] MEDS: Omeprazole 20 MG CAPCR PO (08:00)
[2024-01-04] MEDS: Magnesium Oxide 400 MG TAB PO (08:00)
[2024-01-04] MEDS: QUEtiapine 25 MG TAB PO ×2 (08:00→19:33)
[2024-01-04] MEDS: Nicotine 21 MG/24 HR PATCH TD (08:01)
[2024-01-04] MEDS: Sacubitril/Valsartan 24 mg/26 mg TAB 0.5 EACH PO ×2 (08:01→19:33)
[2024-01-04] MEDS: Normal Saline Flush 10 ML SYR IVP ×2 (08:03→19:33)
[2024-01-04 08:14] VITALS: BP 114/76; PULSE 60; RESP 18; TEMP 36.6; O2SAT 96
[2024-01-04] MEDS: Calcium Carbonate *TUMS* 500 MG CHEW 1000 MG PO (12:54)
--- NOTE | 2024-01-04 14:17 | PTTR_ITS ---
PT Notes Visit Reasons: Covid, hypoxic respiratory failure Inpatient Physical Therapy Treatment Note [facility] Date: 01-04-2024 PRECAUTIONS: Airborne precautions, contact SUBJECTIVE: Patient reporting her stomach is upset and difficulty having bowel movement. She is requesting to go outside and is worried about getting her items from her current apartment. OBJECTIVE: Patient supine in bed watching television when approached. Patient with intermittent clarity of speech likely related to lack of dentation.? PAIN: Abdominal discomfort/cramping Therapeutic Activities (33890): Direct one-on-one instruction in dynamic activities to improve functional performance. ?? Provided skilled cues and instruction on performance and technique throughout. ? BED MOBILITY/TRANSFERS? Supine-sit: supervision without bed rails with cues to roll to side and push up to sit ?Transfers: CGA with cues for hand placement to push up from surface prior to standing and to reach back for surface prior to sitting. Patient requires cues to stay with FWW during surface to surface transfers. Her tendency is to leave the walker off to the side then furniture walk to the neck surface.? Ambulation: Ambulate with FWW CGA with verbal cues for upright trunk and turning to keep body within frame of walker 4 laps in room as patient is on isolation precautions. ? Dynamic stand tasks with 1 upper extremity support performing reaching lifting within base of support including down to the floor with verbal cues and contact- guard for safe technique. ? Therapeutic Exercises (37307): Direct one-on-one instruction in therapeutic exercises to develop strength, endurance, range of motion and flexibility. ? Exercises ? Seated: BLE and BUE x 10 reps the following exercises: LAQ, marching, heel raises, toe raises , bicep curls, shoulder flexion, sit to stand? Provided skilled instruction in proper exercise performance Provided skilled manual cues to facilitate proper muscle recruitment and/or form: [] ASSESSMENT: Patient able to perform without demonstrating coughing. She required seated rest after functional mobility. Patient demonstrated ability to perform toileting hygiene with supervision without loss of balance. Patient remains limited by impaired functional activity tolerance, fatigue, generalized weakness bilateral lower extremities trunk and upper extremities. PLAN: Continued skilled PT for strengthening, balance, transfers and ambulation until medically appropriate for discharge TREATMENT CODE/TIME: 41598d 25 mins for 2 units ,18977 x 13 mins for 1 unit DISCHARGE RECOMMENDATION: SNF
--- NOTE | 2024-01-04 14:53 | W.PM.PROGNOT ---
Date of Service Date of service: 01/04/24 Time of Service: 14:53 Assessment and Plan Assessment and plan (1) Comfort measures only status: Status: Acute Assessment and plan: Continue fentanyl patch 12 mcg q 72h Dilaudid prn for pain not relieved by fentanyl patch - PO meds and fentanyl patch are doing a good job at keeping her pain down. Only two oral doses overnight Continue seroquel for agitation, increased dose is working well. 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 (8) Diabetes: Status: Chronic Assessment and plan: 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 (9) Cardiomyopathy: Status: Acute Assessment and plan: Furosemide 40 mg orally daily Qualifiers: Cardiomyopathy type: unspecified Qualified Code(s): I42.9 - Cardiomyopathy, unspecified (10) HFrEF (heart failure with reduced ejection fraction): Status: Acute Assessment and plan: As above (11) VIKKI (acute kidney injury): Status: Acute Assessment and plan: 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 (12) Hyponatremia: Status: Acute Assessment and plan: 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 Recommends SNF v PT Discussed with Dr. Gamboa Subjective Subjective Patient reports: no new complaints, tolerating a regular diet, voiding w/o difficulty, bowel movement and afebrile; denies diarrhea, nausea, vomiting or shortness of breath Interval history since last seen: Doing great without the mcguire, voiding without troubles, BM today - nl, Denies pain. Denies anxiety Exam Narrative Exam Narrative: In bed w/o acute distress HENMT: Facial structures with normal appearance Neuro:alert and oriented X2. No focal deficit, sleepy Resp: dimished lung sounds left base Cardio: regular rhythm, S1, S2, no murmur, bilateral radial and pedal pulse are positive, as per echo on 12/28 LVEF < 10% GI: Abdomen soft and non tender to palp, bowel sounds are present Psych: Congruent mood and normal affect. Objective Last Vital Signs Temp 36.6 C 01/04/24 08:14 Pulse 60 01/04/24 08:14 Resp 18 01/04/24 08:14 BP 114/76 01/04/24 08:14 Pulse Ox 96 01/04/24 08:14 Time Spent with Patient Time Spent with Patient: 35-49 minutes Time was spent: preparing to see the patient(eg.review tests), ordering medications,tests, procedures, referring, communicating with other health field care coordinator, indepentently interpreting results, counseling the patient and care coordination
--- NOTE | 2024-01-04 16:29 | CMPROGNOTE_ITS ---
Date of service: 01/04/24 Time of Service: 16:29 Care Management Progress Note Progress Note Text Progress Note Text: Ama remains on Covid precautions so CM unable to visit in person. CM did speak to her daughter Carmina who informed CM that she now has guardianship and will fax the paperwork to CM. Ama has a Fentanyl patch and prn doses of hydromorphone for pain control and it has been effective. Per staff, she is a little bit clearer mentally but is still not able to make medical decisions. Referrals have been sent to [facility] and [facility] and [facility] for possible hospice/end of life care. [facility] declined to offer a bed and [facility] has not provided a determination. The [facility] referral needed to be sent again yesterday as they stated their fax machine is broken and they did not receive the original referral. CM asked Carmina for additional facilities to send referrals to but she was reluctant to provide any other options. She informed CM that she had been told that if Ama went elsewhere that [facility] Palliative Care/Hospice team would not be able to continue to see her. Discharge Plan: Ama's discharge plan remains unclear. Referrals were sent to [facility] and [facility]. Neither has made a bed offer. CM discussed other options with her daughter Carmina [place] is now her guardian. She did not have any other options to offer. She did state that neithrer she nor her sister are able to provide care for her at home and that placement in a facility would have to be found. CM will continue to follow. SDOH(Care Management) Screening Will the Patient Participate in the Screening?: Unable to obtain Social Determinants of Health Comments(SDOH Details): pt confused, unable to obtain answers
[2024-01-05] MEDS: Normal Saline Flush 10 ML SYR IVP ×3 (02:20→19:51)
[2024-01-05] MEDS: HYDROmorphone 2 MG TAB PO ×3 (02:21→22:16)
--- NOTE | 2024-01-05 06:48 | W.PM.PROGNOT ---
Date of Service Date of service: 01/05/24 Time of Service: 11:45 Assessment and Plan Assessment and plan (1) Comfort measures only status: Status: Acute Assessment and plan: Continue fentanyl patch increased to 25 mcg q 72h Dilaudid prn for pain not relieved by fentanyl patch - 4 oral doses overnight On Seroquel for agitation Palliative care had a long conversation with Ama's daughter - she remains GUN PERFORATOR LOADER; Ama does not have capacity to make decisions. (2) COVID: Status: Resolved Assessment and plan: on RA remdesivir and decadron completed Precaution to be off 01/05 (3) Constipation: Status: Acute Assessment and plan: Colace TID No BM X2 days- previously needed a suppository (4) Hypoxia: Status: Resolved Assessment and plan: Resolved On RA (5) Cognitive impairment: Status: Resolved Assessment and plan: Resolved Psych consult done: please read notes (6) Nicotine dependence: Status: Acute Assessment and plan: On Nicotine replacement therapy (7) senior care current use of opiate analgesic: Status: Acute Assessment and plan: GUN PERFORATOR LOADER (8) Diabetes: Status: Chronic Assessment and plan: GUN PERFORATOR LOADER (9) Cardiomyopathy: Status: Acute Assessment and plan: Continue Furosemide 40 mg orally daily Qualifiers: Cardiomyopathy type: unspecified Qualified Code(s): I42.9 - Cardiomyopathy, unspecified (10) HFrEF (heart failure with reduced ejection fraction): Status: Acute Assessment and plan: As above Entresto resume as per family and palliative care request on 01/03 (11) VIKKI (acute kidney injury): Status: Acute Assessment and plan: GUN PERFORATOR LOADER (12) Hyponatremia: Status: Acute Assessment and plan: GUN PERFORATOR LOADER (13) Pain management: Status: Acute Assessment and plan: GUN PERFORATOR LOADER (14) Discharge planning issues: Status: Acute Assessment and plan: Ongoing GUN PERFORATOR LOADER , considering hospice or SNF- accepted to the [facility] PT ordered - Patient will highly benefit from skilled physical therapy services including functional mobility training, bed mobility/transfer training, gait and balance training, therapeutic exercises, therapeutic activity, caregiver/staff/family education and training 1x/day, 7 days/week x 1 week. Recommends SNF v PT Discussed with Dr. Gamboa Subjective Subjective Patient reports: feels better, still having pain, tolerating liquids well, tolerating a regular diet, voiding w/o difficulty, flatus, no bowel movement and afebrile; denies diarrhea, nausea, vomiting or shortness of breath Exam Narrative Exam Narrative: In bed w/o acute distress HENMT: Facial structures with normal appearance Neuro:alert and oriented X2. No focal deficit Resp: unlabored, slightly diminished left base Cardio: regular rhythm, S1, S2, no murmur., bilateral radial and pedal pulse are positive GI: Abdomen soft and non tender bowel sounds are present Psych: RASS 0, congruent mood and normal affect. Objective Last Vital Signs Temp 36.6 C 01/04/24 08:14 Pulse 60 01/04/24 08:14 Resp 18 01/04/24 08:14 BP 114/76 01/04/24 08:14 Pulse Ox 96 01/04/24 08:14 Time Spent with Patient Time Spent with Patient: >50 minutes Time was spent: preparing to see the patient(eg.review tests), obtaining and/or reviewing separately otained hiistory, ordering medications,tests, procedures, referring, communicating with other health customer care agent, indepentently interpreting results, counseling the patient and care coordination
[2024-01-05] MEDS: Tiotropium Bromide-Respimat 10 PUFF INH IH (08:24)
[2024-01-05] MEDS: Omeprazole 20 MG CAPCR PO (08:42)
[2024-01-05] MEDS: Magnesium Oxide 400 MG TAB PO (08:42)
[2024-01-05] MEDS: Sacubitril/Valsartan 24 mg/26 mg TAB 0.5 EACH PO ×2 (08:42→19:50)
[2024-01-05] MEDS: Nicotine 21 MG/24 HR PATCH TD (08:43)
[2024-01-05] MEDS: QUEtiapine 25 MG TAB PO ×2 (08:43→19:51)
[2024-01-05 08:50] VITALS: BP 106/80; PULSE 50; RESP 15; TEMP 36.8; O2SAT 96
--- NOTE | 2024-01-05 11:35 | PT.INTREAT ---
PT Notes Visit Reasons: Covid, hypoxic respiratory failure Inpatient Physical Therapy Treatment Note [facility] Date: 01-05-2024 PRECAUTIONS: Airborne precautions, contact SUBJECTIVE: Patient reports she is feeling better but her hip (right) and the area of her wound are sore. OBJECTIVE: Pt sitting in chair talking on phone as PT entered room. Pt agreeable to participate in PT session today. ? PAIN: right hip and wound sore ( pt unable to use scale even with visual scale /faces) Therapeutic Activities (50705): Direct one-on-one instruction in dynamic activities to improve functional performance. ?? Provided skilled cues and instruction on performance and technique throughout. ? BED MOBILITY/TRANSFERS? Supine-sit- supine: independent? Transfers: independent sit to from stand . Ambulation? . Pt ambulates length of room x 6 with FWW (from window to door and back x 6) indepndently after instruction to stay with the walker.? ?Pt perform multiple loops in room with furniture walking and intermittent use of FWW. ? Therapeutic Exercises (76790): Direct one-on-one instruction in therapeutic exercises to develop strength, endurance, range of motion and flexibility. ? Exercises ? Seated: BLE and BUE x 10 reps the following exercises: LAQ, marching, heel raises, toe raises , bicep curls, shoulder flexion, sit to stand? Added hip figure four stretch x 20 sec x2 reps ? Stand:BLE 2 sets 5 reps heel raises, alternating hip flexion/marching, side stepping along window R/L 10 stps ? Provided skilled instruction in proper exercise performance ASSESSMENT: Without device, pt furniture walking within room .She intermittently will use the FWW independently to walk to the bathroom door then leaves the FWW outside the bathroom to again furniture walk to the toilet. Pt is not likely to utilize FWW within home d/t poor insight into unsafe situations. Will continue with functional mobility with and without device to facilitate hip and ankle strategies , strength to reduce risk for falls during functional tasks. When instructed she is able to take the FWW with her to the toilet however she turns and attempts to walk backward which increases her risk for falls. Pt demonstrates significant improvement in stability as compared to last session. Pt also with increased clarity of vocalization. Anticipate pt will be off airborne precautions in one day. PLAN: Continued skilled PT for strengthening, balance, transfers and ambulation until medically appropriate for discharge TREATMENT CODE/TIME: 89019u 17 mins for 1 units ,83240 x 13 mins for 1 unit/ [id number] DISCHARGE RECOMMENDATION: SNF
--- NOTE | 2024-01-05 11:55 | PDOC.CMPRO ---
Date of service: 01/05/24 Time of Service: 11:55 Care Management Progress Note Progress Note Text Progress Note Text: Ama remains on Covid precautions, likely for one more day. She is alert and oriented today per her nurse and is able to engage in conversation. Clinically Ama is doing better. She has been able to work with PT and is ambulating in the room with her walker. PT is recommending SNF for short term rehab. CM contacted [facility] to see if they have any bed availability; a referral had been sent there earlier. CM spoke to Yareli, Cruise Director at the [facility]. She had been under the impression Ama was on methadone but Ama stopped taking it more than 6 moths ago. After reviewing the updated information, they were able to offer a bed for tomorrow. Discharge Potential Discharge Needs: Other (SNF) Anticipated Barriers to Discharge: Bed availability Patient/Family Education Needs: Review discharge instructions, discuss Ask Me Three Transportation: Other (to be determined by disposition) Plan: Referrals were sent to several SNFs seeking hospice and/or end-of-life care for Ama. The 2 preferred facilities declined to offer a bed ([facility] and [facility] and [facility]). CM followed up with a phone call to [facility] today with updated information.Ama's condition has stabilized and she is now working with PT and qualifies for skilled short term rehab. Additionally her daughter Yuliet informed CM this morning that a remote computer terminal operator Medicaid application had been submitted in November. With the updated information, [facility] was able to make a bed offer for tomorrow. CM will follow and continue to support discharge needs. SDOH(Care Management) Screening Will the Patient Participate in the Screening?: Unable to obtain Social Determinants of Health Comments(SDOH Details): pt confused, unable to obtain answers
[2024-01-05] MEDS: fentaNYL 25 MCG PATCH TD (14:47)
[2024-01-05] MEDS: Fentanyl Patch Removal 1 EACH TP (14:49)
--- NOTE | 2024-01-05 15:22 | W.PALPGNOTE ---
Date of service: 01/05/24 Time of Service: 15:22 Subjective Subjective Interval history since last seen: I spoke with Ama's daughter/HCA, Marleny. She called the office with questions about her mother's care. Dr. Foy saw Ama 2 days ago. They reviewed goals of care again. They reviewed COLST topics that were discussed during the visit last week- a COLST was completed last week. Dr. Foy pointed out that she appeared to be improving. Her daughter understands that she will have ups and downs but that her overall condition and goals of care qualify her for hospice. Reviewed her ECHO- shows LVEF 10%. Dr. Foy still did not feel she had capacity to make medical decisions when she visited her. Ama has been accepted at the [facility], her daughters continue to feel [facility]/Hospice is appropriate for her and align with her goals. She qualifies for hospice if they decide to enroll while at SNF. Palliative will continue to follow. Objective Last Vital Signs Temp 36.8 C 01/05/24 08:50 Pulse 50 L 01/05/24 08:50 Resp 15 01/05/24 08:50 BP 106/80 01/05/24 08:50 Pulse Ox 96 01/05/24 08:50
[2024-01-05] MEDS: Docusate Sodium 100 MG CAP PO (19:51)
[2024-01-05] MEDS: QUEtiapine 50 MG TAB PO (23:51)
[2024-01-06] MEDS: Tiotropium Bromide-Respimat 10 PUFF INH IH (07:55)
--- NOTE | 2024-01-06 09:56 | W.PM.DS.N ---
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: Status: Acute (8) Diabetes: Status: Chronic (9) Cardiomyopathy: Status: Acute (10) HFrEF (heart failure with reduced ejection fraction): Status: Acute (11) VIKKI (acute kidney injury): Status: Acute (12) Hyponatremia: Status: Acute (13) Pain management: Status: Acute (14) Discharge planning issues: Status: Acute Discharge Plan Disposition Patient Disposition: Alf Facility(SNF) Condition: Stable Discharge Details Reason For Visit: Covid, hypoxic respiratory failure Admit Date/Time: 12/27/23 17:07 Admit Provider: Sly Barrow Attending Provider: Sly Barrow Primary Care Provider: Minda Vealsco V Hospital Course Hospital Course: This 63 years old female patient with past medical history of diabetes, ongoing tobacco abuse, chronic pain from neuropathy and arthritis, distant history of opioid abuse with ongoing methadone use, mild cognitive impairment diagnosed with severe cardiomyopathy with an EF of 2024% recently presented to the emergency room at [facility] for evaluation of increased fatigue, nausea and low energy levels. The emergency room workup was significant for positive COVID test, negative head CT, slight leukocytosis at 11.49, creatinine of 1.2 with a baseline around 1.0, BUN of 41. The ED provider reported saturation in oxygen dropping into the 88-89 on ambulation on room air but responding well to oxygen supplementation at 2 L via nasal cannula. The hospitalist was consulted and the patient admitted to the medical surgical floor for evaluation and management of COVID infection, nausea and hypoxic respiratory failure. Decadron IV was administered and the ED provider initiated a bolus dose of remdesivir. During the stay,the treatment for COVID was completed. An echocardiogram was completed showing an LVEF of less than 10% from 20-25% in 04/2023. The patient was [facility] in [facility] [place] as per cardiology recommendation but then declined transfer. Cardiology recommendation remained to diurese patient with furosemide. A palliative care consult for goal of care determination was completed as well a a psychiatric consult for capacity which determined that the patient had no capacity to make decisions. Upon discussion with family and Tahira Ruiz palliative care ASSISTANT PROFESSOR OF RELIGION, the decision was made by daughter/ POA to make the patient a comfort care measure only. The patient will be discharge to the [facility] today on hospice. The patient pain has been managed with fentanyl 25 mcg patch Q72 which appears effective and PRN oral hydromorphone for breakthrough pain. Discussed with Dr. Gamboa [place] Meds and New Rx's Prescriptions: New quetiapine 25 mg Tablet 25 mg PO BID Qty: 30 0RF quetiapine 50 mg Tablet 50 mg PO HS PRNQty: 30 0RF nicotine 21 mg/24 hr Patch 24 Hour 21 mg transdermal DAILY Qty: 28 0RF hyoscyamine sulfate [Anaspaz] 0.125 mg Tablet,Disintegrating 0.125 mg sublingual Q4H PRN PRNQty: 20 0RF hydromorphone 2 mg Tablet 2 mg PO Q4H PRN PRNQty: 7 0RF docusate sodium [Colace] 100 mg Capsule 100 mg PO TID Qty: 90 0RF fentanyl 25 mcg/hr Patch 72 Hour 25 mcg transdermal Q72H Qty: 5 0RF Continued Entresto 24-26 mg tablet 0.5 tab PO BID omeprazole 20 mg capsule,delayed release(DR/EC) 20 mg PO DAILY Spiriva Respimat 1.25 mcg/actuation mist 1 puff inhalation DAILY furosemide 40 mg tablet 40 mg PO QAM Patient Comments: TAKE ONE TABLET BY MOUTH EVERY MORNING Discontinued insulin glargine [Lantus Solostar U-100 Insulin] 100 unit/mL (3 mL) insulin pen 25 unit SC HS magnesium oxide 400 MG tablet 400 mg PO DAILY insulin aspart U-100 [Novolog FlexPen U-100 Insulin] 100 unit/mL (3 mL) insulin pen 1 unit subcut TID Rx Instructions: Per Sliding Scale, Up to 10u per meal dapagliflozin propanediol [Farxiga] 10 mg tablet 10 mg PO DAILY Patient Comments: TAKE ONE TABLET BY MOUTH EVERY DAY spironolactone 25 mg tablet 25 mg PO DAILY Discharge Instructions Instructions: COVID-19 ED Additional Instructions: Please follow with your primary care physician. Return to the emergency department for any worsening symptoms Activity:: Activity as Tolerated Equipment/Supplies:: Walker Diet:: As Tolerated Discharge Orders Discharge Orders: Discharge Order (Routine); Ordered 01/06/24 Ordered By: Naomi Garcia DS: Summary Time Spent with Patient providing and/or coordinating discharge services: Greater than 30 minutes Status at Discharge Functional status at discharge: uses cane/walker Overall status at discharge: patient is progressing back to baseline Mental Status: mental status grossly normal Speech and Movement: speech and movement normal Mood: congruent mood Affect: normal affect Quality:SDOH Health Related Social Needs: No Data to Display Exam Narrative Exam Narrative: In bed w/o acute distress HENMT: Facial structures with normal appearance Neuro:alert and oriented X2. No focal deficit Resp: unlabored, slightly diminished left base Cardio: regular rhythm, S1, S2, no murmur., bilateral radial and pedal pulse are positive GI: Abdomen soft and non tender bowel sounds are present Psych: RASS 0, congruent mood and normal affect. Psych Mental Status: mental status grossly normal Speech and Movement: speech and movement normal Mood: congruent mood Affect: normal affect DS: Data Vitals/I&O Vitals and I&O: Vital Signs Temperature 36.8 C 01/05/24 08:50 Temperature Source Temporal Artery Scan 01/05/24 08:50 Pulse 50 L 01/05/24 08:50 Respiratory Rate 15 01/05/24 08:50 Respiratory Effort Normal 12/27/23 18:14 Respiratory Depth Shallow 12/27/23 18:14 Respiratory Pattern Normal 12/27/23 18:14 Blood Pressure 106/80 01/05/24 08:50 Blood Pressure Mean 92 12/27/23 17:46 Blood Pressure Position Sitting 12/27/23 12:46 Pulse Oximetry 96 01/05/24 08:50 Oxygen Delivery Method Room Air 01/05/24 08:50 Oxygen Flow Rate 0 01/05/24 08:50 Pain Level 8 01/05/24 22:21 Comment MAP is 86, pt PARRA 12/30/23 06:31 Intake & Output 01/05/24 01/05/24 01/06/24 11:59 23:59 11:59 Intake Total 230 / 240 10 / 240 Output Total 200 / 200 Balance 30 / 40 40 Intake: IV Oral 220 / 220 Output: Urine 200 / 200 Other: Urine Color Yellow Pale Urine Appearance Clear Clear Urine Odor Normal Normal Comment per patient it was normal voids in toilet x4 this shift patient was dry Stool Size Smear Voiding Methods Toilet Toilet PFSH All Active Problems (Updated 01/04/24 @ 00:08 by DARIUSZ JERRY) Chronic pain (Chronic) Delirium (Acute) History of opioid abuse (Acute) On methadone through [facility] until mid November 2023 Constipation (Acute) Comfort measures only status (Acute) Discharge planning issues (Acute) Goals of care, counseling/discussion (Acute) Hyponatremia (Acute) Pain management (Acute) Palliative care patient (Acute) VIKKI (acute kidney injury) (Acute) HFrEF (heart failure with reduced ejection fraction) (Acute) Diabetes (Chronic) Nicotine dependence (Acute) PTSD (post-traumatic stress disorder) (Acute) prison current use of opiate analgesic (Acute) History of CAD (coronary artery disease) (Acute) GERD (gastroesophageal reflux disease) (Chronic) Adjustment disorder (Chronic) Congestive heart failure (Chronic) Mild cognitive impairment with memory loss (Acute) Methadone maintenance therapy patient (Acute) [facility]. Current dose 114 mg/day. Many years. Memory loss (Acute) Cardiomyopathy (Acute) Ejection fraction 20-25% 04/27 ECHO Advanced care planning/counseling discussion (Acute) Palliative care encounter (Acute) Atrophy of vagina (Acute 04/10/13) Cystocele (Acute 04/10/13) Uterine prolapse (Acute 06/05/13) Medical History Venous stasis ulcers Memory loss Anxiety Smoker Heroin abuse Herpes, genital Lung nodule Thickened endometrium History of syncope Cirrhosis COPD (chronic obstructive pulmonary disease) Low back pain HSV (herpes simplex virus) infection Skin lesion Fatigue Kidney cyst, acquired Cervicalgia Rectal bleed Chronic hepatitis C without hepatic coma Chronic pain Controlled diabetes mellitus type II without complication Urinary bladder incontinence Edema Vascular disease of the skin Diarrhea Abdominal bloating Myalgia Chest pain Uterine fibroid Social History Smoking/Tobacco Use Status: Current every day Smoking risk assessment performed?: Yes Alcohol Intake: never Drug use: Never Substance use type: does not use Housing: assisted living facility Do you feel safe at home: Yes Do you feel safe in your relationship?: Yes Time Spent with Patient Time Spent with Patient: 70-84 minutes4 Time was spent: preparing to see the patient(eg.review tests), obtaining and/or reviewing separately otained hiistory, ordering medications,tests, procedures, referring, communicating with other health customer care representative, indepentently interpreting results, counseling the patient and care coordination
[2024-01-06] MEDS: Sacubitril/Valsartan 24 mg/26 mg TAB 0.5 EACH PO (10:01)
[2024-01-06] MEDS: Omeprazole 20 MG CAPCR PO (10:02)
[2024-01-06] MEDS: QUEtiapine 25 MG TAB PO (10:02)
[2024-01-06] MEDS: Nicotine 21 MG/24 HR PATCH TD (10:03)
[2024-01-06] MEDS: Docusate Sodium 100 MG CAP PO (10:03)
[2024-01-06] MEDS: Magnesium Oxide 400 MG TAB PO (10:03)
--- NOTE | 2024-01-06 13:14 | CMDISCH_ITS ---
Date of service: 01/06/24 Time of Service: 13:14 LACE Index Scoring Tool Questions: Length of Stay (in days): 7 - 13 Was the patient admitted via the E.D.?: Yes Comorbidities: Diabetes w/o Complication, Congestive Heart Failure and Liver or Renal Disease E.D. Visits: 4 Answers: Total Score: 17 Risk of Readmission: High Risk Care Management Discharge Plan Reason for Hospitalization: Covid Discharge Plan: Ama will be transferred to [facility] for short term rehab. She will follow up with the facility providers and plan of cars and transport with her daughter. Patient/Family Education Needs: Review discharge instructions, limitations, follow-up plan, discuss Ask Me Three Services Needed at Discharge: Senior Living Facility SDOH Health Related Social Needs: No Data to Display
--- NOTE | 2024-01-06 14:58 | NUR.NOTE ---
Nursing Note: assessment reviewed by this nurse
== END 2024-01-06 12:57 | disposition skilled nursing facility (03) | DRG 177 ==
LOC: ER 16:36 → MS 17:58
PROVIDERS: Nurse Practitioner Acute Care; Admitting Provider Family Medicine; Emergency Provider Emergency Medicine; PCP Family Medicine; Visit Provider Family Medicine
DX: U07.1 COVID-19 (principal); I50.23 Acute on chronic systolic (congestive) heart failure; J96.01 Acute respiratory failure with hypoxia; I42.9 Cardiomyopathy, unspecified; N17.9 Acute kidney failure, unspecified; E87.1 Hypo-osmolality and hyponatremia; Z51.5 Encounter for palliative care; Z79.4 Long term (current) use of insulin; Z79.891 Long term (current) use of opiate analgesic; J44.9 Chronic obstructive pulmonary disease, unspecified; F17.210 Nicotine dependence, cigarettes, uncomplicated; E11.40 Type 2 diabetes mellitus with diabetic neuropathy, unspecified; G31.84 Mild cognitive impairment of uncertain or unknown etiology; F11.11 Opioid abuse, in remission; I87.2 Venous insufficiency (chronic) (peripheral); F43.10 Post-traumatic stress disorder, unspecified; I25.10 Atherosclerotic heart disease of native coronary artery without angina pectoris; K21.9 Gastro-esophageal reflux disease without esophagitis; F43.20 Adjustment disorder, unspecified; K59.00 Constipation, unspecified; Z66 Do not resuscitate
CPT/HCPCS: 00123; 36415; 36416; 80048; 80053; 82962; 83690; 87637; 93005; 94640; 96361; 96365; 96375; 97110; 97162; 97530; 99285; J1650; 70450; 71046; 81003; 81015; 82140; 83735; 83880; 85025; 93010; 93306; 94664; 94760; 99223; 99231; 99232; 99233; 99239; J0248; J1100; J1170; J1171; J1630; J1815; J1941; J2405; J3490; J7613; J8540